=== PATIENT | male | born 1945 | race Caucasian/White ===

== ENCOUNTER 2024-01-31 10:25 | Observation (INO) | payer MEDICARE, SELFPAY ==
[2024-01-31] VITALS (12 sets, daily range): BP systolic 107–125; BP diastolic 60–76; PULSE 67–96; RESP 13–22; TEMP 34.6–36.5; O2SAT 98–100; BMI 21.7
--- NOTE | 2024-01-31 10:36 | ED.GENADULT ---
HPI - General Adult General Chief complaint: Shortness of Breath/Dyspnea Stated complaint: Swollen legs ,sore throat Time Seen by Provider: 01/31/24 10:35 History of Present Illness HPI narrative: 78-year-old gentleman was [facility] independently [facility] has been losing quite a bit of weight and friend went to check on him was concerned with the overall dramatic decline in health and took him to [facility]. He was admitted from January 10 to and review of information sent home with the patient on discharge suggests heart failure, concern for some type of cancer assess whether that is head or neck or prostate is unclear. He was discharged home on stool softeners only. He was supposed to establish care with a primary care physician, ENT, Cardiology and Oncology. He has seen a primary care physician. On January 18 he did see an ENT physician who did a nasopharyngeal scope and did not see any polyps or abnormalities. In the meantime, the patient has been living with his friend has been eating a bit more weight has stabilized slightly and he is brought in today because his friend is worried that he has increasing lower extremity edema. His hoarseness seems to be getting progressively worse. The patient himself seems unconcerned with any of these findings in his not complaining of pain beyond minor scratchiness causing the hoarseness in his throat. He denies recent fevers, cough, chills, abdominal pain, nausea, vomiting, headaches since his discharge from [facility]. No orthopnea, dyspnea, palpitations or overt chest pain. He has not particularly concerned by the increasing bilateral lower extremity edema Related Data Home Medications Medication Instructions Recorded Confirmed polyethylene glycol 3350 17 gram 17 g PO DAILY 01/31/24 01/31/24 oral powder packet (Miralax) sennosides 8.6 mg tablet (senna) 8.6 mg PO DAILY 01/31/24 01/31/24 Allergies Allergy/AdvReac Type Severity Reaction Status Date / Time No Known Drug Allergies Allergy Unverified 01/31/24 09:53 Review of Systems Review of Systems Narrative: Pertinent positive and negative findings as per HPI Patient History Medical History (Updated 01/31/24 @ 12:09 by Lavonne Narayan MD) Protein malnutrition Congestive heart failure Social History Smoking Status: Former smoker Exam Initial Vital Signs Initial Vital Signs: Vital Signs Temperature 97.7 F 01/31/24 10:40 Pulse Rate 79 01/31/24 10:40 Respiratory Rate 18 01/31/24 10:40 Blood Pressure 115/67 01/31/24 10:40 Pulse Oximetry 98 01/31/24 10:40 Oxygen Delivery Method Room Air 01/31/24 10:40 General: Chronically ill, cachectic, hoarse voice able to supplement history and cooperative with exam HEENT: Dry mucous membranes, normal sclera with reactive pupils, Neck: + JVD, no obvious adenopathy or masses palpable Respiratory: Lungs with full and symmetrical movement bibasilar crackles, no rhonchi Cardiac: Regular rate and rhythm no murmurs no bruits Abdomen: Scaphoid, Soft, nontender, no flank pain Skin: Quite thin, bruises in various stages of healing Neurologic: Globally weak but otherwise Grossly neurologically intact with no obvious asymmetries or abnormalities Extremities: No trauma, 2 to 3+ bilateral lower extremity edema without chronic venous stasis changes, no skin breakdown or cellulitis Psych: Cooperative, appropriate insight and affect Course Orders Ordered: ED Orders 01/31/24 10:55 XR chest 1V Stat Urinalysis and Microscopic Stat 01/31/24 10:56 EKG-12 Lead Stat 01/31/24 11:17 Complete Blood Count AUTO DIFF Stat Comprehensive Metabolic Panel Stat Lipase Stat NT-proBNP (BNP-Adult 18+) Stat Troponin I Stat Sodium Chloride (Sodium Chloride 0.9% Flush) 10 ml IV BID JOSE Sodium Chloride (Sodium Chloride 0.9% Flush) 10 ml IV PRN PRN PRN Reason: Flush Discontinued Medications Furosemide (Furosemide 40 Mg/4 Ml Vial) 40 mg IV NOW ONE Stop: 01/31/24 10:57 Last Admin: 01/31/24 11:23 Dose: 40 mg Documented By: SPF Vital Signs Vital signs: Vital Signs - 8 hr 01/31/24 10:40 Temperature 97.7 F Pulse Rate 79 Respiratory Rate 18 Blood Pressure 115/67 Pulse Oximetry 98 Oxygen Delivery Method Room Air Medical Decision Making Lab Data 01/31/24 11:17 01/31/24 11:17 Labs: Lab Results 01/31/24 Range/Units 11:17 WBC 3.7 L (4.5-11.0) X10^3/uL RBC 3.17 L (4.5-5.9) X10^6/uL Hgb 10.7 L (13.5-17.5) g/dL Hct 31.6 L (41-53) % MCV 99.6 (80-100) fL MCH 33.8 (26-34) PG MCHC 34.0 (30-36) % RDW 14.9 H (11.6-14.8) % Plt Count 179 (150-400) X10^3/uL Neut % (Auto) 69.6 (50-75) % Lymph % (Auto) 18.5 L (25-40) % [place] % (Auto) 8.4 (3-14) % Eos % (Auto) 2.6 (2-4) % Baso % (Auto) 0.9 (0-2) % Neut # (Auto) 2600 (3997-7674) /uL Lymph # (Auto) 700 L (5365-9161) /uL [place] # (Auto) 300 (0-900) /uL Eos # (Auto) 100 (0-450) /uL Baso # (Auto) 0 (0-100) /uL Sodium 131 L (137-145) mmol/L Potassium 4.3 (3.4-5.1) mmol/L Chloride 97 L (98-107) mmol/L Carbon Dioxide 28 (22-32) mmol/L BUN 24 H (9-20) mg/dL Creatinine 1.45 H (0.66-1.25) mg/dL Estimated GFR 49 L (>60) mL/min BUN/Creatinine Ratio 16.6 (6-22) Glucose 92 (80-110) mg/dL Calcium 10.3 H (8.4-10.2) mg/dL Total Bilirubin 0.8 (0.2-1.3) mg/dL AST 31 (17-59) IU/L ALT 18 (<50) IU/L Alkaline Phosphatase 133 H (38-126) U/L Troponin I 0.075 H (0.01-0.034) ng/mL NT-Pro-B Natriuret Pep 70453 H (<450) pg/mL Total Protein 7.7 (6.3-8.2) g/dL Albumin 3.9 (3.5-5.0) g/dL Globulin 3.8 (1.7-4.1) g/dL Albumin/Globulin Ratio 1.0 (1.0-2.8) Lipase 90 (23-300) U/L MDM Narrative Medical decision making narrative: CC: Lower extremity edema Complicating co-morbidities: Sounds like he has had minimal medical care until he was admitted to [facility] earlier this month. Records have been requested. Data collected from: patient, friend with whom he is living Social determinants of health that may influence the patients condition: Patient is rather in different to overall care, currently has a good friend who was concerned and is taking care of him has moved him into his home is making sure he is eating and getting to medical appointments Medical records reviewed: Patient discharge notes from [facility] are reviewed. Medical discharge summary has been requested. Multiple attempts have been made to continue get discharge summary from [facility]. Differential considered: Acute congestive heart failure, renal failure, liver failure, metastatic disease, Exam documented above, pertinent findings include: Frail, cachectic, lower extremity edema, hoarse voice Lab Test results independently reviewed as above. Pertinent findings: CBC shows mild anemia at 10.7 and 31.6. White count is slightly low at 3.7. Platelets are appropriate at 179 Chemistries show creatinine slightly elevated at 1.4, BUN minimally elevated at 24 ProBNP is significantly elevated at greater than 13,000 Troponin minimally elevated at 0.075 likely secondary to the significant heart failure and decreased renal function rather than NSTEMI but we will need to be trended Independently reviewed EKG: Sinus rhythm with first-degree block. No acute ischemic changes Imaging studies independently reviewed: Chest x-ray with mild cardiomegaly, increased vascularization, bilateral pleural effusions Treatments: IV Lasix is given in the emergency department Discussion: 78-year-old gentleman with multiple recently diagnosed issues including congestive heart failure. Presents today with worsening lower extremity edema clinical signs and symptoms consistent with congestive heart failure with JVD, crackles, lower extremity edema, chest x-ray suggestive of volume overload. He is given Lasix in the emergency department. He has a slightly elevated troponin that I suspect is secondary to his congestive heart failure and slightly decreased renal function. At this point I think he is going to benefit from inpatient treatment for his congestive heart failure. We are still trying to obtain records from [facility] which will be quite important for his hospitalization as it also includes a recent echocardiogram. There has been discussion of weight loss and concern for neoplasm and workup for that still needs to be reviewed. We will talk with our hospitalist physician Discharge Plan Departure Patient Disposition: Admitted As Inpatient Clinical Impression: Acute exacerbation of CHF (congestive heart failure) Qualifiers: Heart failure type: unspecified Qualified Code(s): I50.9 - Heart failure, unspecified
--- NOTE | 2024-01-31 10:55 | DI.RAD.S_ITS ---
PROCEDURE: XR CHEST 1V INDICATIONS: dyspnea TECHNIQUE: One view of the chest was acquired. COMPARISON: None. FINDINGS: Surgical changes and devices: None. Lungs and pleura: Mildly prominent interstitium. Bibasilar opacities. Wpal-xy-umnrowti bilateral effusions. Mediastinum: Borderline heart size Bones and chest wall: Degenerative changes. IMPRESSION: Mild diffuse lung disease and bibasilar opacities, possibly infectious/inflammatory versus edema. Gxsi-[id number]-[id number] effusions are present. Consider future imaging surveillance to assess for resolution. Dictated by: Teo Calabrese M.D. on 01/31/2024 at 11:26 Approved by: Teo Calabrese M.D. on 01/31/2024 at 11:26
[2024-01-31] MEDS: FUROSEMIDE 40 MG/4 ML VIAL IV (11:23)
[2024-01-31 11:28] LABS: Add Manual Diff / Slide Review NO; Basophils Absolute Auto 0 /uL (0-100); Basophils Percent Auto 0.9 % (0-2); Eosinophils Absolute Auto 100 /uL (0-450); Eosinophils Percent Auto 2.6 % (2-4); Hematocrit 31.6 % (41-53); Hemoglobin 10.7 g/dL (13.5-17.5); Lymphocytes Absolute Auto 700 /uL (1100-4500); Lymphocytes Percent Auto 18.5 % (25-40); Mean Corpuscular Hemoglobin 33.8 PG (26-34); Mean Corpuscular Volume 99.6 fL (80-100); Monocytes Absolute Auto 300 /uL (0-900); Monocytes Percent Auto 8.4 % (3-14); Neutrophils Absolute Auto 2600 /uL (1500-7000); Neutrophils Percent Auto 69.6 % (50-75); Platelet Count 179 X10^3/uL (150-400); Red Blood Cell Count 3.17 X10^6/uL (4.5-5.9); Red Cell Distribution Width 14.9 % (11.6-14.8); White Blood Cell Count 3.7 X10^3/uL (4.5-11.0)
[2024-01-31 11:39] LABS: Alanine Aminotransferase 18 IU/L (<50); Albumin 3.9 g/dL (3.5-5.0); Alkaline Phosphatase 133 U/L (38-126); Aspartate Aminotransferase 31 IU/L (17-59); BUN Creatinine Ratio 16.6 (6-22); Bilirubin Total 0.8 mg/dL (0.2-1.3); Blood Urea Nitrogen 24 mg/dL (9-20); Calcium 10.3 mg/dL (8.4-10.2); Carbon Dioxide 28 mmol/L (22-32); Chloride 97 mmol/L (98-107); Estimated Glomerular Filt Rate 49 mL/min (>60); Globulin 3.8 g/dL (1.7-4.1); Glucose 92 mg/dL (80-110); HEMOLYSIS < 15 (0-50); Lipase 90 U/L (23-300); Potassium 4.3 mmol/L (3.4-5.1); Sodium 131 mmol/L (137-145); Total Protein 7.7 g/dL (6.3-8.2)
[2024-01-31 11:51] LABS: NT-proBNP (BNP-Adult 18+) 13300 pg/mL (<450); Troponin I 0.075 ng/mL (0.01-0.034)
[2024-01-31 12:21] LABS: Appearance Urine UA CLEAR; Bilirubin Urine UA NEGATIVE (NEGATIVE); Color Urine UA YELLOW; Glucose Urine UA NEGATIVE (Negative); Ketones Urine UA NEGATIVE (NEGATIVE); Leukocyte Esterase Urine UA NEGATIVE (NEGATIVE); Nitrite Urine UA NEGATIVE (Negative); Occult Blood Urine UA TRACE-INTACT (Negative); Protein Urine UA 1+ (Negative); Urobilinogen Urine UA 0.2 E.U./dL (0.2); pH Urine UA 6.5 (4.5-8.0)
[2024-01-31 12:22] LABS: Urine Volume 10mL (spun)
[2024-01-31 12:24] LABS: Bacteria Urine None Seen; Culture Indicated Urine Cult Not Indicated; RBC Urine None Seen (0-5/HPF); Squamous Epithelial Cell Urine 0-1 /HPF (0-5/HPF); WBC Urine None Seen (0-5/HPF)
[2024-01-31] MEDS: FUROSEMIDE 80 MG in SODIUM CHLORIDE 0.9% 50 ML 116 MG IV (13:20)
--- NOTE | 2024-01-31 13:55 | PM.HP.1 ---
History of Present Illness History of Present Illness Date Patient Seen: 01/31/24 Chief complaint: Swollen legs ,sore throat Narrative: From ED Physician: 78-year-old gentleman was living independently in [facility] has been losing quite a bit of weight and friend went to check on him was concerned with the overall dramatic decline in health and took him to [facility]. He was admitted from January 10 to and review of information sent home with the patient on discharge suggests heart failure, concern for some type of cancer assess whether that is head or neck or prostate is unclear. He was discharged home on stool softeners only. He was supposed to establish care with a primary care physician, ENT, Cardiology and Oncology. He has seen a primary care physician. On January 18 he did see an ENT physician who did a nasopharyngeal scope and did not see any polyps or abnormalities. In the meantime, the patient has been living with his friend has been eating a bit more weight has stabilized slightly and he is brought in today because his friend is worried that he has increasing lower extremity edema. His hoarseness seems to be getting progressively worse. The patient himself seems unconcerned with any of these findings in his not complaining of pain beyond minor scratchiness causing the hoarseness in his throat. He denies recent fevers, cough, chills, abdominal pain, nausea, vomiting, headaches since his discharge from [facility]. No orthopnea, dyspnea, palpitations or overt chest pain. He has not particularly concerned by the increasing bilateral lower extremity edema Additional history: He recently moved from [place] up to [place] to be taken care of by a friend. The patient was living alone in [place] prior to this. He not been into see a doctor in many years and had had 6 months of weight loss as well as shortness a breath and hoarseness in his voice. He was admitted to [facility] in early January and discharge. In reviewing their records he was evaluated for edema and dyspnea on exertion and found to have an abnormal echo with EF of 50% and speckling on his echo myocardium. He also had bilateral pleural effusions which were tapped in were transudative in nature. In addition he had an abnormal protein electrophoresis. Imaging indicated possible tongue mass and laryngoscopy was fairly unremarkable. He would mild acute kidney injury with a creatinine of 1.26 that was as high as 2.16 with blood protein in his urine. The patient also had a low B12 and mild anemia. The patient was discharged on stool of medications only in his had progressive edema and dyspnea as well as weakness since his discharge. The patient spends a lot of his time in bed. 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 In reviewing imaging from his admission his CT of the abdomen and pelvis revealed pleural effusion as well as atelectasis of the right lower lobe in addition he had prostatic enlargement and diffuse block bladder wall thickening. A CT of the neck revealed a possible tongue mass as mentioned above. Chest x-ray revealed diffuse opacities and pulmonary edema. Echo revealed an EF of 50% with LVH and normal right ventricle size. Pulmonary hypertension was called with an RVSP of 39. Also had a small pericardial effusion. Cardiology recommended consideration a cardiac echo to rule out infiltrative process. There is also some past history concern a possible hepatocellular mass, this was not seen on imaging. He denies any specific past medical history and his medical interactions are as outlined above. He is interested in establishing local care with primary care as well as Cardiology. He is not hypoxemic. [facility] Medical History Protein malnutrition Congestive heart failure Social History household members: friend(s) Smoking Status: Former smoker alcohol intake: former Meds Home Medications and Allergies Home Medications Medication Instructions Recorded Confirmed Type polyethylene glycol 3350 17 gram 17 g PO DAILY 01/31/24 01/31/24 History oral powder packet (Miralax) sennosides 8.6 mg tablet (senna) 8.6 mg PO DAILY 01/31/24 01/31/24 History Allergies Allergy/AdvReac Type Severity Reaction Status Date / Time No Known Drug Allergies Allergy Unverified 01/31/24 09:53 Review of Systems Review of Systems Narrative: all else reviewed and otherwise unremarkable except as noted in the history and physical. Exam Vital Signs (past 8 hours): - 01/31/24 10:37 01/31/24 10:38 01/31/24 10:38 Temperature Pulse Rate 79 76 Respiratory Rate Blood Pressure 115/67 Pulse Oximetry 99 99 Oxygen Delivery Method 01/31/24 10:40 01/31/24 11:00 01/31/24 11:00 Temperature 97.7 F Pulse Rate 79 70 Respiratory Rate 18 22 Blood Pressure 115/67 107/60 Pulse Oximetry 98 98 Oxygen Delivery Method Room Air Room Air 01/31/24 11:30 01/31/24 11:54 01/31/24 11:54 Temperature Pulse Rate 70 70 Respiratory Rate 17 17 Blood Pressure 119/69 Pulse Oximetry 100 100 Oxygen Delivery Method 01/31/24 12:00 01/31/24 12:00 01/31/24 12:35 Temperature Pulse Rate 67 Respiratory Rate 18 Blood Pressure 119/74 115/67 Pulse Oximetry 100 Oxygen Delivery Method Room Air 01/31/24 12:35 01/31/24 13:00 01/31/24 13:00 Temperature Pulse Rate 68 96 H Respiratory Rate 17 17 Blood Pressure 117/76 Pulse Oximetry 100 98 Oxygen Delivery Method Room Air Room Air 01/31/24 13:30 01/31/24 13:30 Temperature Pulse Rate 67 Respiratory Rate 13 Blood Pressure 125/68 Pulse Oximetry 99 Oxygen Delivery Method Room Air Oxygen Delivery Method Room Air Narrative Exam Narrative: NAD, alert and oriented, fluent speech, calm. He is somewhat stoic, he is also quite cachectic. Normocephalic skull, EOMI, anicteric sclera, symmetric pupils. Oropharynx unremarkable, no droop. Neck supple, midline trachea, no adenopathy. Lungs clear, normal rate and effort. Heart regular, no murmur gallop or rub. Abdomen is soft, non distended and non tender. Extremities are with bilateral pitting edema. Skin is free of rash or lesions. Joints are not swollen or deformed. Judgment appears to be normal. Objective Imaging Chest x-ray: Radiologist's impression: Mild diffuse lung disease and bibasilar opacities, possibly infectious/inflammatory versus edema. Hsxw-[id number] effusions are present. Consider future imaging surveillance to assess for resolution. Labs 01/31/24 11:17 01/31/24 11:17 Labs: Laboratory Results - last 24 hr 01/31/24 01/31/24 11:17 11:54 WBC 3.7 L RBC 3.17 L Hgb 10.7 L Hct 31.6 L MCV 99.6 MCH 33.8 MCHC 34.0 RDW 14.9 H Plt Count 179 Neut % (Auto) 69.6 Lymph % (Auto) 18.5 L [place] % (Auto) 8.4 Eos % (Auto) 2.6 Baso % (Auto) 0.9 Neut # (Auto) 2600 Lymph # (Auto) 700 L [place] # (Auto) 300 Eos # (Auto) 100 Baso # (Auto) 0 Sodium 131 L Potassium 4.3 Chloride 97 L Carbon Dioxide 28 BUN 24 H Creatinine 1.45 H Estimated GFR 49 L BUN/Creatinine Ratio 16.6 Glucose 92 Calcium 10.3 H Total Bilirubin 0.8 AST 31 ALT 18 Alkaline Phosphatase 133 H Troponin I 0.075 H NT-Pro-B Natriuret Pep 66731 H Total Protein 7.7 Albumin 3.9 Globulin 3.8 Albumin/Globulin Ratio 1.0 Lipase 90 Urine Color Yellow Urine Appearance Clear Urine pH 6.5 Ur Specific [place] 1.010 Urine Protein 1+ H Urine Glucose (UA) Negative Urine Ketones Negative Urine Occult Blood Trace-intact Urine Nitrate Negative Urine Bilirubin Negative Urine Urobilinogen 0.2 Ur Leukocyte Esterase Negative Urine RBC None seen Urine WBC None seen Ur Squamous Epith Cells 0-1 /hpf Urine Bacteria None seen Ur Culture Indicated? Cult not indicated Vol Urine Centrifuged 10ml (spun) Assessment & Plan Assessment & Plan narrative: 1. Acute CHF (mixed systolic and diastolic), present on admission and active. 2. JAX versus chronic kidney disease, present on admission and active. 3. Hypercalcemia, present on admission and active. 4. Possible abnormal protein electrophoresis, records from [facility] pending. 5. Pulmonary infiltrates seen again today on chest x-ray, with effusions. Likely pulmonary edema. Present on admission and active. 6. Unexplained weight loss, present on admission and active. 7. Hypercalcemia, present on admission and active. Plan: - We will diuresed for heart failure and monitor pulmonary edema and global edema. - We will repeat SPEP and UPEP. He seems to be at significant risk for multiple myeloma. - We will monitor calcium. - We will monitor renal function. - Physical therapy evaluation of function. - Dietary evaluation for probable malnutrition. - Establish follow up locally with primary care and Cardiology. - He is full resuscitation, confirmed time of admission. I do not believe he has a formal proxy but as living with a very good friend who likely would be his proxy decision maker. Need to confirm if they have filled out power of estate planning attorney paperwork. Estimated length of stay is 1 night, he was placed initially in observation. Time Spent With Patient Time with patient: 30 to 49 minutes with 50% spent counseling/coordinating care
[2024-01-31] MEDS: HEPARIN 5,000 UNIT/ML VIAL 5000 UNIT SUBCUT ×2 (14:56→21:08)
[2024-01-31] MEDS: BENZOCAINE/MENTHOL 1 LOZ PKT 1 EACH PO (21:08)
[2024-01-31] MEDS: SODIUM CHLORIDE 0.9% FLUSH 10 ML IV (21:09)
[2024-02-01] VITALS: BP 106/62; PULSE 83; RESP 16; TEMP 36.9; O2SAT 97
[2024-02-01] MEDS: FUROSEMIDE 40 MG/4 ML VIAL IV ×2 (00:35→14:23)
[2024-02-01 04:00] VITALS: BP 106/64; PULSE 74; RESP 17; TEMP 36.3; O2SAT 96
[2024-02-01] MEDS: BENZOCAINE/MENTHOL 1 LOZ PKT 1 EACH PO ×3 (05:55→14:20)
[2024-02-01 06:11] LABS: Add Manual Diff / Slide Review NO; Basophils Absolute Auto 0 /uL (0-100); Basophils Percent Auto 0.7 % (0-2); Eosinophils Absolute Auto 100 /uL (0-450); Eosinophils Percent Auto 2.5 % (2-4); Hematocrit 32.2 % (41-53); Hemoglobin 11.1 g/dL (13.5-17.5); Lymphocytes Absolute Auto 900 /uL (1100-4500); Lymphocytes Percent Auto 22.1 % (25-40); Mean Corpuscular HGB Conc 34.6 % (30-36); Mean Corpuscular Hemoglobin 34.2 PG (26-34); Mean Corpuscular Volume 98.8 fL (80-100); Monocytes Absolute Auto 400 /uL (0-900); Monocytes Percent Auto 9.7 % (3-14); Neutrophils Absolute Auto 2600 /uL (1500-7000); Platelet Count 179 X10^3/uL (150-400); Red Blood Cell Count 3.26 X10^6/uL (4.5-5.9); Red Cell Distribution Width 15.2 % (11.6-14.8)
[2024-02-01 06:19] LABS: BUN Creatinine Ratio 18.2 (6-22); Blood Urea Nitrogen 27 mg/dL (9-20); Calcium 9.9 mg/dL (8.4-10.2); Carbon Dioxide 34 mmol/L (22-32); Chloride 94 mmol/L (98-107); Estimated Glomerular Filt Rate 48 mL/min (>60); Glucose 87 mg/dL (80-110); HEMOLYSIS < 15 (0-50); Potassium 3.5 mmol/L (3.4-5.1); Sodium 132 mmol/L (137-145)
[2024-02-01 08:00] VITALS: BP 109/64; PULSE 78; TEMP 36.3; O2SAT 99
[2024-02-01] MEDS: HEPARIN 5,000 UNIT/ML VIAL 5000 UNIT SUBCUT ×2 (08:24→21:13)
--- NOTE | 2024-02-01 10:31 | CM.DANOTE ---
Addendum entered by MAURISIO Arzate 02/01/24 15:21: PT current rec home with assistance. SL Original Note: DCP Assessment Note Pt is an 78yo M here under OBS here following acute CHF exacerbation. Was admitted to [facility] in early January for HF. Has had progressing weakness since dc. Lived in [place] alone but recently has moved to [place] and is now living with friend Pan and his spouse. Pt has lost quite a bit of weight- ED documentation reports concern for head/neck/prostate cancer. PCP Not established with local PCP yet. Working on establishing with Dr. Gonzalez. Pt and friend are hopeful that with this admission his SOC and PCP follow up could be expedited. Payer [employer] Medicare and self pay. COOKY MACHINE OPERATOR reviewed EMR. PT eval pending. Per hospitalist in morning multidisciplinary rounds, speech eval pending as well. potential to dc tomorrow. Per hospitalist, working on arranging OP oncology f/u. Provider gave verbal approval for HH if recommended by therapy teams. COOKY MACHINE OPERATOR met with pt and friend Pan ([phone]) in room. Pt quiet throughout interaction, pt appeared [place]. Pt and friend report pt recently moved in with Pan over the past few weeks. Pan drives pt, helps with meal prep, and home chores. Pan works close to home and checks on him often throughout the day. ambulates indep at baseline but they have a cane if needed. Friend planning on going to [facility] to get walker if PT eval recommends one. No hx of HH but interested if recommended. COOKY MACHINE OPERATOR explained that due to pt not actively being followed by a PCP but working on it, only HH options is [facility] and if our teams do not rec HH this admission, PCP office can also always rec HH if pt continues to weaken/decrease in mobilizing. Pt and friend report understanding. Pt reports no healthcare/financial POA but interested in making Pan POA. Pan agreeable, COOKY MACHINE OPERATOR provided DPOA ppwk to friend. Pt and Pan deny additional CM needs at this time. COOKY MACHINE OPERATOR gave them copy of senior resources booklet in the even of LTC planning or additional concerns. Pt and friend appreciative. Plan: anticipate dc home with friend tomorrow, 02/01. CM team will follow close for PT/speech rec. If rec HH- referral to [facility] needed. CM team will f/u about POA ppwk/arranging notary if needed for POA ppwk. CM team will continue to follow closely. MAURISIO Arzate Discharge Planning/Care Management CM Discharge Assessment Start: 02/01/24 10:26 Freq: Status: Active Protocol: Document 02/01/24 10:26 SL (Rec: 02/01/24 10:31 [id number]) Discharge Planning Assessment Assigned Marketing Outreach Coordinator MAURISIO Schofield DPOA/Assigned Designee Name jaun Perla Contact Information [phone] Advance Directives? Yes Advance Directives on File No History Provided By Patient,Friend Prior Living Arrangements House Household Members friend(s) Comment lives with friend Pan and Pan's spouse Type of transporation used prior to Relies on Others admit Independent with ADL's No Is patient alert and oriented? Yes Needs Assistance With Meal Prep,Managing Medications ,Home Chores / Shopping DME Already Rented / Owned Cane Comment owns a cane. friend knows about [employer] and can get walker if needed. Comment open to HH if needed. Barriers to Discharge No Discharge Plan Home Transportation Arrangement friend in POV Additional Comment r/o need for HH after PT eval. Pt is not currently established with PCP, working on appt with Dr. Gonzalez. only option would be [facility] if HH recommended. SNF/HH Preference Pt is not currently established with PCP, working on appt with Dr. Gonzalez. only option would be [facility] if HH recommended. Whiteboard Updated in Patient Room with Yes name and ext. # of Marketing Outreach Coordinator Review Status In Process Please Provide Date Initial DC 02/01/24 Assessment Was Performed Next Review Type Continued Stay Review
[2024-02-01] MEDS: OXYCODONE 5 MG/5 ML ORAL SOLUTION PO (10:34)
--- NOTE | 2024-02-01 10:35 | PT.IIE ---
Medical History (Last Reviewed 01/31/24 @ 13:56 by Kris Pavon MD) Congestive heart failure Protein malnutrition Physical Therapy Inpatient Evaluation/Re-Eval M1 PT/OT-IP Prior Functional Status Start: 02/01/24 12:22 Freq: NEEDED Status: Active Protocol: Document 02/01/24 10:35 AB (Rec: 02/01/24 12:46 AB [id number]) Medical Review Prior Functional Status Medical History Reviewed Yes Communication able to make needs known Mobility and Gait pt stated that he was independent with all mobilities and ambulation without AD Social History Household Members friend(s) Living Arrangements House Number of Floors (Floors) Two Floors Number of Stairs To Enter/Railing? 5 steps L rail ascending to enter the house has 7 steps R rail descending to get to bedroom level Home Environment Standard Height Toilet,Walk in Shower Home Equipment Grab Bars In Shower M2 PT-IP Current Condition Start: 02/01/24 12:22 Freq: NEEDED Status: Active Protocol: Document 02/01/24 10:35 AB (Rec: 02/01/24 12:46 AB [id number]) Physical Therapy Current Condition Current Condition Evaluation Date 02/01/24 Treatment Diagnosis CHF; difficulty in walking Onset Date 01/31/24 M3 PT-IP Subjective Start: 02/01/24 12:22 Freq: NEEDED Status: Active Protocol: Document 02/01/24 10:35 AB (Rec: 02/01/24 12:46 AB [id number]) Subjective Physical Therapy Visit Type Type Initial Evaluation Visit Start Time 10:35 Visit Stop Time 11:05 Number of LANGUAGE TUTOR Visits 0 Physical Therapy Visit Comments Patient Comments agreeable to do PT Therapy Pain Assessment Pain Present Pain Present Denied Pain M4 PT-IP Mobility and Gait Start: 02/01/24 12:22 Freq: NEEDED Status: Active Protocol: Document 02/01/24 10:35 AB (Rec: 02/01/24 12:46 AB [id number]) PT-Bed Mobility Assessment Supine to Sit Supine to Sit Standby Assistance PT-Transfer Assessment Sit to and From Stand Sit to and from Stand Contact Guard Assistance,1 Person Assistance,Use of Upper Extremities Equipment Transfer Assistive Device None,Gait Belt,Straight Cane Orthotic/Prosthetic Devices or Brace: No Transfers Transfer Destination Chair Transfer Technique ambulated Transfer Ability Level of Assist Standby Assistance,Contact Guard Assistance,Minimal Assistance,1 Person Assistance ,Use of Upper Extremities Comments Mobility Comments pt supine in bed and agreeable to do PT. obtained PLOF and home set up. pt completed supine to sit SBA. able to sit on EOB SBA. no c/o dizziness /lightheadedness. completed sit to stand CGA and ambulated in room using FWW ~ 10 ft SBA . assessed ambulation without AD and pt completed ~ 30 ft requiring CGA to min A with (+ ) LOB towards the L needing min A for stability. pt stated that his LLE is shorter . educated pt on safety and use of an AD. Assessed ambulation using SPC and pt completed SBA to CGA ~ 30 ft and occasional cues for safety . pt agreed to sit up on the chair. positioned pt on the chair. call light and table placed within reach. informed pt regarding use of SPC at this time if pt d/c home and pt agreed. Gait Assessment Gait Gait Assistance Required: Standby Assistance,Contact Guard Assist,Minimum Assistance Distance (Feet) 30 Able to Maintain Weight Bearing Status Yes During Gait Assistive Devices Assistive Device None,Gait Belt,Straight Cane Orthotic/Prosthetic Devices or Brace: No Gait Deviations General Gait Pattern Antalgic,Decreased Stride Length,Decreased Feet Clearance,Lateral Trunk Lean Factors Limiting Gait Function Factors Limiting Gait Function Decreased Activity Tolerance, Decreased Strength,Difficulty Following Directions,Limited Range of Motion,Pain,Poor Balance,Poor Safety Awareness PT-Balance Assessment Sitting Balance and Reactions Static Sitting Balance Ability Normal Dynamic Sitting Balance Ability Good Standing Balance and Reactions Static Standing Balance Ability Good Dynamic Standing Balance Ability Fair Device Used without AD M5 PT-IP Objective Assessments Start: 02/01/24 12:22 Freq: NEEDED Status: Active Protocol: Document 02/01/24 10:35 AB (Rec: 02/01/24 12:46 AB [id number]) Orientation Orientation/Cognition Level of Alertness Alert Language Function Ability Hard of Hearing Safety Awareness Decreased Safety Awareness Memory Description Short Term Impaired Comments with slight confusion Gross Range of Motion Lower Extremity ROM Assessment Within Functional Limits Strength Lower Extremity Strength Hip 4-/5 Knee 4-/5 Coordination Assessment Gross Coordination Gross Coordination WNL Muscle Tone Muscle Tone WNL Yes M6 PT-IP Treatment Start: 02/01/24 12:22 Freq: NEEDED Status: Active Protocol: Document 02/01/24 10:35 AB (Rec: 02/01/24 12:46 AB [id number]) Physical Therapy Treatment Education Education Provided Safety M7 PT-IP Assessment and Plan Start: 02/01/24 12:22 Freq: NEEDED Status: Active Protocol: Document 02/01/24 10:35 AB (Rec: 02/01/24 12:46 [id number]) PT Summary Assessment and Plan Potential Rehabilitation Potential Fair Status of Condition at Evaluation Evolving Summary Impairments Pain,ROM,Strength,Balance, Coordination,Sensation,Tone, Cognition,Bed Mobility, Transfers,Gait,Activity Tolerance Assessment Summary pt is an 78 y/o M who presnted to the ED for LE edema. pt admitted for acute CHF. pt requiring CGA to min A with ambulation without AD. Recommending use of SPC or FWW for ambulation at this time. pt plans to go back home and has his friends to assist him if needed. will conduct caregiver training when appropriate. will also complete stair climbing prior to d/c as pt has steps to enter the house and to get o bedroom level. will continue to assess progress. Goals Bed Mobility Goal Independent Transfer Goal Independent,Cane,Front Wheeled Walker Gait Goal Independent,Cane,Front Wheel Walker Gait Distance 250 Other Goals improve transfers and ambulation without AD ~ 300 ft mod I up/down 7 steps L rail ascending mod I Days to Meet Goals 10 Frequency of Treatment Frequency Of Treatment Once a Day Treatment Plan Physical Therapy Treatment Plan Bed Mobility Training,Transfer Training,Gait Training, Therapeutic Exercise,Balance Retraining,Post Op Education, Discharge Planning,Hot or Cold Pack,Neuromuscular Re-ed, Coordination Retraining,Manual Therapy Precautions Other Precautions falls Recommendations To Nursing Amount of Assist Needed 1 Person Assist Discharge Recommendations PT Discharge Recommendations Home with Assistance Transportation Needs at Discharge Private Vehicle
[2024-02-01 11:35] VITALS: BP 110/63; PULSE 69; RESP 18; O2SAT 100
--- NOTE | 2024-02-01 13:06 | DIET.CONS ---
Dietary Consultation Note Admission Date: 01/31/2024 12:46 Assessment: 78 y M admitted with acute CHF. Nutrition screened for low MNA. Recent hospitalization in January with discharge suggestive of heart failure and concern for some type of cancer. Met with pt at bedside, reports decrease interest in food/low appetite for past 4-6 months, eating 1/3 to 1/2 less than normal on plate or skipping meals/snacks, followed by unintended weight loss. Per healthcare team rounds, oncology consultation placed and speech therapy consult, due to pt reported pain when swallowing, placed. Reports having snacks or convenience meals over cooked meals when living alone, but now he lives with friend who is a shirt maker. Friend makes dinner for him nightly so he feels he is eating more. Diet recall, since move in with friend (recent): B: cereal and milk L-pb and jelly sandwich D-protein, carb, veg cooked meal Nutrition focused physical exam performed: Muscle wasting: -Severe temporalis loss -Severe loss in clavicle region (deltoids, pectoralis major, trapezius) -Severe interosseous loss Subcutaneous fat loss: -Severe buccal and orbital fat pad loss Ht: 175.26 cm Wt: 66.678 kg BMI: 21.7 UBW: 72.73 kg 4 months ago per pt (-8.3% weight loss within 4 months); limited chart weights, noted edema, being diuresis on lasix Last BM: 01/31/24 (01/31/24 14:24) MNA: 7 Darnell Score: 17 Diet: 01/31/24 Dinner Low Sodium Diet (2gm) Diet Modifications: Labs: RBC 3.26 X10^6/uL (4.5-5.9) L 02/01/24 05:30 Hgb 11.1 g/dL (13.5-17.5) L 02/01/24 05:30 Hct 32.2 % (41-53) L 02/01/24 05:30 Creatinine 1.48 mg/dL (0.66-1.25) H 02/01/24 05:30 NT-Pro-B Natriuret Pep 66470 pg/mL (<450) H 01/31/24 11:17 Nutrition Diagnosis: Severe Chronic Protein Calorie Malnutrition r/t to decreased ability to consume adequate intake as evidenced by severe muscle mass wasting (deltoids, pectoralis major, trapezius, temporalis, interosseous), severe subcutaneous fat loss (buccal, orbital), <75% of estimated energy needs for 4 months per diet recall, BMI 21.7 (underweight for age) Interventions: 1. MNT for malnutrition provided 2. Ordered Ensure Enlive BID EER: [id number] kcals/day (25-30 kcals per BMI) 80-90 g protein (1.2-1.35 g/kg per JAX vs CKD, malnourished, depleted HF) Monitoring/Evaluations: weight, po intakes, ONS tolerance, ST eval Electronically Signed by: Soledad Sánchez 02/01/24 13:06 Clinical Dietitian [address] [address]
--- NOTE | 2024-02-01 13:40 | ST.IPIE ---
Visit Care Team Role Provider Type ED* *Temp Referring Provider Physician Specialty: Emergency Medicine Address: Phone: Fax: Email: Doctor Marisela MD Primary Care Provider Non-Staff Specialty: Medical Address: Phone: Fax: Email: Lavonne Narayan MD Emergency Provider Physician Specialty: Emergency Medicine Address: [address] [place] [address] Email: Kris Pavon MD Admit Provider Physician Attending Provider Specialty: Internal Medicine Address: [address] [place] [address] Email: [email or web address] Past Medical History (Last Reviewed 01/31/24 @ 13:56 by Kris Pavon MD) Congestive heart failure (Medical) Protein malnutrition (Medical) ST IP Initial Evaluation Report RESISTOR TESTER Clinical Swallow Evaluation Start: 02/01/24 13:26 Freq: Status: Active Protocol: Document 02/01/24 13:26 MA (Rec: 02/01/24 13:40 MA [id number]) Clinical Swallow Evaluation Session Time Visit Start Time 12:05 Visit Stop Time 12:35 Total Visit Minutes 30 Visit Information Visit Number Initial eval Referral Referring Provider Dr. Kris Wagner Reason for Referral Hx of dysphagia Setting Assessment Location Acute Care Visit Type Note Type Initial evaluation Next Note Type Next Note Type Treatment Note Patient Information Identification Type Name History Per H&P: 78[facility] quite a bit of weight and friend went to check on him was concerned with the overall dramatic decline in health and took him to [facility]. He was admitted from January 10 to and review of information sent home with the patient on discharge suggests heart failure, concern for some type of cancer assess whether that is head or neck or prostate is unclear. He was discharged home on stool softeners only. He was supposed to establish care with a primary care physician, ENT, Cardiology and Oncology. He has seen a primary care physician. On January 18 he did see an ENT physician who did a nasopharyngeal scope and did not see any polyps or abnormalities. In the meantime, the patient has been living with his friend has been eating a bit more weight has stabilized slightly and he is brought in today because his friend is worried that he has increasing lower extremity edema. His hoarseness seems to be getting progressively worse. The patient himself seems unconcerned with any of these findings in his not complaining of pain beyond minor scratchiness causing the hoarseness in his throat. He denies recent fevers, cough, chills, abdominal pain, nausea , vomiting, headaches since his discharge from [facility]. No orthopnea, dyspnea, palpitations or overt chest pain. He has not particularly concerned by the increasing bilateral lower extremity edema Additional history: He recently moved from [place] up to [place] to be taken care of by a friend. The patient was living alone in [place] prior to this. He not been into see a doctor in many years and had had 6 months of weight loss as well as shortness a breath and hoarseness in his voice. He was admitted to [facility] in early January and discharge. In reviewing their records he was evaluated for edema and dyspnea on exertion and found to have an abnormal echo with EF of 50% and speckling on his echo myocardium. He also had bilateral pleural effusions which were tapped in were transudative in nature. In addition he had an abnormal protein electrophoresis. Imaging indicated possible tongue mass and laryngoscopy was fairly unremarkable. He would mild acute kidney injury with a creatinine of 1.26 that was as high as 2.16 with blood protein in his urine. The patient also had a low B12 and mild anemia. The patient was discharged on stool of medications only in his had progressive edema and dyspnea as well as weakness since his discharge. The patient spends a lot of his time in bed. 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 In reviewing imaging from his admission his CT of the abdomen and pelvis revealed pleural effusion as well as atelectasis of the right lower lobe in addition he had prostatic enlargement and diffuse block bladder wall thickening. A CT of the neck revealed a possible tongue mass as mentioned above. Chest x-ray revealed diffuse opacities and pulmonary edema. Echo revealed an EF of 50% with LVH and normal right ventricle size. Pulmonary hypertension was called with an RVSP of 39. Also had a small pericardial effusion. Cardiology recommended consideration a cardiac echo to rule out infiltrative process. There is also some past history concern a possible hepatocellular mass, this was not seen on imaging. He denies any specific past medical history and his medical interactions are as outlined above. He is interested in establishing local care with primary care as well as Cardiology. He is not hypoxemic. PMHx significant for: Protein malnutrition Congestive heart failure Pt referred for ST evaluation in order to determine safest and most efficient least restrictive diet. Subjective Observations Pt sitting upright in chair in room with lunch meal. He reports hx of swallowing difficulties, specifically choking on solids. He states he makes sure to eat slowly and take small bites. He states he has to have a drink while eating to assist with clearance. Reported by Patient/Caregiver Other Symptoms Choking,Difficulty swallowing solids Current Diet Regular (IDDSI 7) Baseline Feeding Method Dependent for feeding The IDDSI Framework Protocol: IDDSI.1 Objective Assessment Mental Status Alert,Responsive,Cooperative Dentition Missing teeth Comment Oral motor exam revealed generalized reduced lingual and labial strength and ROM. Food and Liquid Trials Position During Assessment Upright (90 degrees) Liquids Trialed Thin (IDDSI 0) Solid Trials Purred (IDDSI 4),Soft & Bite- sized (IDDSI 6),Regular (IDDSI 7) Administration Type Straw,Self-feeding Oral Impairment Mildly impaired Oral Phase Comments Pt consumed regular turkey cut into small pieces, soft carrots, mashed potatoes and a soft cookie, as all we about 4 oz of thin water via straw. For all solids Pt demonstrated small bites and independently alternated liquids/solids to assist with intake. For turkey and cookie Pt demonstrated small bites and slow rate, however prolonged mastication with extended ap transport and mild-mod diffuse oral stasis. For soft carrots and mash potatoes he demonstrated small bites and slow rate, prolonged mastication however adequate bolus formation and control, extended ap transport , piecemeal deglutition. Adequate bolus formation and control with mash potatoes. For water Pt demonstrated adequate suction, good oral acceptance and containment. Pharyngeal Impairment Moderately impaired Pharyngeal Phase Comments Pt with inconsistent throat clearing throughout meal. He had a hoarse/strained vocal quality throughout evaluation. For turkey Pt reported 1x feeling of food stuck in his throat. He states a hhx of choking on solids and makes sure to eat slowly and take small bites. He stated he did not think he wanted to eat more of the turkey. For the soft carrots and soft cookie and mashed potatoes Pt with suspected delay in swallow, no overt s/s of aspiration. No overt s/s of aspiration with thin water. Fatigue/Endurance Endurance WNL The IDDSI Framework Protocol: IDDSI.1 Findings Swallowing Function Oropharyngeal phase dysphagia Severity of Swallow Impairment Moderately impaired Contributing Factors to Swallow Mastication inefficiency Impairment Prognosis Fair Impact on Safety and Functioning Risk for inadequate nutrition/ hydration Recommendations Instrumental Assessment Yes Swallowing Treatment Yes Frequency Daily while inpatient Recommended Solids Minced & Moist (IDDSI 5) Recommended Liquids Thin (IDDSI 0) Other Recommendations ST recommends IDDSI 5/IDDSI 0 as well as a MBS. Safety Precautions/Swallowing Remain upright (90 degrees) Recommendations during all oral intake,Upright position at least 30 minutes after meals,Small bites and sips when eating,Slow rate; swallow between bites, Alternate liquids and solids, Strict oral care after intake Medication Recommendations As Tolerated Education Patient/Caregiver Education Described results of evaluation,Patient expressed understanding of evaluation, Patient requires further education/training Goals Short-term Goals STG 1: Patient will utilize safe swallowing strategies 90% of the time with minimal verbal cues in order to consume safest and most efficient least restrictive diet. STG 2: Patient will tolerate PO trials of IDDSI 5/6 with no clinical s/s of dysphagia 100 % of the time in order to consume least restrictive diet . STG 3: Patient will tolerate thin liquids with no clinical s/s of aspiration 100% of the time in order to consume least restrictive diet. Long-term Goals LTG: Patient will tolerate safest and most efficient diet with no clinical s/s of aspiration or dysphagia 100% of the time in order to consume least restrictive diet .
[2024-02-01] MEDS: POTASSIUM CHLORIDE 20 MEQ TAB 40 MEQ PO (14:20)
[2024-02-01] MEDS: SODIUM CHLORIDE 0.9% FLUSH 10 ML IV ×2 (14:23→21:13)
[2024-02-01 15:46] LABS: Creatinine Urine Random 51.3 mg/dL; Protein (Total) Urine Random 67 mg/dL (0-12)
[2024-02-01 16:00] VITALS: BP 91/51; PULSE 77; RESP 18; TEMP 36.4; O2SAT 100
--- NOTE | 2024-02-01 20:08 | PC.NURSE ---
Swallow: Having difficulty swallowing and voice is hoarse. He was unable to eat most of his breakfast. MD made aware. He has seen ST, likes to gargle with salt water. He likes the changes to his diet. He is resting quietly at this time.
--- NOTE | 2024-02-01 20:13 | PM.PN.1 ---
Subjective Subjective Date Patient Seen: 02/01/24 Interval history: Pt noted improvement in LE edema on IV Lasix. He has been diuresing well. Exam Vital Signs (past 8 hours): - 02/01/24 16:00 Temperature 97.6 F Pulse Rate 77 Respiratory Rate 18 Blood Pressure 91/51 L Pulse Oximetry 100 Oxygen Flow Rate 0 Oxygen Delivery Method Room Air Oxygen Flow Rate 0 Narrative Exam Narrative: Gen: alert, thin male, NAD Lungs: clear CV: regular Ext: mild to mod pretibial edema Objective Labs 02/01/24 05:30 02/01/24 05:30 Labs: Laboratory Results - last 24 hr 01/31/24 02/01/24 18:15 05:30 WBC 4.0 L RBC 3.26 L Hgb 11.1 L Hct 32.2 L MCV 98.8 MCH 34.2 H MCHC 34.6 RDW 15.2 H Plt Count 179 Neut % (Auto) 65.0 Lymph % (Auto) 22.1 L Laurens % (Auto) 9.7 Eos % (Auto) 2.5 Baso % (Auto) 0.7 Neut # (Auto) 2600 Lymph # (Auto) 900 L [place] # (Auto) 400 Eos # (Auto) 100 Baso # (Auto) 0 Sodium 132 L Potassium 3.5 Chloride 94 L Carbon Dioxide 34 H BUN 27 H Creatinine 1.48 H Estimated GFR 48 L BUN/Creatinine Ratio 18.2 Glucose 87 Calcium 9.9 U Random Total Protein 67 H Urine Creatinine 51.3 Protein/Creatinin Ratio 1.30 [facility] Medical History Protein malnutrition Congestive heart failure Social History household members: friend(s) Smoking Status: Former smoker alcohol intake: former Assessment & Plan Assessment & Plan narrative: 1. Acute CHF (mixed systolic and diastolic), present on admission and active. BNP > 13,000. 2. JAX versus chronic kidney disease, present on admission and active. 3. Hypercalcemia, present on admission and active. 4. Possible abnormal protein electrophoresis, records from [facility] pending. 5. Pulmonary infiltrates seen again today on chest x-ray, with effusions. Likely pulmonary edema. Present on admission and active. 6. Unexplained weight loss, present on admission and active. 7. Hypercalcemia, mild, present on admission and active. PLAN: - CXR c/w pulmonary edema - BP low normal so may not tolerate much more diuresis - We will diuresed for heart failure and monitor pulmonary edema and global edema. Cont IV Lasix through today then d/c on low dose oral Lasix - We will repeat SPEP and UPEP. He seems to be at significant risk for multiple myeloma. Results pending. - We will monitor calcium, normalized with IV Lasix. - We will monitor renal function. - Physical therapy evaluation of function. - Dietary evaluation for probable malnutrition. - Establish follow up locally with primary care and Cardiology. - Cardiac MRI was previously recommended as outpatient. - Establish with oncology - [facility] - He is full resuscitation, confirmed time of admission. I do not believe he has a formal proxy but as living with a very good friend who likely would be his proxy decision maker. Rec he have official POA paperwork done. Quality VTE Deep Vein Thrombosis/Pulmonary Embolism Present on Admission: No
[2024-02-01 20:22] VITALS: BP 102/59; PULSE 111; RESP 19; TEMP 36.8; O2SAT 99
[2024-02-01] MEDS: CALCIUM CARBONATE 500 MG TAB 1000 MG PO (21:12)
[2024-02-02 00:03] VITALS: BP 96/56; PULSE 116; RESP 19; TEMP 36.8; O2SAT 98
[2024-02-02 03:42] VITALS: BP 115/62; PULSE 77; RESP 20; TEMP 36.7; O2SAT 97
[2024-02-02] MEDS: BENZOCAINE/MENTHOL 1 LOZ PKT 1 EACH PO ×2 (04:19→09:56)
[2024-02-02 06:41] VITALS: BP 112/66; PULSE 95; RESP 17; TEMP 36.4; O2SAT 96
[2024-02-02 06:44] LABS: Add Manual Diff / Slide Review NO; Basophils Absolute Auto 0 /uL (0-100); Basophils Percent Auto 0.6 % (0-2); Eosinophils Absolute Auto 100 /uL (0-450); Eosinophils Percent Auto 2.5 % (2-4); Hematocrit 31.1 % (41-53); Hemoglobin 10.9 g/dL (13.5-17.5); Lymphocytes Absolute Auto 900 /uL (1100-4500); Lymphocytes Percent Auto 18.3 % (25-40); Mean Corpuscular Volume 97.2 fL (80-100); Monocytes Absolute Auto 400 /uL (0-900); Monocytes Percent Auto 9.2 % (3-14); Neutrophils Absolute Auto 3400 /uL (1500-7000); Neutrophils Percent Auto 69.4 % (50-75); Platelet Count 180 X10^3/uL (150-400); Red Cell Distribution Width 14.9 % (11.6-14.8); White Blood Cell Count 4.8 X10^3/uL (4.5-11.0)
--- NOTE | 2024-02-02 06:55 | PC.NURSE ---
Pt. C/O heart palpitations & some SOB. Room air sat. 97%, heart rate low hundred 102-105 to high 90's per telemetry. States not quite a chest pain, but some shortness of breath. Encouraged deep breathing, reassessed patient states I think I'm okay now. Messages sent to Dr. Soni.
[2024-02-02 07:01] LABS: BUN Creatinine Ratio 19.5 (6-22); Blood Urea Nitrogen 29 mg/dL (9-20); Calcium 9.6 mg/dL (8.4-10.2); Carbon Dioxide 34 mmol/L (22-32); Chloride 94 mmol/L (98-107); Estimated Glomerular Filt Rate 47 mL/min (>60); Glucose 101 mg/dL (80-110); HEMOLYSIS < 15 (0-50); Potassium 3.7 mmol/L (3.4-5.1); Sodium 132 mmol/L (137-145)
--- NOTE | 2024-02-02 09:12 | PT.IPTN ---
Physical Therapy Treatment Note M2 PT-IP Current Condition Start: 02/01/24 12:22 Freq: NEEDED Status: Active Protocol: Document 02/01/24 10:35 AB (Rec: 02/01/24 12:46 AB [id number]) Physical Therapy Current Condition Current Condition Evaluation Date 02/01/24 Treatment Diagnosis CHF; difficulty in walking Onset Date 01/31/24 M3 PT-IP Subjective Start: 02/01/24 12:22 Freq: NEEDED Status: Active Protocol: Document 02/02/24 10:19 TS (Rec: 02/02/24 10:28 TS [id number]) Subjective Physical Therapy Visit Type Type Treatment Note Visit Start Time 09:12 Visit Stop Time 09:38 Number of PATIENT ESCORT Visits 1 Physical Therapy Visit Comments Patient Comments Pt found resting in chair, is agreeable to PT. M4 PT-IP Mobility and Gait Start: 02/01/24 12:22 Freq: NEEDED Status: Active Protocol: Document 02/02/24 10:19 TS (Rec: 02/02/24 10:28 TS [id number]) PT-Transfer Assessment Sit to and From Stand Sit to and from Stand Standby Assistance,Use of Upper Extremities Equipment Transfer Assistive Device None,Gait Belt Orthotic/Prosthetic Devices or Brace: No Comments Mobility Comments BP in sitting 107/52. STS from chair SBA with BUE support pushing from arms of chair. He ambulated in hallway ~250', had some fatigue and SOB, pt cued for PLB. He performed stairs x6 with single rail SBA . Pt ambulated back to room, HR in mid 130's. Pt sat in chair, performed knee flex.ext , ankle pumps and seated march , handouts were left for exercises. Pt was left in chair, all needs met. Gait Assessment Gait Gait Assistance Required: Standby Assistance Distance (Feet) 250 Able to Maintain Weight Bearing Status Yes During Gait Assistive Devices Assistive Device None,Gait Belt Orthotic/Prosthetic Devices or Brace: No Gait Deviations General Gait Pattern Antalgic,Decreased Stride Length,Decreased Feet Clearance,Lateral Trunk Lean Factors Limiting Gait Function Factors Limiting Gait Function Decreased Activity Tolerance, Decreased Strength,Difficulty Following Directions,Limited Range of Motion,Pain,Poor Balance,Poor Safety Awareness Comments Gait Comments See mobility comments PT-Balance Assessment Sitting Balance and Reactions Static Sitting Balance Ability Normal Dynamic Sitting Balance Ability Good Standing Balance and Reactions Static Standing Balance Ability Good Dynamic Standing Balance Ability Fair Device Used without AD M5 PT-IP Objective Assessments Start: 02/01/24 12:22 Freq: NEEDED Status: Active Protocol: Document 02/01/24 10:35 AB (Rec: 02/01/24 12:46 AB [id number]) Orientation Orientation/Cognition Level of Alertness Alert Language Function Ability Hard of Hearing Safety Awareness Decreased Safety Awareness Memory Description Short Term Impaired Comments with slight confusion Gross Range of Motion Lower Extremity ROM Assessment Within Functional Limits Strength Lower Extremity Strength Hip 4-/5 Knee 4-/5 Coordination Assessment Gross Coordination Gross Coordination WNL Muscle Tone Muscle Tone WNL Yes M6 PT-IP Treatment Start: 02/01/24 12:22 Freq: NEEDED Status: Active Protocol: Document 02/02/24 10:19 TS (Rec: 02/02/24 10:28 TS [id number]) Physical Therapy Treatment Education Education Provided Safety M7 PT-IP Assessment and Plan Start: 02/01/24 12:22 Freq: NEEDED Status: Active Protocol: Document 02/02/24 10:19 TS (Rec: 02/02/24 10:28 TS [id number]) PT Summary Assessment and Plan Potential Rehabilitation Potential Fair Summary Impairments Pain,ROM,Strength,Balance, Coordination,Sensation,Tone, Cognition,Bed Mobility, Transfers,Gait,Activity Tolerance Progress Towards Goals Progressing Toward Goals Assessment Summary Vazquez is making good progress with his mobility. He is SBA for STS and for gait with use of FWW. He progressed his ambulation to ~250'SBA. He performed steps x6 SBA with single rail. He reported high HR and some fatigue with ambulation, HR 135. PT is recommending pt return home with assist and outpatient PT. Goals Bed Mobility Goal Independent Transfer Goal Independent,Cane,Front Wheeled Walker Gait Goal Independent,Cane,Front Wheel Walker Gait Distance 250 Other Goals improve transfers and ambulation without AD ~ 300 ft mod I up/down 7 steps L rail ascending mod I Days to Meet Goals 10 Frequency of Treatment Frequency Of Treatment Once a Day Treatment Plan Physical Therapy Treatment Plan Bed Mobility Training,Transfer Training,Gait Training, Therapeutic Exercise,Balance Retraining,Post Op Education, Discharge Planning,Hot or Cold Pack,Neuromuscular Re-ed, Coordination Retraining,Manual Therapy Precautions Other Precautions falls Recommendations To Nursing Amount of Assist Needed Standby Assistance Discharge Recommendations PT Discharge Recommendations Home with Assistance, Outpatient PT Transportation Needs at Discharge Private Vehicle
[2024-02-02] MEDS: HEPARIN 5,000 UNIT/ML VIAL 5000 UNIT SUBCUT (09:16)
[2024-02-02 09:39] VITALS: BP 112/53; PULSE 92; O2SAT 96
[2024-02-02 11:46] LABS: Alpha-1 Globulin, Ur 6.6 % (.); Beta Globulin, Ur 10.9 % (.); Gamma Globulin, Ur 2.9 % (.); M-Spike % Not Observed % (Not Observed); Urine Total Protein 12.5 mg/dL (Not Estab.)
--- NOTE | 2024-02-02 13:03 | PM.DS.1 ---
History of Present Illness History of Present Illness Chief complaint: Swollen legs ,sore throat Narrative: From ED Physician: 78-year-old gentleman was living independently in [facility] has been losing quite a bit of weight and friend went to check on him was concerned with the overall dramatic decline in health and took him to [facility]. He was admitted from January 10 to and review of information sent home with the patient on discharge suggests heart failure, concern for some type of cancer assess whether that is head or neck or prostate is unclear. He was discharged home on stool softeners only. He was supposed to establish care with a primary care physician, ENT, Cardiology and Oncology. He has seen a primary care physician. On January 18 he did see an ENT physician who did a nasopharyngeal scope and did not see any polyps or abnormalities. In the meantime, the patient has been living with his friend has been eating a bit more weight has stabilized slightly and he is brought in today because his friend is worried that he has increasing lower extremity edema. His hoarseness seems to be getting progressively worse. The patient himself seems unconcerned with any of these findings in his not complaining of pain beyond minor scratchiness causing the hoarseness in his throat. He denies recent fevers, cough, chills, abdominal pain, nausea, vomiting, headaches since his discharge from [facility]. No orthopnea, dyspnea, palpitations or overt chest pain. He has not particularly concerned by the increasing bilateral lower extremity edema Additional history: He recently moved from [place] up to [place] to be taken care of by a friend. The patient was living alone in [place] prior to this. He not been into see a doctor in many years and had had 6 months of weight loss as well as shortness a breath and hoarseness in his voice. He was admitted to [facility] in early January and discharge. In reviewing their records he was evaluated for edema and dyspnea on exertion and found to have an abnormal echo with EF of 50% and speckling on his echo myocardium. He also had bilateral pleural effusions which were tapped in were transudative in nature. In addition he had an abnormal protein electrophoresis. Imaging indicated possible tongue mass and laryngoscopy was fairly unremarkable. He would mild acute kidney injury with a creatinine of 1.26 that was as high as 2.16 with blood protein in his urine. The patient also had a low B12 and mild anemia. The patient was discharged on stool of medications only in his had progressive edema and dyspnea as well as weakness since his discharge. The patient spends a lot of his time in bed. 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 In reviewing imaging from his admission his CT of the abdomen and pelvis revealed pleural effusion as well as atelectasis of the right lower lobe in addition he had prostatic enlargement and diffuse block bladder wall thickening. A CT of the neck revealed a possible tongue mass as mentioned above. Chest x-ray revealed diffuse opacities and pulmonary edema. Echo revealed an EF of 50% with LVH and normal right ventricle size. Pulmonary hypertension was called with an RVSP of 39. Also had a small pericardial effusion. Cardiology recommended consideration a cardiac echo to rule out infiltrative process. There is also some past history concern a possible hepatocellular mass, this was not seen on imaging. He denies any specific past medical history and his medical interactions are as outlined above. He is interested in establishing local care with primary care as well as Cardiology. He is not hypoxemic. Discharge Providers Provider Date of admission: 01/31/24 12:46 Discharge Date: 02/02/24 Primary care physician: Doctor Marisela MD Consults: 01/31/24 13:55 Consult to Physical Therapy Evaluate & Treat Comment: Physician Instructions: Evaluate and Treat 01/31/24 14:41 Consult to BATH SOLUTION MAKER - Tumbler Machine Operator Helper Routine Comment: failure to thrive. has moved in with friend. 02/01/24 08:33 Consult to Speech Therapy Evaluate & Treat Comment: swallow eval Physician Instructions: Evaluate and treat Discharge provider: Kris Pavon MD Summary Hospital Course Discharge Diagnosis: 1. Acute CHF (mixed systolic and diastolic), present on admission and active. BNP > 13,000. 2. JAX versus chronic kidney disease, present on admission and active. 3. Hypercalcemia, present on admission and active. 4. Possible abnormal protein electrophoresis, records from [facility] pending. 5. Pulmonary infiltrates seen again today on chest x-ray, with effusions. Likely pulmonary edema. Present on admission and active. 6. Unexplained weight loss, present on admission and active. 7. Hypercalcemia, mild, present on admission and active. 8. Severe Chronic Protein Calorie Malnutrition r/t to decreased ability to consume adequate intake as evidenced by severe muscle mass wasting (deltoids, pectoralis major, trapezius, temporalis, interosseous), severe subcutaneous fat loss (buccal, orbital), <75% of estimated energy needs for 4 months per diet recall, BMI 21.7 (underweight for age) Hospital Course: The patient was admitted for evidence of pulmonary edema and peripheral edema. He was diuresed and improved. He was able to ambulate without difficulty on the day of discharge. The patient does have mixed heart failure with an EF of 45-50% from a echo at [facility] earlier this month. He also has evidence of chronic kidney disease, hypercalcemia and had an abnormal electrophoresis there with elevated kappa and lambda light chains. Recommendations there were 4 follow up with Cardiology as well as heme Onc an outpatient basis. The patient has recently moved from [place] up to [place] to stay with a friend. It is his goal to establish care locally with primary care as well as Cardiology and Heme-Onc. There is a concern that the patient has a gammopathy or multiple myeloma. The patient also has amyloidosis on his differential with potential cardiac involvement. The patient has lost a significant amount of weight over the last several months and this workup is pending. His UPEP and SPEP were repeated here and are pending at the time of discharge. Status at Discharge Cognitive/behavioral status at discharge: oriented Functional status at discharge: independent ambulation Overall status at discharge: patient is back to baseline Time Spent with Patient Time spent: Greater than 30 minutes Exam Vital Signs (past 8 hours): - 02/02/24 06:41 02/02/24 07:00 02/02/24 09:39 Temperature 97.5 F L Pulse Rate 95 H 92 H Respiratory Rate 17 Blood Pressure 112/66 112/53 L Pulse Oximetry 96 96 Oxygen Delivery Method Room Air Oxygen Flow Rate 0 0 Oxygen Delivery Method Room Air Oxygen Flow Rate 0 Narrative Exam Narrative: NAD, alert and oriented. Fluent speech. Cachectic. Lungs are clear, normal rate and effort. Heart is regular, no murmur gallop or rub. Abdomen is soft, non distended. Extremities are free of edema. Objective Labs 02/02/24 06:00 02/02/24 06:00 Labs: Laboratory Results - last 24 hr 01/31/24 02/02/24 18:15 06:00 WBC 4.8 RBC 3.20 L Hgb 10.9 L Hct 31.1 L MCV 97.2 MCH 34.0 MCHC 35.0 RDW 14.9 H Plt Count 180 Neut % (Auto) 69.4 Lymph % (Auto) 18.3 L Mcintosh % (Auto) 9.2 Eos % (Auto) 2.5 Baso % (Auto) 0.6 Neut # (Auto) 3400 Lymph # (Auto) 900 L Mcintosh # (Auto) 400 Eos # (Auto) 100 Baso # (Auto) 0 Sodium 132 L Potassium 3.7 Chloride 94 L Carbon Dioxide 34 H BUN 29 H Creatinine 1.49 H Estimated GFR 47 L BUN/Creatinine Ratio 19.5 Glucose 101 Calcium 9.6 M-Juan % Not observed U Random Total Protein 67 H Urine Creatinine 51.3 Protein/Creatinin Ratio 1.30 Urine Total Protein 12.5 Urine Albumin 74.8 U Gyelg-5-Eogytnwk 6.6 U Cbhde-7-Sgegyyjk 4.7 U Beta Globulin 10.9 U Gamma Globulin 2.9 Urine PEP Note Comment [facility] Medical History Hypercalcemia Mild anemia Abnormal echocardiogram Bilateral pleural effusion Weight loss Hoarseness of voice Protein malnutrition Congestive heart failure Social History household members: friend(s) Smoking Status: Former smoker alcohol intake: former Discharge Assessment & Plan Assessment and Plan Assessment: 1. Acute CHF (mixed systolic and diastolic), present on admission and improved 2. JAX versus chronic kidney disease 3, present on admission and stable. Creatinine is about 1.45 with a GFR 47. 3. Hypercalcemia, present on admission and improved. 4. Possible abnormal protein electrophoresis, records from [facility] pending. Repeated these studies here with a UPEP and SPEP. 5. Pulmonary infiltrates seen again today on chest x-ray, with effusions. Likely pulmonary edema. Present on admission and improving. 6. Unexplained weight loss, present on admission and active. 7. Severe Chronic Protein Calorie Malnutrition r/t to decreased ability to consume adequate intake as evidenced by severe muscle mass wasting (deltoids, pectoralis major, trapezius, temporalis, interosseous), severe subcutaneous fat loss (buccal, orbital), <75% of estimated energy needs for 4 months per diet recall, BMI 21.7 (underweight for age) Plan of Treatment: Discharge home initially on daily Lasix and potassium with close follow up with primary care. The patient will require follow up on SPEP and UPEP as well as referral to Cardiology and Heme-Onc. The patient will likely need bone survey, and consideration of a cardiac MRI to follow up on probable infiltrative cardiac disease as noted by abnormal patterns on his echo at [facility]. Discharge Plan Discharge Plan Patient Disposition: Home Provider Discharge Comment: Stable for discharge home. He will need a local primary caregiver and would like to have local referral to Cardiology and Hematology. He has a pending SPEP and UPEP. He does have elevated kappa and lambda chains from his evaluation at [facility]. Discharge orders & Medications Prescriptions: New furosemide [Lasix] 40 mg tablet 40 mg PO DAILY Qty: 14 0RF potassium chloride 10 mEq capsule, extended release 10 meq PO DAILY Qty: 14 0RF Continued sennosides [senna] 8.6 mg Tablet 8.6 mg PO DAILY polyethylene glycol 3350 [Miralax] 17 gram Powder In Packet 17 g PO DAILY Medication counseling provided by Pharmacist: No Follow up/Referrals: Doctor Antonio MD [Primary Care Provider] - Kay Dial FNP-BC [Advanced Hairspring Assembler] - 02/09/24 1:00 pm (appt 02/08 @ 1:00 with Macy DOTSON @ [address] [place], [place] [address] please arrive 20 min prior to scheduled appointment time for paperwork) Diet/Activity/Treatments Diet: Low-sodium Activity: As tolerated Skin/Wound/Dressing Care Report to your healthcare provider any signs of infection, such as:: chills, fever Other wound treatment: Follow instructions on color coded heart failure instructions. Diet instruction sheet was given to you yesterday for a minced and moist diet. Try to stand every hour or two to off load pressure to the buttocks. Visit Report/Discharge Packet Instructions: How to Prevent Pressure Ulcers, Heart Failure, How to Prevent Falls, DI for Weight Loss, How to Monitor Your Blood Pressure at Home Stand Alone Forms: Congestive Heart Failure, Patient Portal/API, Stroke Signs & Symptoms Discharge Data Primary Care Provider: Doctor Marisela Attending Provider: Kris Pavon Admit Date/Time: 01/31/24 12:46 Quality VTE Deep Vein Thrombosis/Pulmonary Embolism Present on Admission: No
--- NOTE | 2024-02-02 14:03 | CM.DPNOTE ---
Addendum entered by MAURISIO Lawrence 02/02/24 14:16: ADD: Discussion with friend Antonio outside of patient's room; discussed code status, goals of care, HH vs Hospice, Antonio reports he will continue to discuss goals of care with patient. Antonio familiar with hospice since working with them for his Dad. Original Note: DC Note Patient discharged home today; met with patient and his friend Antonio Coleen Dominguez [phone] to review discharge plan. Patient eager to return home, friends Antonio and his to assist as needed. Reviewed home health services and patient/Antonio deny need at this time. Patient has been scheduled for follow up with LIE DETECTOR OPERATOR Kay Dial February 08 at 1pm Antonio hopeful that patient's care can be transitioned to Dr Gonzalez as that is the provider patient would like as his primary provider. Suggested the appt with Kay Dominguez be kept to discuss all of patient's referrals and follow up appointments, then can request next visit with Dr Gonzalez, Antonio states agreement with this plan. Plan: Discharge home w/friends, close outpatient follow up recommended, friend Antonio to transport. JW
--- NOTE | 2024-02-02 15:04 | PC.NURSE ---
Discharge: Pt feels ready to d/c to home. His friend Pan is here at the time of teaching. Pt already has a follow up appt to establish care and get referals to oncology and cardiology. He has pending tests for which he is waiting for results. These will help guide his care. Reviewed heart failure teaching and the color coded guide. He understands he needs to call MD when he is in the yellow zone. Discussed how to weigh self daily. Discharge packet reviewed and understood. Rx has been esent. Questions answered. Pt d/c to home with his friend Pan.
[2024-02-02 15:18] LABS: Albumin 2.6 g/dL (2.9-4.4); Alpha-1-Globulin 0.3 g/dL (0.0-0.4); Alpha-2-Globulin 0.8 g/dL (0.4-1.0); Gamma Globulin 1.2 g/dL (0.4-1.8); Globulin Total 3.9 g/dL (2.2-3.9); Protein, Total 6.5 g/dL (6.0-8.5)
== END 2024-02-02 15:05 | disposition home or self-care (01) ==
LOC: ED 12:09 → AC 12:48
PROVIDERS: Admitting Provider Hospitalist; Emergency Provider Emergency Medicine; Visit Provider Hospitalist
DX: I50.41 Acute combined systolic (congestive) and diastolic (congestive) heart failure (principal); E43 Unspecified severe protein-calorie malnutrition; Z68.21 Body mass index [BMI] 21.0-21.9, adult; E83.52 Hypercalcemia; R91.8 Other nonspecific abnormal finding of lung field
CPT/HCPCS: 36415; 71045; 80048; 80053; 81001; 81003; 82570; 83690; 83880; 84155; 84156; 84165; 84166; 84484; 85025; 92610; 93005; 96365; 96372; 96375; 96376; 97116; 97161; 97530; 99284; G0378; J1644; J1940

== ENCOUNTER → 2024-02-08 13:19 | Outpatient (CLI) | payer MEDICARE, SELFPAY ==
[2024-01-31 14:24] VITALS: BMI 21.7
[2024-02-08 14:03] LABS: Cholesterol 142 mg/dL (140-199); HDL Cholesterol 46 mg/dL (40-60); LDL Cholesterol Calculated 84 mg/dL (<100); Triglycerides 61 mg/dL (35-150)
== END ==
PROVIDERS: Referring Provider Internal Medicine Cardiovascular Disease; Visit Provider Internal Medicine Cardiovascular Disease
DX: E78.5 Hyperlipidemia, unspecified (principal)
CPT/HCPCS: 36415; 80061

== ENCOUNTER 2024-02-11 18:51 | Observation (INO) | payer MEDICARE, SELFPAY ==
[2024-01-31 14:24] VITALS: BMI 21.7
[2024-02-11] VITALS (11 sets, daily range): BP systolic 102–120; BP diastolic 61–75; PULSE 72–94; RESP 16–18; TEMP 36.6; O2SAT 98–100
--- NOTE | 2024-02-11 20:16 | PC.NURSE ---
Pt has appointment with Cardiology next week. Possible treatment for CHF. Lab work is recent from 02/02/24.
--- NOTE | 2024-02-11 21:52 | DI.RAD.S_ITS ---
PROCEDURE: XR CHEST 1V INDICATIONS: chest pain TECHNIQUE: One view of the chest was acquired. COMPARISON: [facility], CR, XR CHEST 1V, 01/31/2024, 11:06. FINDINGS: Surgical changes and devices: None. Lungs and pleura: Small loculated pleural effusions with bibasilar atelectasis/consolidation. Peripheral interstitial opacities. Peribronchial cuffing. Mediastinum: Mediastinal contours appear normal. Heart size is likely enlarged. Bones and chest wall: No suspicious bony lesions. Overlying soft tissues appear unremarkable. IMPRESSION: Stable small loculated pleural effusions with bibasilar atelectasis/consolidation. Moderate pulmonary edema. Dictated by: Cesar Post M.D. on 02/11/2024 at 22:20 Approved by: Cesar Post M.D. on 02/11/2024 at 22:21
--- NOTE | 2024-02-11 22:03 | ED_ITS ---
HPI - Extremity Problem General Chief complaint: Extremity Problem,Nontraumatic Stated complaint: SOB/swelling in extremities/sent by [facility] Time Seen by Provider: 02/11/24 21:52 Source: patient Mode of arrival: Ambulatory History of Present Illness HPI Narrative: 78-year-old male with history of congestive heart failure, admitted to [facility] mid January, apparently had thoracentesis of fluid from at least 1 side, they are unclear what the diagnosis might have been, more recently admitted to this hospital last week, for 3 days, for congestive heart failure, IV diuresis, significant swelling was present but resolved at time of discharge. He is taking 40 mg daily Lasix, missed 1 of his doses a couple of days ago, increasing bilateral lower extremity edema for the last 2-3 days. He denies chest pain or shortness of breath. He has no swelling to his scrotum or penis, able to urinate well. No fevers or chills, denies recent cough. Related Data Home Medications Medication Instructions Recorded Confirmed polyethylene glycol 3350 17 gram 17 g PO DAILY 01/31/24 02/11/24 oral powder packet (Miralax) sennosides 8.6 mg tablet (senna) 8.6 mg PO DAILY 01/31/24 02/11/24 Previous Rx's Medication Instructions Recorded furosemide 40 mg tablet (Lasix) 40 mg PO DAILY #14 tabs 02/02/24 potassium chloride 10 mEq 10 meq PO DAILY #14 caps 02/02/24 capsule,extended release Allergies Allergy/AdvReac Type Severity Reaction Status Date / Time No Known Drug Allergies Allergy Verified 02/11/24 19:22 Patient History Medical History (Updated 02/12/24 @ 07:30 by Marc Turner MD) Hypercalcemia Mild anemia Abnormal echocardiogram Bilateral pleural effusion Weight loss Hoarseness of voice Protein malnutrition Congestive heart failure Social History household members: friend(s) Smoking Status: Former smoker alcohol intake: former Smoking Status: Former smoker tobacco type: smokeless tobacco alcohol intake frequency: 0-2 drinks per day Substance Use Type: does not use Exam Initial Vital Signs Initial Vital Signs: Vital Signs Temperature 98 F 02/11/24 19:15 Pulse Rate 93 H 02/11/24 19:15 Respiratory Rate 16 02/11/24 19:15 Blood Pressure 103/61 02/11/24 19:15 Pulse Oximetry 100 02/11/24 19:15 Oxygen Delivery Method Room Air 02/11/24 19:15 Cardio Other: 3+ edema legs ankles and mid tibia, apparently this is somewhat better than last week but still significantly increased from 2 days ago Course Course Course Narrative: Congestive heart failure history, with admission mid January 2024 [facility] in [place], echocardiogram at that time 45-50%, diuresis, had exacerbation of CHF and admitted to hospital here on 01/31/2024, also with IV diuresis, having missed a dose of Lasix last few days, increasing lower extremity edema again. Denies chest pain. EKG without obvious ischemic changes, Q-waves inferiorly noted. Troponin elevated 0.142 noted, in setting of congestive heart failure, without chest pain, suspect this may represent a type 2 injury. We will consult Cardiology. IV Lasix 40 mg initial dose given, patient has received aspirin. Possible admission for further diuresis, or transfer pending Cardiology recommendation. Orders Ordered: ED Orders 02/12/24 02:49 Trop I [Troponin I] Routine 02/12/24 07:11 Trop I [Troponin I] Routine Acetaminophen (Acetaminophen 325 Mg Tablet) 650 mg PO Q6H PRN PRN Reason: Fever/Mild Pain (1-3) Acetazolamide (Acetazolamide 250 Mg Tablet) 500 mg PO DAILY JOSE Furosemide (Furosemide 40 Mg/4 Ml Vial) 60 mg IV 1600,0800 [facility] Heparin Sodium (Porcine) (Heparin 5,000 Unit/Ml Vial) 5,000 unit SUBCUT BID JOSE Furosemide 60 mg/ Sodium (Chloride) 56 mls @ 112 mls/hr IV 08,16 [facility] Melatonin (Melatonin 3 Mg Tablet) 6 mg PO BEDTIME PRN PRN Reason: Insomnia Naloxone HCl (Naloxone 0.4 Mg/Ml Vial) 0.2 mg IV Q2MIN PRN PRN Reason: Opiate Reversal Ondansetron HCl (Ondansetron 4 Mg/2 Ml Inj) 4 mg IV Q4HR PRN PRN Reason: Nausea And Vomiting Polyethylene Glycol (Polyethylene Glycol 3350 17 Gm Powd.Pack) 17 gm PO DAILY PRN PRN Reason: Constipation Sennosides (Sennosides 8.6 Mg Tablet) 8.6 mg PO BID PRN PRN Reason: Constipation Discontinued Medications Aspirin (Aspirin 81 Mg Chew Tab) 324 mg PO NOW ONE Stop: 02/11/24 21:53 Last Admin: 02/11/24 22:07 Dose: 324 mg Documented By: AB Furosemide (Furosemide 40 Mg/4 Ml Vial) 40 mg IV NOW ONE Stop: 02/11/24 21:55 Last Admin: 02/11/24 22:23 Dose: 40 mg Documented By: AB Sodium Chloride (Normal Saline 0.9%) 1,000 mls @ 150 mls/hr IV CONT JOSE Last Admin: 02/11/24 22:35 Dose: Not Given Documented By: AB Furosemide 80 mg/ Sodium (Chloride) 58 mls @ 116 mls/hr IV NOW ONE Stop: 02/12/24 00:34 Last Admin: 02/12/24 00:40 Dose: Not Given Documented By: AB Furosemide 80 mg/ Sodium (Chloride) 58 mls @ 116 mls/hr IV NOW ONE Stop: 02/12/24 00:40 Last Infusion: 02/12/24 01:19 Dose: Infused Documented By: Admin: 02/12/24 00:56 Dose: 116 mls/hr Documented By: AB Potassium Chloride (Potassium Chloride 20 Meq Tab) 20 meq PO NOW ONE Stop: 02/12/24 04:23 Last Admin: 02/12/24 04:45 Dose: 20 meq Documented By: AB Reevaluation(s) Reevaluation #1: Patient is diuresing well with IV Lasix dose so far. Reevaluation #2: Case presented to hospitalist Dr. Soni, patient is not in respiratory distress, is not on oxygen, had missed a dose of Lasix, troponin and BNP elevation noted, no ischemia on EKG, Cardiology consult acknowledge, however he feels patient does not meet admission criteria. He requests further observation and IV diuresis in the emergency department. We will repeat troponin for trend, though suspect this is type 2 injury and not a STEMI. Cardiology had not recommended heparin or transfer for catheterization lab. Repeat IV Lasix dose later this morning Reevaluation #3: 300-400 cc urine output thus far, we will repeat IV Lasix 80 mg dose Additional Reevaluation(s): 0730, Further diuresis, still significantly swollen. Second troponin was decreasing. Case discussed with daytime hospitalist Dr. Rodriguez, accepts patient for admission to observation Consultations Consultation #1: Phone consultation with Cardiology on-call Dr. Barreto at [facility], who feels that patient should be admitted here for IV Lasix diuresis, consider serial troponins although she doubts ACS by history at this time, does not feel the patient warrants transfer at this time. We will consult hospitalist regarding admission. Consultation #2: Repeat troponin 0.13 decreased from prior level. Further IV diuresis in progress. Vital Signs Vital signs: Vital Signs - 8 hr 02/12/24 00:30 02/12/24 00:30 02/12/24 01:00 Pulse Rate 83 73 Respiratory Rate 26 H 23 Blood Pressure 111/67 Pulse Oximetry 98 98 02/12/24 01:00 02/12/24 01:30 02/12/24 01:58 Pulse Rate 79 Respiratory Rate 20 Blood Pressure 93/61 108/68 Pulse Oximetry 97 02/12/24 01:58 02/12/24 02:00 02/12/24 02:00 Pulse Rate 79 77 Respiratory Rate 25 H 16 Blood Pressure 107/61 Pulse Oximetry 99 71 L 02/12/24 02:30 02/12/24 03:00 02/12/24 03:00 Pulse Rate 93 H 78 Respiratory Rate 18 18 Blood Pressure 118/68 Pulse Oximetry 100 100 02/12/24 03:30 02/12/24 04:00 02/12/24 04:00 Pulse Rate 76 75 Respiratory Rate 16 18 Blood Pressure 101/63 Pulse Oximetry 100 98 02/12/24 04:30 02/12/24 04:31 02/12/24 04:31 Pulse Rate 126 H 84 Respiratory Rate 16 Blood Pressure 109/62 Pulse Oximetry 99 02/12/24 05:00 02/12/24 05:00 02/12/24 05:30 Pulse Rate 76 68 Respiratory Rate 18 18 Blood Pressure 111/69 Pulse Oximetry 100 97 02/12/24 06:01 02/12/24 06:30 Pulse Rate 67 Respiratory Rate 16 Blood Pressure 98/66 Pulse Oximetry 99 MDM - Extremity (Nontraumatic) Lab Data 02/11/24 22:20 02/11/24 22:20 Labs: Lab Results 02/11/24 02/12/24 02/12/24 Range/Units 22:20 02:49 07:11 WBC 3.9 L (4.5-11.0) X10^3/uL RBC 3.26 L (4.5-5.9) X10^6/uL Hgb 11.2 L (13.5-17.5) g/dL Hct 33.0 L (41-53) % MCV 101.2 H D (80-100) fL MCH 34.3 H (26-34) PG MCHC 33.8 (30-36) % RDW 15.3 H (11.6-14.8) % Plt Count 152 (150-400) X10^3/uL Neut % (Auto) 68.4 (50-75) % Lymph % (Auto) 19.2 L (25-40) % [place] % (Auto) 8.5 (3-14) % Eos % (Auto) 3.6 (2-4) % Baso % (Auto) 0.3 (0-2) % Neut # (Auto) 2600 (9283-8190) /uL Lymph # (Auto) 700 L (4828-9241) /uL [place] # (Auto) 300 (0-900) /uL Eos # (Auto) 100 (0-450) /uL Baso # (Auto) 0 (0-100) /uL Sodium 136 L (137-145) mmol/L Potassium 3.9 (3.4-5.1) mmol/L Chloride 99 (98-107) mmol/L Carbon Dioxide 28 (22-32) mmol/L BUN 37 H (9-20) mg/dL Creatinine 1.59 H (0.66-1.25) mg/dL Estimated GFR 44 L (>60) mL/min BUN/Creatinine Ratio 23.3 H (6-22) Glucose 96 (80-110) mg/dL Calcium 9.9 (8.4-10.2) mg/dL Total Bilirubin 0.9 (0.2-1.3) mg/dL AST 37 (17-59) IU/L ALT 22 (<50) IU/L Alkaline Phosphatase 133 H (38-126) U/L Total Creatine Kinase 89 (55-170) U/L Troponin I 0.142 H* 0.136 H* 0.126 H* (0.01-0.034) ng/mL NT-Pro-B Natriuret Pep 18960 H (<450) pg/mL Total Protein 7.9 (6.3-8.2) g/dL Albumin 4.2 (3.5-5.0) g/dL Globulin 3.7 (1.7-4.1) g/dL Albumin/Globulin Ratio 1.1 (1.0-2.8) Lipase 316 H (23-300) U/L ECG Data Attestation EKG: I personally reviewed and interpreted this ECG as follows: Interpretation: Normal sinus rhythm with rate 83, no obvious ST segment elevation or depression changes. Flat T-waves diffuse noted. First-degree AV block with DC interval 240 noted. Similar to comparison study 01/31/2024. Critical Care Time Critical Care Time Critical Care Time: Yes Total Critical Care Time: 45 Attestation: The high probability of a clinically significant, sudden or life threatening deterioration of the [cardiopulmonary] system(s) required my full and direct attention, intervention and personal management. The aggregate critical care time was [45] minutes. This time is in addition to time spent performing reported procedures but includes the following: [X] Data Review and interpretation [X] Patient assessment and monitoring of vital signs [X] Documentation [X] Medication orders and management Discharge Plan Departure Patient Disposition: Admitted as Observation Clinical Impression: Congestive heart failure, Pedal edema Admit Date/Time: 02/12/24 07:35 Admit Provider: Roe Rodriguez
[2024-02-11] MEDS: ASPIRIN 81 MG CHEW TAB 324 MG PO (22:07)
[2024-02-11] MEDS: FUROSEMIDE 40 MG/4 ML VIAL IV (22:23)
[2024-02-11 22:32] LABS: Add Manual Diff / Slide Review NO; Basophils Absolute Auto 0 /uL (0-100); Basophils Percent Auto 0.3 % (0-2); Eosinophils Absolute Auto 100 /uL (0-450); Eosinophils Percent Auto 3.6 % (2-4); Hemoglobin 11.2 g/dL (13.5-17.5); Lymphocytes Absolute Auto 700 /uL (1100-4500); Lymphocytes Percent Auto 19.2 % (25-40); Mean Corpuscular HGB Conc 33.8 % (30-36); Mean Corpuscular Hemoglobin 34.3 PG (26-34); Mean Corpuscular Volume 101.2 fL (80-100); Monocytes Absolute Auto 300 /uL (0-900); Monocytes Percent Auto 8.5 % (3-14); Neutrophils Absolute Auto 2600 /uL (1500-7000); Neutrophils Percent Auto 68.4 % (50-75); Platelet Count 152 X10^3/uL (150-400); Red Blood Cell Count 3.26 X10^6/uL (4.5-5.9); Red Cell Distribution Width 15.3 % (11.6-14.8); White Blood Cell Count 3.9 X10^3/uL (4.5-11.0)
[2024-02-11 22:44] LABS: Alanine Aminotransferase 22 IU/L (<50); Albumin 4.2 g/dL (3.5-5.0); Albumin Globulin Ratio 1.1 (1.0-2.8); Alkaline Phosphatase 133 U/L (38-126); Aspartate Aminotransferase 37 IU/L (17-59); BUN Creatinine Ratio 23.3 (6-22); Bilirubin Total 0.9 mg/dL (0.2-1.3); Blood Urea Nitrogen 37 mg/dL (9-20); Calcium 9.9 mg/dL (8.4-10.2); Carbon Dioxide 28 mmol/L (22-32); Chloride 99 mmol/L (98-107); Creatine Kinase 89 U/L (55-170); Estimated Glomerular Filt Rate 44 mL/min (>60); Globulin 3.7 g/dL (1.7-4.1); Glucose 96 mg/dL (80-110); HEMOLYSIS 17 (0-50); Lipase 316 U/L (23-300); Potassium 3.9 mmol/L (3.4-5.1); Sodium 136 mmol/L (137-145); Total Protein 7.9 g/dL (6.3-8.2)
[2024-02-11 22:56] LABS: NT-proBNP (BNP-Adult 18+) 19600 pg/mL (<450)
[2024-02-11 23:33] LABS: Troponin I 0.142 ng/mL (0.01-0.034)
[2024-02-12] VITALS (30 sets, daily range): BP systolic 93–118; BP diastolic 56–72; PULSE 67–126; RESP 14–26; TEMP 36.2–36.6; O2SAT 71–100; BMI 21.5
[2024-02-12] MEDS: FUROSEMIDE 80 MG in SODIUM CHLORIDE 0.9% 50 ML 116 MG IV (00:56)
[2024-02-12 03:22] LABS: Troponin I 0.136 ng/mL (0.01-0.034)
[2024-02-12] MEDS: POTASSIUM CHLORIDE 20 MEQ TAB PO (04:45)
[2024-02-12 07:44] LABS: Troponin I 0.126 ng/mL (0.01-0.034)
[2024-02-12 08:30] LABS: BUN Creatinine Ratio 26.2 (6-22); Blood Urea Nitrogen 38 mg/dL (9-20); Calcium 9.5 mg/dL (8.4-10.2); Carbon Dioxide 27 mmol/L (22-32); Chloride 99 mmol/L (98-107); Estimated Glomerular Filt Rate 49 mL/min (>60); Glucose 97 mg/dL (80-110); HEMOLYSIS 36 (0-50); Magnesium 1.9 mg/dL (1.6-2.3); Potassium 3.7 mmol/L (3.4-5.1); Sodium 135 mmol/L (137-145)
--- NOTE | 2024-02-12 08:43 | P.HP_ITS ---
History of Present Illness History of Present Illness Date Patient Seen: 02/12/24 Chief complaint: SOB/swelling in extremities/sent by [facility] Narrative: Vazquez Reddy is an 78yo M with PMH of HFrEF 45-50%, possible undiagnosed multiple myeloma, recent weight loss, CKD, former smoker who presents with increased LE swelling. Patient was just recently admitted to [place] for similar symptoms and discharged home on 02/01 on daily po lasix. Despite this patient notes his LE have swelled and he now has pitting edema. Patient is supposed to have follow-up with hemotology as outpatient due to possible multiple myeloma but he isn't sure when. He denies CP, SOB, NV, abd pain or diarrhea. In the ED found to have elevated troponin to 0.142. Cardiology contacted and did not recommend heparin drip as likely demand ischemia from CHF. [facility] Medical History (Updated 02/12/24 @ 07:30 by Marc Turner MD) Hypercalcemia Mild anemia Abnormal echocardiogram Bilateral pleural effusion Weight loss Hoarseness of voice Protein malnutrition Congestive heart failure Social History household members: friend(s) Smoking Status: Former smoker alcohol intake: former Meds Home Medications and Allergies Home Medications Medication Instructions Recorded Confirmed Type polyethylene glycol 3350 17 gram 17 g PO DAILY 01/31/24 02/11/24 History oral powder packet (Miralax) sennosides 8.6 mg tablet (senna) 8.6 mg PO DAILY 01/31/24 02/11/24 History furosemide 40 mg tablet (Lasix) 40 mg PO DAILY #14 tabs 02/02/24 02/11/24 Rx potassium chloride 10 mEq 10 meq PO DAILY #14 caps 02/02/24 02/11/24 Rx capsule,extended release Allergies Allergy/AdvReac Type Severity Reaction Status Date / Time No Known Drug Allergies Allergy Verified 02/11/24 19:22 Review of Systems Review of Systems Narrative: All other systems reviewed with the patient and are negative unless otherwise stated. Exam Vital Signs (past 8 hours): - 02/12/24 01:00 02/12/24 01:00 02/12/24 01:30 Pulse Rate 73 79 Respiratory Rate 23 20 Blood Pressure 93/61 Pulse Oximetry 98 97 02/12/24 01:58 02/12/24 01:58 02/12/24 02:00 Pulse Rate 79 Respiratory Rate 25 H Blood Pressure 108/68 107/61 Pulse Oximetry 99 02/12/24 02:00 02/12/24 02:30 02/12/24 03:00 Pulse Rate 77 93 H Respiratory Rate 16 18 Blood Pressure 118/68 Pulse Oximetry 71 L 100 02/12/24 03:00 02/12/24 03:30 02/12/24 04:00 Pulse Rate 78 76 Respiratory Rate 18 16 Blood Pressure 101/63 Pulse Oximetry 100 100 02/12/24 04:00 02/12/24 04:30 02/12/24 04:31 Pulse Rate 75 126 H 84 Respiratory Rate 18 16 Blood Pressure Pulse Oximetry 98 99 02/12/24 04:31 02/12/24 05:00 02/12/24 05:00 Pulse Rate 76 Respiratory Rate 18 Blood Pressure 109/62 111/69 Pulse Oximetry 100 02/12/24 05:30 02/12/24 06:01 02/12/24 06:30 Pulse Rate 68 67 Respiratory Rate 18 16 Blood Pressure 98/66 Pulse Oximetry 97 99 02/12/24 07:00 02/12/24 07:00 02/12/24 07:30 Pulse Rate 74 68 Respiratory Rate 15 23 Blood Pressure 104/59 L Pulse Oximetry 99 99 02/12/24 07:30 02/12/24 07:45 02/12/24 07:45 Pulse Rate 75 Respiratory Rate 16 Blood Pressure 106/56 L 109/65 Pulse Oximetry 99 02/12/24 08:00 Pulse Rate 203 H Respiratory Rate 21 Blood Pressure Pulse Oximetry Oxygen Delivery Method Room Air Narrative Exam Narrative: GEN: no acute distress, thin, appears malnourished HEENT: moist mucous membranes, PERRL NECK: trachea midline, no JVD CV: regular rate and rhythm, no murmurs PULM: clear bilaterally ABD: soft, nontender, nondistended, no organomegaly EXT: warm and well perfused with 3+ pitting edema of feet, ankles and calves to knees NEURO: awake, alert, oriented, no focal deficits Objective Labs 02/11/24 22:20 02/12/24 02:49 Labs: Laboratory Results - last 24 hr 02/11/24 02/12/24 02/12/24 22:20 02:49 07:11 WBC 3.9 L RBC 3.26 L Hgb 11.2 L Hct 33.0 L MCV 101.2 H D MCH 34.3 H MCHC 33.8 RDW 15.3 H Plt Count 152 Neut % (Auto) 68.4 Lymph % (Auto) 19.2 L [place] % (Auto) 8.5 Eos % (Auto) 3.6 Baso % (Auto) 0.3 Neut # (Auto) 2600 Lymph # (Auto) 700 L [place] # (Auto) 300 Eos # (Auto) 100 Baso # (Auto) 0 Sodium 136 L 135 L Potassium 3.9 3.7 Chloride 99 99 Carbon Dioxide 28 27 BUN 37 H 38 H Creatinine 1.59 H 1.45 H Estimated GFR 44 L 49 L BUN/Creatinine Ratio 23.3 H 26.2 H Glucose 96 97 Calcium 9.9 9.5 Magnesium 1.9 Total Bilirubin 0.9 AST 37 ALT 22 Alkaline Phosphatase 133 H Total Creatine Kinase 89 Troponin I 0.142 H* 0.136 H* 0.126 H* NT-Pro-B Natriuret Pep 87282 H Total Protein 7.9 Albumin 4.2 Globulin 3.7 Albumin/Globulin Ratio 1.1 Lipase 316 H Assessment & Plan Assessment & Plan narrative: 1. Acute CHF (mixed systolic and diastolic), present on admission and active. Last echo 45-50% in January 2024 with speckled pattern of myocardium. Needs outpatient cardiac MRI. 2. JAX versus chronic kidney disease, present on admission and active. 3. Elevated troponin, present on admission and active. 4. Possible multiple myeloma, with recent abnormal protein electrophoresis at [facility]. 5. Small loculated pleural effusions, with mod pulm edema. 6. Unexplained weight loss, present on admission and active. -lasix 60mg IV BID plus diamox 500mg daily, goal negative -2L per day -check UA, protein/creatinine ratio for possible nephrotic syndrome causing edema -trend trops, no need for heparin per cards -no need to repeat echo -TSH 6, T4 1.4 normal Code status is full code. DVT prophylaxis with heparin. Proxy is close friend Pan Horne. I have reviewed home meds and used all available resources to reconcile the home meds. Case discussed with ED physician/APC and patient will be admitted to the hospitalist service for further workup and management. This patient will be admitted as inpatient and will require greater than 2 midnights of hospital time to treat CHF exacerbation.
[2024-02-12] MEDS: acetaZOLAMIDE 250 MG TABLET 500 MG PO (08:46)
[2024-02-12] MEDS: HEPARIN 5,000 UNIT/ML VIAL 5000 UNIT SUBCUT ×2 (08:46→20:25)
[2024-02-12] MEDS: FUROSEMIDE 60 MG in SODIUM CHLORIDE 0.9% 50 ML 112 MG IV ×2 (08:46→16:40)
[2024-02-12 09:01] LABS: TSH w/ Reflex to FT4 6.01 uIU/mL (0.47-4.68)
--- NOTE | 2024-02-12 12:19 | PT.IIE ---
Medical History (Last Updated 02/09/24 @ 14:48 by Kay Dial, [facility]) Abnormal echocardiogram Bilateral pleural effusion Congestive heart failure Hoarseness of voice Hypercalcemia Mild anemia Protein malnutrition Weight loss Physical Therapy Inpatient Evaluation/Re-Eval M1 PT/OT-IP Prior Functional Status Start: 02/12/24 12:42 Freq: NEEDED Status: Active Protocol: Document 02/12/24 12:19 AB (Rec: 02/12/24 12:58 AB [id number]) Medical Review Prior Functional Status Medical History Reviewed Yes Communication able to make needs known Mobility and Gait pt stated that he was independent with all mobilities and ambulation without AD Social History Household Members friend(s) Living Arrangements House Number of Floors (Floors) Two Floors Number of Stairs To Enter/Railing? 5 steps L rail ascending to enter the house pt has his bedroom downstairs with 7 steps and R rail ascending Home Environment Standard Height Toilet,Walk in Shower M2 PT-IP Current Condition Start: 02/12/24 12:42 Freq: NEEDED Status: Active Protocol: Document 02/12/24 12:19 AB (Rec: 02/12/24 12:58 AB [id number]) Physical Therapy Current Condition Current Condition Evaluation Date 02/12/24 Treatment Diagnosis CHF; difficulty in walking Onset Date 02/12/24 M3 PT-IP Subjective Start: 02/12/24 12:42 Freq: NEEDED Status: Active Protocol: Document 02/12/24 12:19 AB (Rec: 02/12/24 12:58 AB [id number]) Subjective Physical Therapy Visit Type Type Initial Evaluation Visit Start Time 12:19 Visit Stop Time 12:35 Number of COMMISSIONS SPECIALIST Visits 0 Physical Therapy Visit Comments Patient Comments agreeable to do PT Therapy Pain Assessment Pain When Pain Assessed At Rest Pain Present Pain Present Pain Reported Location Bilateral Foot Intensity 4 Scale Used Numeric (0 - 10) Pain Management Techniques Distraction,Re-positioning, Timing of Activity with Medications M4 PT-IP Mobility and Gait Start: 02/12/24 12:42 Freq: NEEDED Status: Active Protocol: Document 02/12/24 12:19 AB (Rec: 02/12/24 12:58 AB [id number]) PT-Bed Mobility Assessment Supine to Sit Supine to Sit Independent Sit to Supine Sit to Supine Independent PT-Transfer Assessment Sit to and From Stand Sit to and from Stand Independent Comments Mobility Comments pt up and walking in room by himself without AD. pt without LOB. pt agreed to do PT. obtained PLOF and home set up from pt. pt able to complete bed mobility and ambulation in room without AD mod I. pt agreed to do steps . ambulated in the hallway without AD ~ 125 ft mod I. completed up/down steps using L rail ascending step through pattern SBA and repeated again using R rail ascending SBA. pt ambulated back to his room and sat on EOB. c/o SOB. O2 sat 100% WY: 114. pt rested. WY decreased to 84-90 bpm. informed pt that no further PT intervention needed at this time and pt agreed. informed nurse. pt can be mod I in room and SBA for long distance hallway ambulation for safety Gait Assessment Gait Gait Assistance Required: Independent Distance (Feet) 125 Able to Maintain Weight Bearing Status Yes During Gait Assistive Devices Assistive Device None Orthotic/Prosthetic Devices or Brace: No Gait Deviations General Gait Pattern Decreased Stride Length, Decreased Feet Clearance Factors Limiting Gait Function Factors Limiting Gait Function Decreased Activity Tolerance Stair Climbing Assessment Evaluation Level of Assist On Stairs Standby Assistance Devices Stair Climbing Assistive Devices Left Railing,Right Railing Technique/Endurance Stair Climbing Direction Ascend and Descend Stair Climbing Technique Step Over Step Number of Steps Climbed 3 Query Text: Stair Climbing Set # Repetitions (reps) 2 PT-Balance Assessment Sitting Balance and Reactions Static Sitting Balance Ability Normal Dynamic Sitting Balance Ability Normal Standing Balance and Reactions Static Standing Balance Ability Good Dynamic Standing Balance Ability Good Device Used without AD M5 PT-IP Objective Assessments Start: 02/12/24 12:42 Freq: NEEDED Status: Active Protocol: Document 02/12/24 12:19 AB (Rec: 02/12/24 12:58 AB [id number]) Orientation Orientation/Cognition Level of Alertness Alert Orientation Name,Place,Situation Language Function Ability Hard of Hearing Safety Awareness Understands Safety Issues Memory Description No Deficits Noted Gross Range of Motion Lower Extremity ROM Assessment Within Functional Limits Strength Lower Extremity Strength Hip 4-/5 Knee 4-/5 Coordination Assessment Gross Coordination Gross Coordination WNL Muscle Tone Muscle Tone WNL Yes M6 PT-IP Treatment Start: 02/12/24 12:42 Freq: NEEDED Status: Active Protocol: Document 02/12/24 12:19 AB (Rec: 02/12/24 12:58 AB [id number]) Physical Therapy Treatment Education Education Provided Safety M7 PT-IP Assessment and Plan Start: 02/12/24 12:42 Freq: NEEDED Status: Active Protocol: Document 02/12/24 12:19 AB (Rec: 02/12/24 12:58 [id number]) PT Summary Assessment and Plan Potential Rehabilitation Potential Fair Status of Condition at Evaluation Stable Summary Impairments Activity Tolerance Assessment Summary pt is an 78 y/o M who is admitted for CHF. pt is modified independent with bed mobility, transfers and ambulation without AD. SBA for long distance hallway ambulation with nursing staff for safety due to decrease actvity tolerance secondary to CHF. No further PT intervention needed at this time. Frequency of Treatment Frequency Of Treatment Discharge Discharge Recommendations PT Discharge Recommendations Home with Assistance Transportation Needs at Discharge Private Vehicle
--- NOTE | 2024-02-12 14:52 | CM.DANOTE ---
Initial DCP Assessment Note Pt is an 78 yo male, resident of [place], readmitted with CHF exacerbation, LE swelling, SOB PCP: Kay Dial Payer: MARJAN YOO Reviewed chart, patient familiar to this [employer]IATE from recent hospitalization end of January, early February. Patient moved from [place] to live with his friend Pan ([phone]) and his . Pan drives pt, helps with meal prep, and home chores. Pan works close to home and checks on him often throughout the day. ambulates indep at baseline but they have a cane if needed. Patient may be a good candidate for [facility] if he has not established with Kay Dial quite yet, if he has, Alpha and marimar also available. No barriers identified at this time to patient's safe discharge home w/friends to assist; close outpatient f/u recommended. Discuss HH services with patient and friend Pan closer to [place] to see if are agreeable and/or feel HH is needed. CM team will plan to follow clinical course closely. MAURISIO Oropeza Discharge Planning/Care Management CM Discharge Assessment Start: 02/12/24 14:49 Freq: Status: Active Protocol: Document 02/12/24 14:49 BOLIVAR (Rec: 02/12/24 14:52 BOLIVAR [id number]) Discharge Planning Assessment Assigned Construction Executive MAURISIO Caballero DPOA/Assigned Designee Name jaun Abreu Contact Information [phone] Advance Directives? Yes Advance Directives on File No History Provided By Patient,Friend Has Patient been admitted in last 30 Yes days? Comment Here 4.29-5.1 Prior Living Arrangements House Household Members friend(s) Type of transporation used prior to Relies on Others admit Independent with ADL's Yes Is patient alert and oriented? Yes: some short term memory loss Needs Assistance With Managing Medications,Home Chores / Shopping Comment cane Barriers to Discharge No Comment Outpatient PT vs HH Discharge Plan Home Transportation Arrangement friend in POV Additional Comment Patient soon to be established with PCP. [facility] ( ?) if needed upon discharge this visit
--- NOTE | 2024-02-12 15:22 | PC.NURSE ---
Addendum entered by Darcy Quintana R.N. 02/12/24 17:45: sinus rhythm 1 degree AVB in ED. 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 EKG ordered Original Note: B/L top of feet and ankles red, painful. Pt states he was outside in the sun barefoot for 1.5 hrs[address] Msg sent to Dr. Rodriguez. Pt's friend, Pan here to visit. Pt does have short term memory loss. While admitting him, He asked about soaking his feet x5. Steady on his feet
[2024-02-12 22:18] LABS: Appearance Urine UA CLEAR; Bilirubin Urine UA NEGATIVE (NEGATIVE); Color Urine UA YELLOW; Glucose Urine UA NEGATIVE (Negative); Ketones Urine UA NEGATIVE (NEGATIVE); Leukocyte Esterase Urine UA NEGATIVE (NEGATIVE); Nitrite Urine UA NEGATIVE (Negative); Occult Blood Urine UA TRACE-INTACT (Negative); Protein Urine UA NEGATIVE (Negative); Urobilinogen Urine UA 0.2 E.U./dL (0.2); pH Urine UA 7.5 (4.5-8.0)
[2024-02-12 22:24] LABS: Bacteria Urine None Seen; Culture Indicated Urine Cult Not Indicated; RBC Urine 1-5/HPF (0-5/HPF); Squamous Epithelial Cell Urine 0-1 /HPF (0-5/HPF); Urine Volume 10mL (spun); WBC Urine None Seen (0-5/HPF)
[2024-02-12 22:36] LABS: Creatinine Urine Random 15.7 mg/dL; Protein (Total) Urine Random 34 mg/dL (0-12); Protein Creatinine Ratio Urine 2.16 GRAM/24H
[2024-02-13] VITALS: BP 124/70; PULSE 66; RESP 17; TEMP 36.7; O2SAT 96
[2024-02-13] MEDS: BACLOFEN 10 MG TABLET PO (00:04)
[2024-02-13 05:31] VITALS: BP 110/60; PULSE 74; RESP 16; TEMP 36.7; O2SAT 96
[2024-02-13 05:54] LABS: Add Manual Diff / Slide Review NO; Basophils Absolute Auto 0 /uL (0-100); Basophils Percent Auto 0.9 % (0-2); Eosinophils Absolute Auto 200 /uL (0-450); Eosinophils Percent Auto 4.6 % (2-4); Hematocrit 28.8 % (41-53); Lymphocytes Absolute Auto 800 /uL (1100-4500); Lymphocytes Percent Auto 22.6 % (25-40); Mean Corpuscular HGB Conc 34.6 % (30-36); Mean Corpuscular Hemoglobin 34.7 PG (26-34); Mean Corpuscular Volume 100.2 fL (80-100); Monocytes Absolute Auto 400 /uL (0-900); Monocytes Percent Auto 10.1 % (3-14); Neutrophils Absolute Auto 2200 /uL (1500-7000); Neutrophils Percent Auto 61.8 % (50-75); Platelet Count 142 X10^3/uL (150-400); Red Blood Cell Count 2.88 X10^6/uL (4.5-5.9); Red Cell Distribution Width 15.2 % (11.6-14.8); White Blood Cell Count 3.5 X10^3/uL (4.5-11.0)
[2024-02-13 06:12] LABS: BUN Creatinine Ratio 21.6 (6-22); Blood Urea Nitrogen 38 mg/dL (9-20); Calcium 9.3 mg/dL (8.4-10.2); Carbon Dioxide 32 mmol/L (22-32); Chloride 95 mmol/L (98-107); Estimated Glomerular Filt Rate 39 mL/min (>60); Glucose 105 mg/dL (80-110); HEMOLYSIS < 15 (0-50); Potassium 3.3 mmol/L (3.4-5.1); Sodium 133 mmol/L (137-145)
[2024-02-13 08:00] VITALS: BP 100/53; PULSE 69; RESP 18; TEMP 37.1; O2SAT 97
[2024-02-13] MEDS: acetaZOLAMIDE 250 MG TABLET 500 MG PO (08:22)
[2024-02-13] MEDS: FUROSEMIDE 60 MG in SODIUM CHLORIDE 0.9% 50 ML 112 MG IV (08:22)
[2024-02-13] MEDS: POTASSIUM CHLORIDE 20 MEQ TAB PO ×2 (08:23→12:55)
[2024-02-13] MEDS: HEPARIN 5,000 UNIT/ML VIAL 5000 UNIT SUBCUT (08:23)
[2024-02-13] MEDS: SENNOSIDES 8.6 MG TABLET PO (08:23)
--- NOTE | 2024-02-13 10:40 | P.DS_ITS ---
History of Present Illness History of Present Illness Date Patient Seen: 02/13/24 Time Patient Seen: 08:15 Chief complaint: SOB/swelling in extremities/sent by [facility] Narrative: Narrative: Vazquez Reddy is an 78yo M with PMH of HFrEF 45-50%, possible undiagnosed multiple myeloma, recent weight loss, CKD, former smoker who presents with increased LE swelling. Patient was just recently admitted to [place] for similar symptoms and discharged home on 02/01 on daily po lasix. Despite this patient notes his LE have swelled and he now has pitting edema. Patient is supposed to have follow-up with hemotology as outpatient due to possible multiple myeloma but he isn't sure when. He denies CP, SOB, NV, abd pain or diarrhea. In the ED found to have elevated troponin to 0.142. Cardiology contacted and did not recommend heparin drip as likely demand ischemia from CHF. Discharge Providers Provider Date of admission: 02/12/24 07:35 Discharge Date: 02/13/24 Primary care physician: Kay Dial TRIAL MANAGEMENT ASSOCIATE- Consults: 02/12/24 07:52 Consult to Physical Therapy Evaluate & Treat Comment: Physician Instructions: Evaluate and Treat Discharge provider: Hernando Hurst MD Summary Hospital Course Discharge Diagnosis: 1. Acute CHF (mixed systolic and diastolic), present on admission and active. Last echo 45-50% in January 2024 with speckled pattern of myocardium. Needs outpatient cardiac MRI. 2. JAX versus chronic kidney disease, present on admission and active. 3. Elevated troponin, present on admission and active. 4. Possible multiple myeloma, with recent abnormal protein electrophoresis at [facility]. 5. Small loculated pleural effusions, with mod pulm edema. 6. Unexplained weight loss, present on admission and active. Hospital Course: The patient was admitted and underwent a significant 2 L diuresis as initiated in the emergency department. He was feeling significantly improved. He was able to get up and walk without limitations. Troponins trended downwards consistent with demand ischemia from volume overload. The patient demonstrated mild confusion about his diagnosis, with close outpatient cardiology follow-up planned on the day following discharge per family. He otherwise remained stable throughout the hospitalization was interested in discharge home. Exam Vital Signs (past 8 hours): - 02/13/24 05:31 02/13/24 08:00 Temperature 98.0 F 98.7 F Pulse Rate 74 69 Respiratory Rate 16 18 Blood Pressure 110/60 100/53 L Pulse Oximetry 96 97 Oxygen Flow Rate 0 0 Oxygen Delivery Method Room Air Oxygen Flow Rate 0 Narrative Exam Narrative: GENERAL: This is a well-nourished, well-developed patient, in no apparent distress. EYES: Pupils equal round and reactive. Extraocular motions intact. No scleral icterus. No injection or drainage. ENT: Mucous membranes pink and moist. NECK: Trachea midline. No JVD, bruits or lymphadenopathy. Supple, nontender, no meningeal signs. CARDIOVASCULAR: Regular rate and rhythm without murmurs, gallops, or rubs. RESPIRATORY: Clear to auscultation. GASTROINTESTINAL: Abdomen soft, non-tender, nondistended. EXTREMITIES: Trace to 1+ edema. NEUROLOGIC: Alert, oriented, speech fluent, full upper and lower motor strength, no focal deficits evident. DERMATOLOGIC: No rashes or skin lesions. Objective Labs 02/13/24 05:20 02/13/24 05:20 Labs: Laboratory Results - last 24 hr 02/12/24 02/13/24 22:10 05:20 WBC 3.5 L RBC 2.88 L Hgb 10.0 L Hct 28.8 L MCV 100.2 H MCH 34.7 H MCHC 34.6 RDW 15.2 H Plt Count 142 L Neut % (Auto) 61.8 Lymph % (Auto) 22.6 L [place] % (Auto) 10.1 Eos % (Auto) 4.6 H Baso % (Auto) 0.9 Neut # (Auto) 2200 Lymph # (Auto) 800 L [place] # (Auto) 400 Eos # (Auto) 200 Baso # (Auto) 0 Sodium 133 L Potassium 3.3 L Chloride 95 L Carbon Dioxide 32 BUN 38 H Creatinine 1.76 H Estimated GFR 39 L BUN/Creatinine Ratio 21.6 Glucose 105 Calcium 9.3 Urine Color Yellow Urine Appearance Clear Urine pH 7.5 Ur Specific [place] 1.010 Urine Protein Negative Urine Glucose (UA) Negative Urine Ketones Negative Urine Occult Blood Trace-intact Urine Nitrate Negative Urine Bilirubin Negative Urine Urobilinogen 0.2 Ur Leukocyte Esterase Negative Urine RBC 1-5/hpf Urine WBC None seen Ur Squamous Epith Cells 0-1 /hpf Urine Bacteria None seen Ur Culture Indicated? Cult not indicated Vol Urine Centrifuged 10ml (spun) U Random Total Protein 34 H Urine Creatinine 15.7 Protein/Creatinin Ratio 2.16 [facility] Medical History (Updated 02/12/24 @ 07:30 by Marc Turner MD) Hypercalcemia Mild anemia Abnormal echocardiogram Bilateral pleural effusion Weight loss Hoarseness of voice Protein malnutrition Congestive heart failure Social History household members: friend(s) Smoking Status: Former smoker alcohol intake: former Discharge Plan Discharge Plan Patient Disposition: Home Discharge orders & Medications Prescriptions: New furosemide 40 mg tablet 40 mg PO BID Qty: 60 0RF potassium chloride 10 mEq tablet extended release 10 meq PO BID Qty: 60 0RF Continued sennosides [senna] 8.6 mg Tablet 8.6 mg PO DAILY polyethylene glycol 3350 [Miralax] 17 gram Powder In Packet 17 g PO DAILY Discontinued furosemide [Lasix] 40 mg tablet 40 mg PO DAILY Qty: 14 0RF potassium chloride 10 mEq capsule, extended release 10 meq PO DAILY Qty: 14 0RF Follow up/Referrals: Kay Dial FNP-BC [Primary Care Provider] - Visit Report/Discharge Packet Stand Alone Forms: Patient Portal/API, Stroke Signs & Symptoms Discharge Data Primary Care Provider: Kay Dial Attending Provider: Roe Rodriguez Admit Date/Time: 02/12/24 07:35 Quality MIPS - Admit I confirm the patient?s Advance Care Plan is present, Code status is documented, Surrogate decision maker is in patient?s record [If Yes, STOP here]: Yes MIPS - Meds 'Current medications' to include all prescriptions, [id number] products, herbals, cannabis/cannabidiol products, and vitamin/mineral/dietary (nutritional) supplements. I have utilized all available resources to obtain, update, or review the patient?s current medications. [If Yes, STOP here]: Yes MIPS - DC The patient has a history of heart transplant or Left Ventricular Assist Device (LVAD). If yes, STOP here.: No The patient has current or prior documentation of left ventricular ejection fraction (LVEF) less than or equal to 40%, or moderate or severely depressed left ventricular systolic function.: No A. The patient was prescribed or already taking an Angiotensin-Converting Enzyme (JANENE) Inhibitor, or Angiotensin Receptor July (ARB).: No B. The patient was prescribed or already taking a beta-july. [If Yes to Both A & B, STOP here]: No Patient not prescribed/taking JANENE or ARB, no reason given.: No Patient not prescribed/taking beta-july, no reason given.: No PROFEE Charge Codes Discharge inpatient/observation: [id number]
[2024-02-13 12:00] VITALS: BP 115/61; PULSE 18; RESP 16; TEMP 37; O2SAT 97
--- NOTE | 2024-02-13 14:02 | CM.DPNOTE ---
DCP Note ORACLE SPECIALIST reviewed EMR. per provider in morning multidisciplinary rounds, pt likely dc today. Per PT note, not consider home bound for HH referral during this admission. Per RN, pt has not yet established with PCP but has f/u appt with annealing furnace tender OP tomorrow. Friend Antonio on way to transport pt home. ORACLE SPECIALIST attempted to meet with pt, pt using restroom. Pt then left prior to being seen by this ORACLE SPECIALIST. Plan: home with friend/CG Pan support. F/u with OP cardiology and establish SOC with PCP recommended. CM team will continue to follow as needed. MAURISIO Arzate
== END 2024-02-13 13:30 | disposition home or self-care (01) | DRG 292 ==
LOC: ED 02-12 07:35 → AC 02-12 08:44
PROVIDERS: Admitting Provider Student in an Organized Health Care Education/Training Program; Emergency Provider Emergency Medicine; PCP Nurse Practitioner Family; Referring Provider Emergency Medicine; Visit Provider Student in an Organized Health Care Education/Training Program
DX: I50.41 Acute combined systolic (congestive) and diastolic (congestive) heart failure (principal); R63.4 Abnormal weight loss; Z68.21 Body mass index [BMI] 21.0-21.9, adult; Z87.891 Personal history of nicotine dependence
CPT/HCPCS: 36415; 51798; 71045; 80048; 80053; 81001; 82550; 82570; 83690; 83735; 83880; 84156; 84439; 84443; 84484; 85025; 93005; 93010; 96365; 96366; 96375; 97161; 99284; 99291; G0378; J1644; J1940

== ENCOUNTER → 2024-03-06 10:21 | Outpatient (CLI) | payer MEDICARE, SELFPAY ==
[2024-02-12 11:19] VITALS: BMI 21.5
[2024-03-06 11:50] LABS: Cholesterol 143 mg/dL (140-199); HDL Cholesterol 45 mg/dL (40-60); LDL Cholesterol Calculated 85 mg/dL (<100); Triglycerides 65 mg/dL (35-150)
== END ==
PROVIDERS: PCP Nurse Practitioner Family; Referring Provider Internal Medicine Cardiovascular Disease; Visit Provider Internal Medicine Cardiovascular Disease
DX: E78.5 Hyperlipidemia, unspecified (principal)
CPT/HCPCS: 36415; 80061

== ENCOUNTER → 2024-03-15 11:38 | Outpatient (CLI) | payer MEDICARE, SELFPAY ==
[2024-02-12 11:19] VITALS: BMI 21.5
[2024-03-15 14:57] LABS: BUN Creatinine Ratio 33.8 (6-22); Blood Urea Nitrogen 50 mg/dL (9-20); Calcium 9.4 mg/dL (8.4-10.2); Carbon Dioxide 31 mmol/L (22-32); Chloride 95 mmol/L (98-107); Estimated Glomerular Filt Rate 48 mL/min (>60); Glucose 109 mg/dL (80-110); HEMOLYSIS < 15 (0-50); Potassium 3.9 mmol/L (3.4-5.1); Sodium 133 mmol/L (137-145)
== END ==
PROVIDERS: PCP Nurse Practitioner Family; Referring Provider Internal Medicine Cardiovascular Disease; Visit Provider Internal Medicine Cardiovascular Disease
DX: I50.20 Unspecified systolic (congestive) heart failure (principal)
CPT/HCPCS: 36415; 80048

== ENCOUNTER 2024-03-23 12:00 | Inpatient (IN) | payer MEDICARE, SELFPAY ==
[2024-02-12 11:19] VITALS: BMI 21.5
[2024-03-23] VITALS (10 sets, daily range): BP systolic 93–109; BP diastolic 56–75; PULSE 74–116; RESP 15–24; TEMP 36.3; O2SAT 97–99; BMI 19.9
--- NOTE | 2024-03-23 12:03 | DI.RAD.S_ITS ---
PROCEDURE: XR CHEST 1V INDICATIONS: chest pain, SOB TECHNIQUE: One view of the chest was acquired. COMPARISON: [facility], CR, XR CHEST 1V, 02/11/2024, 21:58. FINDINGS: Surgical changes and devices: None. Lungs and pleura: Stable bilateral loculated pleural effusions. Stable bibasilar opacities. No pneumothorax. Central pulmonary vascular congestion. Mediastinum: Mediastinal contours appear normal. Heart is enlarged. Bones and chest wall: No suspicious bony lesions. Overlying soft tissues appear unremarkable. IMPRESSION: Stable bibasilar loculated pleural effusions. Stable bibasilar atelectasis or pneumonia. Cardiomegaly with central pulmonary vascular congestion concerning for CHF/fluid overload. Dictated by: Jasmyn Bueno MD, PhD on 03/23/2024 at 12:26 Approved by: Jasmyn Bueno MD, PhD on 03/23/2024 at 12:27
--- NOTE | 2024-03-23 12:09 | ED.GENADULT ---
HPI - General Adult <Dany Irvin DO - Last Filed: 03/26/24 19:41> General Chief complaint: Chest Pain Stated complaint: SOB, CHEST PAIN Time Seen by Provider: 03/23/24 12:03 History of Present Illness HPI narrative: 78-year-old male with history of chronic kidney disease, former smoking, congestive heart failure with most recent echo demonstrating EF of 45-50% presents with a family friend and a chief complaint an episode of chest pressure and shortness of breath that started while at rest this morning. It was centrally located in absent of any obvious provocation, palliation or radiation. No runny nose, sore throat or cough. No fever or chills, no nausea, vomiting or diarrhea. No change in medications or diet. He states that he feels generally fatigued. He is a relatively poor historian. Discharge note from [facility] January 09 admitted for 6 months of worsening shortness of breath fatigue weight loss. He was found to have bilateral pleural effusions and an abnormal echocardiogram with plans to follow-up with cardiology as an outpatient and obtain cardiac MRI. Questionable testicular mass, CT notes in ill defined soft tissue mass in the floor of the mouth. Acute kidney injury with creatinine of 1.26 which peaked at 2.16. Patient received diagnostic left-sided thoracentesis. Echo notes normal left ventricular size with LV function 50%, moderate concentric left ventricular hypertrophy with increased right ventricular wall thickness. Related Data Home Medications Medication Instructions Recorded Confirmed polyethylene glycol 3350 17 gram 17 g PO DAILY 01/31/24 03/23/24 oral powder packet (Miralax) sennosides 8.6 mg tablet (senna) 8.6 mg PO DAILY 01/31/24 03/23/24 torsemide 20 mg tablet 20 mg PO DAILY 03/25/24 03/25/24 Previous Rx's Medication Instructions Recorded potassium chloride 10 mEq 10 meq PO BID #60 tabs 02/13/24 tablet,extended release Allergies Allergy/AdvReac Type Severity Reaction Status Date / Time No Known Drug Allergies Allergy Verified 03/23/24 12:10 Review of Systems <Dany Irvin DO - Last Filed: 03/26/24 19:41> Review of Systems Narrative: GENERAL: See HPI HEENT: Denies sinus pain, ear pain, sore throat, difficulty swallowing, dizziness. RESPIRATORY: See HPI CARDIOVASCULAR: See HPI GASTROINTESTINAL: Denies nausea, vomiting, abdominal pain, diarrhea, constipation, melena. : Denies dysuria, frequency, incontinence, hematuria, urinary retention. MUSCULOSKELETAL: denies weakness, joint pain, or bony pain SKIN: Denies rash, skin lesions, or other NEUROLOGIC: Denies weakness, headache, numbness, change in speech, confusion, seizures, incoordination. PSYCHIATRIC: No concerning psychosocial issues. 12 point review of systems is negative except for those stated above Patient History <Dany Irvin DO - Last Filed: 03/26/24 19:41> Medical History Hypercalcemia Mild anemia Abnormal echocardiogram Bilateral pleural effusion Weight loss Hoarseness of voice Protein malnutrition Congestive heart failure Social History household members: friend(s) Smoking Status: Former smoker alcohol intake: former Smoking Status: Former smoker tobacco type: smokeless tobacco alcohol intake frequency: 0-2 drinks per day Substance Use Type: does not use Exam <Dany Irvin DO - Last Filed: 03/26/24 19:41> Narrative Exam Narrative: GENERAL: [78] year old patient appears stated age. Frail and elderly, very hard of hearing HEAD: Atraumatic. Normocephalic. EYES: Pupils equal round and reactive. Extraocular motions intact. No scleral icterus. No injection or drainage. ENT: Nose without bleeding, purulent drainage. Throat without erythema, tonsillar hypertrophy or exudate. Airway patent. Dry mucous membranes NECK: Trachea midline. Non tender CARDIOVASCULAR: Regular rate and rhythm without murmurs, gallops, or rubs. RESPIRATORY: Clear to auscultation. Breath sounds equal bilaterally. No wheezes, rales, or rhonchi. GASTROINTESTINAL: Abdomen soft, non-tender, nondistended. EXTREMITIES: No edema or joint tenderness. BACK: Nontender without deformity or crepitance. No flank tenderness. NEURO: AOx3. SKIN: Poor skin turgor No rash or erythema of visible areas Initial Vital Signs Initial Vital Signs: Vital Signs Pulse Rate 74 03/23/24 12:07 Respiratory Rate 22 03/23/24 12:07 Blood Pressure 93/59 L 03/23/24 12:07 Pulse Oximetry 98 03/23/24 12:07 Oxygen Delivery Method Room Air 03/23/24 12:07 <Leticia Jack, DO - Last Filed: 03/23/24 19:03> Initial Vital Signs Initial Vital Signs: Vital Signs Pulse Rate 74 03/23/24 12:07 Respiratory Rate 22 03/23/24 12:07 Blood Pressure 93/59 L 03/23/24 12:07 Pulse Oximetry 98 03/23/24 12:07 Oxygen Delivery Method Room Air 03/23/24 12:07 Course <Dany Irvin, DO - Last Filed: 03/26/24 19:41> Orders Ordered: Acetaminophen (Acetaminophen 325 Mg Tablet) 650 mg PO Q6H PRN PRN Reason: Fever/Mild Pain (1-3) Last Admin: 03/25/24 09:28 Dose: 650 mg Documented By: Apixaban (Apixaban 5 Mg Tablet) 2.5 mg PO BID [facility] Last Admin: 03/26/24 08:34 Dose: 2.5 mg Documented By: Admin: 03/25/24 21:08 Dose: 2.5 mg Documented By: Admin: 03/25/24 09:27 Dose: 2.5 mg Documented By: Admin: 03/24/24 20:50 Dose: 2.5 mg Documented By: Aspirin (Aspirin Ec 81 Mg Tablet) 81 mg PO DAILY [facility] Last Admin: 03/26/24 08:34 Dose: 81 mg Documented By: Admin: 03/25/24 09:28 Dose: 81 mg Documented By: Admin: 03/24/24 08:55 Dose: 81 mg Documented By: ORALIA Atorvastatin Calcium (Atorvastatin 20 Mg Tablet) 40 mg PO BEDTIME [facility] Last Admin: 03/25/24 21:08 Dose: 40 mg Documented By: Admin: 03/24/24 20:49 Dose: 40 mg Documented By: Admin: 03/23/24 21:25 Dose: 40 mg Documented By: Furosemide (Furosemide 40 Mg/4 Ml Vial) 80 mg IV 0800,1700 [facility] Last Admin: 03/26/24 17:51 Dose: 80 mg Documented By: Admin: 03/26/24 13:06 Dose: Not Given Documented By: LDV Melatonin (Melatonin 3 Mg Tablet) 6 mg PO BEDTIME [facility] Last Admin: 03/25/24 21:08 Dose: 6 mg Documented By: SR Naloxone HCl (Naloxone 0.4 Mg/Ml Vial) 0.2 mg IV Q2MIN PRN PRN Reason: Opiate Reversal Potassium Chloride (Potassium Chloride 20 Meq/15 Ml Udc) 40 meq PO BIDWM [facility] Last Admin: 03/26/24 17:51 Dose: 40 meq Documented By: GISELLEV Discontinued Medications Aspirin (Aspirin 81 Mg Chew Tab) 324 mg PO NOW ONE Stop: 03/23/24 12:10 Last Admin: 03/23/24 12:25 Dose: 324 mg Documented By: LAZARUS Enoxaparin Sodium (Enoxaparin 40 Mg/0.4 Ml Syringe) 40 mg SUBCUT DAILY [facility] Last Admin: 03/24/24 08:55 Dose: 40 mg Documented By: ORALIA Furosemide (Furosemide 40 Mg/4 Ml Vial) 40 mg IV NOW ONE Stop: 03/23/24 16:22 Last Admin: 03/23/24 17:57 Dose: Not Given Documented By: SALAZAR Furosemide (Furosemide 40 Mg/4 Ml Vial) 40 mg IV 0800,1700 [facility] Last Admin: 03/26/24 08:35 Dose: 40 mg Documented By: Admin: 03/25/24 17:11 Dose: 40 mg Documented By: Admin: 03/25/24 09:29 Dose: 40 mg Documented By: Admin: 03/24/24 17:37 Dose: 40 mg Documented By: Admin: 03/24/24 08:54 Dose: 40 mg Documented By: ORALIA Sodium Chloride (Normal Saline 0.9%) 1,000 mls @ 1,000 mls/hr IV BOLUS ONE Stop: 03/23/24 13:27 Last Infusion: 03/23/24 15:04 Dose: Infused Documented By: Admin: 03/23/24 12:30 Dose: 1,000 mls/hr Documented By: LAZARUS Lisinopril (Lisinopril 5 Mg Tablet) 2.5 mg PO DAILY [facility] Metoprolol Succinate (Metoprolol Er 25 Mg Tablet) 12.5 mg PO DAILY [facility] Potassium Chloride (Potassium Chloride 20 Meq Tab) 40 meq PO NOW ONE Stop: 03/24/24 13:01 Last Admin: 03/24/24 14:57 Dose: 40 meq Documented By: ORALIA Potassium Chloride (Potassium Chloride 20 Meq/15 Ml Udc) 20 meq PO BIDWM [facility] Last Admin: 03/26/24 08:35 Dose: 20 meq Documented By: Admin: 03/25/24 17:10 Dose: 20 meq Documented By: Admin: 03/25/24 13:10 Dose: 20 meq Documented By: Vital Signs Vital signs: Vital Signs - 8 hr 03/23/24 12:07 03/23/24 12:07 03/23/24 12:07 Pulse Rate 74 116 H Respiratory Rate 22 18 Blood Pressure 93/59 L 93/59 L Pulse Oximetry 98 98 Oxygen Delivery Method Room Air Room Air 03/23/24 12:30 03/23/24 12:30 03/23/24 13:00 Pulse Rate 75 74 Respiratory Rate 19 22 Blood Pressure 108/61 Pulse Oximetry 99 99 Oxygen Delivery Method 03/23/24 13:00 03/23/24 13:42 03/23/24 13:42 Pulse Rate 78 Respiratory Rate 24 Blood Pressure 109/75 102/62 Pulse Oximetry 99 Oxygen Delivery Method 03/23/24 14:00 03/23/24 14:00 03/23/24 14:30 Pulse Rate 80 83 Respiratory Rate 22 18 Blood Pressure 99/63 Pulse Oximetry 99 98 Oxygen Delivery Method 03/23/24 14:30 03/23/24 15:00 03/23/24 15:00 Pulse Rate 82 Respiratory Rate 17 Blood Pressure 108/63 105/56 L Pulse Oximetry 97 Oxygen Delivery Method 03/23/24 15:30 03/23/24 15:30 Pulse Rate 111 H Respiratory Rate 15 Blood Pressure 103/67 Pulse Oximetry 97 Oxygen Delivery Method <Leticia Jack, - Last Filed: 03/23/24 19:03> Orders Ordered: Acetaminophen (Acetaminophen 325 Mg Tablet) 650 mg PO Q6H PRN PRN Reason: Fever/Mild Pain (1-3) Last Admin: 03/25/24 09:28 Dose: 650 mg Documented By: Apixaban (Apixaban 5 Mg Tablet) 2.5 mg PO BID [facility] Last Admin: 03/26/24 08:34 Dose: 2.5 mg Documented By: Admin: 03/25/24 21:08 Dose: 2.5 mg Documented By: Admin: 03/25/24 09:27 Dose: 2.5 mg Documented By: Admin: 03/24/24 20:50 Dose: 2.5 mg Documented By: Aspirin (Aspirin Ec 81 Mg Tablet) 81 mg PO DAILY [facility] Last Admin: 03/26/24 08:34 Dose: 81 mg Documented By: Admin: 03/25/24 09:28 Dose: 81 mg Documented By: Admin: 03/24/24 08:55 Dose: 81 mg Documented By: ORALIA Atorvastatin Calcium (Atorvastatin 20 Mg Tablet) 40 mg PO BEDTIME [facility] Last Admin: 03/25/24 21:08 Dose: 40 mg Documented By: Admin: 03/24/24 20:49 Dose: 40 mg Documented By: Admin: 03/23/24 21:25 Dose: 40 mg Documented By: Furosemide (Furosemide 40 Mg/4 Ml Vial) 80 mg IV 0800,1700 [facility] Last Admin: 03/26/24 17:51 Dose: 80 mg Documented By: Admin: 03/26/24 13:06 Dose: Not Given Documented By: CECY Melatonin (Melatonin 3 Mg Tablet) 6 mg PO BEDTIME [facility] Last Admin: 03/25/24 21:08 Dose: 6 mg Documented By: Naloxone HCl (Naloxone 0.4 Mg/Ml Vial) 0.2 mg IV Q2MIN PRN PRN Reason: Opiate Reversal Potassium Chloride (Potassium Chloride 20 Meq/15 Ml Udc) 40 meq PO BIDWM [facility] Last Admin: 03/26/24 17:51 Dose: 40 meq Documented By: CECY Discontinued Medications Aspirin (Aspirin 81 Mg Chew Tab) 324 mg PO NOW ONE Stop: 03/23/24 12:10 Last Admin: 03/23/24 12:25 Dose: 324 mg Documented By: LAZARUS Enoxaparin Sodium (Enoxaparin 40 Mg/0.4 Ml Syringe) 40 mg SUBCUT DAILY [facility] Last Admin: 03/24/24 08:55 Dose: 40 mg Documented By: ORALIA Furosemide (Furosemide 40 Mg/4 Ml Vial) 40 mg IV NOW ONE Stop: 03/23/24 16:22 Last Admin: 03/23/24 17:57 Dose: Not Given Documented By: SALAZAR Furosemide (Furosemide 40 Mg/4 Ml Vial) 40 mg IV 0800,1700 [facility] Last Admin: 03/26/24 08:35 Dose: 40 mg Documented By: Admin: 03/25/24 17:11 Dose: 40 mg Documented By: Admin: 03/25/24 09:29 Dose: 40 mg Documented By: Admin: 03/24/24 17:37 Dose: 40 mg Documented By: Admin: 03/24/24 08:54 Dose: 40 mg Documented By: ORALIA Sodium Chloride (Normal Saline 0.9%) 1,000 mls @ 1,000 mls/hr IV BOLUS ONE Stop: 03/23/24 13:27 Last Infusion: 03/23/24 15:04 Dose: Infused Documented By: Admin: 03/23/24 12:30 Dose: 1,000 mls/hr Documented By: LAZARUS Lisinopril (Lisinopril 5 Mg Tablet) 2.5 mg PO DAILY [facility] Metoprolol Succinate (Metoprolol Er 25 Mg Tablet) 12.5 mg PO DAILY [facility] Potassium Chloride (Potassium Chloride 20 Meq Tab) 40 meq PO NOW ONE Stop: 03/24/24 13:01 Last Admin: 03/24/24 14:57 Dose: 40 meq Documented By: ORALIA Potassium Chloride (Potassium Chloride 20 Meq/15 Ml Udc) 20 meq PO BIDWM [facility] Last Admin: 03/26/24 08:35 Dose: 20 meq Documented By: Admin: 03/25/24 17:10 Dose: 20 meq Documented By: Admin: 03/25/24 13:10 Dose: 20 meq Documented By: Vital Signs Vital signs: Vital Signs - 8 hr 03/23/24 12:07 03/23/24 12:07 03/23/24 12:07 Pulse Rate 74 116 H Respiratory Rate 22 18 Blood Pressure 93/59 L 93/59 L Pulse Oximetry 98 98 Oxygen Delivery Method Room Air Room Air 03/23/24 12:30 03/23/24 12:30 03/23/24 13:00 Pulse Rate 75 74 Respiratory Rate 19 22 Blood Pressure 108/61 Pulse Oximetry 99 99 Oxygen Delivery Method 03/23/24 13:00 03/23/24 13:42 03/23/24 13:42 Pulse Rate 78 Respiratory Rate 24 Blood Pressure 109/75 102/62 Pulse Oximetry 99 Oxygen Delivery Method 03/23/24 14:00 03/23/24 14:00 03/23/24 14:30 Pulse Rate 80 83 Respiratory Rate 22 18 Blood Pressure 99/63 Pulse Oximetry 99 98 Oxygen Delivery Method 03/23/24 14:30 03/23/24 15:00 06/20/24 15:00 Pulse Rate 82 Respiratory Rate 17 Blood Pressure 108/63 105/56 L Pulse Oximetry 97 Oxygen Delivery Method 03/23/24 15:30 03/23/24 15:30 Pulse Rate 111 H Respiratory Rate 15 Blood Pressure 103/67 Pulse Oximetry 97 Oxygen Delivery Method Medical Decision Making <Dany IrvinDO - Last Filed: 03/26/24 19:41> Lab Data 03/26/24 05:20 03/26/24 05:20 Labs: Lab Results 03/23/24 03/23/24 03/23/24 Range/Units 12:10 13:29 15:02 WBC 3.6 L (4.5-11.0) X10^3/uL RBC 3.28 L (4.5-5.9) X10^6/uL Hgb 11.4 L (13.5-17.5) g/dL Hct 33.1 L (41-53) % MCV 101.0 H (80-100) fL MCH 34.9 H (26-34) PG MCHC 34.5 (30-36) % RDW 13.9 (11.6-14.8) % Plt Count 168 (150-400) X10^3/uL Neut % (Auto) 67.8 (50-75) % Lymph % (Auto) 20.2 L (25-40) % [place] % (Auto) 9.8 (3-14) % Eos % (Auto) 1.5 L (2-4) % Baso % (Auto) 0.7 (0-2) % Neut # (Auto) 2400 (8498-7134) /uL Lymph # (Auto) 700 L (4427-6228) /uL [place] # (Auto) 400 (0-900) /uL Eos # (Auto) 100 (0-450) /uL Baso # (Auto) 0 (0-100) /uL PT 15.1 H (9.4-12.5) SECONDS INR 1.3 (0.9-1.3) D-Dimer 4356 H (<500) ng/ml Sodium 131 L (137-145) mmol/L Potassium 3.6 (3.4-5.1) mmol/L Chloride 94 L (98-107) mmol/L Carbon Dioxide 28 (22-32) mmol/L BUN 57 H (9-20) mg/dL Creatinine 1.72 H (0.66-1.25) mg/dL Estimated GFR 40 L (>60) mL/min BUN/Creatinine Ratio 33.1 H (6-22) Glucose 95 (80-110) mg/dL Calcium 9.3 (8.4-10.2) mg/dL Magnesium 1.9 (1.6-2.3) mg/dL Total Bilirubin 1.3 (0.2-1.3) mg/dL AST 32 (17-59) IU/L ALT 19 (<50) IU/L Alkaline Phosphatase 126 (38-126) U/L Total Creatine Kinase 58 52 L (55-170) U/L Troponin I 0.136 H* 0.119 H (0.01-0.034) ng/mL NT-Pro-B Natriuret Pep 64795 H (<450) pg/mL Total Protein 7.7 (6.3-8.2) g/dL Albumin 3.7 (3.5-5.0) g/dL Globulin 4.0 (1.7-4.1) g/dL Albumin/Globulin Ratio 0.9 L (1.0-2.8) Urine RBC None seen (0-5/HPF) Urine WBC None seen (0-5/HPF) Ur Squamous Epith Cells None seen (0-5/HPF) Urine Bacteria None seen (None) Ur Culture Indicated? Cult not indicated Vol Urine Centrifuged 10ml (spun) 03/24/24 Range/Units 05:20 WBC 3.7 L (4.5-11.0) X10^3/uL RBC 3.25 L (4.5-5.9) X10^6/uL Hgb 11.3 L (13.5-17.5) g/dL Hct 32.7 L (41-53) % MCV 100.7 H (80-100) fL MCH 34.9 H (26-34) PG MCHC 34.6 (30-36) % RDW 14.4 (11.6-14.8) % Plt Count 166 (150-400) X10^3/uL Neut % (Auto) 68.4 (50-75) % Lymph % (Auto) 19.0 L (25-40) % [place] % (Auto) 9.7 (3-14) % Eos % (Auto) 2.2 (2-4) % Baso % (Auto) 0.7 (0-2) % Neut # (Auto) 2500 (1391-7773) /uL Lymph # (Auto) 700 L (9002-5444) /uL [place] # (Auto) 400 (0-900) /uL Eos # (Auto) 100 (0-450) /uL Baso # (Auto) 0 (0-100) /uL PT (9.4-12.5) SECONDS INR (0.9-1.3) D-Dimer (<500) ng/ml Sodium 130 L (137-145) mmol/L Potassium 3.2 L (3.4-5.1) mmol/L Chloride 97 L (98-107) mmol/L Carbon Dioxide 27 (22-32) mmol/L BUN 58 H (9-20) mg/dL Creatinine 1.61 H (0.66-1.25) mg/dL Estimated GFR 43 L (>60) mL/min BUN/Creatinine Ratio 36.0 H (6-22) Glucose 103 (80-110) mg/dL Calcium 9.3 (8.4-10.2) mg/dL Magnesium 2.0 (1.6-2.3) mg/dL Total Bilirubin 0.9 (0.2-1.3) mg/dL AST 34 (17-59) IU/L ALT 19 (<50) IU/L Alkaline Phosphatase 131 H (38-126) U/L Total Creatine Kinase (55-170) U/L Troponin I (0.01-0.034) ng/mL NT-Pro-B Natriuret Pep (<450) pg/mL Total Protein 7.3 (6.3-8.2) g/dL Albumin 3.5 (3.5-5.0) g/dL Globulin 3.8 (1.7-4.1) g/dL Albumin/Globulin Ratio 0.9 L (1.0-2.8) Urine RBC (0-5/HPF) Urine WBC (0-5/HPF) Ur Squamous Epith Cells (0-5/HPF) Urine Bacteria (None) Ur Culture Indicated? Vol Urine Centrifuged Urine Dip Bedside Urine Glucose Negative Bedside Urine Bilirubin - Negative Bedside Urine Ketone - Negative Urine Specific [place] 1.010 Bedside Urine Occult Blood +/- Bedside Urine pH 6.0 Bedside Urine Protein - Negative Bedside Urine Urobilinogen - Negative Bedside Urine Nitrite - Negative Bedside Urine Leukocytes - Negative Esterase Point of care testing: Urine Dip Bedside Urine Glucose Negative Bedside Urine Bilirubin - Negative Bedside Urine Ketone - Negative Urine Specific [place] 1.010 Bedside Urine Occult Blood +/- Bedside Urine pH 6.0 Bedside Urine Protein - Negative Bedside Urine Urobilinogen - Negative Bedside Urine Nitrite - Negative Bedside Urine Leukocytes - Negative Esterase MDM Narrative Medical decision making narrative: CC: Chest pain and shortness of breath over the course of the day Complicating co-morbidities: Age, CHF Data collected from: Patient Medical records reviewed: Prior notes reviewed in our EMR, request sent to [facility] for recent hospitalization discharge note Differential considered, but not limited to: Cardiac ischemia versus CHF versus dehydration versus pneumonia versus pulmonary embolism versus other Exam documented above, pertinent findings include: Frail and elderly, poor historian, dry mucous membranes and poor skin turgor. Decreased lung sounds, no increased work of breathing, abdomen soft Lab Test results independently reviewed as above. Pertinent findings: No leukocytosis or left shift, relative anemia at 11.4 and 33 at his baseline. D-dimer significantly elevated at 4356, creatinine relatively close to his baseline at 1.72 with a GFR of 40, primary electrolytes within normal limits. LFTs within normal limits. Troponin today is 0.136 (though elevated is not significantly changed from recent hospitalization on February 10 where his levels were 0.142, 0.136, and 0.126 (. [place] [address], slightly increased from previous admission at 19,600. Independently reviewed EKG as above Imaging studies independently reviewed: Stable bibasilar loculated pleural effusions. Cardiomegaly. CT angiogram obtained given critically elevated D-dimer, added abdomen and pelvis given unexplained weight loss and concern for possible undiagnosed cancer Scores Used: MIPS Elements: Consultations: Treatments: Re-evaluations: Discussion: Patient with chest pain and shortness of breath and multiple diagnoses considered as noted above. Wide screening labs obtained, chest x-ray without any acute findings, EKG without ischemic change. Troponin though elevated is unchanged from 1 month ago, similarly BNP is significantly elevated though unchanged essentially from 1 month ago. He has not hypoxemic, nor does he have increased work of breathing or any significant lower extremity edema. Clinically not in active CHF, he does have dry mucous membranes and poor skin turgor hence the decision to give fluids, particularly in the setting of a low blood pressure in the 90s. <Leticia Jack DO - Last Filed: 03/23/24 19:03> Lab Data Labs: Lab Results 03/23/24 03/23/24 03/23/24 Range/Units 12:10 13:29 15:02 WBC 3.6 L (4.5-11.0) X10^3/uL RBC 3.28 L (4.5-5.9) X10^6/uL Hgb 11.4 L (13.5-17.5) g/dL Hct 33.1 L (41-53) % MCV 101.0 H (80-100) fL MCH 34.9 H (26-34) PG MCHC 34.5 (30-36) % RDW 13.9 (11.6-14.8) % Plt Count 168 (150-400) X10^3/uL Neut % (Auto) 67.8 (50-75) % Lymph % (Auto) 20.2 L (25-40) % [place] % (Auto) 9.8 (3-14) % Eos % (Auto) 1.5 L (2-4) % Baso % (Auto) 0.7 (0-2) % Neut # (Auto) 2400 (2645-7860) /uL Lymph # (Auto) 700 L (4173-4245) /uL [place] # (Auto) 400 (0-900) /uL Eos # (Auto) 100 (0-450) /uL Baso # (Auto) 0 (0-100) /uL PT 15.1 H (9.4-12.5) SECONDS INR 1.3 (0.9-1.3) D-Dimer 4356 H (<500) ng/ml Sodium 131 L (137-145) mmol/L Potassium 3.6 (3.4-5.1) mmol/L Chloride 94 L (98-107) mmol/L Carbon Dioxide 28 (22-32) mmol/L BUN 57 H (9-20) mg/dL Creatinine 1.72 H (0.66-1.25) mg/dL Estimated GFR 40 L (>60) mL/min BUN/Creatinine Ratio 33.1 H (6-22) Glucose 95 (80-110) mg/dL Calcium 9.3 (8.4-10.2) mg/dL Magnesium 1.9 (1.6-2.3) mg/dL Total Bilirubin 1.3 (0.2-1.3) mg/dL AST 32 (17-59) IU/L ALT 19 (<50) IU/L Alkaline Phosphatase 126 (38-126) U/L Total Creatine Kinase 58 52 L (55-170) U/L Troponin I 0.136 H* 0.119 H (0.01-0.034) ng/mL NT-Pro-B Natriuret Pep 92530 H (<450) pg/mL Total Protein 7.7 (6.3-8.2) g/dL Albumin 3.7 (3.5-5.0) g/dL Globulin 4.0 (1.7-4.1) g/dL Albumin/Globulin Ratio 0.9 L (1.0-2.8) Urine RBC None seen (0-5/HPF) Urine WBC None seen (0-5/HPF) Ur Squamous Epith Cells None seen (0-5/HPF) Urine Bacteria None seen (None) Ur Culture Indicated? Cult not indicated Vol Urine Centrifuged 10ml (spun) 03/24/24 Range/Units 05:20 WBC 3.7 L (4.5-11.0) X10^3/uL RBC 3.25 L (4.5-5.9) X10^6/uL Hgb 11.3 L (13.5-17.5) g/dL Hct 32.7 L (41-53) % MCV 100.7 H (80-100) fL MCH 34.9 H (26-34) PG MCHC 34.6 (30-36) % RDW 14.4 (11.6-14.8) % Plt Count 166 (150-400) X10^3/uL Neut % (Auto) 68.4 (50-75) % Lymph % (Auto) 19.0 L (25-40) % [place] % (Auto) 9.7 (3-14) % Eos % (Auto) 2.2 (2-4) % Baso % (Auto) 0.7 (0-2) % Neut # (Auto) 2500 (3885-4999) /uL Lymph # (Auto) 700 L (4840-5271) /uL [place] # (Auto) 400 (0-900) /uL Eos # (Auto) 100 (0-450) /uL Baso # (Auto) 0 (0-100) /uL PT (9.4-12.5) SECONDS INR (0.9-1.3) D-Dimer (<500) ng/ml Sodium 130 L (137-145) mmol/L Potassium 3.2 L (3.4-5.1) mmol/L Chloride 97 L (98-107) mmol/L Carbon Dioxide 27 (22-32) mmol/L BUN 58 H (9-20) mg/dL Creatinine 1.61 H (0.66-1.25) mg/dL Estimated GFR 43 L (>60) mL/min BUN/Creatinine Ratio 36.0 H (6-22) Glucose 103 (80-110) mg/dL Calcium 9.3 (8.4-10.2) mg/dL Magnesium 2.0 (1.6-2.3) mg/dL Total Bilirubin 0.9 (0.2-1.3) mg/dL AST 34 (17-59) IU/L ALT 19 (<50) IU/L Alkaline Phosphatase 131 H (38-126) U/L Total Creatine Kinase (55-170) U/L Troponin I (0.01-0.034) ng/mL NT-Pro-B Natriuret Pep (<450) pg/mL Total Protein 7.3 (6.3-8.2) g/dL Albumin 3.5 (3.5-5.0) g/dL Globulin 3.8 (1.7-4.1) g/dL Albumin/Globulin Ratio 0.9 L (1.0-2.8) Urine RBC (0-5/HPF) Urine WBC (0-5/HPF) Ur Squamous Epith Cells (0-5/HPF) Urine Bacteria (None) Ur Culture Indicated? Vol Urine Centrifuged Urine Dip Bedside Urine Glucose Negative Bedside Urine Bilirubin - Negative Bedside Urine Ketone - Negative Urine Specific [place] 1.010 Bedside Urine Occult Blood +/- Bedside Urine pH 6.0 Bedside Urine Protein - Negative Bedside Urine Urobilinogen - Negative Bedside Urine Nitrite - Negative Bedside Urine Leukocytes - Negative Esterase Point of care testing: Urine Dip Bedside Urine Glucose Negative Bedside Urine Bilirubin - Negative Bedside Urine Ketone - Negative Urine Specific [place] 1.010 Bedside Urine Occult Blood +/- Bedside Urine pH 6.0 Bedside Urine Protein - Negative Bedside Urine Urobilinogen - Negative Bedside Urine Nitrite - Negative Bedside Urine Leukocytes - Negative Esterase Imaging Data Chest x-ray: Radiologist's Impression: PROCEDURE: XR CHEST 1V INDICATIONS: chest pain, SOB TECHNIQUE: One view of the chest was acquired. COMPARISON: [facility], XR CHEST 1V, 02/11/2024, 21:58. FINDINGS: Surgical changes and devices: None. Lungs and pleura: Stable bilateral loculated pleural effusions. Stable bibasilar opacities. No pneumothorax. Central pulmonary vascular congestion. Mediastinum: Mediastinal contours appear normal. Heart is enlarged. Bones and chest wall: No suspicious bony lesions. Overlying soft tissues appear unremarkable. IMPRESSION: Stable bibasilar loculated pleural effusions. Stable bibasilar atelectasis or pneumonia. Cardiomegaly with central pulmonary vascular congestion concerning for CHF/fluid overload. Dictated by: Jasmyn Bueno MD, PhD on 03/23/2024 at 12:26 CT scan - chest: Radiologist's Impression: PROCEDURE: CT ANGIO CHEST PE PROTOCOL INDICATIONS: SOB, tachycardia, critical [place], elevated troponin, BNP TECHNIQUE: After the administration of intravenous contrast, 2 mm thick sections acquired from the pulmonary apices to the posterior costophrenic angles. 3-dimensional maximum intensity projection (MIP) coronal and sagittal reformats were then acquired through the thorax. For radiation dose reduction, the following was used: automated exposure control, adjustment of mA and/or kV according to patient size. COMPARISON: [facility], XR CHEST 1V, 02/11/2024, 21:58. FINDINGS: Image quality: Diagnostic. Pulmonary arteries: Pulmonary arteries are normal in size, and demonstrate no intraluminal filling defects to suggest central pulmonary embolism. Lower Neck: No enlarged lymph nodes. Thyroid: No thyroid nodules which require sonographic follow up, per consensus guidelines. Axillae: No enlarged lymph nodes. Chest Wall: Unremarkable. Bones: Unremarkable. Lungs and Pleura: There are moderate bilateral low-density pleural effusions, greater on the right than on the left. There is diffuse interlobular septal thickening. Consolidation is present bilaterally at the lung bases, greater on the left than on the right. Heart: The heart is markedly enlarged. There is a moderate sized low-density pericardial effusion. Thoracic Vessels: No aortic aneurysm. Mediastinum and Courtney: No enlarged lymph nodes. Esophagus: No wall thickening. No hiatal hernia. Upper Abdomen: Visualized upper abdomen solid organs and bowel loops appear normal. IMPRESSION: 1. No acute pulmonary embolus. 2. Bilateral pleural effusions, cardiomegaly, and pulmonary edema suggesting florid congestive failure. 3. Consolidation at the lung bases. Although this may be associated with compressive atelectasis from the effusions, pneumonia could also be considered in the differential diagnosis. 3. Moderate-sized low-density pericardial effusion. Dictated by: Hanny Wilks M.D. on 03/23/2024 at 14: CT scan - abdomen/pelvis: Radiologist's Impression: PROCEDURE: CT ABDOMEN PELVIS W CON INDICATIONS: fatigue, unexplained weight loss TECHNIQUE: After the administration of intravenous contrast, axial sections acquired from the lung bases to the pubic symphysis. Coronal and sagittal reformats were performed. For radiation dose reduction, the following was used: automated exposure control, adjustment of mA and/or kV according to patient size. COMPARISON: None. FINDINGS: Image quality: Diagnostic. Lower Chest: Moderate-sized bilateral pleural effusions, pulmonary edema, and consolidation or compressive atelectasis is present at the bilateral lung bases. The heart is enlarged and there is a moderate size low-density pericardial effusion. ABDOMEN: Liver: The liver is diffusely hypodense suggesting fatty infiltration. Gallbladder: The gallbladder is partially contracted and difficult to characterize. There may be gallbladder wall thickening. Biliary ducts: No biliary dilation. Pancreas: No ductal dilation. Spleen: Size is within normal limits. Adrenal Glands: No adrenal nodules. Kidneys and Ureters: There is bilateral cortical thinning. No hydronephrosis. A low-density cyst is present within the upper pole and lower pole of the left kidney. Stomach and Bowel: Normal colonic caliber, without significant wall thickening. Patient is likely status post right hemicolectomy. Peritoneum: No pneumoperitoneum. There is a moderate to large amount of low-density free abdominal and pelvic fluid. Ventral Wall: No significant ventral hernia. Abdominal Nodes: No retroperitoneal or mesenteric adenopathy by size criteria. Vessels: Aorta and inferior vena cava are normal in size. PELVIS: Pelvic Organs: The prostate is enlarged. Bladder: There is circumferential bladder wall thickening. The bladder is moderately distended with urine. Pelvic Nodes: No enlarged lymph nodes. Miscellaneous: No inguinal hernias are seen. Bones: No aggressive osseous abnormality. IMPRESSION: 1. Moderate bilateral pleural effusions, pulmonary edema, compressive atelectasis or infection, cardiomegaly and pericardial effusion. These findings are detailed on the associated CT of the chest from the same date. 2. Severe hepatic steatosis. 3. Questionable thickening of the gallbladder wall. This finding may be associated with the abdominal ascites and represent gallbladder hydrops, although cholecystitis cannot be excluded. Correlation with abdominal pain and abnormal labs could be helpful to further elucidate findings. 4. Wall thickening of the bladder. Differential considerations include generalized soft tissue edema, acute cystitis, and neoplasm. 5. Moderate to large volume ascites. Dictated by: Hanny Wilks M.D. on 03/23/2024 at 14:32 ECG Data Attestation: I personally reviewed and interpreted this ECG as follows: Interpretation: Low voltage sinus rhythm, no acute changes similar to previous EKGs MDM Narrative Medical decision making narrative: CC: Chest pain and shortness of breath over the course of the day Complicating co-morbidities: Age, CHF Data collected from: Patient Medical records reviewed: Prior notes reviewed in our EMR, request sent to [facility] for recent hospitalization discharge note Differential considered, but not limited to: Cardiac ischemia versus CHF versus dehydration versus pneumonia versus pulmonary embolism versus other Exam documented above, pertinent findings include: Frail and elderly, poor historian, dry mucous membranes and poor skin turgor. Decreased lung sounds, no increased work of breathing, abdomen soft Lab Test results independently reviewed as above. Pertinent findings: No leukocytosis or left shift, relative anemia at 11.4 and 33 at his baseline. D-dimer significantly elevated at 4356, creatinine relatively close to his baseline at 1.72 with a GFR of 40, primary electrolytes within normal limits. LFTs within normal limits. Troponin today is 0.136 (though elevated is not significantly changed from recent hospitalization on February 10 where his levels were 0.142, 0.136, and 0.126 (. [place] [address], slightly increased from previous admission at 19,600. Independently reviewed EKG as above Imaging studies independently reviewed: Stable bibasilar loculated pleural effusions. Cardiomegaly. CT angiogram obtained given critically elevated D-dimer, added abdomen and pelvis given unexplained weight loss and concern for possible undiagnosed cancer Scores Used: MIPS Elements: Consultations: Treatments: Re-evaluations: Discussion: Patient with chest pain and shortness of breath and multiple diagnoses considered as noted above. Wide screening labs obtained, chest x-ray without any acute findings, EKG without ischemic change. Troponin though elevated is unchanged from 1 month ago, similarly BNP is significantly elevated though unchanged essentially from 1 month ago. He has not hypoxemic, nor does he have increased work of breathing or any significant lower extremity edema. Clinically not in active CHF, he does have dry mucous membranes and poor skin turgor hence the decision to give fluids, particularly in the setting of a low blood pressure in the 90s. Dr. Jack-patient signed out to me by Dr. Irvin I have seen evaluated patient myself. He was given a L of fluid for hypotension and weakness. He presented today with some chest pain. According to records from [facility] and 2 recent admissions he has had chronic increasing chest pain and shortness of breath with exertion. He had an echocardiogram at [facility] that is reported to be abnormal. Patient has bilateral pleural effusions he had a thoracentesis during that admission which was suggested of transudate and lymphocytic predominance thought to be associated with CHF echo showed a lower low normal EF of 50% with mild pulmonary hypertension and speckled appearance of LVH and RVH 1640 Dr. Barreto, updated patient's symptoms test results in regards to ongoing troponin elevation. She is able to review records from [facility] patient actually saw Cardiology on February 13 change medication to torsemide. Does not appear the patient has ever had a stress test. With ongoing chest pain with exertion she thinks this is reasonable. Patient is not currently having chest pain at rest. He clinically appears dry and [place] [address] and bilateral pleural effusion. He tolerated a L of fluid without any issue. Dr. Manuel accepts patient to observation Discharge Plan Departure Patient Disposition: Admitted As Inpatient Clinical Impression: Congestive heart failure, Chest pain Admit Date/Time: 03/24/24 12:41 Admit Provider: Quincy Manuel
--- NOTE | 2024-03-23 12:11 | EKG_ITS ---
[address] [address] Test Date: 2024-03-23 Pat Name: Bay Reddy Department: Room: Gender: Male Security Dispatcher: KELSEY : 1945 Requested By: Order Number: [id number] Reading MD: Quincy Manuel Measurements Intervals [place] Rate: 73 P: 65 DC: 264 QRS: 251 QRSD: 94 T: 13 QT: 420 QTc: 462 Interpretive Statements Sinus rhythm with 1st degree AV block with premature atrial complexes with aberrant conduction Right superior axis deviation Pulmonary disease pattern Incomplete right bundle branch block Possible Right ventricular hypertrophy Inferior infarct , age undetermined Electronically Signed On 03-24-2024 16:17:27 PDT by Quincy Manuel
[2024-03-23 12:24] LABS: Add Manual Diff / Slide Review NO; Basophils Absolute Auto 0 /uL (0-100); Basophils Percent Auto 0.7 % (0-2); Eosinophils Absolute Auto 100 /uL (0-450); Eosinophils Percent Auto 1.5 % (2-4); Hematocrit 33.1 % (41-53); Hemoglobin 11.4 g/dL (13.5-17.5); Lymphocytes Absolute Auto 700 /uL (1100-4500); Lymphocytes Percent Auto 20.2 % (25-40); Mean Corpuscular HGB Conc 34.5 % (30-36); Mean Corpuscular Hemoglobin 34.9 PG (26-34); Monocytes Absolute Auto 400 /uL (0-900); Monocytes Percent Auto 9.8 % (3-14); Neutrophils Absolute Auto 2400 /uL (1500-7000); Neutrophils Percent Auto 67.8 % (50-75); Platelet Count 168 X10^3/uL (150-400); Red Blood Cell Count 3.28 X10^6/uL (4.5-5.9); Red Cell Distribution Width 13.9 % (11.6-14.8); White Blood Cell Count 3.6 X10^3/uL (4.5-11.0)
[2024-03-23] MEDS: ASPIRIN 81 MG CHEW TAB 324 MG PO (12:25)
[2024-03-23 12:29] LABS: INR 1.3 (0.9-1.3); Prothrombin Time 15.1 SECONDS (9.4-12.5)
[2024-03-23] MEDS: SODIUM CHLORIDE 0.9% 1,000 ML 1000 ML IV (12:30)
[2024-03-23 12:31] LABS: D Dimer 4356 ng/ml (<500)
[2024-03-23 12:33] LABS: Alanine Aminotransferase 19 IU/L (<50); Albumin 3.7 g/dL (3.5-5.0); Albumin Globulin Ratio 0.9 (1.0-2.8); Alkaline Phosphatase 126 U/L (38-126); Aspartate Aminotransferase 32 IU/L (17-59); BUN Creatinine Ratio 33.1 (6-22); Bilirubin Total 1.3 mg/dL (0.2-1.3); Blood Urea Nitrogen 57 mg/dL (9-20); Calcium 9.3 mg/dL (8.4-10.2); Carbon Dioxide 28 mmol/L (22-32); Chloride 94 mmol/L (98-107); Creatine Kinase 58 U/L (55-170); Estimated Glomerular Filt Rate 40 mL/min (>60); Glucose 95 mg/dL (80-110); HEMOLYSIS < 15 (0-50); Magnesium 1.9 mg/dL (1.6-2.3); Potassium 3.6 mmol/L (3.4-5.1); Sodium 131 mmol/L (137-145); Total Protein 7.7 g/dL (6.3-8.2)
[2024-03-23 12:45] LABS: NT-proBNP (BNP-Adult 18+) 21200 pg/mL (<450)
[2024-03-23 12:47] LABS: Troponin I 0.136 ng/mL (0.01-0.034)
--- NOTE | 2024-03-23 12:55 | DI.CT.S_ITS ---
PROCEDURE: CT ANGIO CHEST PE PROTOCOL INDICATIONS: SOB, tachycardia, critical Dimer, elevated troponin, BNP TECHNIQUE: After the administration of intravenous contrast, 2 mm thick sections acquired from the pulmonary apices to the posterior costophrenic angles. 3-dimensional maximum intensity projection (MIP) coronal and sagittal reformats were then acquired through the thorax. For radiation dose reduction, the following was used: automated exposure control, adjustment of mA and/or kV according to patient size. COMPARISON: [facility], CR, XR CHEST 1V, 02/11/2024, 21:58. FINDINGS: Image quality: Diagnostic. Pulmonary arteries: Pulmonary arteries are normal in size, and demonstrate no intraluminal filling defects to suggest central pulmonary embolism. Lower Neck: No enlarged lymph nodes. Thyroid: No thyroid nodules which require sonographic follow up, per consensus guidelines. Axillae: No enlarged lymph nodes. Chest Wall: Unremarkable. Bones: Unremarkable. Lungs and Pleura: There are moderate bilateral low-density pleural effusions, greater on the right than on the left. There is diffuse interlobular septal thickening. Consolidation is present bilaterally at the lung bases, greater on the left than on the right. Heart: The heart is markedly enlarged. There is a moderate sized low-density pericardial effusion. Thoracic Vessels: No aortic aneurysm. Mediastinum and Courtney: No enlarged lymph nodes. Esophagus: No wall thickening. No hiatal hernia. Upper Abdomen: Visualized upper abdomen solid organs and bowel loops appear normal. IMPRESSION: 1. No acute pulmonary embolus. 2. Bilateral pleural effusions, cardiomegaly, and pulmonary edema suggesting florid congestive failure. 3. Consolidation at the lung bases. Although this may be associated with compressive atelectasis from the effusions, pneumonia could also be considered in the differential diagnosis. 3. Moderate-sized low-density pericardial effusion. Dictated by: Hanny Wilks M.D. on 03/23/2024 at 14:28 Approved by: Hanny Wilks M.D. on 03/23/2024 at 14:32
--- NOTE | 2024-03-23 12:55 | DI.CT.S_ITS ---
PROCEDURE: CT ABDOMEN PELVIS W CON INDICATIONS: fatigue, unexplained weight loss TECHNIQUE: After the administration of intravenous contrast, axial sections acquired from the lung bases to the pubic symphysis. Coronal and sagittal reformats were performed. For radiation dose reduction, the following was used: automated exposure control, adjustment of mA and/or kV according to patient size. COMPARISON: None. FINDINGS: Image quality: Diagnostic. Lower Chest: Moderate-sized bilateral pleural effusions, pulmonary edema, and consolidation or compressive atelectasis is present at the bilateral lung bases. The heart is enlarged and there is a moderate size low-density pericardial effusion. ABDOMEN: Liver: The liver is diffusely hypodense suggesting fatty infiltration. Gallbladder: The gallbladder is partially contracted and difficult to characterize. There may be gallbladder wall thickening. Biliary ducts: No biliary dilation. Pancreas: No ductal dilation. Spleen: Size is within normal limits. Adrenal Glands: No adrenal nodules. Kidneys and Ureters: There is bilateral cortical thinning. No hydronephrosis. A low-density cyst is present within the upper pole and lower pole of the left kidney. Stomach and Bowel: Normal colonic caliber, without significant wall thickening. Patient is likely status post right hemicolectomy. Peritoneum: No pneumoperitoneum. There is a moderate to large amount of low-density free abdominal and pelvic fluid. Ventral Wall: No significant ventral hernia. Abdominal Nodes: No retroperitoneal or mesenteric adenopathy by size criteria. Vessels: Aorta and inferior vena cava are normal in size. PELVIS: Pelvic Organs: The prostate is enlarged. Bladder: There is circumferential bladder wall thickening. The bladder is moderately distended with urine. Pelvic Nodes: No enlarged lymph nodes. Miscellaneous: No inguinal hernias are seen. Bones: No aggressive osseous abnormality. IMPRESSION: 1. Moderate bilateral pleural effusions, pulmonary edema, compressive atelectasis or infection, cardiomegaly and pericardial effusion. These findings are detailed on the associated CT of the chest from the same date. 2. Severe hepatic steatosis. 3. Questionable thickening of the gallbladder wall. This finding may be associated with the abdominal ascites and represent gallbladder hydrops, although cholecystitis cannot be excluded. Correlation with abdominal pain and abnormal labs could be helpful to further elucidate findings. 4. Wall thickening of the bladder. Differential considerations include generalized soft tissue edema, acute cystitis, and neoplasm. 5. Moderate to large volume ascites. Dictated by: Hanny Wilks M.D. on 03/23/2024 at 14:32 Approved by: Hanny Wilks M.D. on 03/23/2024 at 14:45
--- NOTE | 2024-03-23 13:13 | EKG_ITS ---
[place] [id number] [place] [id number] Test Date: 2024-03-23 Pat Name: Bay Reddy Department: Room: Gender: Male Youth Minister: KELSEY : 1945 Requested By: Order Number: [id number] Reading MD: Quincy Manuel Measurements Intervals [place] Rate: 75 P: 72 ID: [id number] QRS: 249 QRSD: 94 T: -59 QT: 368 QTc: 410 Interpretive Statements Sinus rhythm with 1st degree AV block with premature supraventricular complexes and with occasional premature ventricular complexes Right superior axis deviation Pulmonary disease pattern Incomplete right bundle branch block Possible Right ventricular hypertrophy Inferior infarct , age undetermined Electronically Signed On 03-24-2024 16:17:36 PDT by Quincy Manuel
[2024-03-23 13:49] LABS: Bacteria Urine None Seen; Culture Indicated Urine Cult Not Indicated; RBC Urine None Seen (0-5/HPF); Squamous Epithelial Cell Urine None Seen (0-5/HPF); Urine Volume 10mL (spun); WBC Urine None Seen (0-5/HPF)
[2024-03-23 15:18] LABS: Creatine Kinase 52 U/L (55-170)
[2024-03-23 15:31] LABS: Troponin I 0.119 ng/mL (0.01-0.034)
--- NOTE | 2024-03-23 17:27 | PC.NURSE ---
FLORAL ARTIST note: Nuclear stress test scheduled for tomorrow morning (no time given), no caffeine, NPO at midnight.
--- NOTE | 2024-03-23 18:02 | PM.HP.1 ---
History of Present Illness History of Present Illness Date Patient Seen: 03/23/24 Time Patient Seen: 18:02 Chief complaint: SOB, CHEST PAIN Narrative: Vazquez Reddy is an 78yo M with PMH of HFrEF 45-50%, paroxysmal afib, possible undiagnosed multiple myeloma, recent weight loss, CKD, former smoker who presents with continued dyspnea on exertion and possible chest pain. His history was inconsistent. It appears for the past few months he has had chronic dyspnea on exertion. He states he both had substernal chest pain which he later denied and stated he only had shortness of breath and difficulty catching his breath. He was vague on whether this was related to activity, though he definitely states he has difficulty climbing stairs and walking more than 1 block. In review of his recent hospitalizations, he supposedly had outside echo with EF of 45-50%, and possible myeloma. Recent electrophoresis however did not show an M-spike. D-dimer was elevated in the ER, CTA showed no PE but was consistent with volume overload. Cr is a bit more elevated at 1.72. Troponin was 0.136 but improved to 0.119 on repeat. UA not indicative of infection. He was admitted for further management. [facility] Medical History Hypercalcemia Mild anemia Abnormal echocardiogram Bilateral pleural effusion Weight loss Hoarseness of voice Protein malnutrition Congestive heart failure Social History household members: friend(s) Smoking Status: Former smoker alcohol intake: former Meds Home Medications and Allergies Home Medications Medication Instructions Recorded Confirmed Type polyethylene glycol 3350 17 gram 17 g PO DAILY 01/31/24 03/23/24 History oral powder packet (Miralax) sennosides 8.6 mg tablet (senna) 8.6 mg PO DAILY 01/31/24 03/23/24 History furosemide 40 mg tablet 40 mg PO BID #60 tabs 02/13/24 03/23/24 Rx potassium chloride 10 mEq 10 meq PO BID #60 tabs 02/13/24 03/23/24 Rx tablet,extended release Allergies Allergy/AdvReac Type Severity Reaction Status Date / Time No Known Drug Allergies Allergy Verified 03/23/24 12:10 Review of Systems Review of Systems Narrative: All other systems reviewed with the patient and are negative unless otherwise stated. Exam Vital Signs (past 8 hours): - 03/23/24 12:07 03/23/24 12:07 03/23/24 12:07 Pulse Rate 74 116 H Respiratory Rate 22 18 Blood Pressure 93/59 L 93/59 L Pulse Oximetry 98 98 Oxygen Delivery Method Room Air Room Air 03/23/24 12:30 03/23/24 12:30 03/23/24 13:00 Pulse Rate 75 74 Respiratory Rate 19 22 Blood Pressure 108/61 Pulse Oximetry 99 99 Oxygen Delivery Method 03/23/24 13:00 03/23/24 13:42 03/23/24 13:42 Pulse Rate 78 Respiratory Rate 24 Blood Pressure 109/75 102/62 Pulse Oximetry 99 Oxygen Delivery Method 03/23/24 14:00 03/23/24 14:00 03/23/24 14:30 Pulse Rate 80 83 Respiratory Rate 22 18 Blood Pressure 99/63 Pulse Oximetry 99 98 Oxygen Delivery Method 03/23/24 14:30 03/23/24 15:00 03/23/24 15:00 Pulse Rate 82 Respiratory Rate 17 Blood Pressure 108/63 105/56 L Pulse Oximetry 97 Oxygen Delivery Method 03/23/24 15:30 03/23/24 15:30 Pulse Rate 111 H Respiratory Rate 15 Blood Pressure 103/67 Pulse Oximetry 97 Oxygen Delivery Method Oxygen Delivery Method Room Air Narrative Exam Narrative: GENERAL: This is a thin appearing elderly male in no acute distress EYES: Pupils equal round and reactive. Extraocular motions intact. No scleral icterus. No injection or drainage. ENT: Mucous membranes pink and moist. NECK: Trachea midline. No JVD, bruits or lymphadenopathy. Supple, nontender, no meningeal signs. CARDIOVASCULAR: Regular rate and rhythm without murmurs, gallops, or rubs. RESPIRATORY: Clear to auscultation. GASTROINTESTINAL: Abdomen soft, non-tender, nondistended. EXTREMITIES: 1+ edema b/l LE NEUROLOGIC: Alert, oriented, speech fluent, full upper and lower motor strength, no focal deficits evident. DERMATOLOGIC: No rashes or skin lesions. Objective Labs 03/23/24 12:10 03/23/24 12:10 Labs: Laboratory Results - last 24 hr 03/23/24 03/23/24 03/23/24 12:10 13:29 15:02 WBC 3.6 L RBC 3.28 L Hgb 11.4 L Hct 33.1 L MCV 101.0 H MCH 34.9 H MCHC 34.5 RDW 13.9 Plt Count 168 Neut % (Auto) 67.8 Lymph % (Auto) 20.2 L [place] % (Auto) 9.8 Eos % (Auto) 1.5 L Baso % (Auto) 0.7 Neut # (Auto) 2400 Lymph # (Auto) 700 L [place] # (Auto) 400 Eos # (Auto) 100 Baso # (Auto) 0 PT 15.1 H INR 1.3 D-Dimer 4356 H Sodium 131 L Potassium 3.6 Chloride 94 L Carbon Dioxide 28 BUN 57 H Creatinine 1.72 H Estimated GFR 40 L BUN/Creatinine Ratio 33.1 H Glucose 95 Calcium 9.3 Magnesium 1.9 Total Bilirubin 1.3 AST 32 ALT 19 Alkaline Phosphatase 126 Total Creatine Kinase 58 52 L Troponin I 0.136 H* 0.119 H NT-Pro-B Natriuret Pep 70688 H Total Protein 7.7 Albumin 3.7 Globulin 4.0 Albumin/Globulin Ratio 0.9 L Urine RBC None seen Urine WBC None seen Ur Squamous Epith Cells None seen Urine Bacteria None seen Ur Culture Indicated? Cult not indicated Vol Urine Centrifuged 10ml (spun) Assessment & Plan Assessment & Plan narrative: 1. Acute on chronic CHF (mixed systolic and diastolic), present on admission and active. 2. JAX versus chronic kidney disease, present on admission and active. 3. Elevated troponin/myocardial injury, present on admission and active, improved 4. Small bilateral pleural effusions, with mod pulm edema. 5. weight loss, present on admission and active. 6. Paroxysmal atrial fibrillation -continue diuresis with furosemide 40 mg IV BID -added asa and statin therapy for now, pending nuclear stress testing as symptoms have been ongoing. Dyspnea may represent anginal equivalent. Discussed with cardiology. -PT/OT evaluations after stress testing if negative -no M Juan seen on previous admission, myeloma unlikely. -follow BMP daily, suspect JAX / elevated Cr in setting of volume overload currently -telemetry monitoring. -Last echo 45-50% in January 2024 with speckled pattern of myocardium. Had had progressive symptoms since. Needs outpatient cardiac MRI per prior recommendations. Discussed with cardiology today. Will repeat given progressive symptoms and no records available for review here. -history of paroxysmal afib noted on previous admission. Will monitor with tele, discuss anticoagulation with patient. Add beta cynthia if tachycardic. Code status is full code. DVT prophylaxis with heparin. Proxy is close friend Pan Horne I have reviewed home meds and used all available resources to reconcile the home meds. Case discussed with ED physician/APC and cardiology to formulate the above assessement and plan. patient will be admitted to the hospitalist service for further workup and management. Dispo: admit observation, pending above evaluation to rule out cardiac etiology or worsening heart failure.
--- NOTE | 2024-03-23 18:44 | DI.ECHO.S_ITS ---
[facility] : : [address] : [place] : : [id number] : : Phone: [phone] Echocardiogram Report + + :Name: KAREN PATRICK Study Date: 03/24/2024 Height: 69 in : :[facility] ReadingLocation: Weight: 135 lb: : Gender: Male BSA: 1.7 m2 : :: 1945 Age: 78 yrs BP: 96/58 mmHg: :Reason For Study: CHEST PAIN : :Ordering Physician: CLOETTE, : :NUSRAT PARTIDA Performed By: Micky Serrano : :Referring: NUSRAT ALVARENGA : + + Interpretation Summary The patient was in atrial fibrillation with heart rates between 57-109 bpm during the exam. Left ventricular wall thickness is mildly increased. The ejection fraction is estimated to be 40-45%. Diastolic function could not be accurately assessed due to atrial fibrillation. The left atrium is moderately dilated. The right ventricle is normal size. Right ventricular systolic function is moderate to severely reduced. The right atrium is mild to moderately dilated. There is mild to moderate mitral regurgitation. There is moderate tricuspid regurgitation. The right ventricular systolic pressure is estimated to be at least 43 mmHg based on an estimated right atrial pressure of 8 mm Hg. There is a small to moderate pericardial effusion noted. There are no echocardiographic indications of cardiac tamponade. There is a moderate left-sided pleural effusion. Procedure: A two-dimensional transthoracic echocardiogram with color flow and Doppler was performed. The study quality was technically adequate. There is no prior echocardiogram noted for this patient. The patient was in atrial fibrillation with heart rates between 57-109 bpm during the exam. Left Ventricle: The left ventricle is normal in size. Left ventricular wall thickness is mildly increased. The ejection fraction is estimated to be 40- 45%. Diastolic function could not be accurately assessed due to atrial fibrillation. Right Ventricle: The right ventricle is normal size. Right ventricular systolic function is moderate to severely reduced. Atria: The left atrium is moderately dilated. The right atrium is mild to moderately dilated. The interatrial septum grossly appears intact with no obvious evidence for an atrial septal defect. Mitral Valve: The mitral valve is normal. There is no mitral valve stenosis. There is mild to moderate mitral regurgitation. There are multiple regurgitant jets present. Aortic Valve: The aortic valve is trileaflet. There is no aortic valve stenosis. There is trace aortic regurgitation. Tricuspid Valve: The tricuspid valve is normal. There is no tricuspid stenosis. There is moderate tricuspid regurgitation. The right ventricular systolic pressure is estimated to be at least 43 mmHg based on an estimated right atrial pressure of 8 mm Hg. Pulmonic Valve: The pulmonic valve is not well visualized. There is no pulmonic valvular stenosis. There is a trace or physiologic amount of pulmonic regurgitation. Great Vessels: The aortic root is normal size. The dimensions of the ascending aorta are normal. The IVC is of normal diameter and collapses less than 50% with a sniff. This suggests a right atrial pressure of 8 mm Hg. Pericardium/ Pleura There is a small to moderate pericardial effusion noted. There are no echocardiographic indications of cardiac tamponade. There is a moderate left-sided pleural effusion. MMode/2D Measurements & Calculations LVIDd: 3.6 cm LVOT diam: 2.1 cm LVIDs: 2.9 cm Ao root diam: 3.0 cm FS: 21.2 % asc Aorta Diam: 3.6 cm IVSd: 1.2 cm LVPWd: 1.2 cm LV gutierrez. diameter/BSA (cm/m^2): 2.1 LV sys. diameter/BSA (cm/m^2): 1.6 LA A2 area: 24.0 cm2 RA long axis: 5.3 cm LA A4 area: 22.8 cm2 RA area: 20.4 cm2 LA length (vol): 6.5 cm RA vol: 66.6 ml LA vol: 71.4 ml RA : 38.1 ml/m2 LA vol index: 40.9 ml/m2 IVC diam: 1.8 cm RVD1 (basal): 3.9 cm RVD2 (mid): 3.0 cm TAPSE: 0.73 cm Doppler Measurements & Calculations Ao V2 max: 97.8 cm/sec LVOT Max George: 60.9 cm/sec Ao V2 mean: 65.6 cm/sec LV V1 max P.5 mmHg Ao max P.8 mmHg LV V1 VTI: 9.2 cm Ao mean P.0 mmHg MARI(I,D): 2.4 cm2 Ao V2 VTI: 13.9 cm MARI(V,D): 2.2 cm2 sev ratio: 0.66 MARI indexed to BSA (cm^2/m^2): 1.3 MV E max george: 88.0 cm/sec TR max george: 294.8 cm/sec MV A max george: 29.4 cm/sec TR max P.8 mmHg MV E/A: 3.0 PA V2 max: 54.7 cm/sec Med Peak E' George: 3.9 cm/sec PA V2 mean: 38.2 cm/sec E/E' med: 22.3 PA mean P.65 mmHg Lat Peak E' George: 4.8 cm/sec PA pr(Accel): 24.2 mmHg E/E' lat: 18.2 E/e' average: 20.3 MV dec time: 0.15 sec SV(LVOT): 32.8 ml Reading Physician:01:05 PM
[2024-03-23] MEDS: ATORVASTATIN 20 MG TABLET 40 MG PO (21:25)
[2024-03-24] VITALS (13 sets, daily range): BP systolic 94–127; BP diastolic 53–69; PULSE 60–109; RESP 16–20; TEMP 36.1–36.6; O2SAT 93–96
[2024-03-24 06:21] LABS: Add Manual Diff / Slide Review NO; Basophils Absolute Auto 0 /uL (0-100); Basophils Percent Auto 0.7 % (0-2); Eosinophils Absolute Auto 100 /uL (0-450); Eosinophils Percent Auto 2.2 % (2-4); Hematocrit 32.7 % (41-53); Hemoglobin 11.3 g/dL (13.5-17.5); Lymphocytes Absolute Auto 700 /uL (1100-4500); Mean Corpuscular HGB Conc 34.6 % (30-36); Mean Corpuscular Hemoglobin 34.9 PG (26-34); Mean Corpuscular Volume 100.7 fL (80-100); Monocytes Absolute Auto 400 /uL (0-900); Monocytes Percent Auto 9.7 % (3-14); Neutrophils Absolute Auto 2500 /uL (1500-7000); Neutrophils Percent Auto 68.4 % (50-75); Platelet Count 166 X10^3/uL (150-400); Red Blood Cell Count 3.25 X10^6/uL (4.5-5.9); Red Cell Distribution Width 14.4 % (11.6-14.8); White Blood Cell Count 3.7 X10^3/uL (4.5-11.0)
[2024-03-24 06:32] LABS: Alanine Aminotransferase 19 IU/L (<50); Albumin 3.5 g/dL (3.5-5.0); Albumin Globulin Ratio 0.9 (1.0-2.8); Alkaline Phosphatase 131 U/L (38-126); Aspartate Aminotransferase 34 IU/L (17-59); Bilirubin Total 0.9 mg/dL (0.2-1.3); Blood Urea Nitrogen 58 mg/dL (9-20); Calcium 9.3 mg/dL (8.4-10.2); Carbon Dioxide 27 mmol/L (22-32); Chloride 97 mmol/L (98-107); Estimated Glomerular Filt Rate 43 mL/min (>60); Globulin 3.8 g/dL (1.7-4.1); Glucose 103 mg/dL (80-110); HEMOLYSIS < 15 (0-50); Potassium 3.2 mmol/L (3.4-5.1); Sodium 130 mmol/L (137-145); Total Protein 7.3 g/dL (6.3-8.2)
[2024-03-24] MEDS: FUROSEMIDE 40 MG/4 ML VIAL IV ×2 (08:54→17:37)
[2024-03-24] MEDS: ASPIRIN EC 81 MG TABLET PO (08:55)
[2024-03-24] MEDS: ENOXAPARIN 40 MG/0.4 ML SYRINGE SUBCUT (08:55)
--- NOTE | 2024-03-24 11:11 | DIET.CONS ---
Dietary Consultation Note Admission Date: 03/23/2024 17:05 Assessment: 78 y M admitted for CHF exacerbation, SOB. PMH of CKD. Possible undiagnosed multiple myeloma. Nutrition screened for low MNA. Met with pt at bedside who reports friend's cooks dinner and good availability of food in house, but lack of appetite. Diet recall: B-cereal 1-2 bowls L-pb&j sandwich D-cooked meal Nutrition focused physical exam: Muscle mass loss: -severe loss temporal -severe loss clavicle region -moderate loss interosseous Subcutaneous fat loss: -severe loss buccal and orbital fat pads Ht: 175.26 cm Wt: 61.235 kg BMI: 19.9 UBW: 66.678 kg on 01/31/24 (-8% weight in 2 months, severe); pt reports UBW of 72.73 kg 6 m ago (-16% weight loss in 6 months, severe) Last BM: 03/23/24 (03/23/24 19:20) MNA: 9 Darnell Score: 20 Diet: 03/24/24 Breakfast Heart Healthy Diet Diet Modifications: Sodium Level: 2 gm Sodium Food Texture: Level 7 - Regular Liquid Consistency: Level 0 - Thin Labs: RBC 3.25 X10^6/uL (4.5-5.9) L 03/24/24 05:20 Hgb 11.3 g/dL (13.5-17.5) L 03/24/24 05:20 Hct 32.7 % (41-53) L 03/24/24 05:20 Creatinine 1.61 mg/dL (0.66-1.25) H 03/24/24 05:20 NT-Pro-B Natriuret Pep 89106 pg/mL (<450) H 03/23/24 12:10 Nutrition Diagnosis: Severe Chronic Protein Calorie Malnutrition r/t inadequate oral intake as evidenced by moderate to severe muscle mass wasting (deltoids, pectoralis major, trapezius, temporalis, interosseous), severe subcutaneous fat loss (buccal, orbital), 8% weight loss in 2 months, severe, BMI 19.9 (underweight for age) The patient is at much higher risk for medical and surgical complications because of their malnutrition. This increases the difficulty and complexity of medical and surgical interventions and increases the chances of poor outcomes such as morbidity and mortality. Interventions: 1. ONS daily or BID 2. Increased energy needs - discussed energy dense options to include EER: 2388-3919 kcals (30-33 kcals/kg per bmi) 65-75 g protein (1-1.2 g/kg per HF, malnutrition, w/ CKD) Monitoring/Evaluations: GOC, po intakes Electronically Signed by: Soledad Sánchez 03/24/24 11:11 Clinical Dietitian [address] [address]
--- NOTE | 2024-03-24 14:27 | P.PN_ITS ---
Subjective Subjective Interval history: Patient refused stress testing today. He continues to feel weak and dyspnic with exertion. He is unable to return to his prior living situation as he was needing to much care. Echocardiogram showing pericardial effusion, pleural effusion, EF slightly down to 40-45% with also R ventricular dysfunction as well. Exam Vital Signs (past 8 hours): - 03/24/24 07:02 03/24/24 08:00 03/24/24 08:30 Temperature 97.0 F L Pulse Rate 60 Respiratory Rate 19 Blood Pressure 96/58 L 127/66 Pulse Oximetry 95 Oxygen Delivery Method Room Air Oxygen Flow Rate 0 03/24/24 10:00 03/24/24 12:00 Temperature 97.1 F L Pulse Rate Respiratory Rate 17 Blood Pressure 108/68 Pulse Oximetry 95 95 Oxygen Delivery Method Room Air Oxygen Flow Rate Oxygen Delivery Method Room Air Oxygen Flow Rate 0 Narrative Exam Narrative: GENERAL: This is a thin appearing elderly male in no acute distress EYES: Pupils equal round and reactive. Extraocular motions intact. No scleral icterus. No injection or drainage. ENT: Mucous membranes pink and moist. NECK: Trachea midline. No JVD, bruits or lymphadenopathy. Supple, nontender, no meningeal signs. CARDIOVASCULAR: Regular rate and rhythm without murmurs, gallops, or rubs. RESPIRATORY: Clear to auscultation. GASTROINTESTINAL: Abdomen soft, non-tender, nondistended. EXTREMITIES: 1+ edema b/l LE NEUROLOGIC: Alert, oriented, speech fluent, full upper and lower motor strength, no focal deficits evident. DERMATOLOGIC: No rashes or skin lesions. Objective Labs 03/24/24 05:20 03/24/24 05:20 Labs: Laboratory Results - last 24 hr 03/23/24 03/24/24 15:02 05:20 WBC 3.7 L RBC 3.25 L Hgb 11.3 L Hct 32.7 L MCV 100.7 H MCH 34.9 H MCHC 34.6 RDW 14.4 Plt Count 166 Neut % (Auto) 68.4 Lymph % (Auto) 19.0 L Bradley % (Auto) 9.7 Eos % (Auto) 2.2 Baso % (Auto) 0.7 Neut # (Auto) 2500 Lymph # (Auto) 700 L Bradley # (Auto) 400 Eos # (Auto) 100 Baso # (Auto) 0 Sodium 130 L Potassium 3.2 L Chloride 97 L Carbon Dioxide 27 BUN 58 H Creatinine 1.61 H Estimated GFR 43 L BUN/Creatinine Ratio 36.0 H Glucose 103 Calcium 9.3 Magnesium 2.0 Total Bilirubin 0.9 AST 34 ALT 19 Alkaline Phosphatase 131 H Total Creatine Kinase 52 L Troponin I 0.119 H Total Protein 7.3 Albumin 3.5 Globulin 3.8 Albumin/Globulin Ratio 0.9 L [facility] Medical History Hypercalcemia Mild anemia Abnormal echocardiogram Bilateral pleural effusion Weight loss Hoarseness of voice Protein malnutrition Congestive heart failure Social History household members: friend(s) Smoking Status: Former smoker alcohol intake: former Assessment & Plan Assessment & Plan narrative: 1. 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 - continue diuresis with furosemide IV 40 mg BID --Last echo 45-50% in January 2024 at OSH with speckled pattern of myocardium. Had had progressive symptoms since. Needs outpatient cardiac MRI per prior recommendations. Repeat TTE today with EF of 40-45%, pericardial and pleural effusions, atrial fibrillation, and moderate R systolic dysfunction as well. - patient refused stress testing today, attempted to group counselor patient as to the need but he still refused - still likely volume overloaded. - start beta cynthia and edilberto/arb therapy when able, currently limited due to low HR, low-normal BP today. 2. JAX versus chronic kidney disease, present on admission and active. - improving thus far with diuresis, continue to monitor but suspect due to volume overload. -follow BMP daily, suspect JAX / elevated Cr in setting of volume overload currently 3. Elevated troponin/myocardial injury, present on admission and active, improved - patient was ordered for stress testing but refused. For now treat medically with asa and statin therapy for presumed CAD> 4. Small bilateral pleural effusions, with mod pulm edema. - due to problem 1 as noted above. 5. chronic severe protein calorie malnutrition, present on admission and active. --malnutrition - inadequate oral intake as evidenced by moderate to severe muscle mass wasting (deltoids, pectoralis major, trapezius, temporalis, interosseous), severe subcutaneous fat loss (buccal, orbital), 8% weight loss in 2 months, severe, BMI 19.9 (underweight for age). 6. Paroxysmal atrial fibrillation - have started apixban this evening for stroke prevention. 7. Deconditioning due to above problems -PT/OT evaluations given patient refusing stress testing. -no M Juan seen on previous admission, myeloma unlikely. Code status is full code. Will continue to discuss with patient. DVT prophylaxis with heparin. Proxy was close friend Pan Horne previously. Patient states he currently wants no one making decisions for him, he does not wish to designate a surrogate decision maker at this time. I have reviewed home meds and used all available resources to reconcile the home meds. Case discussed with case management and nursing staff to formulate the above assessement and plan. Dispo: changed to inpatient, will need a few more days of diuresis. Possible SNF but unclear residential plan at this time as he is unable to return to prior living situation. Quality VTE Deep Vein Thrombosis/Pulmonary Embolism Present on Admission: No
[2024-03-24] MEDS: POTASSIUM CHLORIDE 20 MEQ TAB 40 MEQ PO (14:57)
--- NOTE | 2024-03-24 15:00 | CM.DANOTE ---
Addendum entered by MAURISIO Vogel 03/24/24 16:27: DCP spoke with pt's proxy/friend, Pan, and he was not able to discuss with patient his decision not to accept him back in the home. Friend requesting for a coordination meeting with multidisciplinary team to discuss discharge/plan of care. DCP notified following DCP and hospitalist for handoff. JAMILA Chairez Original Note: DCP Assessment Note: Pt is a 78yo male, resident [facility], is admitted for CHF and chest pain. Pt lives in a house his friend, Pan Horne, owns; Pan allowed pt to stay in one of his rooms temporarily. Pt's Primary Care Provider is ERIKA Garibay and insurance is [facility] Medicare. Reviewed chart and team rounds for pt's medical status and initial discharge needs. DCP received a call from pt's friend, Pan Horne, endorsing concern for pt to return to his home, He needs more care than I can provide. I have been administering his meds, his memory is short term so he asks me the same questions. Pt's friend reports him and his took the pt in to their home with hopes he would re-gain some weight and strength, that it would be temporary. Pt's friend endorses he has now taken on a caregiver role for pt and it is not sustainable for his life style. Pt's friend also stated he is concerned that his split-level house would not be appropriate for pt, He calls for help all the time and I am scared I will find him after he's fallen and hurt himself. DCP met w/patient at bedside; introduced self and role. Pt confirmed that he lives in the basement of his friend's house. Pt was also working with PT at the time and verbalized care plans of awaiting PT/OT evaluations and recommendations. Plan: Awaiting PT/OT evaluations and recommendation for evolving discharge plans. Anticipating SNF if appropriate or planning for residential care placement. CM team will plan to follow clinical course closely for coordination of discharge plan. JAMILA Chairez Discharge Planning/Care Management CM Discharge Assessment Start: 03/24/24 11:45 Freq: Status: Active Protocol: Document 03/24/24 11:45 MW (Rec: 03/24/24 11:48 [id number]) Discharge Planning Assessment Assigned Credit Collections Clerk MAURISIO Reynolds DPOA/Assigned Designee Name Pan Horne, Friend Contact Information [phone] Advance Directives? Yes Advance Directives on File No History Provided By Patient,Friend,Medical Record Has Patient been admitted in last 30 No days? Prior Living Arrangements House Household Members friend(s) Type of transporation used prior to Relies on Others admit Independent with ADL's No Is patient alert and oriented? No: Per pt's friend, pt's memory is very short term and asks repetitive. DME Already Rented / Owned Cane Comment Outpatient PT vs HH Whiteboard Updated in Patient Room with Yes name and ext. # of Credit Collections Clerk Comment [phone] Please Provide Date Initial DC 03/24/24 Assessment Was Performed Next Review Type Continued Stay Review
--- NOTE | 2024-03-24 16:02 | PT.IIE ---
Current Diagnoses Acute on chronic combined systolic (congestive) and diastolic (congestive) heart failure (03/24/24) Medical History (Last Reviewed 03/23/24 @ 18:49 by Quincy Manuel DO) Abnormal echocardiogram Bilateral pleural effusion Congestive heart failure Hoarseness of voice Hypercalcemia Mild anemia Protein malnutrition Weight loss Physical Therapy Inpatient Evaluation/Re-Eval M1 PT/OT-IP Prior Functional Status Start: 03/24/24 15:47 Freq: NEEDED Status: Active Protocol: Document 03/24/24 15:48 KJ (Rec: 03/24/24 16:02 KJ [id number]) Medical Review Prior Functional Status Medical History Reviewed Yes Mobility and Gait Ambulated without AD, couch surfing. Pt says he lives in the basement and has a full set of stairs, but he does get out of the house almost daily . Activities of Daily Living and IADL's pt reports being indep with ADLs and self care Social History Household Members friend(s) Living Arrangements House Number of Floors (Floors) Two Floors Number of Stairs To Enter/Railing? unclear Additional Social History Comment Lives in basement of friends house. Friend has been caring for him. M2 PT-IP Current Condition Start: 03/24/24 15:47 Freq: NEEDED Status: Active Protocol: Document 03/24/24 15:48 KJ (Rec: 03/24/24 16:02 KJ [id number]) Physical Therapy Current Condition Current Condition Evaluation Date 03/24/24 Treatment Diagnosis poor endurance M3 PT-IP Subjective Start: 03/24/24 15:47 Freq: NEEDED Status: Active Protocol: Document 03/24/24 15:48 KJ (Rec: 03/24/24 16:02 KJ [id number]) Subjective Physical Therapy Visit Type Type Initial Evaluation Visit Start Time 15:14 Visit Stop Time 15:43 Physical Therapy Visit Comments Patient Comments receptive to continuing PT as an outpatient or at home health Therapy Pain Assessment Pain When Pain Assessed During Mobility Pain Present Pain Present Pain Reported Location left foot Description Aching Pain Management Techniques Re-positioning M4 PT-IP Mobility and Gait Start: 03/24/24 15:47 Freq: NEEDED Status: Active Protocol: Document 03/24/24 15:48 KJ (Rec: 03/24/24 16:02 KJ [id number]) PT-Bed Mobility Assessment Rolling Level of Assist Standby Assistance Supine to Sit Supine to Sit Standby Assistance Sit to Supine Sit to Supine Standby Assistance PT-Transfer Assessment Sit to and From Stand Sit to and from Stand Standby Assistance Transfers Transfer Destination Chair Transfer Technique Stand Pivot Transfer Ability Level of Assist Standby Assistance Gait Assessment Gait Gait Assistance Required: Contact Guard Assist Assistive Devices Assistive Device None,Gait Belt Orthotic/Prosthetic Devices or Brace: No Gait Deviations General Gait Pattern Decreased Stride Length,Flexed Trunk Factors Limiting Gait Function Factors Limiting Gait Function Decreased Activity Tolerance, Poor Safety Awareness Comments Gait Comments Gait slow and steady PT-Balance Assessment Sitting Balance and Reactions Static Sitting Balance Ability Good Dynamic Sitting Balance Ability Good Standing Balance and Reactions Static Standing Balance Ability Fair Dynamic Standing Balance Ability Fair M5 PT-IP Objective Assessments Start: 03/24/24 15:47 Freq: NEEDED Status: Active Protocol: Document 03/24/24 15:48 KJ (Rec: 03/24/24 16:02 KJ [id number]) Orientation Orientation/Cognition Level of Alertness Confusional State Language Function Ability No Deficits Noted Memory Description Short Term Impaired Comments hard of hearing, this may impact his ability to understand Gross Range of Motion Upper Extremity ROM Assessment Within Functional Limits Lower Extremity ROM Assessment Bilaterally Impaired Impairments Dorsiflex limited to -5 degrees L and -2 degrees R Strength Upper Extremity Strength Assessment Within Functional Limits Lower Extremity Strength Assessment Within Functional Limits Ankle within available range M6 PT-IP Treatment Start: 03/24/24 15:47 Freq: NEEDED Status: Active Protocol: Document 03/24/24 15:48 KJ (Rec: 03/24/24 16:02 KJ [id number]) Physical Therapy Treatment Exercises Exercises Ankle Pumps,Heel Slides,Short Arc Quads Other Treatments Other Treatment Performed Instructed on incentive spirometry - pt had difficulty understanding directions M7 PT-IP Assessment and Plan Start: 03/24/24 15:47 Freq: NEEDED Status: Active Protocol: Document 03/24/24 15:48 KJ (Rec: 03/24/24 16:02 KJ [id number]) PT Summary Assessment and Plan Potential Rehabilitation Potential Fair Status of Condition at Evaluation Stable Goals Bed Mobility Goal Independent Transfer Goal Independent Gait Goal Independent Gait Distance 150' Days to Meet Goals 5 Frequency of Treatment Frequency Of Treatment Once a Day Treatment Plan Physical Therapy Treatment Plan Gait Training,Therapeutic Exercise Other Recommendations and Next Treatment Stair training, increase Focus ambulation distance Recommendations To Nursing Amount of Assist Needed 1 Person Assist Discharge Recommendations Transportation Needs at Discharge Private Vehicle
[2024-03-24] MEDS: ATORVASTATIN 20 MG TABLET 40 MG PO (20:49)
[2024-03-24] MEDS: APIXABAN 5 MG TABLET 2.5 MG PO (20:50)
[2024-03-25] VITALS (8 sets, daily range): BP systolic 90–110; BP diastolic 53–76; PULSE 61–117; RESP 15–21; TEMP 36.3–36.6; O2SAT 93–100
[2024-03-25 06:33] LABS: Add Manual Diff / Slide Review NO; Basophils Absolute Auto 0 /uL (0-100); Eosinophils Absolute Auto 100 /uL (0-450); Eosinophils Percent Auto 2.3 % (2-4); Hematocrit 30.7 % (41-53); Hemoglobin 10.7 g/dL (13.5-17.5); Lymphocytes Absolute Auto 700 /uL (1100-4500); Lymphocytes Percent Auto 18.5 % (25-40); Mean Corpuscular HGB Conc 34.7 % (30-36); Mean Corpuscular Hemoglobin 34.8 PG (26-34); Mean Corpuscular Volume 100.3 fL (80-100); Monocytes Absolute Auto 400 /uL (0-900); Monocytes Percent Auto 11.2 % (3-14); Neutrophils Absolute Auto 2600 /uL (1500-7000); Platelet Count 163 X10^3/uL (150-400); Red Blood Cell Count 3.06 X10^6/uL (4.5-5.9); Red Cell Distribution Width 14.3 % (11.6-14.8); White Blood Cell Count 3.9 X10^3/uL (4.5-11.0)
[2024-03-25 06:43] LABS: Alanine Aminotransferase 18 IU/L (<50); Albumin 3.3 g/dL (3.5-5.0); Albumin Globulin Ratio 0.9 (1.0-2.8); Alkaline Phosphatase 134 U/L (38-126); Aspartate Aminotransferase 31 IU/L (17-59); BUN Creatinine Ratio 31.4 (6-22); Bilirubin Total 0.9 mg/dL (0.2-1.3); Blood Urea Nitrogen 54 mg/dL (9-20); Calcium 8.8 mg/dL (8.4-10.2); Carbon Dioxide 27 mmol/L (22-32); Chloride 97 mmol/L (98-107); Estimated Glomerular Filt Rate 40 mL/min (>60); Globulin 3.6 g/dL (1.7-4.1); Glucose 101 mg/dL (80-110); HEMOLYSIS < 15 (0-50); Potassium 3.1 mmol/L (3.4-5.1); Sodium 133 mmol/L (137-145); Total Protein 6.9 g/dL (6.3-8.2)
[2024-03-25] MEDS: APIXABAN 5 MG TABLET 2.5 MG PO ×2 (09:27→21:08)
[2024-03-25] MEDS: ASPIRIN EC 81 MG TABLET PO (09:28)
[2024-03-25] MEDS: ACETAMINOPHEN 325 MG TABLET 650 MG PO (09:28)
[2024-03-25] MEDS: FUROSEMIDE 40 MG/4 ML VIAL IV ×2 (09:29→17:11)
--- NOTE | 2024-03-25 12:21 | PM.PN.1 ---
Subjective Subjective Date Patient Seen: 03/25/24 Time Patient Seen: 07:50 Interval history: Yesterday: Patient refused stress testing today. He continues to feel weak and dyspnic with exertion. He is unable to return to his prior living situation as he was needing to much care. Echocardiogram showing pericardial effusion, pleural effusion, EF slightly down to 40-45% with also R ventricular dysfunction as well. Interval history: The patient diuresed a net negative 1450 mL of output yesterday. He states he feels better. He is getting up and walking with nursing. He still has significant dyspnea on exertion. He has cognitive impairment and no home support this weekend, living with a friend who will be out of town. Exam Vital Signs (past 8 hours): - 03/25/24 06:00 03/25/24 07:53 03/25/24 10:55 Temperature 97.5 F L Pulse Rate 79 Respiratory Rate 16 Blood Pressure 104/60 Pulse Oximetry 94 96 Oxygen Delivery Method Room Air Nasal Cannula Oxygen Delivery Method Nasal Cannula Oxygen Flow Rate 0 Narrative Exam Narrative: GENERAL: This is a thin appearing elderly male in no acute distress EYES: Pupils equal round and reactive. Extraocular motions intact. No scleral icterus. No injection or drainage. ENT: Mucous membranes pink and moist. NECK: Supple, nontender, no meningeal signs. CARDIOVASCULAR: Regular rate and rhythm without murmurs, gallops, or rubs. RESPIRATORY: Decreased breath sounds bilateral lung bases. GASTROINTESTINAL: Abdomen soft, non-tender, nondistended. EXTREMITIES: 1+ edema b/l LE NEUROLOGIC: Alert, oriented, speech fluent, full upper and lower motor strength, no focal deficits evident. DERMATOLOGIC: No rashes or skin lesions. Objective Labs 03/25/24 05:25 03/25/24 05:25 Labs: Laboratory Results - last 24 hr 03/25/24 05:25 WBC 3.9 L RBC 3.06 L Hgb 10.7 L Hct 30.7 L MCV 100.3 H MCH 34.8 H MCHC 34.7 RDW 14.3 Plt Count 163 Neut % (Auto) 67.0 Lymph % (Auto) 18.5 L [place] % (Auto) 11.2 Eos % (Auto) 2.3 Baso % (Auto) 1.0 Neut # (Auto) 2600 Lymph # (Auto) 700 L [place] # (Auto) 400 Eos # (Auto) 100 Baso # (Auto) 0 Sodium 133 L Potassium 3.1 L Chloride 97 L Carbon Dioxide 27 BUN 54 H Creatinine 1.72 H Estimated GFR 40 L BUN/Creatinine Ratio 31.4 H Glucose 101 Calcium 8.8 Magnesium 2.0 Total Bilirubin 0.9 AST 31 ALT 18 Alkaline Phosphatase 134 H Total Protein 6.9 Albumin 3.3 L Globulin 3.6 Albumin/Globulin Ratio 0.9 L [facility] Medical History Hypercalcemia Mild anemia Abnormal echocardiogram Bilateral pleural effusion Weight loss Hoarseness of voice Protein malnutrition Congestive heart failure Social History household members: friend(s) Smoking Status: Former smoker alcohol intake: former Assessment & Plan Assessment & Plan narrative: 1. 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 - continue diuresis with furosemide IV 40 mg BID -add potassium chloride 20 mEq b.i.d. given hypokalemia --Last echo 45-50% in January 2024 at OSH with speckled pattern of myocardium. Had had progressive symptoms since. Needs outpatient cardiac MRI per prior recommendations. Repeat TTE 03/23/2024 with EF of 40-45%, pericardial and pleural effusions, atrial fibrillation, and moderate R systolic dysfunction as well. - patient refused stress testing on this hospitalization, attempted to general counselor patient as to the need but he still refused - still likely volume overloaded. - start beta cynthia and edilberto/arb therapy when able, currently limited due to low HR, low-normal BP today. 2. JAX superimposed on chronic kidney disease, present on admission and active. - improving thus far with diuresis, continue to monitor but suspect due to volume overload. - follow BMP daily, suspect JAX / elevated Cr in setting of volume overload currently 3. Elevated troponin/myocardial injury, present on admission and active, improved - patient was ordered for stress testing but refused. For now treat medically with asa and statin therapy for presumed CAD> 4. Small bilateral pleural effusions, with mod pulm edema. - due to problem 1 as noted above. 5. chronic severe protein calorie malnutrition, present on admission and active. --malnutrition - inadequate oral intake as evidenced by moderate to severe muscle mass wasting (deltoids, pectoralis major, trapezius, temporalis, interosseous), severe subcutaneous fat loss (buccal, orbital), 8% weight loss in 2 months, severe, BMI 19.9 (underweight for age). 6. Paroxysmal atrial fibrillation - started apixban 03/24/2021 for stroke prevention. 7. Deconditioning due to above problems -PT/OT evaluations given patient refusing stress testing. -no M Juan seen on previous admission, myeloma unlikely. Code status is full code. Will continue to discuss with patient. DVT prophylaxis with heparin. Proxy was close friend Pan Horne previously. Patient states he currently wants no one making decisions for him, he does not wish to designate a surrogate decision maker at this time. He does plan to return home with Antonio Horne, however, who was out of town this weekend, and has no home support. It is unclear whether this patient understands his medication regimen and can be adherent to a treatment plan without supervision. I have reviewed home meds and used all available resources to reconcile the home meds. Case discussed with case management and nursing staff to formulate the above assessement and plan. Dispo: changed to inpatient 03/24/2024, will need 1-2 more days of diuresis. Likely return to prior living situation with home support services. Time Spent With Patient Time with patient: 30 to 49 minutes with 50% spent counseling/coordinating care Quality VTE Deep Vein Thrombosis/Pulmonary Embolism Present on Admission: No
[2024-03-25] MEDS: POTASSIUM CHLORIDE 20 MEQ/15 ML UDC PO ×2 (13:10→17:10)
--- NOTE | 2024-03-25 13:37 | CM.DPC ---
Addendum entered by MAURISIO Carlin 03/25/24 15:53: ADD: Per [facility] admissions, if pt's JAX and CHF resolving but not resolved then chance insurance might auth SNF. [facility] willing to submit for SNF auth to [facility] M[facility] to see if it would be approved. BF Original Note: DCP Cont: Per MD, pt making improvements and able to medically justify pt remaining through the weekend due to edema and his EF etc.. but likely not past discharge Wednesday. Per PT, 1PA and recommending likely home with assist and HH. SW met bedside with pt and explained role and pt [facility]AN[facility] and able to answer some questions but memory issues. Pt states he spoke to his roommate friend Pan where pt has been staying and he is aware that Pan is concerned that pt has needed increased assist. Pt states they have been recently discussing Assisted Living and he thinks Pan's has checked out a couple facilities but pt states he does not have finances to pay for [facility] and does not think he has Medicaid. Pt agreeable with NANCY calling Pan to provide some resources and discuss d/c planning. NANCY called Pan ([phone]) and explained role and he confirms that he does not feel he can manage pt in his home anymore as pt is forgetful and a high fall risk and Pan is worried pt will fall at home. Pan states that he and his have been traveling more and not safe for pt to remain in their home alone. Pan confirms that pt is not currently on Medicaid just Medicare and denies that any of them have funds for privately paying for caregivers or a LTC facility. NANCY had lengthy discussion to brainstorm possible options of neighbors or other community members who could assist at times and discussed the need for Pan to call [facility] towards help in completing the Medicaid LTC application for placement at a facility and that pt will soon have no medical need to remain hospital level of care and that the hospital does not have ability to place pt at a facility or have access to pt's finances. NANCY discussed the need for them to continue supporting patient a little longer through the Medicaid application process since they moved pt into their home and they confirm pt has no family. Discussed option of HH and a referral to the [facility] for additional assist and that SNF could be attempted but high likelihood his [facility] would deny as pt has more care home needs and alerted Pan that pt will likely discharge by Tuesday 03/27. SW made [facility] referral for additional assist in the community after discharge. SW made new referral to [facility] requesting review to see if they think insurance would auth SNF at d/c. New referral sent to [facility] based on Vendor Calendar to review and see if they can accept pt's insurance and F2[facility] completed but not scanned yet. Plan: SW to follow closely for SNF review to determine if pt skillable for [employer]ARP auth for SNF vs likely plan of home with friends and new [facility] and new referral to [facility] and Medicaid LTC application. MAURISIO Carlin
--- NOTE | 2024-03-25 13:55 | PT.IPTN ---
Current Diagnoses Acute on chronic combined systolic (congestive) and diastolic (congestive) heart failure (03/24/24) Physical Therapy Treatment Note M2 PT-IP Current Condition Start: 03/24/24 15:47 Freq: NEEDED Status: Active Protocol: Document 03/24/24 15:48 KJ (Rec: 03/24/24 16:02 KJ [id number]) Physical Therapy Current Condition Current Condition Evaluation Date 03/24/24 Treatment Diagnosis poor endurance M3 PT-IP Subjective Start: 03/24/24 15:47 Freq: NEEDED Status: Active Protocol: Document 03/25/24 13:55 AB (Rec: 03/25/24 15:05 AB [id number]) Subjective Physical Therapy Visit Type Type Treatment Note Visit Start Time 13:55 Visit Stop Time 14:20 Number of GROUNDS WORKER Visits 0 Physical Therapy Visit Comments Patient Comments pt agreeable to do PT Therapy Pain Assessment Pain Present Pain Present Denied Pain M4 PT-IP Mobility and Gait Start: 03/24/24 15:47 Freq: NEEDED Status: Active Protocol: Document 03/25/24 13:55 AB (Rec: 03/25/24 15:05 AB [id number]) PT-Bed Mobility Assessment Supine to Sit Supine to Sit Standby Assistance PT-Transfer Assessment Sit to and From Stand Sit to and from Stand Standby Assistance,Contact Guard Assistance,1 Person Assistance,Use of Upper Extremities Equipment Transfer Assistive Device None,Gait Belt Orthotic/Prosthetic Devices or Brace: No Comments Mobility Comments pt supine in bed and agreeable to do PT. pt completed supine to sit SBA. able to sit on EOB SBA. completed sit to stand SBA and ambulated in room ~ 20 ft without AD, slow paced gait with lateral trunk lean to the R CGA. pt agreed to walk out in the hallway and completed another ~ 100 ft towards the stairs SBA to CGA. pt needing standing rest breaks in between walking. pt requested to sit afterwards and rested. pt completed up/ down 3 steps using L rail ascending but needing to hold on to B rails with descending steps. pt unable to do further activities with c/o fatigue. pt assisted back to his room on a w/c. pt ambulated from w /c to bed without AD CGA. pt refuse to sit up on the chair and wanting to go back to bed. completed sit to supine SBA. positioned pt on the chair. call light and table placed within reach. O2 sat checked: 98% AL: 98 bpm. Gait Assessment Gait Gait Assistance Required: Standby Assistance,Contact Guard Assist Distance (Feet) 125 Able to Maintain Weight Bearing Status Yes During Gait Assistive Devices Assistive Device None,Gait Belt Orthotic/Prosthetic Devices or Brace: No Gait Deviations General Gait Pattern Decreased Stride Length, Decreased Feet Clearance, Lateral Trunk Lean Factors Limiting Gait Function Factors Limiting Gait Function Decreased Activity Tolerance, Decreased Strength,Limited Range of Motion,Poor Safety Awareness Stair Climbing Assessment Evaluation Level of Assist On Stairs Contact Guard Assistance Devices Stair Climbing Assistive Devices Right Railing Technique/Endurance Stair Climbing Direction Ascend and Descend Stair Climbing Technique Step to Step Number of Steps Climbed 3 Stair Climbing Set # Repetitions (reps) 1 M5 PT-IP Objective Assessments Start: 03/24/24 15:47 Freq: NEEDED Status: Active Protocol: Document 03/24/24 15:48 KJ (Rec: 03/24/24 16:02 KJ [id number]) Orientation Orientation/Cognition Level of Alertness Confusional State Language Function Ability No Deficits Noted Memory Description Short Term Impaired Comments hard of hearing, this may impact his ability to understand Gross Range of Motion Upper Extremity ROM Assessment Within Functional Limits Lower Extremity ROM Assessment Bilaterally Impaired Impairments Dorsiflex limited to -5 degrees L and -2 degrees R Strength Upper Extremity Strength Assessment Within Functional Limits Lower Extremity Strength Assessment Within Functional Limits Ankle within available range M6 PT-IP Treatment Start: 03/24/24 15:47 Freq: NEEDED Status: Active Protocol: Document 03/25/24 13:55 AB (Rec: 03/25/24 15:05 AB [id number]) Physical Therapy Treatment Education Education Provided Safety M7 PT-IP Assessment and Plan Start: 03/24/24 15:47 Freq: NEEDED Status: Active Protocol: Document 03/25/24 13:55 AB (Rec: 03/25/24 15:05 AB [id number]) PT Summary Assessment and Plan Potential Rehabilitation Potential Fair Summary Impairments Pain,ROM,Strength,Balance, Coordination,Cognition,Bed Mobility,Transfers,Gait, Activity Tolerance Progress Towards Goals Slow Progress due to Activity Tolerance Assessment Summary pt requiring SBA to CGA with mobility without AD but has decrease activity tolerance requiring frequent rest breaks in between tasks. pt lives with his friend. talked to pt regarding d/c plan and stated that he is doing to rehab and thinking about permanent placement. clarify with pt regarding home set up and confirmed that home set up was the same as last hospital admission last february 2024. pt has stairs to enter the house and also steps to get to his bed room. PT goal revised to include stair climbing training. pt to continue inpatient PT to improve overall strength and activity tolerance to improve mobility independence. Goals Bed Mobility Goal Independent Transfer Goal Independent Gait Goal Independent Gait Distance 150' Other Goals up/down 7 steps R rail ascending mod I up/down 5 steps L rail ascending mod I Days to Meet Goals 10 Frequency of Treatment Frequency Of Treatment Once a Day Treatment Plan Physical Therapy Treatment Plan Bed Mobility Training,Transfer Training,Gait Training, Therapeutic Exercise,Balance Retraining,Discharge Planning, Neuromuscular Re-ed, Coordination Retraining,Manual Therapy Other Recommendations and Next Treatment ambulation and stair training Focus Recommendations To Nursing Amount of Assist Needed 1 Person Assist Discharge Recommendations PT Discharge Recommendations Home with Assistance,Home Health,SNF Rehab,Home vs SNF Transportation Needs at Discharge Private Vehicle
[2024-03-25] MEDS: ATORVASTATIN 20 MG TABLET 40 MG PO (21:08)
[2024-03-25] MEDS: MELATONIN 3 MG TABLET 6 MG PO (21:08)
[2024-03-26] VITALS (7 sets, daily range): BP systolic 101–138; BP diastolic 57–86; PULSE 70–93; RESP 16–24; TEMP 36.1–37; O2SAT 93–100
[2024-03-26 05:36] LABS: Add Manual Diff / Slide Review NO; Basophils Absolute Auto 0 /uL (0-100); Eosinophils Absolute Auto 100 /uL (0-450); Hematocrit 30.6 % (41-53); Hemoglobin 10.5 g/dL (13.5-17.5); Lymphocytes Absolute Auto 700 /uL (1100-4500); Lymphocytes Percent Auto 17.8 % (25-40); Mean Corpuscular HGB Conc 34.4 % (30-36); Mean Corpuscular Hemoglobin 34.7 PG (26-34); Monocytes Absolute Auto 400 /uL (0-900); Monocytes Percent Auto 11.1 % (3-14); Neutrophils Absolute Auto 2500 /uL (1500-7000); Neutrophils Percent Auto 67.1 % (50-75); Platelet Count 164 X10^3/uL (150-400); Red Blood Cell Count 3.03 X10^6/uL (4.5-5.9); Red Cell Distribution Width 14.1 % (11.6-14.8); White Blood Cell Count 3.8 X10^3/uL (4.5-11.0)
[2024-03-26 05:50] LABS: Alanine Aminotransferase 18 IU/L (<50); Albumin 3.3 g/dL (3.5-5.0); Albumin Globulin Ratio 0.9 (1.0-2.8); Alkaline Phosphatase 122 U/L (38-126); Aspartate Aminotransferase 29 IU/L (17-59); BUN Creatinine Ratio 34.8 (6-22); Bilirubin Total 0.8 mg/dL (0.2-1.3); Blood Urea Nitrogen 57 mg/dL (9-20); Calcium 9.1 mg/dL (8.4-10.2); Carbon Dioxide 28 mmol/L (22-32); Chloride 98 mmol/L (98-107); Estimated Glomerular Filt Rate 42 mL/min (>60); Globulin 3.7 g/dL (1.7-4.1); Glucose 112 mg/dL (80-110); HEMOLYSIS < 15 (0-50); Magnesium 1.9 mg/dL (1.6-2.3); Potassium 3.2 mmol/L (3.4-5.1); Sodium 131 mmol/L (137-145)
[2024-03-26] MEDS: ASPIRIN EC 81 MG TABLET PO (08:34)
[2024-03-26] MEDS: APIXABAN 5 MG TABLET 2.5 MG PO ×2 (08:34→21:32)
[2024-03-26] MEDS: POTASSIUM CHLORIDE 20 MEQ/15 ML UDC PO (08:35)
[2024-03-26] MEDS: FUROSEMIDE 40 MG/4 ML VIAL IV (08:35)
--- NOTE | 2024-03-26 12:55 | PM.PN.1 ---
Subjective Subjective Date Patient Seen: 03/26/24 Time Patient Seen: 08:10 Interval history: The patient has no complaints today. He reports feeling better. He did not have a significant diuresis overnight. He scores 11/30 on the [place] SLUMS exam today. Exam Vital Signs (past 8 hours): - 03/26/24 05:22 03/26/24 08:00 03/26/24 08:00 Temperature 98.6 F 97.4 F L Pulse Rate 80 84 Respiratory Rate 18 24 Blood Pressure 138/86 101/57 L Pulse Oximetry 96 94 95 Oxygen Delivery Method Room Air Oxygen Flow Rate 0 0 Oxygen Delivery Method Room Air Oxygen Flow Rate 0 Narrative Exam Narrative: GENERAL: This is a thin appearing elderly male in no acute distress EYES: Pupils equal round and reactive. Extraocular motions intact. ENT: Mucous membranes pink and moist. NECK: Supple, nontender, no meningeal signs. CARDIOVASCULAR: Regular rate and rhythm without murmurs, gallops, or rubs. RESPIRATORY: Decreased breath sounds bilateral lung bases. GASTROINTESTINAL: Abdomen soft, non-tender, nondistended. EXTREMITIES: 1+ edema b/l LE NEUROLOGIC: Alert, oriented, speech fluent, full upper and lower motor strength, no focal deficits evident. DERMATOLOGIC: No rashes or skin lesions. Objective Labs 03/26/24 05:20 03/26/24 05:20 Labs: Laboratory Results - last 24 hr 03/26/24 05:20 WBC 3.8 L RBC 3.03 L Hgb 10.5 L Hct 30.6 L MCV 101.0 H MCH 34.7 H MCHC 34.4 RDW 14.1 Plt Count 164 Neut % (Auto) 67.1 Lymph % (Auto) 17.8 L [place] % (Auto) 11.1 Eos % (Auto) 3.0 Baso % (Auto) 1.0 Neut # (Auto) 2500 Lymph # (Auto) 700 L [place] # (Auto) 400 Eos # (Auto) 100 Baso # (Auto) 0 Sodium 131 L Potassium 3.2 L Chloride 98 Carbon Dioxide 28 BUN 57 H Creatinine 1.64 H Estimated GFR 42 L BUN/Creatinine Ratio 34.8 H Glucose 112 H Calcium 9.1 Magnesium 1.9 Total Bilirubin 0.8 AST 29 ALT 18 Alkaline Phosphatase 122 Total Protein 7.0 Albumin 3.3 L Globulin 3.7 Albumin/Globulin Ratio 0.9 L [facility] Medical History Hypercalcemia Mild anemia Abnormal echocardiogram Bilateral pleural effusion Weight loss Hoarseness of voice Protein malnutrition Congestive heart failure Social History household members: friend(s) Smoking Status: Former smoker alcohol intake: former Assessment & Plan Assessment & Plan narrative: 1. 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 - increase diuresis with furosemide IV to 80 mg BID -add potassium chloride 20 mEq b.i.d. given hypokalemia --Last echo 45-50% in January 2024 at OSH with speckled pattern of myocardium. Had had progressive symptoms since. Needs outpatient cardiac MRI per prior recommendations. Repeat TTE 03/23/2024 with EF of 40-45%, pericardial and pleural effusions, atrial fibrillation, and moderate R systolic dysfunction as well. - patient refused stress testing on this hospitalization, attempted to cemetery counselor patient as to the need but he still refused likely due to cognitive impairment - still volume overloaded. - start beta cynthia and edilberto/arb therapy when able, currently limited due to low HR, low-normal BP today. 2. JAX superimposed on chronic kidney disease, present on admission and active. - improving thus far with diuresis, continue to monitor but suspect due to volume overload. - follow BMP daily, suspect JAX / elevated Cr in setting of volume overload currently 3. Elevated troponin/myocardial injury, present on admission and active, improved - patient was ordered for stress testing but refused. For now treat medically with asa and statin therapy for presumed CAD> 4. Small bilateral pleural effusions, with mod pulm edema. - due to problem 1 as noted above. 5. cognitive impairement with dementia -he will require a home setting where he has supervision for medications and to meet care needs. He may require placement if this cannot be achieved -obtain head CT, check B12 level. TSH was only mildly elevated at 6.01 on 02/25/2024 6. chronic severe protein calorie malnutrition, present on admission and active. --malnutrition - inadequate oral intake as evidenced by moderate to severe muscle mass wasting (deltoids, pectoralis major, trapezius, temporalis, interosseous), severe subcutaneous fat loss (buccal, orbital), 8% weight loss in 2 months, severe, BMI 19.9 (underweight for age). 7. Paroxysmal atrial fibrillation - continue apixiban started 03/24/2024 for stroke prevention. 8. Deconditioning due to above problems -PT/OT evaluations given patient refusing stress testing. -no M Juan seen on previous admission, myeloma unlikely. Code status is full code. Will continue to discuss with patient. DVT prophylaxis with heparin. Proxy was close friend Pan Horne previously. Patient states he currently wants no one making decisions for him, he does not wish to designate a surrogate decision maker at this time which is challenging given his cognitive impairment. He does plan to return home with Antonio Horne, however, who was out of town this weekend, and has no home support. It is unclear whether this patient understands his medication regimen and can be adherent to a treatment plan without supervision. Case discussed with case management and nursing staff to formulate the above assessement and plan. Dispo: changed to inpatient 03/24/2024, will need 1-2 more days of diuresis. Hopeful return to prior living situation with home support services. Quality VTE Deep Vein Thrombosis/Pulmonary Embolism Present on Admission: No
--- NOTE | 2024-03-26 12:57 | PT.IPTN ---
Addendum entered and electronically signed by Nicole Mcintyre PT 03/26/24 12:59: PT provides direct superv during SPT assessment and treatment Original Note: Current Diagnoses Acute on chronic combined systolic (congestive) and diastolic (congestive) heart failure (03/24/24) Physical Therapy Treatment Note M2 PT-IP Current Condition Start: 03/24/24 15:47 Freq: NEEDED Status: Active Protocol: Document 03/24/24 15:48 KJ (Rec: 03/24/24 16:02 KJ [id number]) Physical Therapy Current Condition Current Condition Evaluation Date 03/24/24 Treatment Diagnosis poor endurance M3 PT-IP Subjective Start: 03/24/24 15:47 Freq: NEEDED Status: Active Protocol: Document 03/26/24 10:35 JG (Rec: 03/26/24 11:54 JG [id number]) Subjective Physical Therapy Visit Type Type Initial Evaluation Visit Start Time 10:35 Visit Stop Time 11:15 Number of GRAPHIC DESIGN TEACHER Visits 0 Physical Therapy Visit Comments Patient Comments Pt agreeable to do PT M4 PT-IP Mobility and Gait Start: 03/24/24 15:47 Freq: NEEDED Status: Active Protocol: Document 03/26/24 10:35 JG (Rec: 03/26/24 11:54 JG [id number]) PT-Bed Mobility Assessment Rolling Level of Assist Independent Supine to Sit Supine to Sit Independent Sit to Supine Sit to Supine Independent PT-Transfer Assessment Sit to and From Stand Sit to and from Stand Contact Guard Assistance,Use of Upper Extremities Equipment Transfer Assistive Device Gait Belt,Front Wheeled Walker Orthotic/Prosthetic Devices or Brace: No Transfers Transfer Destination Chair Transfer Technique Ambulation Transfer Ability Level of Assist Contact Guard Assistance Comments Mobility Comments Pt was head up in bed upon PT arrival. Pt is agreeable to PT . He is I with bed mobility and is CGA with transfers. Orthostatics taken BP cuff on R UE Supine: 110/61, 80; standing 100/59, 85; standing 1 min 97/62, 72; standing 2 min 92/59, 73; standing 3 min 97/58, 70. Gait Assessment Gait Gait Assistance Required: Standby Assistance Distance (Feet) 125 Able to Maintain Weight Bearing Status Yes During Gait Assistive Devices Assistive Device Gait Belt,Front Wheeled Walker Orthotic/Prosthetic Devices or Brace: No Gait Deviations General Gait Pattern Decreased Stride Length, Decreased Feet Clearance, Flexed Trunk,Lateral Trunk Lean,Step-to Gait Factors Limiting Gait Function Factors Limiting Gait Function Decreased Activity Tolerance, Decreased Strength,Difficulty Following Directions, Incoordination,Limited Range of Motion,Poor Balance,Poor Safety Awareness Comments Gait Comments Pt demonstrated a slow step to gait pattern consisting of a flexed trunk and excessive ER of R LE. Pt required 1 standing break that lasted about 30 seconds and demonstated symtoms of SOB at the end of gait training. O2 sats on RA are 96% at start of treatment. Stair Climbing Assessment Evaluation Level of Assist On Stairs Contact Guard Assistance Devices Stair Climbing Assistive Devices Right Railing Technique/Endurance Stair Climbing Direction Ascend and Descend Stair Climbing Technique Step to Step Number of Steps Climbed 3 Stair Climbing Set # Repetitions (reps) 1 Comments Stair Climbing Comments Ascend steps with step over step pattern and descend steps with a step to step pattern PT-Balance Assessment Sitting Balance and Reactions Static Sitting Balance Ability Good Dynamic Sitting Balance Ability Good Standing Balance and Reactions Static Standing Balance Ability Good Dynamic Standing Balance Ability Fair Device Used FW M5 PT-IP Objective Assessments Start: 03/24/24 15:47 Freq: NEEDED Status: Active Protocol: Document 03/26/24 10:35 MINH (Rec: 03/26/24 11:54 Celestino [id number]) Orientation Orientation/Cognition Level of Alertness Confusional State Language Function Ability Word Finding Difficulties,Hard of Hearing Safety Awareness Decreased Safety Awareness Memory Description Short Term Impaired Comments Pt is [place] [employer] [employer] which may impact ability to understand directions. During gait training pt, attempted to walk into incorrect room and had to have v/c and redirection to return to his room. Pt was instructed to complete SLUMS as OT unavailable on Sundays and Examination score: 09/02 M6 PT-IP Treatment Start: 03/24/24 15:47 Freq: NEEDED Status: Active Protocol: Document 03/26/24 10:35 MINH (Rec: 03/26/24 11:54 Celestino [id number]) Physical Therapy Treatment Exercises Exercises Ankle Pumps Education Education Provided Safety M7 PT-IP Assessment and Plan Start: 03/24/24 15:47 Freq: NEEDED Status: Active Protocol: Document 03/26/24 10:35 MINH (Rec: 03/26/24 11:54 Celestino [id number]) PT Summary Assessment and Plan Potential Rehabilitation Potential Fair Status of Condition at Evaluation Stable Summary Impairments ROM,Strength,Balance, Coordination,Cognition,Bed Mobility,Transfers,Gait, Activity Tolerance Progress Towards Goals Slow Progress - Other Assessment Summary Pt was I with all bed mobility and CGA with all transfers gait training and stair training. Pt showed signs of confusion during gait training , and sitting in chair today asking if this was some form of test. Pt lives with his friend and is trying to decide upon permanant location upon d/c. Pt had dried blood on right index finger and was cleaned by PT to ensure sanitary conditions when filling out SLUMS Examination. Goals Transfer Goal Independent Gait Goal Independent Gait Distance 150' Other Goals up/down 5-7 steps R rail ascending mod I Days to Meet Goals 10 Frequency of Treatment Frequency Of Treatment Once a Day Treatment Plan Physical Therapy Treatment Plan Bed Mobility Training,Transfer Training,Gait Training, Therapeutic Exercise,Balance Retraining,Discharge Planning, Coordination Retraining Other Recommendations and Next Treatment Focus on improvement on gait Focus tolerance, ambulation speed and stair training Recommendations To Nursing Amount of Assist Needed 1 Person Assist Discharge Recommendations PT Discharge Recommendations Home with 24/7 Assist Available,Home vs SNF Transportation Needs at Discharge Private Vehicle
--- NOTE | 2024-03-26 13:05 | DI.CT.S_ITS ---
PROCEDURE: CT HEAD/BRAIN WO CON INDICATIONS: dementia TECHNIQUE: Noncontrast 4.5 mm thick angled axial sections acquired from the foramen magnum to the vertex, with coronal and sagittal reformats. For radiation dose reduction, the following was used: automated exposure control, adjustment of mA and/or kV according to patient size. COMPARISON: None. FINDINGS: Image quality: Diagnostic. CSF spaces: Basal cisterns are patent. No extra-axial fluid collections. The ventricles are symmetric in size and shape. Brain: No intracranial bleeds or masses. There is cerebral volume loss for age, with resultant ventricular and sulcal prominence. There are periventricular and deep white matter chronic small vessel ischemic changes. There is intracranial internal carotid artery atherosclerosis. Skull and face: Calvarium and visualized facial bones appear intact, without suspicious lesions. Sinuses: Visualized sinuses and mastoids are clear. IMPRESSION: No acute intracranial pathology. Approved by: Hue Cr M.D.,Ph.D. on 03/26/2024 at 14:27
[2024-03-26 14:08] LABS: Vitamin B12 226 pg/mL (239-931)
--- NOTE | 2024-03-26 15:25 | CM.DPNOTE ---
DCP Note CONTACT CENTER PROFESSIONAL reviewed EMR. Per Lisa from , auth pending at this time. Per hospitalist, pt scored and 09/02 on the SLUMS. CONTACT CENTER PROFESSIONAL unable to meet with pt or speak with CG Pan today due to triaging needs. Per RN, pt pleasant and resting. P: [facility] vs Home with [facility] (RN/PT/OT/CONTACT CENTER PROFESSIONAL/POWDERED METAL SUPERVISOR) while waiting on Medicaid LTC application towards SNF. CM team will continue to follow closely. MAURISIO Arzate
[2024-03-26] MEDS: FUROSEMIDE 40 MG/4 ML VIAL 80 MG IV (17:51)
[2024-03-26] MEDS: POTASSIUM CHLORIDE 20 MEQ/15 ML UDC 40 MEQ PO (17:51)
[2024-03-26] MEDS: MELATONIN 3 MG TABLET 6 MG PO (21:31)
[2024-03-26] MEDS: ATORVASTATIN 20 MG TABLET 40 MG PO (21:31)
[2024-03-27 03:00] VITALS: BP 90/54; PULSE 81; RESP 18; TEMP 36.4; O2SAT 97
[2024-03-27 05:59] LABS: BUN Creatinine Ratio 34.6 (6-22); Blood Urea Nitrogen 54 mg/dL (9-20); Calcium 8.8 mg/dL (8.4-10.2); Carbon Dioxide 29 mmol/L (22-32); Chloride 97 mmol/L (98-107); Estimated Glomerular Filt Rate 45 mL/min (>60); Glucose 111 mg/dL (80-110); HEMOLYSIS < 15 (0-50); Magnesium 1.9 mg/dL (1.6-2.3); Potassium 3.1 mmol/L (3.4-5.1); Sodium 133 mmol/L (137-145)
[2024-03-27 08:00] VITALS: BP 107/51; PULSE 79; RESP 16; TEMP 36.2; O2SAT 94
[2024-03-27] MEDS: POTASSIUM CHLORIDE 20 MEQ/15 ML UDC 40 MEQ PO ×2 (08:35→17:44)
[2024-03-27] MEDS: FUROSEMIDE 20 MG TABLET PO (08:36)
[2024-03-27] MEDS: ASPIRIN EC 81 MG TABLET PO (08:36)
[2024-03-27] MEDS: APIXABAN 5 MG TABLET 2.5 MG PO ×2 (08:36→20:52)
--- NOTE | 2024-03-27 11:13 | OT.IP.EVAL ---
Current Diagnoses Acute on chronic combined systolic (congestive) and diastolic (congestive) heart failure (03/24/24) Past Medical History (Last Reviewed 03/25/24 @ 12:24 by Hernando Hurst MD) Abnormal echocardiogram Bilateral pleural effusion Congestive heart failure Hoarseness of voice Hypercalcemia Mild anemia Protein malnutrition Weight loss Occupational Therapy Inpatient Evaluation/Re-Eval M1 PT/OT-IP Prior Functional Status Start: 03/24/24 15:47 Freq: NEEDED Status: Active Protocol: Document 03/27/24 10:47 ASHLEIGH (Rec: 03/27/24 11:12 ASHLEIGH [id number]) Medical Review Prior Functional Status Medical History Reviewed Yes Communication Pt is somewhat hard of hearing . Pt is able to make his needs known. Mobility and Gait Ambulated without AD, couch surfing. Pt says he lives in the basement with two flights of stairs to go upstairs and one flight of stairs to go outside. He reports that he goes outside at least once daily and sits. Activities of Daily Living and IADL's Pt reports that he lives with two friends. The cook and bring his meals downstairs. They also clean his room and bathroom. Pt reports that he performs his BADLs without assistance. Social History Household Members friend(s) Living Arrangements House Number of Floors (Floors) Two Floors Number of Stairs To Enter/Railing? 2 flights with R rail ascending to the upstairs and 1 flight of stairs with R rail ascending to outside. Home Environment Standard Height Toilet,Tub/ Shower Home Equipment Grab Bars In Shower Additional Social History Comment Lives in basement of friends house. Friend has been caring for him. M2 OT-IP Current Condition Start: 03/27/24 10:46 Freq: Status: Active Protocol: Document 03/27/24 10:47 ASHLEIGH (Rec: 03/27/24 11:12 ASHLEIGH [id number]) Occupational Therapy Current Condition Current Condition Evaluation Date 03/27/24 Treatment Diagnosis CHF, paroxysmal afib Diagnosis Onset Date 03/23/24 M3 OT- IP Subjective and Pain Start: 03/27/24 10:46 Freq: Status: Active Protocol: Document 03/27/24 10:47 ASHLEIGH (Rec: 03/27/24 11:12 ASHLEIGH [id number]) OT- Subjective Occupational Therapy Visit Type Type Initial Evaluation Visit Start Time 10:20 Visit Stop Time 10:40 Notes Pt was sitting in window seat on entrance of OT. Pt was agreeable to participating in skilled OT evaluation. Pt c/o SOB. Occupational Therapy Visit Comments Patient Comments Pt says he would like to have home health therapy when he returns home. OT Pain Assessment Pain When Pain Assessed At Rest Pain Present Pain Present Denied Pain M4 OT- IP ADL's Start: 03/27/24 10:46 Freq: Status: Active Protocol: Document 03/27/24 10:47 ASHLEIGH (Rec: 03/27/24 11:12 [facility] [id number]) OT RBS-Tbcw-Brydxib General Evaluation Self-Feeding Ability Independent Comments OT Self-Feeding Comments Pt was able to bring cup to mouth and drink without any difficutly. Pt denies difficulty with eating. OT ADL-Grooming General Evaluation Grooming Ability Standby Assistance Comments OT Grooming Comments Pt washes his hands sink side with good balance. OT ADL-Oral Care Comments Oral Care Comments Pt reports he already performed oral hygiene and declined at time of eval. OT ADL-Dressing General Eval Upper Body Dressing Ability Independent Lower Body Dressing Ability Independent Comments OT Dressing Comments Pt demonstrated donning and doffing socks while seated. Pt performs this task I'ly; however, due to increased SOB pt may benefit from education of AE for LB dressing to avoid compression of lungs during LB dressing. OT ADL-Toileting Comments OT Toileting Comments pt declines a need for toileting during eval. OT ADL-Bathing General Evaluation Bathing Ability Standby Assistance Comments OT Bathing Comments Pt declined bathing during eval. Pt however demonstrates ability to reach all body parts in seated position, as is necessary for sponge bath. Pt performs without assistance , but would benefit from education on AE due to increased SOB. Pt showers at home without a shower chair, pt may benefit from shower chair for improved energy conservation. M5 OT- IP IADL's Start: 03/27/24 10:46 Freq: Status: Active Protocol: Document 03/27/24 10:47 ASHLEIGH (Rec: 03/27/24 11:12 [facility] [id number]) OT-Instrumental Activities of Daily Living Home Safety Awareness Awareness of Need for Assistance at Home Good Awareness Ability to Problem Solve Emergency Able to Problem Solve Situations Medication Management Medication Management No Deficits Identified Money Management Money Management No Deficits Identified Meal Preparation Meal Preparation Caregiver Provides Assist Yield Engineer Yield Engineer Caregiver Provides Assist Driving Driving Caregiver Provides Assist M6 OT- IP Functional Cognition Start: 03/27/24 10:46 Freq: Status: Active Protocol: Document 03/27/24 10:47 ASHLEIGH (Rec: 03/27/24 11:12 [facility] [id number]) Cognitive Factors Limiting Selfcare Function Cognitive Ability Patient Orientation Name,Age,Year,Place,Situation Attention Span Ability Capable of Focused Attention, Capable of Sustained Attention Ability to Follow Commands Able to Follow One Step Commands,Able to Follow Multi- Step Commands Memory Description No Deficits Noted OT- Vision and Hearing OT- Hearing Assessment OT- Hearing Assessment Hearing Impaired OT- Vision Assessment Visual Acuity WFL,Glasses All The Time M7 OT- IP Mobility and Balance Start: 03/27/24 10:46 Freq: Status: Active Protocol: Document 03/27/24 10:47 ASHLEIGH (Rec: 03/27/24 11:12 [facility] [id number]) OT-Transfer Assessment Sit to and From Stand Sit to and from Stand Standby Assistance Transfers Transfer Ability Standby Assistance Technique Transfer Destination Chair Transfer Technique Stand Pivot Devices Transfer Assistive Devices Gait Belt,Front Wheeled Walker Comments Mobility Comments Pt is somewhat quick and impulsive during sit>stand. Pt needs vcs to push up from surface rather than pulling himself up with walker. Pt is otherwise steady during t/fs. OT- Gait Assessment Gait Gait Assistance Required: Standby Assistance Distance (Feet) 40 Assistive Devices Assistive Device Gait Belt,Front Wheeled Walker Comments Gait Ability Comments Pt ambulates throughout the room during eval. Pt is steady with good pacing during ambulation. OT- Balance Assessment Sitting Balance and Reactions Static Sitting Balance Ability Normal Dynamic Sitting Balance Ability Normal Standing Balance and Reactions Static Standing Balance Ability Good Dynamic Standing Balance Ability Good M8 OT- IP Objective Assessments Start: 03/27/24 10:46 Freq: Status: Active Protocol: Document 03/27/24 10:47 ASHLEIGH (Rec: 03/27/24 11:12 [facility] [id number]) OT Gross Range of Motion Upper Extremity Range of Motion Assessment Within Functional Limits ROM Impairments Pt has some limitation in flexion/scaption to approximately 120 deg; pt presents with R 4th and 5th digits in fixed flexed position ~75% flexed. Otherwise pt's ROM is WFL OT Strength Hand Weigher Alloy Strength Hand Dominance Right Comments Strength Comments L triceps 4-/5, otherwise strength is grossly 4-5/5 Bear M9 OT- IP Assessment and Plan Start: 03/27/24 10:46 Freq: Status: Active Protocol: Document 03/27/24 10:47 OSKARMATTIE (Rec: 03/27/24 11:12 OSKAR[place]TIE [id number]) OT Summary Assessment and Plan Potential Rehabilitation Potential Excellent Analytic Complexity at Evaluation Low Summary OT Impairments Functional Mobility,Dressing, Bathing,Shower Transfers, Activity Tolerance Progress Towards Goals Progressing Toward Goals Assessment Summary Pt is an 78 yo M who presented to ED on 03/23 due to c/o chest pressure and SOB. He has a hx of CHF and paroxysmal afib. His most recent echo shows EF 45-50%. He has possible undiagnosed myeloma and recent weight loss. He presents with chronic dyspnea with exertion. He is somewhat impulsive and fast paced with sit>stand, but otherwise performs activities with good pacing. He would benefit from education on pursed lip breathing, LB AE for energy conservation and to prevent increased SOB, and education on shower chair use for energy conservation and safety. Skilled OT services are appropriate to address these deficits. Goals Dressing Goal Independent,Dressing Stick, Long Handled Shoe Horn,Distribution Center Associate ,Sock Aid Toileting Goal Independent Bathing Goal Independent,Grab Bars,Long Handled Sponge or [place] Shower Transfer Goal Independent,Shower Chair Days to Meet Goals 5 Frequency of Treatment Frequency Of Treatment Once a Day Treatment Plan OT Treatment Plan ADL Training,Therapeutic Exercises,Patient/Family Education Other Treatment Recommendations and Next EC conservation techniques, Treatment Focus Pursed lip breathing education , AE for LB dressing Discharge Recommendations OT Discharge Recommendations Home,Home Health Home Equipment Needs shower chair, LB AE (accounting professor, shoe horn, sock aid)
[2024-03-27 12:00] VITALS: BP 98/53; PULSE 73; RESP 18; TEMP 36.3; O2SAT 96
[2024-03-27] MEDS: MINERAL OIL 1 EACH ENEMA PR (12:36)
--- NOTE | 2024-03-27 15:03 | PM.PN.1 ---
Subjective Subjective Date Patient Seen: 03/26/24 Time Patient Seen: 08:10 Interval history: He continues to feel dyspnic on exertion. Cr climbing a bit today and CO2 increasing. Stopped IV diuretic and changed to PO lasix. BP is a bit soft, unable to add edilberto/arb or beta cynthia currently. Patient now agreeable to stress testing after discussion today. Exam Vital Signs (past 8 hours): - 03/27/24 08:00 03/27/24 08:00 03/27/24 12:00 Temperature 97.2 F L 97.3 F L Pulse Rate 79 73 Respiratory Rate 16 18 Blood Pressure 107/51 L 98/53 L Pulse Oximetry 94 94 96 Oxygen Delivery Method Room Air Oxygen Flow Rate 0 0 0 Oxygen Delivery Method Room Air Oxygen Flow Rate 0 Narrative Exam Narrative: GENERAL: This is a thin appearing elderly male in no acute distress EYES: Pupils equal round and reactive. Extraocular motions intact. ENT: Mucous membranes pink and moist. NECK: Supple, nontender, no meningeal signs. CARDIOVASCULAR: Regular rate and rhythm without murmurs, gallops, or rubs. RESPIRATORY: Decreased breath sounds bilateral lung bases. GASTROINTESTINAL: Abdomen soft, non-tender, nondistended. EXTREMITIES: minimal / trace edema today. NEUROLOGIC: Alert, oriented, speech fluent, full upper and lower motor strength, no focal deficits evident. DERMATOLOGIC: No rashes or skin lesions. Objective Labs 03/26/24 05:20 03/27/24 05:05 Labs: Laboratory Results - last 24 hr 03/27/24 05:05 Sodium 133 L Potassium 3.1 L Chloride 97 L Carbon Dioxide 29 BUN 54 H Creatinine 1.56 H Estimated GFR 45 L BUN/Creatinine Ratio 34.6 H Glucose 111 H Calcium 8.8 Magnesium 1.9 PFSH Medical History Hypercalcemia Mild anemia Abnormal echocardiogram Bilateral pleural effusion Weight loss Hoarseness of voice Protein malnutrition Congestive heart failure Social History household members: friend(s) Smoking Status: Former smoker alcohol intake: former Assessment & Plan Assessment & Plan narrative: 1. 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 -change from IV diuresis to oral today. -added potassium chloride 20 mEq b.i.d. given hypokalemia --Last echo 45-50% in January 2024 at OSH with speckled pattern of myocardium. Had had progressive symptoms since. Needs outpatient cardiac MRI per prior recommendations. Repeat TTE 03/23/2024 with EF of 40-45%, pericardial and pleural effusions, atrial fibrillation, and moderate R systolic dysfunction as well. - patient refused stress testing on this hospitalization, attempted to aids counselor patient as to the need but he still refused, but was agreeable today. - start beta cynthia and edilberto/arb therapy when able, currently limited due to low-normal BP today. 2. JAX superimposed on chronic kidney disease, present on admission and active. - improved slightly now uptrending slightly. Likely near euvolemic and stopped diuresis today. - follow BMP daily, suspect JAX / elevated Cr in setting of volume overload initially. - continue to monitor, may be near baseline which may be 1.4-1.5. 3. Elevated troponin/myocardial injury, present on admission and active, improved - patient was ordered for stress testing but refused. He is agreeable today. continue asa and statin thearpy. Stress testing tomorrow ordered. 4. Small bilateral pleural effusions, with mod pulm edema. - due to problem 1 as noted above. 5. cognitive impairement with dementia -he will require a home setting where he has supervision for medications and to meet care needs. He may require placement if this cannot be achieved -obtain head CT, check B12 level. TSH was only mildly elevated at 6.01 on 02/25/2024 6. chronic severe protein calorie malnutrition, present on admission and active. --malnutrition - inadequate oral intake as evidenced by moderate to severe muscle mass wasting (deltoids, pectoralis major, trapezius, temporalis, interosseous), severe subcutaneous fat loss (buccal, orbital), 8% weight loss in 2 months, severe, BMI 19.9 (underweight for age). 7. Paroxysmal atrial fibrillation - continue apixiban started 03/24/2024 for stroke prevention. 8. Deconditioning due to above problems -PT/OT evaluations given patient refusing stress testing. -no M Juan seen on previous admission, myeloma unlikely. Code status is full code. Will continue to discuss with patient. DVT prophylaxis with heparin. Proxy was close friend Pan Horne previously. Patient states he currently wants no one making decisions for him, he does not wish to designate a surrogate decision maker at this time which is challenging given his cognitive impairment. Unclear dispo currently as cannot return to previous living situation. Was not accepted for SNF. May need [facility]. Case discussed with case management and nursing staff to formulate the above assessement and plan. Dispo: changed to inpatient 03/24/2024, now pending stress testing. Quality VTE Deep Vein Thrombosis/Pulmonary Embolism Present on Admission: No
[2024-03-27 16:00] VITALS: BP 99/51; PULSE 66; RESP 18; TEMP 36.2; O2SAT 98
--- NOTE | 2024-03-27 17:06 | CM.DPNOTE ---
DCP Note GUEST SERVICE SUPERVISOR reviewed EMR. Per chart review, pt got SLUMS of 09/02. Per chart review/hospitalist report, if pt continues to refuse stress test then pt would be cleared for dc home. if pt agreeable to stress test, it is possible that the results would indicate pt will need to be transferred out for heart cath. GUEST SERVICE SUPERVISOR met with pt in room, reported does not want to go to rehab and wants to dc home. GUEST SERVICE SUPERVISOR updated Lisa at [facility]. GUEST SERVICE SUPERVISOR got call from Kate at [facility] for peer to peer review. report if provider interested in peer to peer to call [phone] option 5. need to be completed by Wednesday 9am [place]. Pt ambulating hallways with walker indep throughout the day. GUEST SERVICE SUPERVISOR spoke with Nicci from [facility], agreed to accept for services (GUEST SERVICE SUPERVISOR/RN/PT/OT/FLUTE POLISHER). GUEST SERVICE SUPERVISOR spkoe with Pan, friend, multiple times on the phone today ([phone]) and pt in room. Pna insists that he is unable to meet pt's needs at this time, assist him with completing medicaid application, and reports he refuses to take pt home. GUEST SERVICE SUPERVISOR reviewed different options from here moving forward, including appealing the discharge. after multiple lengthy discussions, pt agreed to stress test. Per Pt and Pan, pt disagreed because he confused it with an MRI and is claustrophobic. RN agreed to give pt paperwork on what to expect with a stress test to remind pt if he forgets. GUEST SERVICE SUPERVISOR udpated provider, provider agreed to cancel dc now that pt is in agreement with stress test. Ordered stress test, time pending. Anticpate sometime 03/28/24. Community Hogshead Builder Jame stopped by for updates- GUEST SERVICE SUPERVISOR provided appropriate dcp/social information. Jame kindly agreed to continue to follow. P: Stress test pending. Transfer vs home with [facility] and friend support vs SNF (If SNF, new auth attempt likely needed). CM team will follow closely. MAURISIO Arzate
[2024-03-27 19:00] VITALS: BP 105/59; PULSE 66; RESP 18; TEMP 36.6; O2SAT 98
[2024-03-27] MEDS: MELATONIN 3 MG TABLET 6 MG PO (20:51)
[2024-03-27] MEDS: ATORVASTATIN 20 MG TABLET 40 MG PO (20:52)
[2024-03-27] MEDS: SODIUM CHLORIDE 0.9% FLUSH 10 ML IV (20:55)
[2024-03-27 23:12] VITALS: BP 133/63; PULSE 64; RESP 16; TEMP 37; O2SAT 96
[2024-03-28 03:27] VITALS: BP 140/90; PULSE 84; RESP 16; TEMP 36.6; O2SAT 97
[2024-03-28 05:34] LABS: Add Manual Diff / Slide Review NO; Basophils Absolute Auto 0 /uL (0-100); Basophils Percent Auto 0.9 % (0-2); Eosinophils Absolute Auto 100 /uL (0-450); Eosinophils Percent Auto 2.5 % (2-4); Hematocrit 30.9 % (41-53); Hemoglobin 10.7 g/dL (13.5-17.5); Lymphocytes Absolute Auto 700 /uL (1100-4500); Lymphocytes Percent Auto 19.6 % (25-40); Mean Corpuscular HGB Conc 34.7 % (30-36); Mean Corpuscular Hemoglobin 34.7 PG (26-34); Monocytes Absolute Auto 500 /uL (0-900); Monocytes Percent Auto 11.8 % (3-14); Neutrophils Absolute Auto 2500 /uL (1500-7000); Neutrophils Percent Auto 65.2 % (50-75); Platelet Count 165 X10^3/uL (150-400); Red Blood Cell Count 3.09 X10^6/uL (4.5-5.9); Red Cell Distribution Width 14.1 % (11.6-14.8); White Blood Cell Count 3.8 X10^3/uL (4.5-11.0)
[2024-03-28 06:04] LABS: BUN Creatinine Ratio 34.1 (6-22); Blood Urea Nitrogen 57 mg/dL (9-20); Calcium 9.3 mg/dL (8.4-10.2); Carbon Dioxide 29 mmol/L (22-32); Chloride 97 mmol/L (98-107); Estimated Glomerular Filt Rate 41 mL/min (>60); Glucose 110 mg/dL (80-110); HEMOLYSIS < 15 (0-50); Potassium 3.8 mmol/L (3.4-5.1); Sodium 132 mmol/L (137-145)
[2024-03-28 08:00] VITALS: BP 94/53; PULSE 71; RESP 16; TEMP 36.4; O2SAT 98
[2024-03-28] MEDS: APIXABAN 5 MG TABLET 2.5 MG PO ×2 (09:14→20:40)
[2024-03-28] MEDS: POTASSIUM CHLORIDE 20 MEQ/15 ML UDC 40 MEQ PO ×2 (09:14→18:19)
[2024-03-28] MEDS: FUROSEMIDE 20 MG TABLET PO (09:14)
[2024-03-28] MEDS: ASPIRIN EC 81 MG TABLET PO (09:14)
[2024-03-28] MEDS: SODIUM CHLORIDE 0.9% FLUSH 10 ML IV ×2 (09:15→20:47)
--- NOTE | 2024-03-28 09:38 | OT.IP.TRT ---
Current Diagnoses Acute on chronic combined systolic (congestive) and diastolic (congestive) heart failure (03/24/24) Occupational Therapy Treatment Note M2 OT-IP Current Condition Start: 03/27/24 10:46 Freq: Status: Active Protocol: Document 03/27/24 10:47 ASHLEIGH (Rec: 03/27/24 11:12 ASHLEIGH [id number]) Occupational Therapy Current Condition Current Condition Evaluation Date 03/27/24 Treatment Diagnosis CHF, paroxysmal afib Diagnosis Onset Date 03/23/24 M3 OT- IP Subjective and Pain Start: 03/27/24 10:46 Freq: Status: Active Protocol: Document 03/28/24 10:49 [facility] (Rec: 03/28/24 11:00 [facility] [id number]) OT- Subjective Occupational Therapy Visit Type Type Treatment Note Visit Start Time 09:05 Visit Stop Time 09:38 Occupational Therapy Visit Comments Patient Comments Pt agreed to do grooming and dressing needs. Patient/Caregiver Goals To get better. OT Pain Assessment Pain When Pain Assessed At Rest Pain Present Pain Present Denied Pain M4 OT- IP ADL's Start: 03/27/24 10:46 Freq: Status: Active Protocol: Document 03/28/24 10:49 [facility] (Rec: 03/28/24 11:00 [facility] [id number]) OT ADL-Grooming General Evaluation Grooming Ability Standby Assistance Comments OT Grooming Comments Pt able to do while standing at the sink. OT ADL-Oral Care General Eval Oral Care Ability Independent Comments Oral Care Comments While standing able to preform . OT ADL-Dressing General Eval Lower Body Dressing Ability Independent Comments OT Dressing Comments Pt able to mitch/doff his socks while seated and no SOB today . OT ADL-Toileting Comments OT Toileting Comments Not performed. OT ADL-Bathing Comments OT Bathing Comments Pt agrees will benefit from a shower chair at home. M5 OT- IP IADL's Start: 03/27/24 10:46 Freq: Status: Active Protocol: Document 03/27/24 10:47 ASHLEIGH (Rec: 03/27/24 11:12 ASHLEIGH [id number]) OT-Instrumental Activities of Daily Living Home Safety Awareness Awareness of Need for Assistance at Home Good Awareness Ability to Problem Solve Emergency Able to Problem Solve Situations Medication Management Medication Management No Deficits Identified Money Management Money Management No Deficits Identified Meal Preparation Meal Preparation Caregiver Provides Assist Freight Flagman Freight Flagman Caregiver Provides Assist Driving Driving Caregiver Provides Assist M6 OT- IP Functional Cognition Start: 03/27/24 10:46 Freq: Status: Active Protocol: Document 03/28/24 10:49 [facility] (Rec: 03/28/24 11:00 [facility] [id number]) Cognitive Factors Limiting Selfcare Function Cognitive Tests SLUMS Pt scored 14/30 on the SLUMS which implies dementia, however score improved from 11 /30 on Wednesday. Pt states does not do well with cognitive assessments. Pt mainly has difficulty with short term memory items. Pt states at home that his landlord assist with IADL needs for him. Cognitive Comments Cognitive Assessment Comments Pt able to answer home safety questions after increased time and prompts. Pt states wants to go to skilled rehab to work on getting better overall . M7 OT- IP Mobility and Balance Start: 03/27/24 10:46 Freq: Status: Active Protocol: Document 03/28/24 10:49 [facility] (Rec: 03/28/24 11:00 [facility] [id number]) OT-Transfer Assessment Sit to and From Stand Sit to and from Stand Standby Assistance Transfers Transfer Ability Standby Assistance Technique Transfer Destination Chair Devices Transfer Assistive Devices Gait Belt Comments Mobility Comments Pt close SBA while in the room and would benefit from fww while out in the community. OT- Balance Assessment Sitting Balance and Reactions Static Sitting Balance Ability Normal Dynamic Sitting Balance Ability Normal Standing Balance and Reactions Static Standing Balance Ability Good Dynamic Standing Balance Ability Good M8 OT- IP Objective Assessments Start: 03/27/24 10:46 Freq: Status: Active Protocol: Document 03/27/24 10:47 ASHLEIGH (Rec: 03/27/24 11:12 ASHLEIGH [id number]) OT Gross Range of Motion Upper Extremity Range of Motion Assessment Within Functional Limits ROM Impairments Pt has some limitation in flexion/scaption to approximately 120 deg; pt presents with R 4th and 5th digits in fixed flexed position ~75% flexed. Otherwise pt's ROM is WFL OT Strength Hand Manager Metrology Strength Hand Dominance Right Comments Strength Comments L triceps 4-/5, otherwise strength is grossly 4-5/5 [place] M9 OT- IP Assessment and Plan Start: 03/27/24 10:46 Freq: Status: Active Protocol: Document 03/28/24 10:49 [facility] (Rec: 03/28/24 11:00 [facility] [id number]) OT Summary Assessment and Plan Potential Rehabilitation Potential Excellent Analytic Complexity at Evaluation Low Summary OT Impairments Functional Mobility,Dressing, Bathing,Shower Transfers, Activity Tolerance Assessment Summary Pt having better activity tolerance today and able to do his LB dressing without SOB and able to walk to and from the sink for grooming needs with SBA. Able to go over energy conservation and equipment needs for pt. Pt to benefit from home with increased assist and home health at this time. Goals Toileting Goal Independent Bathing Goal Independent,Grab Bars,Long Handled Sponge or [place] Shower Transfer Goal Independent,Shower Chair Days to Meet Goals 4 Frequency of Treatment Frequency Of Treatment Once a Day Treatment Plan OT Treatment Plan ADL Training,Therapeutic Exercises,Patient/Family Education Discharge Recommendations OT Discharge Recommendations Home,Home Health Home Equipment Needs Shower chair
--- NOTE | 2024-03-28 10:17 | PT.IPTN ---
Current Diagnoses Acute on chronic combined systolic (congestive) and diastolic (congestive) heart failure (03/24/24) Physical Therapy Treatment Note M2 PT-IP Current Condition Start: 03/24/24 15:47 Freq: NEEDED Status: Active Protocol: Document 03/24/24 15:48 KJ (Rec: 03/24/24 16:02 KJ [id number]) Physical Therapy Current Condition Current Condition Evaluation Date 03/24/24 Treatment Diagnosis poor endurance M3 PT-IP Subjective Start: 03/24/24 15:47 Freq: NEEDED Status: Active Protocol: Document 03/28/24 10:34 TS (Rec: 03/28/24 10:43 TS [id number]) Subjective Physical Therapy Visit Type Type Treatment Note Visit Start Time 10:17 Visit Stop Time 10:34 Number of MACHINE OPERATOR GENERAL Visits 1 Physical Therapy Visit Comments Patient Comments Pt found resting on bench, reports he gets tired quickly and has SOB with walking. Pt is agreeable to PT. M4 PT-IP Mobility and Gait Start: 03/24/24 15:47 Freq: NEEDED Status: Active Protocol: Document 03/28/24 10:34 TS (Rec: 03/28/24 10:43 TS [id number]) PT-Transfer Assessment Sit to and From Stand Sit to and from Stand Standby Assistance Equipment Transfer Assistive Device Gait Belt Orthotic/Prosthetic Devices or Brace: No Comments Mobility Comments STS from bench SBA with with no AD. Pt ambulated with FWW SBA ~150', after ~75' pt reported SOB and weakness in LE's, pt requested back to room. Spo2 97% and HR 68 at rest in chair. He performed stairs x7 SBA with single rail use. Pt was left in chair, all needs met. Gait Assessment Gait Gait Assistance Required: Standby Assistance Distance (Feet) 150 Able to Maintain Weight Bearing Status Yes During Gait Assistive Devices Assistive Device Gait Belt,Front Wheeled Walker Orthotic/Prosthetic Devices or Brace: No Gait Deviations General Gait Pattern Decreased Stride Length, Decreased Feet Clearance, Flexed Trunk,Lateral Trunk Lean,Step-to Gait Factors Limiting Gait Function Factors Limiting Gait Function Decreased Activity Tolerance, Decreased Strength,Difficulty Following Directions, Incoordination,Limited Range of Motion,Poor Balance,Poor Safety Awareness Stair Climbing Assessment Evaluation Level of Assist On Stairs Contact Guard Assistance Devices Stair Climbing Assistive Devices Right Railing Technique/Endurance Stair Climbing Direction Ascend and Descend Stair Climbing Technique Step to Step Number of Steps Climbed 7 Stair Climbing Set # Repetitions (reps) 1 PT-Balance Assessment Sitting Balance and Reactions Static Sitting Balance Ability Normal Dynamic Sitting Balance Ability Normal Standing Balance and Reactions Static Standing Balance Ability Good Dynamic Standing Balance Ability Good Device Used FW M5 PT-IP Objective Assessments Start: 03/24/24 15:47 Freq: NEEDED Status: Active Protocol: Document 03/26/24 10:35 JG (Rec: 03/26/24 11:54 JG [id number]) Orientation Orientation/Cognition Level of Alertness Confusional State Language Function Ability Word Finding Difficulties,Hard of Hearing Safety Awareness Decreased Safety Awareness Memory Description Short Term Impaired Comments Pt is [place] which may impact ability to understand directions. During gait training pt, attempted to walk into incorrect room and had to have v/c and redirection to return to his room. Pt was instructed to complete SLUMS as OT unavailable on Sundays and Examination score: 09/02 M6 PT-IP Treatment Start: 03/24/24 15:47 Freq: NEEDED Status: Active Protocol: Document 03/28/24 10:34 TS (Rec: 03/28/24 10:43 TS [id number]) Physical Therapy Treatment Education Education Provided Safety M7 PT-IP Assessment and Plan Start: 03/24/24 15:47 Freq: NEEDED Status: Active Protocol: Document 03/28/24 10:34 TS (Rec: 03/28/24 10:43 TS [id number]) PT Summary Assessment and Plan Potential Rehabilitation Potential Fair Summary Impairments ROM,Strength,Balance, Coordination,Cognition,Bed Mobility,Transfers,Gait, Activity Tolerance Progress Towards Goals Slow Progress due to Activity Tolerance Assessment Summary Vazquez is making some progress with his mobility but remains limited by poor activity tolerance. He is SBA for STS with no AD. He progressed his gait to ~150'SBA with FWW, pt reports SOB and fatigue after ~75'. He performed stairs x7 with single rail SBA. PT is recommending home vs SNF at this time. Pt could benefit from SNF to progress strength and activity tolerance before safe d/c home. Pt would benefit from HHPT if were to go home. Goals Transfer Goal Independent Gait Goal Independent Gait Distance 150' Other Goals up/down 5-7 steps R rail ascending mod I Days to Meet Goals 10 Frequency of Treatment Frequency Of Treatment Once a Day Treatment Plan Physical Therapy Treatment Plan Bed Mobility Training,Transfer Training,Gait Training, Therapeutic Exercise,Balance Retraining,Discharge Planning, Coordination Retraining Other Recommendations and Next Treatment Focus on improvement on gait Focus tolerance, ambulation speed and stair training Recommendations To Nursing Amount of Assist Needed Standby Assistance Discharge Recommendations PT Discharge Recommendations Home with Assistance,Home Health,Home vs SNF Transportation Needs at Discharge Private Vehicle
[2024-03-28] MEDS: LORazepam 0.5 MG TABLET PO (11:16)
[2024-03-28 12:00] VITALS: O2SAT 97
--- NOTE | 2024-03-28 13:21 | PM.PN.1 ---
Subjective Subjective Date Patient Seen: 03/28/24 Time Patient Seen: 08:10 Interval history: He continues to feel dyspnic on exertion. Cr climbing a bit today again after change to PO lasix. BP is a bit soft, unable to add edilberto/arb or beta cynthia currently. Patient now agreeable to stress testing, tough tried to refuse again today but was convinced to try. Exam Vital Signs (past 8 hours): - 03/28/24 07:00 03/28/24 08:00 03/28/24 08:00 Temperature 97.5 F L Pulse Rate 71 Respiratory Rate 16 Blood Pressure 94/53 L Pulse Oximetry 98 98 Oxygen Delivery Method Room Air Room Air Oxygen Flow Rate 0 Oxygen Delivery Method Room Air Oxygen Flow Rate 0 Narrative Exam Narrative: GENERAL: This is a thin appearing elderly male in no acute distress EYES: Pupils equal round and reactive. Extraocular motions intact. ENT: Mucous membranes pink and moist. NECK: Supple, nontender, no meningeal signs. CARDIOVASCULAR: Regular rate and rhythm without murmurs, gallops, or rubs. RESPIRATORY: Decreased breath sounds bilateral lung bases. GASTROINTESTINAL: Abdomen soft, non-tender, nondistended. EXTREMITIES: minimal / trace edema today. NEUROLOGIC: Alert, oriented, speech fluent, full upper and lower motor strength, no focal deficits evident. DERMATOLOGIC: No rashes or skin lesions. Objective Labs 03/28/24 05:15 03/28/24 05:15 Labs: Laboratory Results - last 24 hr 03/28/24 05:15 WBC 3.8 L RBC 3.09 L Hgb 10.7 L Hct 30.9 L MCV 100.0 MCH 34.7 H MCHC 34.7 RDW 14.1 Plt Count 165 Neut % (Auto) 65.2 Lymph % (Auto) 19.6 L [place] % (Auto) 11.8 Eos % (Auto) 2.5 Baso % (Auto) 0.9 Neut # (Auto) 2500 Lymph # (Auto) 700 L [place] # (Auto) 500 Eos # (Auto) 100 Baso # (Auto) 0 Sodium 132 L Potassium 3.8 Chloride 97 L Carbon Dioxide 29 BUN 57 H Creatinine 1.67 H Estimated GFR 41 L BUN/Creatinine Ratio 34.1 H Glucose 110 Calcium 9.3 Magnesium 2.0 PFSH Medical History Hypercalcemia Mild anemia Abnormal echocardiogram Bilateral pleural effusion Weight loss Hoarseness of voice Protein malnutrition Congestive heart failure Social History household members: friend(s) Smoking Status: Former smoker alcohol intake: former Assessment & Plan Assessment & Plan narrative: 1. 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 -change from IV diuresis to oral today. -added potassium chloride 20 mEq b.i.d. given hypokalemia --Last echo 45-50% in January 2024 at OSH with speckled pattern of myocardium. Had had progressive symptoms since. Needs outpatient cardiac MRI per prior recommendations. Repeat TTE 03/23/2024 with EF of 40-45%, pericardial and pleural effusions, atrial fibrillation, and moderate R systolic dysfunction as well. - patient refused stress testing on this hospitalization, attempted to rehabilitation services counselor patient as to the need but he still refused, but was agreeable today and pending stress testing results this afternoon. - start beta cynthia and edilberto/arb therapy when able, currently limited due to low-normal BP today. 2. JAX superimposed on chronic kidney disease, present on admission and active. - improved slightly now uptrending slightly. Likely near euvolemic and stopped diuresis today. - follow BMP daily, suspect JAX / elevated Cr in setting of volume overload initially. - continue to monitor, may be near baseline which may be 1.4-1.5. 3. Elevated troponin/myocardial injury, present on admission and active, improved - patient was ordered for stress testing but refused. He is agreeable today. continue asa and statin thearpy. Stress testing tomorrow ordered. 4. Small bilateral pleural effusions, with mod pulm edema. - due to problem 1 as noted above. 5. cognitive impairement with dementia -he will require a home setting where he has supervision for medications and to meet care needs. He may require placement if this cannot be achieved -obtain head CT, check B12 level. TSH was only mildly elevated at 6.01 on 02/25/2024 6. chronic severe protein calorie malnutrition, present on admission and active. --malnutrition - inadequate oral intake as evidenced by moderate to severe muscle mass wasting (deltoids, pectoralis major, trapezius, temporalis, interosseous), severe subcutaneous fat loss (buccal, orbital), 8% weight loss in 2 months, severe, BMI 19.9 (underweight for age). 7. Paroxysmal atrial fibrillation - continue apixiban started 03/24/2024 for stroke prevention. 8. Deconditioning due to above problems -PT/OT evaluations given patient refusing stress testing. -no M Juan seen on previous admission, myeloma unlikely. Code status is full code. Will continue to discuss with patient. DVT prophylaxis with heparin. Proxy was close friend Pan Horne previously. Patient states he currently wants no one making decisions for him, he does not wish to designate a surrogate decision maker at this time which is challenging given his cognitive impairment. Unclear dispo currently as cannot return to previous living situation. Was not accepted for SNF. May need senior living care placement. Case discussed with case management and nursing staff to formulate the above assessement and plan. Dispo: changed to inpatient 03/24/2024, now pending stress testing, unclear disposition plan from here. Quality VTE Deep Vein Thrombosis/Pulmonary Embolism Present on Admission: No
--- NOTE | 2024-03-28 15:55 | CM.DPNOTE ---
DCP Note INTERNET MARKETING INTERN reviewed EMR. Per nursing staff, stress test team wonderfully agreed to squeeze pt in for stress test today. Per OT, redid SLUMS for pt to have . Met with pt multiples times throughout the day. Reviewed stress test literature multiple times to help pt understand what to expect. Pt agreed and went for stress test around 1430. results pending as of 1600. CM received fax from pt's insurance inquiring about if assistance is needed with discharge planning- no contact information available on fax. placed behind FS for further consideration in DCP. P: medical POC continues to develop pending stress test results. transfer vs home with [facility] for RN/PT/OT/INTERNET MARKETING INTERN/DIRECTOR OF BUSINESS CONTINUITY. Jame Art Comm Pantry Attendant to follow at home as well. CM team will continue to follow closely. MAURISIO Arzate
[2024-03-28 16:00] VITALS: BP 100/68; PULSE 111; RESP 16; TEMP 36.2; O2SAT 99
--- NOTE | 2024-03-28 19:32 | DI.NM.S_ITS ---
DATE OF SERVICE: 03/28/2024 PROCEDURE: Pharmacological perfusion study. INDICATIONS: Paroxysmal AFib, heart failure, LVEF 45% to 50%, shortness of breath, chest pain. RADIOPHARMACEUTICAL: 25.4 millicuries technetium-99m Myoview IV was injected at stress and 10.4 millicuries technetium-99m Myoview IV was injected at rest. CARDIAC STRESS: The patient underwent IV Lexiscan perfusion study under the supervision of an attending staff using standard IV Lexiscan as per protocol. He remained hemodynamically stable. Maximum blood pressure 100/62. Baseline rhythm sinus with diffuse low-voltage complexes, possible RVH and extreme axis with first-degree AV block. During stress, no new convincing ischemic changes or arrhythmias seen. RAW DATA: There is a diaphragmatic shadow seen in the inferolateral border. Increased subdiaphragmatic activity. GATED STUDY: Stress LV ejection fraction 69% and resting LV ejection fraction 63% without any obvious significant wall motion abnormalities. Resting end-diastolic volume 62 mL. TID ratio 1.14, which is within normal limits. Lung/heart ratio 0.45, which is upper limits of normal. Right ventricular enlargement seen as well. MYOCARDIAL PERFUSION SCAN: Please note there are no prone images. Stress supine and resting supine images were compared to each other. There appears to be predominantly fixed, small size, moderately decreased perfusion of basal inferior wall extending into the basal inferolateral wall without any significant reversible ischemia. CONCLUSION: 1. No obvious reversible ischemia. 2. Predominantly fixed small size basal inferior wall defect, which extends into the basal inferolateral wall. On raw images, there is a shadow seen near the inferolateral border of the heart. This could be diaphragmatic shadow. There is increased subdiaphragmatic activity. On gated study, left ventricular function appears to be preserved without any significant wall motion abnormalities. Hence, this could be tissue attenuation artifact; however, one cannot rule out possibility of basal inferolateral wall infarction. On surface EKG, diffuse low-voltage complexes, extreme axis and first-degree AV block. As far as perfusion scan is concerned, this is a low-risk myocardial perfusion scan. Correlate clinically. Discussed the finding with Dr. Manuel. Bay Reddy - JAM/jennifer/TIFFANI doc#: [id number]/job#: [id number] dd: 03/28/2024 16:45:00 dt: 03/28/2024 19:07:00 DICTATING MD/COPIES TO: Duyen Staton MD COPIES MNE: NELLIE;
[2024-03-28 20:00] VITALS: BP 104/61; PULSE 65; RESP 16; TEMP 36.1; O2SAT 97
[2024-03-28] MEDS: MELATONIN 3 MG TABLET 6 MG PO (20:40)
[2024-03-28] MEDS: ATORVASTATIN 20 MG TABLET 40 MG PO (20:40)
[2024-03-29] VITALS: BP 102/58; PULSE 62; RESP 17; TEMP 36.1; O2SAT 97
[2024-03-29] MEDS: CALCIUM CARBONATE 500 MG TAB PO ×2 (02:33→21:00)
[2024-03-29] MEDS: FUROSEMIDE 40 MG/4 ML VIAL 20 MG IV (03:03)
[2024-03-29 04:00] VITALS: BP 115/59; PULSE 71; RESP 16; TEMP 36.3; O2SAT 98
[2024-03-29 06:49] LABS: Add Manual Diff / Slide Review NO; Basophils Absolute Auto 0 /uL (0-100); Basophils Percent Auto 0.9 % (0-2); Eosinophils Absolute Auto 100 /uL (0-450); Eosinophils Percent Auto 1.8 % (2-4); Hematocrit 31.8 % (41-53); Hemoglobin 11.1 g/dL (13.5-17.5); Lymphocytes Absolute Auto 800 /uL (1100-4500); Lymphocytes Percent Auto 18.1 % (25-40); Mean Corpuscular HGB Conc 35.1 % (30-36); Mean Corpuscular Volume 99.9 fL (80-100); Monocytes Absolute Auto 300 /uL (0-900); Monocytes Percent Auto 8.2 % (3-14); Neutrophils Absolute Auto 3000 /uL (1500-7000); Platelet Count 174 X10^3/uL (150-400); Red Blood Cell Count 3.18 X10^6/uL (4.5-5.9); White Blood Cell Count 4.2 X10^3/uL (4.5-11.0)
[2024-03-29 06:54] LABS: BUN Creatinine Ratio 32.2 (6-22); Blood Urea Nitrogen 57 mg/dL (9-20); Calcium 9.3 mg/dL (8.4-10.2); Carbon Dioxide 27 mmol/L (22-32); Chloride 97 mmol/L (98-107); Estimated Glomerular Filt Rate 38 mL/min (>60); Glucose 101 mg/dL (80-110); HEMOLYSIS < 15 (0-50); Magnesium 2.1 mg/dL (1.6-2.3); Potassium 4.2 mmol/L (3.4-5.1); Sodium 132 mmol/L (137-145)
[2024-03-29 08:00] VITALS: BP 111/64; PULSE 71; RESP 18; TEMP 36.3; O2SAT 100
[2024-03-29] MEDS: ASPIRIN EC 81 MG TABLET PO (08:43)
[2024-03-29] MEDS: FUROSEMIDE 20 MG TABLET PO (08:43)
[2024-03-29] MEDS: APIXABAN 5 MG TABLET 2.5 MG PO ×2 (08:43→20:57)
[2024-03-29] MEDS: POTASSIUM CHLORIDE 20 MEQ/15 ML UDC 40 MEQ PO (09:00)
[2024-03-29] MEDS: SODIUM CHLORIDE 0.9% FLUSH 10 ML IV ×2 (09:00→21:00)
--- NOTE | 2024-03-29 10:12 | OT.IP.TRT ---
Current Diagnoses Acute on chronic combined systolic (congestive) and diastolic (congestive) heart failure (03/24/24) Occupational Therapy Treatment Note M2 OT-IP Current Condition Start: 03/27/24 10:46 Freq: Status: Active Protocol: Document 03/27/24 10:47 ASHLEIGH (Rec: 03/27/24 11:12 ASHLEIGH [id number]) Occupational Therapy Current Condition Current Condition Evaluation Date 03/27/24 Treatment Diagnosis CHF, paroxysmal afib Diagnosis Onset Date 03/23/24 M3 OT- IP Subjective and Pain Start: 03/27/24 10:46 Freq: Status: Active Protocol: Document 03/29/24 09:00 [facility] (Rec: 03/29/24 10:12 [facility] [id number]) OT- Subjective Occupational Therapy Visit Type Type Treatment Note Visit Start Time 08:30 Visit Stop Time 09:00 Occupational Therapy Visit Comments Patient Comments Pt agreed to work with OT and try 4ww. Patient/Caregiver Goals To go home. OT Pain Assessment Pain When Pain Assessed At Rest Pain Present Pain Present Denied Pain M4 OT- IP ADL's Start: 03/27/24 10:46 Freq: Status: Active Protocol: Document 03/29/24 09:00 [facility] (Rec: 03/29/24 10:12 [facility] [id number]) OT TTD-[id number]-[id number] General Evaluation Self-Feeding Ability Independent OT ADL-Grooming Comments OT Grooming Comments Not performed. OT ADL-Dressing General Eval Lower Body Dressing Ability Independent Comments OT Dressing Comments Showed pt LB dressing equipment and trial to see if it would assist as at times pt gets fatigued. Both pt and therapist agreed pt able to do without use of equipment at this time. Pt at least is aware of equipment needs if needed in the future . OT ADL-Bathing Comments OT Bathing Comments Reiterated pt will benefit from a shower chair at home. M5 OT- IP IADL's Start: 03/27/24 10:46 Freq: Status: Active Protocol: Document 03/27/24 10:47 ASHLEIGH (Rec: 03/27/24 11:12 ASHLEIGH [id number]) OT-Instrumental Activities of Daily Living Home Safety Awareness Awareness of Need for Assistance at Home Good Awareness Ability to Problem Solve Emergency Able to Problem Solve Situations Medication Management Medication Management No Deficits Identified Money Management Money Management No Deficits Identified Meal Preparation Meal Preparation Caregiver Provides Assist Package Car Driver Package Car Driver Caregiver Provides Assist Driving Driving Caregiver Provides Assist M6 OT- IP Functional Cognition Start: 03/27/24 10:46 Freq: Status: Active Protocol: Document 03/29/24 09:00 [facility] (Rec: 03/29/24 10:12 [facility] [id number]) Cognitive Factors Limiting Selfcare Function Cognitive Comments Cognitive Assessment Comments Pt a little forgetful of OT suggestions yesterday and had to be reminded of suggestion for shower chair. M7 OT- IP Mobility and Balance Start: 03/27/24 10:46 Freq: Status: Active Protocol: Document 03/29/24 09:00 [facility] (Rec: 03/29/24 10:12 [facility] [id number]) OT-Transfer Assessment Sit to and From Stand Sit to and from Stand Independent Transfers Transfer Ability Standby Assistance Technique Transfer Destination Bed,Chair Devices Transfer Assistive Devices Gait Belt,4 Wheeled Walker Comments Mobility Comments Distant SBA with the 4ww and mainly assist for vc to look the breaks. Pt agrees would benefit from the 4ww for outside and longer distances. OT- Balance Assessment Sitting Balance and Reactions Static Sitting Balance Ability Normal Dynamic Sitting Balance Ability Normal Standing Balance and Reactions Static Standing Balance Ability Good Dynamic Standing Balance Ability Good M8 OT- IP Objective Assessments Start: 03/27/24 10:46 Freq: Status: Active Protocol: Document 03/27/24 10:47 ASHLEIGH (Rec: 03/27/24 11:12 ASHLEIGH [id number]) OT Gross Range of Motion Upper Extremity Range of Motion Assessment Within Functional Limits ROM Impairments Pt has some limitation in flexion/scaption to approximately 120 deg; pt presents with R 4th and 5th digits in fixed flexed position ~75% flexed. Otherwise pt's ROM is WFL OT Strength Hand Product Safety Head Strength Hand Dominance Right Comments Strength Comments L triceps 4-/5, otherwise strength is grossly 4-5/5 [place] M9 OT- IP Assessment and Plan Start: 03/27/24 10:46 Freq: Status: Active Protocol: Document 03/29/24 09:00 [facility] (Rec: 03/29/24 10:12 [facility] [id number]) OT Summary Assessment and Plan Potential Rehabilitation Potential Excellent Analytic Complexity at Evaluation Low Summary OT Impairments Functional Mobility,Dressing, Bathing,Shower Transfers, Activity Tolerance Progress Towards Goals Progressing Toward Goals Assessment Summary Pt increased activity tolerance today and able to comfortably do his LB dressing needs on his own. Able to show pt use of 4ww to be able to assist for IADl needs and longer distances. Pt will bennfit from assist at home especially for IADL needs and home health. Otherwise pt would benefit from a group house or assisted living facility. Pt appears closer to his baseline at this time. Goals Toileting Goal Independent Bathing Goal Independent,Grab Bars,Long Handled Sponge or [place] Shower Transfer Goal Independent,Shower Chair Days to Meet Goals 3 Frequency of Treatment Frequency Of Treatment Once a Day Treatment Plan OT Treatment Plan ADL Training,Therapeutic Exercises,Patient/Family Education Other Treatment Recommendations and Next shower Treatment Focus Discharge Recommendations OT Discharge Recommendations Home,Home Health Home Equipment Needs Shower chair,4ww
--- NOTE | 2024-03-29 10:20 | PT.IPTN ---
Current Diagnoses Acute on chronic combined systolic (congestive) and diastolic (congestive) heart failure (03/24/24) Physical Therapy Treatment Note M2 PT-IP Current Condition Start: 03/24/24 15:47 Freq: NEEDED Status: Active Protocol: Document 03/24/24 15:48 KJ (Rec: 03/24/24 16:02 KJ [id number]) Physical Therapy Current Condition Current Condition Evaluation Date 03/24/24 Treatment Diagnosis poor endurance M3 PT-IP Subjective Start: 03/24/24 15:47 Freq: NEEDED Status: Active Protocol: Document 03/29/24 10:46 TS (Rec: 03/29/24 10:54 TS [id number]) Subjective Physical Therapy Visit Type Type Treatment Note Visit Start Time 10:20 Visit Stop Time 10:43 Number of TUTORING MANAGER Visits 2 Physical Therapy Visit Comments Patient Comments Pt requires motivation to participate with PT. Pt reports SOB and weakness with mobility. M4 PT-IP Mobility and Gait Start: 03/24/24 15:47 Freq: NEEDED Status: Active Protocol: Document 03/29/24 10:46 TS (Rec: 03/29/24 10:54 TS [id number]) PT-Transfer Assessment Sit to and From Stand Sit to and from Stand Standby Assistance Equipment Transfer Assistive Device None,Gait Belt Orthotic/Prosthetic Devices or Brace: No Comments Mobility Comments STS from chair with no AD SBA. Pt ambulated ~200'SBA with FWW. He reports fatigue after ~100' and required rest break in room. He performed STS x5 in 15secs, requires cues to come fully into standing. He was educate don the importance of mobility while here in the hospital. He was left in chair, all needs met. Gait Assessment Gait Gait Assistance Required: Standby Assistance Distance (Feet) 200 Able to Maintain Weight Bearing Status Yes During Gait Assistive Devices Assistive Device Gait Belt,Front Wheeled Walker Orthotic/Prosthetic Devices or Brace: No Gait Deviations General Gait Pattern Decreased Stride Length, Decreased Feet Clearance, Flexed Trunk,Lateral Trunk Lean,Step-to Gait Factors Limiting Gait Function Factors Limiting Gait Function Decreased Activity Tolerance, Decreased Strength,Difficulty Following Directions, Incoordination,Limited Range of Motion,Poor Balance,Poor Safety Awareness PT-Balance Assessment Sitting Balance and Reactions Static Sitting Balance Ability Normal Dynamic Sitting Balance Ability Normal Standing Balance and Reactions Static Standing Balance Ability Good Dynamic Standing Balance Ability Good Device Used FW M5 PT-IP Objective Assessments Start: 03/24/24 15:47 Freq: NEEDED Status: Active Protocol: Document 03/26/24 10:35 JG (Rec: 03/26/24 11:54 JG [id number]) Orientation Orientation/Cognition Level of Alertness Confusional State Language Function Ability Word Finding Difficulties,Hard of Hearing Safety Awareness Decreased Safety Awareness Memory Description Short Term Impaired Comments Pt [place] which may impact ability to understand directions. During gait training pt, attempted to walk into incorrect room and had to have v/c and redirection to return to his room. Pt was instructed to complete SLUMS as OT unavailable on Sundays and Examination score: 09/02 M6 PT-IP Treatment Start: 03/24/24 15:47 Freq: NEEDED Status: Active Protocol: Document 03/29/24 10:46 TS (Rec: 03/29/24 10:54 TS [id number]) Physical Therapy Treatment Education Education Provided Safety M7 PT-IP Assessment and Plan Start: 03/24/24 15:47 Freq: NEEDED Status: Active Protocol: Document 03/29/24 10:46 TS (Rec: 03/29/24 10:54 TS [id number]) PT Summary Assessment and Plan Potential Rehabilitation Potential Fair Summary Impairments ROM,Strength,Balance, Coordination,Cognition,Bed Mobility,Transfers,Gait, Activity Tolerance Progress Towards Goals Slow Progress due to Activity Tolerance Assessment Summary Vazquez is maing progress with his mobility but remains limited by poor activity tolerance. He progressed his gait to ~200'SBA with FWW. He continues to fatigue quickly with gait. PT will continue to recommend Home vs SNF. He could benefit from SNF to improve activity tolerance. Goals Transfer Goal Independent Gait Goal Independent Gait Distance 150' Other Goals up/down 5-7 steps R rail ascending mod I Days to Meet Goals 10 Frequency of Treatment Frequency Of Treatment Once a Day Treatment Plan Physical Therapy Treatment Plan Bed Mobility Training,Transfer Training,Gait Training, Therapeutic Exercise,Balance Retraining,Discharge Planning, Coordination Retraining Other Recommendations and Next Treatment Focus on improvement on gait Focus tolerance, ambulation speed and stair training Recommendations To Nursing Amount of Assist Needed Standby Assistance Discharge Recommendations PT Discharge Recommendations Home with Assistance,Home Health,Home vs SNF Transportation Needs at Discharge Private Vehicle
[2024-03-29 12:00] VITALS: BP 108/66; PULSE 70; RESP 16; TEMP 36.2; O2SAT 100
--- NOTE | 2024-03-29 14:29 | PM.PN.1 ---
Subjective Subjective Date Patient Seen: 03/28/24 Time Patient Seen: 08:10 Interval history: He continues to feel dyspnic on exertion. Cr climbing a bit today again, will increase furosemide dosing. Stress testing was unremarkable. Exam Vital Signs (past 8 hours): - 03/29/24 07:00 03/29/24 08:00 03/29/24 12:00 Temperature 97.3 F L 97.2 F L Pulse Rate 71 70 Respiratory Rate 18 16 Blood Pressure 111/64 108/66 Pulse Oximetry 100 100 Oxygen Delivery Method Room Air Oxygen Flow Rate 0 0 Oxygen Delivery Method Room Air Oxygen Flow Rate 0 Narrative Exam Narrative: GENERAL: This is a thin appearing elderly male in no acute distress EYES: Pupils equal round and reactive. Extraocular motions intact. ENT: Mucous membranes pink and moist. NECK: Supple, nontender, no meningeal signs. CARDIOVASCULAR: Regular rate and rhythm without murmurs, gallops, or rubs. RESPIRATORY: Decreased breath sounds bilateral lung bases. GASTROINTESTINAL: Abdomen soft, non-tender, nondistended. EXTREMITIES: minimal / trace edema today. NEUROLOGIC: Alert, oriented, speech fluent, full upper and lower motor strength, no focal deficits evident. DERMATOLOGIC: No rashes or skin lesions. Objective Labs 03/29/24 05:50 03/29/24 05:50 Labs: Laboratory Results - last 24 hr 03/29/24 05:50 WBC 4.2 L RBC 3.18 L Hgb 11.1 L Hct 31.8 L MCV 99.9 MCH 35.0 H MCHC 35.1 RDW 14.0 Plt Count 174 Neut % (Auto) 71.0 Lymph % (Auto) 18.1 L [place] % (Auto) 8.2 Eos % (Auto) 1.8 L Baso % (Auto) 0.9 Neut # (Auto) 3000 Lymph # (Auto) 800 L [place] # (Auto) 300 Eos # (Auto) 100 Baso # (Auto) 0 Sodium 132 L Potassium 4.2 Chloride 97 L Carbon Dioxide 27 BUN 57 H Creatinine 1.77 H Estimated GFR 38 L BUN/Creatinine Ratio 32.2 H Glucose 101 Calcium 9.3 Magnesium 2.1 PFSH Medical History Hypercalcemia Mild anemia Abnormal echocardiogram Bilateral pleural effusion Weight loss Hoarseness of voice Protein malnutrition Congestive heart failure Social History household members: friend(s) Smoking Status: Former smoker alcohol intake: former Assessment & Plan Assessment & Plan narrative: 1. 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 -change from IV diuresis to oral today. -added potassium chloride 20 mEq b.i.d. given hypokalemia --Last echo 45-50% in January 2024 at OSH with speckled pattern of myocardium. Had had progressive symptoms since. Needs outpatient cardiac MRI per prior recommendations. Repeat TTE 03/23/2024 with EF of 40-45%, pericardial and pleural effusions, atrial fibrillation, and moderate R systolic dysfunction as well. - patient refused stress testing on this hospitalization, attempted to academic counselor patient as to the need but he still refused, but was agreeable today and pending stress testing results this afternoon. - start beta cynthia and edilberto/arb therapy when able, currently limited due to low-normal BP today. 2. JAX superimposed on chronic kidney disease, present on admission and active. - improved slightly now uptrending slightly. Likely near euvolemic and stopped IV diuretic. Will increase to 20 mg BID from daily today. - follow BMP daily, suspect JAX / elevated Cr in setting of volume overload. - continue to monitor, may be near baseline which may be 1.4-1.5. 3. Elevated troponin/myocardial injury, present on admission and active, improved - patient was ordered for stress testing but refused. He is agreeable today. continue asa and statin thearpy. Stress testing tomorrow ordered. 4. Small bilateral pleural effusions, with mod pulm edema. - due to problem 1 as noted above. 5. cognitive impairement with dementia -he will require a home setting where he has supervision for medications and to meet care needs. He may require placement if this cannot be achieved -obtain head CT, check B12 level. TSH was only mildly elevated at 6.01 on 02/25/2024 6. chronic severe protein calorie malnutrition, present on admission and active. --malnutrition - inadequate oral intake as evidenced by moderate to severe muscle mass wasting (deltoids, pectoralis major, trapezius, temporalis, interosseous), severe subcutaneous fat loss (buccal, orbital), 8% weight loss in 2 months, severe, BMI 19.9 (underweight for age). 7. Paroxysmal atrial fibrillation - continue apixiban started 03/24/2024 for stroke prevention. 8. Deconditioning due to above problems -PT/OT evaluations given patient refusing stress testing. -no M Juan seen on previous admission, myeloma unlikely. Code status is full code. Will continue to discuss with patient. DVT prophylaxis with heparin. Proxy was close friend Pan Horne previously. Patient states he currently wants no one making decisions for him, he does not wish to designate a surrogate decision maker at this time which is challenging given his cognitive impairment. Unclear dispo currently as cannot return to previous living situation. Was not accepted for SNF. May need home health care case manager care placement. Case discussed with case management and nursing staff to formulate the above assessement and plan. Dispo: changed to inpatient 03/24/2024, unclear disposition, possible home health care case manager care. Quality VTE Deep Vein Thrombosis/Pulmonary Embolism Present on Admission: No
[2024-03-29 16:00] VITALS: BP 121/62; PULSE 72; RESP 12; TEMP 36.3; O2SAT 98
--- NOTE | 2024-03-29 16:19 | CM.DPNOTE ---
CHANNELER reviewed EMR. Per chart review, stress test negative. Pt medically cleared for discharge. CHANNELER called friend/CG Pan cardenas, (([phone]). No response. CM received fax from pt's insurance inquiring about if assistance is needed with discharge planning- no contact information available on fax. CHANNELER attempted for lengthy amount of time to find appropriate call back number. CHANNELER faxed original fax line back asking for a call back for further DCP assistance. Fax went through, placed behind Pt's FS. CHANNELER unable to dedicate further time to pt's DCP needs due to triaging needs. P: home with [facility] for RN/PT/OT/CHANNELER/HUC OB and Comm [facility] vs LTC Placement. Medicaid elsie needed. CGs refusing to take pt home. Could attempt for placement at [facility] again (new auth needed) placement auth unlikely due to pt mobilizing in hallways with walker. CM team will continue to follow closely. MAURISIO Arzate
[2024-03-29] MEDS: POTASSIUM CHLORIDE 20 MEQ TAB 40 MEQ PO (17:31)
[2024-03-29 20:00] VITALS: BP 108/59; PULSE 64; RESP 17; TEMP 36.3; O2SAT 99
[2024-03-29] MEDS: MELATONIN 3 MG TABLET 6 MG PO (20:57)
[2024-03-29] MEDS: ATORVASTATIN 20 MG TABLET 40 MG PO (20:58)
[2024-03-30] VITALS: BP 111/60; PULSE 63; RESP 17; TEMP 36.1; O2SAT 98
[2024-03-30 01:08] LABS: Methylmalonic Acid,Serum 765 nmol/L (0-378)
[2024-03-30] MEDS: CALCIUM CARBONATE 500 MG TAB PO ×2 (02:28→21:37)
[2024-03-30 04:00] VITALS: BP 131/66; PULSE 69; RESP 18; TEMP 36.1; O2SAT 97
[2024-03-30 06:53] LABS: Add Manual Diff / Slide Review NO; Basophils Absolute Auto 0 /uL (0-100); Basophils Percent Auto 0.4 % (0-2); Eosinophils Absolute Auto 100 /uL (0-450); Eosinophils Percent Auto 2.1 % (2-4); Hematocrit 32.5 % (41-53); Hemoglobin 11.3 g/dL (13.5-17.5); Lymphocytes Absolute Auto 700 /uL (1100-4500); Lymphocytes Percent Auto 15.5 % (25-40); Mean Corpuscular HGB Conc 34.7 % (30-36); Mean Corpuscular Hemoglobin 34.8 PG (26-34); Mean Corpuscular Volume 100.3 fL (80-100); Monocytes Absolute Auto 500 /uL (0-900); Monocytes Percent Auto 11.2 % (3-14); Neutrophils Absolute Auto 3000 /uL (1500-7000); Neutrophils Percent Auto 70.8 % (50-75); Platelet Count 169 X10^3/uL (150-400); Red Blood Cell Count 3.24 X10^6/uL (4.5-5.9); Red Cell Distribution Width 13.9 % (11.6-14.8); White Blood Cell Count 4.3 X10^3/uL (4.5-11.0)
[2024-03-30 06:57] LABS: BUN Creatinine Ratio 34.4 (6-22); Blood Urea Nitrogen 56 mg/dL (9-20); Calcium 9.5 mg/dL (8.4-10.2); Carbon Dioxide 28 mmol/L (22-32); Chloride 95 mmol/L (98-107); Estimated Glomerular Filt Rate 42 mL/min (>60); Glucose 101 mg/dL (80-110); HEMOLYSIS < 15 (0-50); Magnesium 2.1 mg/dL (1.6-2.3); Potassium 4.5 mmol/L (3.4-5.1); Sodium 129 mmol/L (137-145)
[2024-03-30 08:00] VITALS: BP 104/60; PULSE 69; RESP 15; TEMP 36.2; O2SAT 99
--- NOTE | 2024-03-30 08:15 | P.PN_ITS ---
Subjective Subjective Interval history: S: He denies any chest pain or dyspnea. His breathing is improved from when he arrived. He still has leg edema. From Manuel: Interval history: He continues to feel dyspnic on exertion. Cr climbing a bit today again, will increase furosemide dosing. Stress testing was unremarkable. Exam Vital Signs (past 8 hours): - 03/30/24 04:00 Temperature 97.0 F L Pulse Rate 69 Respiratory Rate 18 Blood Pressure 131/66 Pulse Oximetry 97 Oxygen Flow Rate 0 Oxygen Delivery Method Room Air Oxygen Flow Rate 0 Narrative Exam Narrative: NAD, alert and oriented. Fluent speech. Lungs are clear, normal rate and effort. Heart is regular, no murmur gallop or rub. Abdomen is soft, non distended. Extremities are with 1+ edema. Objective Labs 03/30/24 05:40 03/30/24 05:40 Labs: Laboratory Results - last 24 hr 03/27/24 03/30/24 05:05 05:40 WBC 4.3 L RBC 3.24 L Hgb 11.3 L Hct 32.5 L MCV 100.3 H MCH 34.8 H MCHC 34.7 RDW 13.9 Plt Count 169 Neut % (Auto) 70.8 Lymph % (Auto) 15.5 L [place] % (Auto) 11.2 Eos % (Auto) 2.1 Baso % (Auto) 0.4 Neut # (Auto) 3000 Lymph # (Auto) 700 L [place] # (Auto) 500 Eos # (Auto) 100 Baso # (Auto) 0 Sodium 129 L Potassium 4.5 Chloride 95 L Carbon Dioxide 28 BUN 56 H Creatinine 1.63 H Estimated GFR 42 L BUN/Creatinine Ratio 34.4 H Glucose 101 Calcium 9.5 Magnesium 2.1 Methylmalonic Acid 765 H [facility] Medical History Hypercalcemia Mild anemia Abnormal echocardiogram Bilateral pleural effusion Weight loss Hoarseness of voice Protein malnutrition Congestive heart failure Social History household members: friend(s) Smoking Status: Former smoker alcohol intake: former Assessment & Plan Assessment & Plan narrative: 1. 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 -change from IV diuresis to oral today. -added potassium chloride 20 mEq b.i.d. given hypokalemia --Last echo 45-50% in January 2024 at OSH with speckled pattern of myocardium. Had had progressive symptoms since. Needs outpatient cardiac MRI per prior recommendations. Repeat TTE 03/23/2024 with EF of 40-45%, pericardial and pleural effusions, atrial fibrillation, and moderate R systolic dysfunction as well. - start beta cynthia and edilberto/arb therapy when able, currently limited due to low-normal BP today. 2. JAX superimposed on chronic kidney disease, present on admission and active. - improved slightly now uptrending slightly. Likely near euvolemic and stopped IV diuretic. Will increase to 20 mg BID from daily today. - follow BMP daily, suspect JAX / elevated Cr in setting of volume overload. - continue to monitor, may be near baseline which may be 1.4-1.5. 3. Elevated troponin/myocardial injury, present on admission and active, improved - patient was ordered for stress testing but refused. He is agreeable today. continue asa and statin thearpy. Stress testing tomorrow ordered. 4. Small bilateral pleural effusions, with mod pulm edema. - due to problem 1 as noted above. 5. Cognitive impairement with dementia -he will require a home setting where he has supervision for medications and to meet care needs. He may require placement if this cannot be achieved -obtain head CT, check B12 level. TSH was only mildly elevated at 6.01 on 02/25/2024 6. Chronic severe protein calorie malnutrition, present on admission and active. --malnutrition - inadequate oral intake as evidenced by moderate to severe muscle mass wasting (deltoids, pectoralis major, trapezius, temporalis, interosseous), severe subcutaneous fat loss (buccal, orbital), 8% weight loss in 2 months, severe, BMI 19.9 (underweight for age). 7. Paroxysmal atrial fibrillation, present on admission and active. - continue apixiban started 03/24/2024 for stroke prevention. 8. Deconditioning due to above problems, present on admission and active. -PT/OT evaluations given patient refusing stress testing. -no M Juan seen on previous admission, myeloma unlikely. PLAN: -no changes to medications. -discussed with social work, we will begin to pursue the guardianship pathway. Code status is full code. Will continue to discuss with patient. DVT prophylaxis with heparin. Proxy was close friend Pan Horne previously. Patient states he currently wants no one making decisions for him, he does not wish to designate a surrogate decision maker at this time which is challenging given his cognitive impairment. Unclear dispo currently as cannot return to previous living situation. Was not accepted for SNF. May need detention care placement. Case discussed with case management and nursing staff to formulate the above assessement and plan. Dispo: changed to inpatient 03/24/2024, unclear disposition, possible detention care. Quality VTE Deep Vein Thrombosis/Pulmonary Embolism Present on Admission: No
[2024-03-30] MEDS: APIXABAN 5 MG TABLET 2.5 MG PO ×2 (08:43→21:37)
[2024-03-30] MEDS: FUROSEMIDE 20 MG TABLET PO ×2 (08:43→17:10)
[2024-03-30] MEDS: ASPIRIN EC 81 MG TABLET PO (08:45)
[2024-03-30] MEDS: POTASSIUM CHLORIDE 20 MEQ TAB 40 MEQ PO ×2 (08:45→17:10)
[2024-03-30] MEDS: SODIUM CHLORIDE 0.9% FLUSH 10 ML IV (08:46)
--- NOTE | 2024-03-30 10:28 | PT.IPTN ---
Current Diagnoses Acute on chronic combined systolic (congestive) and diastolic (congestive) heart failure (03/24/24) Physical Therapy Treatment Note M2 PT-IP Current Condition Start: 03/24/24 15:47 Freq: NEEDED Status: Active Protocol: Document 03/24/24 15:48 KJ (Rec: 03/24/24 16:02 KJ [id number]) Physical Therapy Current Condition Current Condition Evaluation Date 03/24/24 Treatment Diagnosis poor endurance M3 PT-IP Subjective Start: 03/24/24 15:47 Freq: NEEDED Status: Active Protocol: Document 03/30/24 10:48 TS (Rec: 03/30/24 11:01 TS [id number]) Subjective Physical Therapy Visit Type Type Treatment Note Visit Start Time 10:28 Visit Stop Time 10:47 Number of RAIL EQUIPMENT OPERATOR Visits 3 Physical Therapy Visit Comments Patient Comments Pt found resting in bed, reports a possible sore throat or sore tongue, nursing notified. Pt is agreeable to PT. M4 PT-IP Mobility and Gait Start: 03/24/24 15:47 Freq: NEEDED Status: Active Protocol: Document 03/30/24 10:48 TS (Rec: 03/30/24 11:01 TS [id number]) PT-Bed Mobility Assessment Supine to Sit Supine to Sit Independent Sit to Supine Sit to Supine Independent Scooting Scooting to Edge of Bed Independent Scooting Up and Down in Bed Independent PT-Transfer Assessment Sit to and From Stand Sit to and from Stand Independent Equipment Transfer Assistive Device Gait Belt,Front Wheeled Walker Orthotic/Prosthetic Devices or Brace: No Comments Mobility Comments Supine to sit Ind from flat bed with BUE support. STS with FWW Ind, pt has good standing balance. He ambulated ~250' SBA with FWW. Pt required long standing rest break after ~ 125' of gait. He ambulated back to room, Spo2 99% and HR in 70's after gait. Pt was left in bed, all needs met. Gait Assessment Gait Gait Assistance Required: Standby Assistance Distance (Feet) 250 Able to Maintain Weight Bearing Status Yes During Gait Assistive Devices Assistive Device Gait Belt,Front Wheeled Walker Orthotic/Prosthetic Devices or Brace: No Gait Deviations General Gait Pattern Decreased Stride Length, Decreased Feet Clearance, Flexed Trunk,Lateral Trunk Lean,Step-to Gait Factors Limiting Gait Function Factors Limiting Gait Function Decreased Activity Tolerance, Decreased Strength,Difficulty Following Directions, Incoordination,Limited Range of Motion,Poor Balance,Poor Safety Awareness PT-Balance Assessment Sitting Balance and Reactions Static Sitting Balance Ability Normal Dynamic Sitting Balance Ability Normal Standing Balance and Reactions Static Standing Balance Ability Good Dynamic Standing Balance Ability Good Device Used FW M5 PT-IP Objective Assessments Start: 03/24/24 15:47 Freq: NEEDED Status: Active Protocol: Document 03/26/24 10:35 JG (Rec: 03/26/24 11:54 JG [id number]) Orientation Orientation/Cognition Level of Alertness Confusional State Language Function Ability Word Finding Difficulties,Hard of Hearing Safety Awareness Decreased Safety Awareness Memory Description Short Term Impaired Comments Pt is [place] which may impact ability to understand directions. During gait training pt, attempted to walk into incorrect room and had to have v/c and redirection to return to his room. Pt was instructed to complete SLUMS as OT unavailable on Sundays and Examination score: 09/02 M6 PT-IP Treatment Start: 03/24/24 15:47 Freq: NEEDED Status: Active Protocol: Document 03/30/24 10:48 TS (Rec: 03/30/24 11:01 TS [id number]) Physical Therapy Treatment Education Education Provided Safety M7 PT-IP Assessment and Plan Start: 03/24/24 15:47 Freq: NEEDED Status: Active Protocol: Document 03/30/24 10:48 TS (Rec: 03/30/24 11:01 TS [id number]) PT Summary Assessment and Plan Potential Rehabilitation Potential Fair Summary Impairments ROM,Strength,Balance, Coordination,Cognition,Bed Mobility,Transfers,Gait, Activity Tolerance Progress Towards Goals Slow Progress due to Activity Tolerance Assessment Summary Vazquez is Ind with all bed mobility from a flat bed. He progressed his gait to ~250' SBA with FWW. He required a long standing rest break after ~125'. He continues to report some SOB and fatigue. PT is recommending Home with assist and HHPT. Goals Transfer Goal Independent Gait Goal Independent Gait Distance 150' Other Goals up/down 5-7 steps R rail ascending mod I Days to Meet Goals 10 Frequency of Treatment Frequency Of Treatment Once a Day Treatment Plan Physical Therapy Treatment Plan Bed Mobility Training,Transfer Training,Gait Training, Therapeutic Exercise,Balance Retraining,Discharge Planning, Coordination Retraining Other Recommendations and Next Treatment Focus on improvement on gait Focus tolerance, ambulation speed and stair training Recommendations To Nursing Amount of Assist Needed Standby Assistance Discharge Recommendations PT Discharge Recommendations Home with Assistance,Home Health Transportation Needs at Discharge Private Vehicle
--- NOTE | 2024-03-30 11:55 | OT.IP.TRT ---
Current Diagnoses Acute on chronic combined systolic (congestive) and diastolic (congestive) heart failure (03/24/24) Occupational Therapy Treatment Note M2 OT-IP Current Condition Start: 03/27/24 10:46 Freq: Status: Active Protocol: Document 03/27/24 10:47 ASHLEIGH (Rec: 03/27/24 11:12 ASHLEIGH [id number]) Occupational Therapy Current Condition Current Condition Evaluation Date 03/27/24 Treatment Diagnosis CHF, paroxysmal afib Diagnosis Onset Date 03/23/24 M3 OT- IP Subjective and Pain Start: 03/27/24 10:46 Freq: Status: Active Protocol: Document 03/30/24 13:13 [facility] (Rec: 03/30/24 13:15 [facility] [id number]) OT- Subjective Occupational Therapy Visit Type Type Treatment Note Visit Start Time 11:45 Visit Stop Time 11:55 Occupational Therapy Visit Comments Patient Comments Pt sitting by the window when OT arrived. Patient/Caregiver Goals To go home. M6 OT- IP Functional Cognition Start: 03/27/24 10:46 Freq: Status: Active Protocol: Document 03/29/24 09:00 [facility] (Rec: 03/29/24 10:12 [facility] [id number]) Cognitive Factors Limiting Selfcare Function Cognitive Comments Cognitive Assessment Comments Pt a little forgetful of OT suggestions yesterday and had to be reminded of suggestion for shower chair. M7 OT- IP Mobility and Balance Start: 03/27/24 10:46 Freq: Status: Active Protocol: Document 03/30/24 13:13 [facility] (Rec: 03/30/24 13:15 [facility] [id number]) OT-Transfer Assessment Sit to and From Stand Sit to and from Stand Independent Transfers Transfer Ability Independent Comments Mobility Comments Pt able to get around in the room on his own with increased time. Pt states feels that his is back to his baseline for needs. OT- Balance Assessment Sitting Balance and Reactions Static Sitting Balance Ability Normal Dynamic Sitting Balance Ability Normal Standing Balance and Reactions Static Standing Balance Ability Good Dynamic Standing Balance Ability Good M9 OT- IP Assessment and Plan Start: 03/27/24 10:46 Freq: Status: Active Protocol: Document 03/30/24 13:15 [facility] (Rec: 03/30/24 13:18 [facility] [id number]) OT Summary Assessment and Plan Potential Rehabilitation Potential Good Analytic Complexity at Evaluation Low Summary Assessment Summary Pt at his baseline for needs and aware that he needs assist for IADL needs, steps and aware to ask for assistance as needed. Pt not wanting to shower at this time. Pt has been independent in the room for basic ADl needs. Discharge from OT services-nursing, case management , and hospitalist aware. Frequency of Treatment Frequency Of Treatment Discharge Discharge Recommendations OT Discharge Recommendations Home with Assistance,Home Health,[facility]
[2024-03-30 12:00] VITALS: BP 101/62; PULSE 66; RESP 15; TEMP 36.3; O2SAT 99
[2024-03-30 16:00] VITALS: BP 102/64; PULSE 69; RESP 15; TEMP 36.2; O2SAT 98
[2024-03-30 19:45] VITALS: BP 107/63; PULSE 113; RESP 16; TEMP 36.4; O2SAT 98
[2024-03-30] MEDS: MELATONIN 3 MG TABLET 6 MG PO (21:37)
[2024-03-30] MEDS: ATORVASTATIN 20 MG TABLET 40 MG PO (21:37)
[2024-03-31 00:30] VITALS: BP 105/64; PULSE 110; RESP 16; TEMP 36.2; O2SAT 97
[2024-03-31 04:10] VITALS: BP 101/65; PULSE 106; RESP 16; TEMP 36.5; O2SAT 99
--- NOTE | 2024-03-31 07:32 | PM.PN.1 ---
Subjective Subjective Interval history: No new concerns. Denies pain or dyspnea. Slept well. Confirms Full Code wished. Exam Vital Signs (past 8 hours): - 03/31/24 00:30 03/31/24 04:10 Temperature 97.2 F L 97.7 F Pulse Rate 110 H 106 H Respiratory Rate 16 16 Blood Pressure 105/64 101/65 Pulse Oximetry 97 99 Oxygen Flow Rate 0 0 Oxygen Delivery Method Room Air Oxygen Flow Rate 0 Narrative Exam Narrative: NAD, alert and oriented. Fluent speech. Lungs are clear, normal rate and effort. Heart is regular, no murmur gallop or rub. Abdomen is soft, non distended. Extremities are free of edema. Objective Labs 03/30/24 05:40 03/30/24 05:40 [facility] Medical History Hypercalcemia Mild anemia Abnormal echocardiogram Bilateral pleural effusion Weight loss Hoarseness of voice Protein malnutrition Congestive heart failure Social History household members: friend(s) Smoking Status: Former smoker alcohol intake: former Assessment & Plan Assessment & Plan narrative: 1. 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 -added potassium chloride 20 mEq b.i.d. -Last echo 45-50% in January 2024 at O[facility] with speckled pattern of myocardium. Had had progressive symptoms since. - NA 129 2. JAX superimposed on chronic kidney disease, present on admission and improved. - continue to monitor, may be near baseline which may be 1.4-1.5. 3. Demand ischemia, present on admission and active, improved - stress test was low risk,. 4. Cognitive impairement with dementia, present on admission and active. -placement and guardianship pending. 5. Chronic severe protein calorie malnutrition, present on admission and active. --malnutrition - inadequate oral intake as evidenced by moderate to severe muscle mass wasting (deltoids, pectoralis major, trapezius, temporalis, interosseous), severe subcutaneous fat loss (buccal, orbital), 8% weight loss in 2 months, severe, BMI 19.9 (underweight for age). 6. Paroxysmal atrial fibrillation, present on admission and active. - continue apixiban started 03/24/2024 for stroke prevention. PLAN: -no changes to medications. -discussed with social work, we will begin to pursue the guardianship pathway. Quality VTE Deep Vein Thrombosis/Pulmonary Embolism Present on Admission: No
[2024-03-31 09:00] VITALS: BP 104/64; PULSE 104; RESP 16; TEMP 36.3; O2SAT 95
[2024-03-31] MEDS: ASPIRIN EC 81 MG TABLET PO (09:03)
[2024-03-31] MEDS: FUROSEMIDE 20 MG TABLET PO ×2 (09:03→16:37)
[2024-03-31] MEDS: POTASSIUM CHLORIDE 20 MEQ TAB 40 MEQ PO ×2 (09:03→16:37)
[2024-03-31] MEDS: APIXABAN 5 MG TABLET 2.5 MG PO ×2 (09:04→20:53)
--- NOTE | 2024-03-31 09:09 | EKG_ITS ---
[facility] [address] [place] [address] Test Date: 2024-03-31 Pat Name: Bay Reddy Department: [facility] Room: 217 Gender: Male Registration Manager: ROSIE : 1945 Requested By: Order Number: [id number] Reading MD: Kris Pavon Measurements Intervals [place] Rate: 71 P: 68 [place]: 304 QRS: 245 QRSD: 100 T: 3 QT: 472 QTc: 512 Interpretive Statements Sinus rhythm with 1st degree AV block with premature supraventricular complexes Right superior axis deviation Pulmonary disease pattern Incomplete right bundle branch block Possible Right ventricular hypertrophy Inferior infarct , age undetermined Same as previous. Electronically Signed On 04-02-2024 9:43:18 PDT by Kris Pavon
--- NOTE | 2024-03-31 11:15 | DIET.CONS2 ---
Dietary Inpatient Consultation Note Admission Date: 03/24/2024 12:41 Nutrition f/u. Pt with 50-75% of recorded po intakes. Spoke w/ pt who reports tolerating ONS or ONS based smoothies and having good appetite. Encouraged adequate intake r/t PCM. Will continue to monitor. Diet: 03/28/24 00:01 NPO Diet Diet Modifications: NPO Type: NPO after Midnight 03/28/24 Breakfast Heart Healthy Diet Diet Modifications: [place] Advance Diet as Tolerated: No Safety Tray needed?: No Sodium Level: 2 gm Sodium Food Texture: Level 7 - Regular Liquid Consistency: Level 0 - Thin Nutrition Percent Meal Consumed 50% 03/30/24 18:13 Percent Meal Consumed 75% 03/30/24 13:06 Percent Meal Consumed 50% 03/29/24 18:00 Percent Meal Consumed 50% 03/29/24 12:54 Electronically Signed by: Soledad Sánchez 03/31/24 11:15 Clinical Dietitian [address] [address]
--- NOTE | 2024-03-31 11:25 | PT.IPTN ---
Current Diagnoses Acute on chronic combined systolic (congestive) and diastolic (congestive) heart failure (03/24/24) Physical Therapy Treatment Note M2 PT-IP Current Condition Start: 03/24/24 15:47 Freq: NEEDED Status: Active Protocol: Document 03/24/24 15:48 KJ (Rec: 03/24/24 16:02 KJ [id number]) Physical Therapy Current Condition Current Condition Evaluation Date 03/24/24 Treatment Diagnosis poor endurance M3 PT-IP Subjective Start: 03/24/24 15:47 Freq: NEEDED Status: Active Protocol: Document 03/31/24 11:25 AB (Rec: 03/31/24 13:29 AB [id number]) Subjective Physical Therapy Visit Type Type Treatment Note Visit Start Time 11:25 Visit Stop Time 11:40 Number of MANUFACTURING TECHNOLOGY ANALYST Visits 0 Physical Therapy Visit Comments Patient Comments initially refusing, stating that he just walked and wanted to rest M4 PT-IP Mobility and Gait Start: 03/24/24 15:47 Freq: NEEDED Status: Active Protocol: Document 03/31/24 11:25 AB (Rec: 03/31/24 13:29 AB [id number]) PT-Bed Mobility Assessment Supine to Sit Supine to Sit Independent Sit to Supine Sit to Supine Independent PT-Transfer Assessment Sit to and From Stand Sit to and from Stand Standby Assistance Equipment Transfer Assistive Device None Orthotic/Prosthetic Devices or Brace: No Comments Mobility Comments checked on pt and pt in bed and initially refusing PT and wanted to rest first. checked back on pt after a few hours. pt sitting on window bench and agreed to do PT. completed sit to stand SBA and ambulated without AD ~ 40 ft SBA. slow paced gait. pt sat back on window bench. refused to do stairs. pt has been independent in room with nursing staff per nurse. informed pt regarding PT d/c and pt agreed. nurse and nurse case manager informed. Gait Assessment Gait Gait Assistance Required: Standby Assistance Distance (Feet) 40 Able to Maintain Weight Bearing Status Yes During Gait Assistive Devices Assistive Device None Orthotic/Prosthetic Devices or Brace: No Gait Deviations General Gait Pattern Decreased Stride Length, Decreased Feet Clearance Factors Limiting Gait Function Factors Limiting Gait Function Decreased Activity Tolerance, Poor Safety Awareness M5 PT-IP Objective Assessments Start: 03/24/24 15:47 Freq: NEEDED Status: Active Protocol: Document 03/26/24 10:35 JG (Rec: 03/26/24 11:54 [id number]) Orientation Orientation/Cognition Level of Alertness Confusional State Language Function Ability Word Finding Difficulties,Hard of Hearing Safety Awareness Decreased Safety Awareness Memory Description Short Term Impaired Comments Pt is [place] which may impact ability to understand directions. During gait training pt, attempted to walk into incorrect room and had to have v/c and redirection to return to his room. Pt was instructed to complete SLUMS as OT unavailable on Sundays and Examination score: 09/02 M6 PT-IP Treatment Start: 03/24/24 15:47 Freq: NEEDED Status: Active Protocol: Document 03/31/24 11:25 AB (Rec: 03/31/24 13:29 AB [id number]) Physical Therapy Treatment Education Education Provided Safety M7 PT-IP Assessment and Plan Start: 03/24/24 15:47 Freq: NEEDED Status: Active Protocol: Document 03/31/24 11:25 AB (Rec: 03/31/24 13:29 AB [id number]) PT Summary Assessment and Plan Potential Rehabilitation Potential Fair Summary Impairments Cognition,Gait,Activity Tolerance Assessment Summary pt requiring SBA with mobility for safety but can be independent in room. pt prefers to use a FWW but can ambulate without AD short distance/in room . No further PT intervention indicated. pt's mobility influenced by his decrease activity tolerance and this is due to his medical condition affecting mobility. informed pt regarding pacing himself and energy conservation and pt understood. informed nurse and nurse case manager regarding PT dc. pt is awaiting placement for d/c. Frequency of Treatment Frequency Of Treatment Discharge Recommendations To Nursing Amount of Assist Needed Standby Assistance Discharge Recommendations PT Discharge Recommendations Home with Assistance Equipment Needed for Home Before FWW Discharge Transportation Needs at Discharge Private Vehicle
--- NOTE | 2024-03-31 11:30 | CM.DPNOTE ---
DCP Cont Placement Reviewed chart. In summary, patient has been dropped off by his friends and temporary caregivers and they will not accept him back in their home. Friends not agreeable to being DPOA. Patient?s cognition has been tested via SLUMS scoring which is 14/30 indicating Dementia. Patient is ambulating and has no skilled need to be in a SNF. Patient has no assigned DPOA, is estranged from his family, does not have the resource to pay privately for care. Patient will need a guardian assigned in order to initiate the process through the state to secure fpc care placement. This CHIPPING MACHINE OPERATOR contacted Sandy Larios by phone, had to LM. Now waiting to hear from her about referral process to this program. Sandy Larios, Guardianship Coat Checker at [facility]/Aging and Long-Term Support Administration P [phone] email: [email or web address]. This CHIPPING MACHINE OPERATOR anticipates [facility] will benefit from legal [place] and assistance to push this process along, leadership aware and will be following along closely. Patient calm, cooperative with care, able to ambulate with walker. Plan: Patient expected to need guardian and then equipment operator intermodal yard care placement. CM team will plan to follow closely. Additional conversation with patient and friend Pan may reveal additional information about patient's funds/bank accounts (?) Or may not. [place] and/or Guardian, once assigned, can petition to get access to bank accounts if any are owned. [place]
[2024-03-31 15:00] VITALS: BP 106/58; PULSE 104; RESP 16; TEMP 36.6; O2SAT 97
[2024-03-31 20:00] VITALS: BP 105/66; PULSE 80; RESP 18; TEMP 36.6; O2SAT 99
[2024-03-31] MEDS: ATORVASTATIN 20 MG TABLET 40 MG PO (20:53)
[2024-03-31] MEDS: MELATONIN 3 MG TABLET 6 MG PO (20:53)
[2024-04-01 00:36] VITALS: BP 99/64; PULSE 65; RESP 17; TEMP 35.9; O2SAT 94
[2024-04-01 05:03] VITALS: BP 95/57; PULSE 83; RESP 18; TEMP 36.4; O2SAT 98
[2024-04-01 06:32] LABS: Blood Urea Nitrogen 53 mg/dL (9-20); Calcium 9.1 mg/dL (8.4-10.2); Carbon Dioxide 28 mmol/L (22-32); Chloride 98 mmol/L (98-107); Estimated Glomerular Filt Rate 53 mL/min (>60); Glucose 105 mg/dL (80-110); HEMOLYSIS < 15 (0-50); Potassium 4.2 mmol/L (3.4-5.1); Sodium 131 mmol/L (137-145)
--- NOTE | 2024-04-01 08:02 | PM.PN.1 ---
Subjective Subjective Interval history: No new concerns, denies pain or dyspnea. Exam Vital Signs (past 8 hours): - 04/01/24 00:36 04/01/24 05:03 Temperature 96.7 F L 97.5 F L Pulse Rate 65 83 Respiratory Rate 17 18 Blood Pressure 99/64 95/57 L Pulse Oximetry 94 98 Oxygen Flow Rate 0 Oxygen Delivery Method Room Air Oxygen Flow Rate 0 Narrative Exam Narrative: NAD, alert and oriented. Fluent speech. Lungs are clear, normal rate and effort. Heart is regular, no murmur gallop or rub. Abdomen is soft, non distended. Extremities are with 2+ edema. Objective Labs 03/30/24 05:40 04/01/24 05:49 Labs: Laboratory Results - last 24 hr 04/01/24 05:49 Sodium 131 L Potassium 4.2 Chloride 98 Carbon Dioxide 28 BUN 53 H Creatinine 1.36 H Estimated GFR 53 L BUN/Creatinine Ratio 39.0 H Glucose 105 Calcium 9.1 [facility] Medical History Hypercalcemia Mild anemia Abnormal echocardiogram Bilateral pleural effusion Weight loss Hoarseness of voice Protein malnutrition Congestive heart failure Social History household members: friend(s) Smoking Status: Former smoker alcohol intake: former Assessment & Plan Assessment & Plan narrative: 1. 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 -added potassium chloride 20 mEq b.i.d. -Last echo 45-50% in January 2024 at OSH with speckled pattern of myocardium. Had had progressive symptoms since. - NA 129. Stable. 2. JAX superimposed on chronic kidney disease, present on admission and improved. - continue to monitor, may be near baseline which may be 1.4-1.5. 3. Demand ischemia, present on admission and active, improved - stress test was low risk,. 4. Cognitive impairement with dementia, present on admission and active. -placement and guardianship pending. 5. Chronic severe protein calorie malnutrition, present on admission and active. --malnutrition - inadequate oral intake as evidenced by moderate to severe muscle mass wasting (deltoids, pectoralis major, trapezius, temporalis, interosseous), severe subcutaneous fat loss (buccal, orbital), 8% weight loss in 2 months, severe, BMI 19.9 (underweight for age). 6. Paroxysmal atrial fibrillation, present on admission and active. - continue apixiban started 03/24/2024 for stroke prevention. PLAN: -no changes to medications. -discussed with social work, we will begin to pursue the guardianship pathway. -dc telemetry Quality VTE Deep Vein Thrombosis/Pulmonary Embolism Present on Admission: No
[2024-04-01] MEDS: ASPIRIN EC 81 MG TABLET PO (08:33)
[2024-04-01] MEDS: APIXABAN 5 MG TABLET 2.5 MG PO ×2 (08:33→20:05)
[2024-04-01] MEDS: POTASSIUM CHLORIDE 20 MEQ TAB 40 MEQ PO ×2 (08:33→17:33)
[2024-04-01] MEDS: FUROSEMIDE 20 MG TABLET PO ×2 (08:34→17:33)
[2024-04-01 08:49] VITALS: BP 95/56; PULSE 99; RESP 15; TEMP 36.5; O2SAT 97
[2024-04-01 12:05] VITALS: BP 92/56; PULSE 107; RESP 18; TEMP 36.8; O2SAT 98
--- NOTE | 2024-04-01 14:44 | CM.DPC ---
DCP Cont: A friend of patient called, Vazquez, knows patient, wanted to have patient call him. Let him know that this [place] Math And Sciences Department Chair could not give out any information. He also wanted to know if Antonio was here, or had his phone number, and reemphasized, could not give out any information. Did take friend's number, and gave it to patient. Went into patient's room, and gave him his friend's number, who he is familar with. Patient asked if he had had lunch yet, was hungry. Confirmed that he did not have lunch yet, but would be arriving. Patient is here now for need of placement, for his friend, who he was residing with, will not accept him back. There had been numerous conversations with his friend about patient's medical stability, and resources had been given. Due to patient not having a DPOA, and cognitive issues, will now need a guardian, which is currently being worked on. P: DCP to continue to follow. Patient is here due to needing placement, will need guardian, is working with hospital risk management on guardianship. Adelina Fuller RN/Case Management
[2024-04-01 15:35] VITALS: BP 99/64; PULSE 110; RESP 18; TEMP 36.8; O2SAT 97
[2024-04-01] MEDS: CALCIUM CARBONATE 500 MG TAB PO (18:45)
[2024-04-01 19:24] VITALS: BP 100/66; PULSE 113; RESP 17; TEMP 36.6; O2SAT 96
[2024-04-01] MEDS: ATORVASTATIN 20 MG TABLET 40 MG PO (20:04)
[2024-04-01] MEDS: MELATONIN 3 MG TABLET 6 MG PO (20:05)
--- NOTE | 2024-04-02 08:03 | P.PN_ITS ---
Subjective Subjective Interval history: Feels a little more short of breath today. He was ongoing persistent edema of the legs. His blood pressure slightly soft. No pain. Exam Vital Signs (past 8 hours): Oxygen Delivery Method Room Air Oxygen Flow Rate 0 Narrative Exam Narrative: NAD, alert and oriented. Fluent speech. Flat affect. Lungs are clear, normal rate and effort. Heart is regular, no murmur gallop or rub. Abdomen is soft, non distended. Extremities are with pitting bilateral edema. Objective Labs 03/30/24 05:40 04/01/24 05:49 [facility] Medical History Hypercalcemia Mild anemia Abnormal echocardiogram Bilateral pleural effusion Weight loss Hoarseness of voice Protein malnutrition Congestive heart failure Social History household members: friend(s) Smoking Status: Former smoker alcohol intake: former Assessment & Plan Assessment & Plan narrative: 1. 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 -added potassium chloride 20 mEq b.i.d. -Last echo 45-50% in January 2024 at OSH with speckled pattern of myocardium. Had had progressive symptoms since. - NA 129. Stable. 2. JAX superimposed on chronic kidney disease, present on admission and improved. - continue to monitor, may be near baseline which may be 1.4-1.5. 3. Demand ischemia, present on admission and active, improved - stress test was low risk. 4. Cognitive impairement with dementia, present on admission and active. - placement and guardianship pending. 5. Chronic severe protein calorie malnutrition, present on admission and active. --malnutrition - inadequate oral intake as evidenced by moderate to severe muscle mass wasting (deltoids, pectoralis major, trapezius, temporalis, interosseous), severe subcutaneous fat loss (buccal, orbital), 8% weight loss in 2 months, severe, BMI 19.9 (underweight for age). 6. Paroxysmal atrial fibrillation, present on admission and active. - continue apixiban started 03/24/2024 for stroke prevention. PLAN: -no changes to medications. -discussed with social work, we will begin to pursue the guardianship pathway. -discontinued telemetry -monitor edema and recheck labs on April 03. Ongoing discharge planning. Quality VTE Deep Vein Thrombosis/Pulmonary Embolism Present on Admission: No
[2024-04-02] MEDS: POTASSIUM CHLORIDE 20 MEQ TAB 40 MEQ PO ×2 (08:23→17:35)
[2024-04-02] MEDS: ASPIRIN EC 81 MG TABLET PO (08:23)
[2024-04-02] MEDS: APIXABAN 5 MG TABLET 2.5 MG PO ×2 (08:23→20:17)
[2024-04-02 08:42] VITALS: BP 92/55; PULSE 110; RESP 17; TEMP 36.2; O2SAT 97
[2024-04-02] MEDS: FUROSEMIDE 20 MG TABLET PO (17:35)
[2024-04-02 19:37] VITALS: BP 103/58; PULSE 81; RESP 16; TEMP 36.4; O2SAT 100
[2024-04-02] MEDS: ATORVASTATIN 20 MG TABLET 40 MG PO (20:17)
[2024-04-02] MEDS: MELATONIN 3 MG TABLET 6 MG PO (20:17)
[2024-04-02] MEDS: CALCIUM CARBONATE 500 MG TAB PO (21:29)
[2024-04-03 04:57] LABS: Hematocrit 30.7 % (41-53); Hemoglobin 10.5 g/dL (13.5-17.5); Mean Corpuscular HGB Conc 34.2 % (30-36); Mean Corpuscular Hemoglobin 34.3 PG (26-34); Mean Corpuscular Volume 100.1 fL (80-100); Platelet Count 160 X10^3/uL (150-400); Red Blood Cell Count 3.06 X10^6/uL (4.5-5.9); Red Cell Distribution Width 14.1 % (11.6-14.8)
[2024-04-03 05:16] LABS: Alanine Aminotransferase 21 IU/L (<50); Albumin 3.3 g/dL (3.5-5.0); Albumin Globulin Ratio 0.9 (1.0-2.8); Alkaline Phosphatase 137 U/L (38-126); Aspartate Aminotransferase 38 IU/L (17-59); BUN Creatinine Ratio 35.3 (6-22); Bilirubin Total 0.8 mg/dL (0.2-1.3); Blood Urea Nitrogen 49 mg/dL (9-20); Carbon Dioxide 26 mmol/L (22-32); Chloride 95 mmol/L (98-107); Estimated Glomerular Filt Rate 51 mL/min (>60); Globulin 3.8 g/dL (1.7-4.1); Glucose 107 mg/dL (80-110); HEMOLYSIS < 15 (0-50); Sodium 130 mmol/L (137-145); Total Protein 7.1 g/dL (6.3-8.2)
[2024-04-03 07:00] VITALS: BP 104/59; PULSE 85; RESP 15; TEMP 36.3; O2SAT 97
[2024-04-03] MEDS: FUROSEMIDE 20 MG TABLET PO ×2 (08:45→17:58)
[2024-04-03] MEDS: ASPIRIN EC 81 MG TABLET PO (08:46)
[2024-04-03] MEDS: APIXABAN 5 MG TABLET 2.5 MG PO ×2 (08:46→20:39)
[2024-04-03] MEDS: POTASSIUM CHLORIDE 20 MEQ TAB 40 MEQ PO ×2 (08:46→17:59)
[2024-04-03 12:52] LABS: Albumin 2.8 g/dL (2.9-4.4); Alpha-1-Globulin 0.3 g/dL (0.0-0.4); Alpha-2-Globulin 0.8 g/dL (0.4-1.0); Gamma Globulin 1.3 g/dL (0.4-1.8); Globulin Total 3.8 g/dL (2.2-3.9); Protein, Total 6.6 g/dL (6.0-8.5)
--- NOTE | 2024-04-03 14:39 | PM.PN.1 ---
Subjective Subjective Interval history: Feels a little more short of breath today. He was ongoing persistent edema of the legs. His blood pressure slightly soft. No pain. Exam Vital Signs (past 8 hours): - 04/03/24 07:00 Temperature 97.3 F L Pulse Rate 85 Respiratory Rate 15 Blood Pressure 104/59 L Pulse Oximetry 97 Oxygen Flow Rate 0 Oxygen Delivery Method Room Air Oxygen Flow Rate 0 Narrative Exam Narrative: NAD, alert and oriented. Fluent speech. Flat affect. Lungs are clear, normal rate and effort. Heart is regular, no murmur gallop or rub. Abdomen is soft, non distended. Extremities are with pitting bilateral edema. Objective Labs 04/03/24 04:12 04/03/24 04:12 Labs: Laboratory Results - last 24 hr 03/30/24 04/03/24 05:40 04:12 WBC 4.0 L RBC 3.06 L Hgb 10.5 L Hct 30.7 L MCV 100.1 H MCH 34.3 H MCHC 34.2 RDW 14.1 Plt Count 160 Sodium 130 L Potassium 4.0 Chloride 95 L Carbon Dioxide 26 BUN 49 H Creatinine 1.39 H Estimated GFR 51 L BUN/Creatinine Ratio 35.3 H Glucose 107 Calcium 9.0 Total Bilirubin 0.8 AST 38 ALT 21 Alkaline Phosphatase 137 H Total Protein 7.1 Total Protein (PEP) 6.6 Albumin 3.3 L Albumin (PEP) 2.8 L Globulin 3.8 Albumin/Globulin Ratio 0.9 L Albumin/Globulin (PEP) 0.7 Tzyxv-3-Gujxkitle 0.3 Fdcpg-5-Tisemlmef 0.8 Beta Globulins 1.4 H Gamma Globulins 1.3 Gamma Glob/Tot Protein 3.8 M-Juan Comment: Ref Lab Notation Comment [facility] Medical History Hypercalcemia Mild anemia Abnormal echocardiogram Bilateral pleural effusion Weight loss Hoarseness of voice Protein malnutrition Congestive heart failure Social History household members: friend(s) Smoking Status: Former smoker alcohol intake: former Assessment & Plan Assessment & Plan narrative: 1. 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 -added potassium chloride 20 mEq b.i.d. -Last echo 45-50% in January 2024 at OSH with speckled pattern of myocardium. Had had progressive symptoms since. - NA 129. Stable. 2. JAX superimposed on chronic kidney disease, present on admission and improved. - continue to monitor, may be near baseline which may be 1.4-1.5. 3. Demand ischemia, present on admission and active, improved - stress test was low risk. 4. Cognitive impairement with dementia, present on admission and active. - placement and guardianship pending. 5. Chronic severe protein calorie malnutrition, present on admission and active. --malnutrition - inadequate oral intake as evidenced by moderate to severe muscle mass wasting (deltoids, pectoralis major, trapezius, temporalis, interosseous), severe subcutaneous fat loss (buccal, orbital), 8% weight loss in 2 months, severe, BMI 19.9 (underweight for age). 6. Paroxysmal atrial fibrillation, present on admission and active. - continue apixiban started 03/24/2024 for stroke prevention. PLAN: -no changes to medications. -discussed with social work, we will begin to pursue the guardianship pathway. -discontinued telemetry -rechecked labs on April 03 which appeared stable. Ongoing discharge planning. Quality VTE Deep Vein Thrombosis/Pulmonary Embolism Present on Admission: No
--- NOTE | 2024-04-03 15:23 | CM.DPC ---
DCP Continued Reviewed EMR and team rounds for pt?s medical status. Plan of care ongoing for pt, awaiting assistance from risk management for legal craig re: guardianship. DCP placed APS Report #[id number] for self-neglect. Plan: Awaiting legal craig for guardianship to assist with placement in community, no safe discharge plan identified at this time. CM Team will continue to follow for coordination of discharge plans. JAMILA Chairez
[2024-04-03 20:00] VITALS: BP 100/65; PULSE 108; RESP 16; TEMP 36.4; O2SAT 98
[2024-04-03] MEDS: CALCIUM CARBONATE 500 MG TAB PO (20:05)
[2024-04-03] MEDS: ATORVASTATIN 20 MG TABLET 40 MG PO (20:38)
[2024-04-03] MEDS: MELATONIN 3 MG TABLET 6 MG PO (20:39)
[2024-04-04] MEDS: BISACODYL 5 MG TABLET PO (03:34)
[2024-04-04] MEDS: MINERAL OIL 1 EACH ENEMA PR (04:56)
[2024-04-04 07:00] VITALS: BP 104/52; PULSE 90; RESP 16; TEMP 36.6; O2SAT 97
[2024-04-04] MEDS: POTASSIUM CHLORIDE 20 MEQ TAB 40 MEQ PO ×2 (08:39→18:13)
[2024-04-04] MEDS: APIXABAN 5 MG TABLET 2.5 MG PO ×2 (08:39→20:41)
[2024-04-04] MEDS: ASPIRIN EC 81 MG TABLET PO (08:39)
[2024-04-04] MEDS: FUROSEMIDE 20 MG TABLET PO ×2 (08:39→18:12)
--- NOTE | 2024-04-04 13:31 | P.PN_ITS ---
Subjective Subjective Interval history: No complaints today. Exam Vital Signs (past 8 hours): - 04/04/24 07:00 Temperature 97.8 F Pulse Rate 90 Respiratory Rate 16 Blood Pressure 104/52 L Pulse Oximetry 97 Oxygen Flow Rate 0 Oxygen Delivery Method Room Air Oxygen Flow Rate 0 Narrative Exam Narrative: NAD, alert and oriented. Fluent speech. Flat affect. Lungs are clear, normal rate and effort. Heart is regular, no murmur gallop or rub. Abdomen is soft, non distended. Extremities are with pitting bilateral edema. Objective Labs 04/03/24 04:12 04/03/24 04:12 [facility] Medical History Hypercalcemia Mild anemia Abnormal echocardiogram Bilateral pleural effusion Weight loss Hoarseness of voice Protein malnutrition Congestive heart failure Social History household members: friend(s) Smoking Status: Former smoker alcohol intake: former Assessment & Plan Assessment & Plan narrative: 1. 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 -added potassium chloride 20 mEq b.i.d. -Last echo 45-50% in January 2024 at OSH with speckled pattern of myocardium. Had had progressive symptoms since. - NA 129. Stable. 2. JAX superimposed on chronic kidney disease, present on admission and improved. - continue to monitor, may be near baseline which may be 1.4-1.5. 3. Demand ischemia, present on admission and active, improved - stress test was low risk. 4. Cognitive impairement with dementia, present on admission and active. - placement and guardianship pending. 5. Chronic severe protein calorie malnutrition, present on admission and active. --malnutrition - inadequate oral intake as evidenced by moderate to severe muscle mass wasting (deltoids, pectoralis major, trapezius, temporalis, interosseous), severe subcutaneous fat loss (buccal, orbital), 8% weight loss in 2 months, severe, BMI 19.9 (underweight for age). 6. Paroxysmal atrial fibrillation, present on admission and active. - continue apixiban started 03/24/2024 for stroke prevention. PLAN: -no changes to medications. -discussed with social work, beginning to pursue the guardianship pathway. -discontinued telemetry -rechecked labs on April 03 which appeared stable. Ongoing discharge planning. Quality VTE Deep Vein Thrombosis/Pulmonary Embolism Present on Admission: No
--- NOTE | 2024-04-04 15:58 | CM.DPNOTE ---
DCP Note RETORT OR CONDENSER PRESS OPERATOR received call from Elva from APS ([phone]) provided information as requested. Pt is getting animal cruelty investigator assigned today. likely will investigate starting this week. Plan: Awaiting legal [place] for guardianship to assist with placement in community, no safe discharge plan identified at this time. Pending APS investigation/input as well. CM Team will continue to follow for coordination of discharge plans MAURISIO Arzate
[2024-04-04 20:04] VITALS: BP 117/63; PULSE 90; RESP 17; TEMP 36.4; O2SAT 98
[2024-04-04] MEDS: ATORVASTATIN 20 MG TABLET 40 MG PO (20:41)
[2024-04-04] MEDS: MELATONIN 3 MG TABLET 6 MG PO (20:41)
[2024-04-04] MEDS: CALCIUM CARBONATE 500 MG TAB PO ×2 (21:10→22:03)
--- NOTE | 2024-04-05 07:49 | PM.PN.1 ---
Subjective Subjective Interval history: Some dyspnea with exertion. No pain issues. Exam Vital Signs (past 8 hours): Oxygen Delivery Method Room Air Oxygen Flow Rate 0 Narrative Exam Narrative: NAD, alert and oriented. Fluent speech. Lungs are clear, normal rate and effort. Heart is regular, no murmur gallop or rub. Abdomen is soft, non distended. Extremities are bilateral pitting edema. Objective Labs 04/03/24 04:12 04/03/24 04:12 [facility] Medical History Hypercalcemia Mild anemia Abnormal echocardiogram Bilateral pleural effusion Weight loss Hoarseness of voice Protein malnutrition Congestive heart failure Social History household members: friend(s) Smoking Status: Former smoker alcohol intake: former Assessment & Plan Assessment & Plan narrative: 1. 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 -added potassium chloride 20 mEq b.i.d. -Last echo 45-50% in January 2024 at OSH with speckled pattern of myocardium. Had had progressive symptoms since. 2. JAX superimposed on chronic kidney disease, present on admission and improved. - continue to monitor. 3. Demand ischemia, present on admission and active, improved - stress test was low risk. 4. Cognitive impairement with dementia, present on admission and active. - placement and guardianship pending. 5. Chronic severe protein calorie malnutrition, present on admission and active. --malnutrition - inadequate oral intake as evidenced by moderate to severe muscle mass wasting (deltoids, pectoralis major, trapezius, temporalis, interosseous), severe subcutaneous fat loss (buccal, orbital), 8% weight loss in 2 months, severe, BMI 19.9 (underweight for age). 6. Paroxysmal atrial fibrillation, present on admission and active. - continue apixiban started 03/24/2024 for stroke prevention. PLAN: -no changes to medications. -discussed with social work, beginning to pursue the guardianship pathway. -discontinued telemetry -rechecked labs on April 03 which appeared stable. Ongoing discharge planning. Quality VTE Deep Vein Thrombosis/Pulmonary Embolism Present on Admission: No
[2024-04-05 08:43] LABS: Albumin 66.3
[2024-04-05 08:46] LABS: M-Spike % Not Observed
[2024-04-05 08:58] LABS: Total Urine Protein 36.5
[2024-04-05 09:00] LABS: Protein, Total, 24 hr urine 164
[2024-04-05] MEDS: APIXABAN 5 MG TABLET 2.5 MG PO ×2 (09:06→20:47)
[2024-04-05] MEDS: POTASSIUM CHLORIDE 20 MEQ TAB 40 MEQ PO ×2 (09:06→18:51)
[2024-04-05] MEDS: ASPIRIN EC 81 MG TABLET PO (09:06)
[2024-04-05] MEDS: FUROSEMIDE 20 MG TABLET PO ×2 (09:06→18:51)
[2024-04-05] MEDS: BISACODYL 10 MG SUPP PR (14:30)
[2024-04-05 15:00] VITALS: BP 101/66; PULSE 68; RESP 18; TEMP 36.4; O2SAT 98
[2024-04-05] MEDS: MINERAL OIL 1 EACH ENEMA PR (15:30)
[2024-04-05 20:00] VITALS: BP 96/56; PULSE 89; RESP 19; TEMP 36.4; O2SAT 100
[2024-04-05] MEDS: ATORVASTATIN 20 MG TABLET 40 MG PO (20:47)
[2024-04-05] MEDS: MELATONIN 3 MG TABLET 6 MG PO (20:47)
[2024-04-06] MEDS: CALCIUM CARBONATE 500 MG TAB PO ×2 (03:37→22:11)
[2024-04-06 07:00] VITALS: BP 98/51; PULSE 106; RESP 16; TEMP 36.2; O2SAT 97
[2024-04-06] MEDS: FUROSEMIDE 20 MG TABLET PO ×2 (08:16→17:04)
[2024-04-06] MEDS: POTASSIUM CHLORIDE 20 MEQ TAB 40 MEQ PO ×2 (08:17→17:04)
[2024-04-06] MEDS: APIXABAN 5 MG TABLET 2.5 MG PO ×2 (08:17→20:47)
[2024-04-06] MEDS: ASPIRIN EC 81 MG TABLET PO (08:17)
--- NOTE | 2024-04-06 12:36 | P.PN_ITS ---
Subjective Subjective Date Patient Seen: 04/06/24 Time Patient Seen: 09:30 Interval history: The patient reports mild shortness of breath with exertion. No other concerns. Exam Vital Signs (past 8 hours): - 04/06/24 07:00 Temperature 97.2 F L Pulse Rate 106 H Respiratory Rate 16 Blood Pressure 98/51 L Pulse Oximetry 97 Oxygen Flow Rate 0 Oxygen Delivery Method Room Air Oxygen Flow Rate 0 Narrative Exam Narrative: NAD, alert and oriented. Fluent speech. Lungs are clear, normal rate and effort. Heart is regular, no murmur gallop or rub. Abdomen is soft, non distended. Extremities are bilateral pitting edema. Objective Labs 04/03/24 04:12 04/03/24 04:12 [facility] Medical History Hypercalcemia Mild anemia Abnormal echocardiogram Bilateral pleural effusion Weight loss Hoarseness of voice Protein malnutrition Congestive heart failure Social History household members: friend(s) Smoking Status: Former smoker alcohol intake: former Assessment & Plan Assessment & Plan narrative: 1. 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 -added potassium chloride 20 mEq b.i.d. potassium 4.0 on 04/03/2024. -clinically stable and compensated -Last echo 45-50% in January 2024 at OSH with speckled pattern of myocardium. Had had progressive symptoms since. 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 M spike of 0.8 grams/deciliter and M spike 2. A 0.2 grams/deciliter on 03/30/2024 SPEP, with normal UPEP. Check serum immunofixation. Possible cause of dementia. Questionable candidate for treatment 2. JAX superimposed on chronic kidney disease, present on admission and improved. - continue to monitor. 3. Demand ischemia, present on admission and active, improved - stress test was low risk. 4. Cognitive impairement with dementia, present on admission and active. - consider amyloidosis. - placement and guardianship pending. 5. Chronic severe protein calorie malnutrition, present on admission and active. --malnutrition - inadequate oral intake as evidenced by moderate to severe muscle mass wasting (deltoids, pectoralis major, trapezius, temporalis, interosseous), severe subcutaneous fat loss (buccal, orbital), 8% weight loss in 2 months, severe, BMI 19.9 (underweight for age). 6. Paroxysmal atrial fibrillation, present on admission and active. - continue apixiban started 03/24/2024 for stroke prevention. PLAN: -no changes to medications. -discussed with social work, beginning to pursue the guardianship pathway. -discontinued telemetry -rule out amyloidosis, check serum immunofixation -rechecked labs on April 03 which appeared stable. Ongoing discharge planning. Time-Based Coding :: [TOTAL MINUTES] spent with patient and on the chart (including review of chart, obtaining history, exam, reviewing outside data, placing orders, documenting exam and treatment plan, and counseling patient) on [DATE]. Quality VTE Deep Vein Thrombosis/Pulmonary Embolism Present on Admission: No PROFEE Charge codes Subsequent inpatient/observation care: 42303
[2024-04-06 18:00] VITALS: BP 100/55; PULSE 95; RESP 18; TEMP 36.4; O2SAT 99
[2024-04-06 19:45] VITALS: BP 98/60; PULSE 84; RESP 16; TEMP 36.4; O2SAT 97
[2024-04-06] MEDS: ATORVASTATIN 20 MG TABLET 40 MG PO (20:47)
[2024-04-06] MEDS: MELATONIN 3 MG TABLET 6 MG PO (20:47)
[2024-04-07 08:00] VITALS: BP 95/54; PULSE 81; RESP 17; TEMP 36.1; O2SAT 98
[2024-04-07] MEDS: APIXABAN 5 MG TABLET 2.5 MG PO ×2 (09:44→20:33)
[2024-04-07] MEDS: ASPIRIN EC 81 MG TABLET PO (09:44)
[2024-04-07] MEDS: POTASSIUM CHLORIDE 20 MEQ TAB 40 MEQ PO ×2 (09:44→17:58)
[2024-04-07] MEDS: FUROSEMIDE 20 MG TABLET PO ×2 (09:46→17:58)
--- NOTE | 2024-04-07 12:28 | P.PN_ITS ---
Subjective Subjective Date Patient Seen: 04/07/24 Time Patient Seen: 07:25 Interval history: The patient states he is feeling better today. No complaints. Exam Vital Signs (past 8 hours): - 04/07/24 08:00 Temperature 97.0 F L Pulse Rate 81 Respiratory Rate 17 Blood Pressure 95/54 L Pulse Oximetry 98 Oxygen Delivery Method Room Air Oxygen Flow Rate 0 Narrative Exam Narrative: NAD, alert and oriented. Fluent speech. Lungs are clear, normal rate and effort. Heart is regular, no murmur gallop or rub. Abdomen is soft, non distended. Extremities are bilateral pitting edema. Objective Labs 04/03/24 04:12 04/03/24 04:12 [facility] Medical History Hypercalcemia Mild anemia Abnormal echocardiogram Bilateral pleural effusion Weight loss Hoarseness of voice Protein malnutrition Congestive heart failure Social History household members: friend(s) Smoking Status: Former smoker alcohol intake: former Assessment & Plan Assessment & Plan narrative: 1. 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 -continue furosemide 20 mg b.i.d. -added potassium chloride 20 mEq b.i.d. potassium 4.0 on 04/03/2024. -clinically stable and compensated -Last echo 45-50% in January 2024 at OSH with speckled pattern of myocardium. Had had progressive symptoms since. 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 M spike of 0.8 grams/deciliter and M spike 2. A 0.2 grams/deciliter on 03/30/2024 SPEP, with normal UPEP. Check serum immunofixation. Possible cause of dementia. Questionable candidate for treatment given comorbidities 2. JAX superimposed on chronic kidney disease, present on admission and improved. - continue to monitor. 3. Demand ischemia, present on admission and active, improved - stress test was low risk. 4. Cognitive impairement with dementia, present on admission and active. - consider amyloidosis. - placement and guardianship pending. 5. Chronic severe protein calorie malnutrition, present on admission and active. --malnutrition - inadequate oral intake as evidenced by moderate to severe muscle mass wasting (deltoids, pectoralis major, trapezius, temporalis, interosseous), severe subcutaneous fat loss (buccal, orbital), 8% weight loss in 2 months, severe, BMI 19.9 (underweight for age). 6. Paroxysmal atrial fibrillation, present on admission and active. - continue apixiban started 03/24/2024 for stroke prevention. Time-Based Coding :: [TOTAL MINUTES] spent with patient and on the chart (including review of chart, obtaining history, exam, reviewing outside data, placing orders, documenting exam and treatment plan, and counseling patient) on [DATE]. Quality VTE Deep Vein Thrombosis/Pulmonary Embolism Present on Admission: No IH PROFEE Charge codes Subsequent inpatient/observation care: 84641
--- NOTE | 2024-04-07 14:29 | CM.DPNOTE ---
Addendum entered by MAURISIO Arzate 04/07/24 15:46: Received call from Elva/DERRICK contact. Assigned welfare investigator to the case is Parth Delaney p [phone]. Parth should follow up within next few business days SL. Original Note: DCP note BIN PACKER reviewed EMR. Per previous CM notes, anticipate input from legal team WednesdayApril 10 due to holiday. High likelihood of pursuing [employer] for legal guidance on guardianship/LTC process. Per previous CM notes, [employer]PS welfare investigator was pending to be scheduled earlier this week, have yet to hear from them. BIN PACKER lvm with DERRICK Stevenson ([phone]) to inquire about contact information for welfare investigator assigned. Per previous CM notes, awaiting input from Sandy Larios (Guardianship Lunchroom Food Service Supervisor at [facility] P [phone] email: [email or web address]) for guidance on next appropriate steps. this BIN PACKER left vm with Sandy this morning to inquire again about the next steps in this process. Pt has been ambulating halls with walker, has been calm and cooperative with staff. Per RN, pt has not been eating much food while here. BIN PACKER printed out/gathered information on guardianship program/LTC process for our own team's easy reference/in anticipation of future need and placed behind FS. (please see following link for more details: https://www.[facility].[place].gov[place]altsa/hjbk-kmy-rorydhrur-services/nimwt-cohy-rijxgoaba) Including the Long-term services and supports presumptive eligibility (LTSS PE) program. One of the steps highlighted in the online process is completing form [facility] form 10-570. BIN PACKER completed form 10-570 to best of ability (Pending Medicaid information?) and placed behind FS in anticipation of CM team submitting it when advised to do so. Additionally, BIN PACKER started form 18-005 (LTC Medicaid application) with just demographic information available from chart. BIN PACKER completed due diligence checklist and Aging and long line teamster support administration ([facility]) acute care snf services referral guide checklist to best of ability, waiting legal input. Another form likely needed is the guardian/conservator search form from the [facility] [facility] [employer]. BIN PACKER completed form to best of ability, financial and final information pending legal team input. Also placed behind FS for reference. once completed needs to be emailed to . CM received fax from pt's insurance agency on 03/29/24 inquiring about if assistance is needed with discharge planning- no contact information available on fax. BIN PACKER at the time reached out again inquiring for more information for DCP purposes, no response. BIN PACKER faxed same line (f [phone]) requesting information for DCP purposes. Copies of faxes also placed behind FS. Plan: Awaiting legal [place] for guardianship to assist with placement in community, no safe discharge plan identified at this time. CM Team will continue to follow for coordination of discharge plans MAURISIO Arzate
[2024-04-07 20:27] VITALS: BP 102/57; PULSE 97; RESP 17; TEMP 36.6; O2SAT 96
[2024-04-07] MEDS: ATORVASTATIN 20 MG TABLET 40 MG PO (20:32)
[2024-04-07] MEDS: MELATONIN 3 MG TABLET 6 MG PO (20:32)
[2024-04-08] MEDS: CALCIUM CARBONATE 500 MG TAB PO (00:38)
[2024-04-08 05:56] LABS: Add Manual Diff / Slide Review NO; Basophils Absolute Auto 0 /uL (0-100); Basophils Percent Auto 0.8 % (0-2); Eosinophils Absolute Auto 100 /uL (0-450); Eosinophils Percent Auto 2.5 % (2-4); Hematocrit 26.6 % (41-53); Hemoglobin 9.3 g/dL (13.5-17.5); Lymphocytes Absolute Auto 600 /uL (1100-4500); Lymphocytes Percent Auto 15.5 % (25-40); Mean Corpuscular HGB Conc 35.1 % (30-36); Mean Corpuscular Hemoglobin 35.2 PG (26-34); Mean Corpuscular Volume 100.1 fL (80-100); Monocytes Absolute Auto 400 /uL (0-900); Monocytes Percent Auto 8.9 % (3-14); Neutrophils Absolute Auto 2900 /uL (1500-7000); Neutrophils Percent Auto 72.3 % (50-75); Platelet Count 149 X10^3/uL (150-400); Red Blood Cell Count 2.66 X10^6/uL (4.5-5.9); Red Cell Distribution Width 14.1 % (11.6-14.8)
[2024-04-08 06:03] LABS: BUN Creatinine Ratio 31.8 (6-22); Blood Urea Nitrogen 47 mg/dL (9-20); Calcium 9.2 mg/dL (8.4-10.2); Carbon Dioxide 25 mmol/L (22-32); Chloride 99 mmol/L (98-107); Estimated Glomerular Filt Rate 48 mL/min (>60); Glucose 102 mg/dL (80-110); HEMOLYSIS < 15 (0-50); Potassium 4.2 mmol/L (3.4-5.1); Sodium 132 mmol/L (137-145)
--- NOTE | 2024-04-08 07:56 | P.PN_ITS ---
Subjective Subjective Date Patient Seen: 04/08/24 Time Patient Seen: 08:55 Interval history: The patient has no complaints today. He notes ongoing lower extremity edema Exam Vital Signs (past 8 hours): Oxygen Delivery Method Room Air Oxygen Flow Rate 0 Narrative Exam Narrative: NAD, alert and oriented. Fluent speech. Lungs are clear, normal rate and effort. Heart is regular, no murmur gallop or rub. Abdomen is soft, non distended. Extremities are bilateral pitting edema. Objective Labs 04/08/24 04:40 04/08/24 04:40 Labs: Laboratory Results - last 24 hr 04/08/24 04:40 WBC 4.0 L RBC 2.66 L Hgb 9.3 L Hct 26.6 L MCV 100.1 H MCH 35.2 H MCHC 35.1 RDW 14.1 Plt Count 149 L Neut % (Auto) 72.3 Lymph % (Auto) 15.5 L [place] % (Auto) 8.9 Eos % (Auto) 2.5 Baso % (Auto) 0.8 Neut # (Auto) 2900 Lymph # (Auto) 600 L [place] # (Auto) 400 Eos # (Auto) 100 Baso # (Auto) 0 Sodium 132 L Potassium 4.2 Chloride 99 Carbon Dioxide 25 BUN 47 H Creatinine 1.48 H Estimated GFR 48 L BUN/Creatinine Ratio 31.8 H Glucose 102 Calcium 9.2 PFSH Medical History Hypercalcemia Mild anemia Abnormal echocardiogram Bilateral pleural effusion Weight loss Hoarseness of voice Protein malnutrition Congestive heart failure Social History household members: friend(s) Smoking Status: Former smoker alcohol intake: former Assessment & Plan Assessment & Plan narrative: 1. 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 -continue furosemide 20 mg b.i.d. -add metolazone 5mg daily on 04/08/2024 -added potassium chloride 20 mEq b.i.d. potassium 4.0 on 04/03/2024. -clinically stable and compensated -Last echo 45-50% in January 2024 at OSH with speckled pattern of myocardium. Had had progressive symptoms since. 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 M spike of 0.8 grams/deciliter and M spike 2. A 0.2 grams/deciliter on 03/30/2024 SPEP, with normal UPEP. Check serum immunofixation. Possible cause of dementia. Questionable candidate for treatment given comorbidities 2. JAX superimposed on chronic kidney disease, present on admission and improved. - continue to monitor. 3. Demand ischemia, present on admission and active, improved - stress test was low risk. 4. Cognitive impairement with dementia, present on admission and active. - consider amyloidosis. - Friend Pan Horne will assume guardianship. Anticipate placement. 5. Chronic severe protein calorie malnutrition, present on admission and active. --malnutrition - inadequate oral intake as evidenced by moderate to severe muscle mass wasting (deltoids, pectoralis major, trapezius, temporalis, interosseous), severe subcutaneous fat loss (buccal, orbital), 8% weight loss in 2 months, severe, BMI 19.9 (underweight for age). 6. Paroxysmal atrial fibrillation, present on admission and active. - continue apixiban started 03/24/2024 for stroke prevention. Time-Based Coding :: [TOTAL MINUTES] spent with patient and on the chart (including review of chart, obtaining history, exam, reviewing outside data, placing orders, documenting exam and treatment plan, and counseling patient) on [DATE]. Quality VTE Deep Vein Thrombosis/Pulmonary Embolism Present on Admission: No PROFEE Charge codes Subsequent inpatient/observation care: 22258
[2024-04-08 08:00] VITALS: BP 102/65; PULSE 77; RESP 18; TEMP 35.9; O2SAT 96
[2024-04-08] MEDS: POTASSIUM CHLORIDE 20 MEQ TAB 40 MEQ PO ×2 (09:22→17:12)
[2024-04-08] MEDS: ASPIRIN EC 81 MG TABLET PO (09:22)
[2024-04-08] MEDS: APIXABAN 5 MG TABLET 2.5 MG PO ×2 (09:23→21:12)
[2024-04-08] MEDS: FUROSEMIDE 20 MG TABLET PO ×2 (09:23→17:12)
[2024-04-08] MEDS: metOLazone 2.5 MG TABLET 5 MG PO (09:26)
--- NOTE | 2024-04-08 10:35 | CM.DPC ---
DCP POA/Medicaid LTC NANCY called pt's friend Pan [phone] to inquire about pt's financial situation towards completing the Medicaid LTC application and Pan provided the information he could and that pt worked for the [employer] and gets Social Security around $1000 a month and his bank is [employer] and willing to try to get more bank information. NANCY discussed medical POA and the process for LTC placement and Pan confirms that he is agreeable and willing to be Medical POA and willing to be present Wednesday around 1000 for pt to complete the POA pwk with notary to arrive as well. Pan appreciative that this will reduce the time it takes for pt to be placed at LTC facility. SW met bedside with pt and explained role and discussed Pan willing to be POA and office services representative for [employer] and pt confirms that he remains agreeable and trusting of Pan. Pt reviewed Medicaid LTC application and approved and signed. Not faxed yet since Medicaid office closed on the weekend. POA pwk started and waiting for friend Pan Wed to get lucio to complete bedside. Dali Neff MSW
--- NOTE | 2024-04-08 14:06 | PC.NURSE ---
reports constipation, prune juice given
[2024-04-08 20:00] VITALS: BP 97/52; PULSE 83; RESP 19; TEMP 36.6; O2SAT 98
[2024-04-08] MEDS: ATORVASTATIN 20 MG TABLET 40 MG PO (21:12)
[2024-04-08] MEDS: MELATONIN 3 MG TABLET 6 MG PO (21:12)
[2024-04-09 06:32] LABS: Add Manual Diff / Slide Review NO; Basophils Absolute Auto 0 /uL (0-100); Basophils Percent Auto 0.8 % (0-2); Eosinophils Absolute Auto 100 /uL (0-450); Eosinophils Percent Auto 2.2 % (2-4); Hematocrit 27.6 % (41-53); Hemoglobin 9.6 g/dL (13.5-17.5); Lymphocytes Absolute Auto 600 /uL (1100-4500); Lymphocytes Percent Auto 12.2 % (25-40); Mean Corpuscular HGB Conc 34.8 % (30-36); Mean Corpuscular Hemoglobin 34.9 PG (26-34); Mean Corpuscular Volume 100.2 fL (80-100); Monocytes Absolute Auto 400 /uL (0-900); Monocytes Percent Auto 9.4 % (3-14); Neutrophils Absolute Auto 3500 /uL (1500-7000); Neutrophils Percent Auto 75.4 % (50-75); Platelet Count 156 X10^3/uL (150-400); Red Blood Cell Count 2.75 X10^6/uL (4.5-5.9); Red Cell Distribution Width 14.1 % (11.6-14.8); White Blood Cell Count 4.6 X10^3/uL (4.5-11.0)
[2024-04-09 06:37] LABS: Blood Urea Nitrogen 45 mg/dL (9-20); Calcium 9.1 mg/dL (8.4-10.2); Carbon Dioxide 27 mmol/L (22-32); Chloride 100 mmol/L (98-107); Estimated Glomerular Filt Rate 45 mL/min (>60); Glucose 116 mg/dL (80-110); HEMOLYSIS < 15 (0-50); Potassium 3.8 mmol/L (3.4-5.1); Sodium 133 mmol/L (137-145)
--- NOTE | 2024-04-09 07:39 | PM.PN.1 ---
Subjective Subjective Date Patient Seen: 04/09/24 Time Patient Seen: 08:24 Interval history: The patient has no complaints today. He notes lower extremity edema seems better. Exam Vital Signs (past 8 hours): Oxygen Delivery Method Room Air Oxygen Flow Rate 0 Narrative Exam Narrative: NAD, alert and oriented. Fluent speech. Lungs are clear, normal rate and effort. Heart is regular, no murmur gallop or rub. Abdomen is soft, non distended. Extremities are notable bilateral pitting edema, improved from yesterday. Objective Labs 04/09/24 05:55 04/09/24 05:55 Labs: Laboratory Results - last 24 hr 04/09/24 05:55 WBC 4.6 RBC 2.75 L Hgb 9.6 L Hct 27.6 L MCV 100.2 H MCH 34.9 H MCHC 34.8 RDW 14.1 Plt Count 156 Neut % (Auto) 75.4 H Lymph % (Auto) 12.2 L [place] % (Auto) 9.4 Eos % (Auto) 2.2 Baso % (Auto) 0.8 Neut # (Auto) 3500 Lymph # (Auto) 600 L [place] # (Auto) 400 Eos # (Auto) 100 Baso # (Auto) 0 Sodium 133 L Potassium 3.8 Chloride 100 Carbon Dioxide 27 BUN 45 H Creatinine 1.55 H Estimated GFR 45 L BUN/Creatinine Ratio 29.0 H Glucose 116 H Calcium 9.1 Magnesium 2.0 [facility] Medical History Hypercalcemia Mild anemia Abnormal echocardiogram Bilateral pleural effusion Weight loss Hoarseness of voice Protein malnutrition Congestive heart failure Social History household members: friend(s) Smoking Status: Former smoker alcohol intake: former Assessment & Plan Assessment & Plan narrative: 1. 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 -continue furosemide 20 mg b.i.d. -added metolazone 5mg daily on 04/08/2024 -added potassium chloride 20 mEq b.i.d. potassium 4.0 on 04/03/2024. -clinically stable and compensated -Last echo 45-50% in January 2024 at OSH with speckled pattern of myocardium. Had had progressive symptoms since. 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 M spike of 0.8 grams/deciliter and M spike 2. A 0.2 grams/deciliter on 03/30/2024 SPEP, with normal UPEP. Check serum immunofixation. Possible cause of dementia. Questionable candidate for treatment given comorbidities -monitor electrolytes 2. JAX superimposed on chronic kidney disease, present on admission and improved. - continue to monitor. 3. Demand ischemia, present on admission and active, improved - stress test was low risk. 4. Cognitive impairement with dementia, present on admission and active. - consider amyloidosis. - Friend Pan Horne will assume guardianship. Anticipate placement. 5. Chronic severe protein calorie malnutrition, present on admission and active. --malnutrition - inadequate oral intake as evidenced by moderate to severe muscle mass wasting (deltoids, pectoralis major, trapezius, temporalis, interosseous), severe subcutaneous fat loss (buccal, orbital), 8% weight loss in 2 months, severe, BMI 19.9 (underweight for age). 6. Paroxysmal atrial fibrillation, present on admission and active. - continue apixiban started 03/24/2024 for stroke prevention. Time-Based Coding :: [TOTAL MINUTES] spent with patient and on the chart (including review of chart, obtaining history, exam, reviewing outside data, placing orders, documenting exam and treatment plan, and counseling patient) on [DATE]. Quality VTE Deep Vein Thrombosis/Pulmonary Embolism Present on Admission: No IH PROFEE Charge codes Subsequent inpatient/observation care: 99759
[2024-04-09 08:00] VITALS: BP 100/55; PULSE 75; RESP 17; TEMP 36.7; O2SAT 98
[2024-04-09] MEDS: APIXABAN 5 MG TABLET 2.5 MG PO ×2 (08:33→21:07)
[2024-04-09] MEDS: POTASSIUM CHLORIDE 20 MEQ TAB 40 MEQ PO ×2 (08:33→16:23)
[2024-04-09] MEDS: ASPIRIN EC 81 MG TABLET PO (08:33)
[2024-04-09] MEDS: FUROSEMIDE 20 MG TABLET PO ×2 (08:34→16:23)
[2024-04-09] MEDS: metOLazone 2.5 MG TABLET 5 MG PO (08:38)
[2024-04-09] MEDS: CALCIUM CARBONATE 500 MG TAB PO ×2 (18:26→21:07)
[2024-04-09 19:00] VITALS: BP 95/55; PULSE 80; RESP 18; TEMP 36.9; O2SAT 98
[2024-04-09] MEDS: MELATONIN 3 MG TABLET 6 MG PO (21:07)
[2024-04-09] MEDS: ATORVASTATIN 20 MG TABLET 40 MG PO (21:07)
[2024-04-10] MEDS: BISACODYL 5 MG TABLET PO ×3 (06:36→16:31)
[2024-04-10 07:00] VITALS: BP 116/65; PULSE 85; RESP 16; TEMP 36.2; O2SAT 99
[2024-04-10] MEDS: metOLazone 2.5 MG TABLET 5 MG PO (08:02)
[2024-04-10] MEDS: ASPIRIN EC 81 MG TABLET PO (08:02)
[2024-04-10] MEDS: APIXABAN 5 MG TABLET 2.5 MG PO ×2 (08:02→20:40)
[2024-04-10] MEDS: FUROSEMIDE 20 MG TABLET PO ×2 (08:03→16:31)
[2024-04-10] MEDS: POTASSIUM CHLORIDE 20 MEQ TAB 40 MEQ PO ×2 (08:03→17:43)
--- NOTE | 2024-04-10 11:12 | CM.DPC ---
DCP POA/LTC planning cont: Per MD, pt medically stable and appropriate and awaiting placement. NANCY met bedside with pt and his friend Pan Horne and provided the Medical POA brochure and copy of form and discussed with both and pt and Pan agreeable with Pan becoming his medical POA. Form was discussed and pt signed and hospital notary unavailable today and two witnesses signed. Copies made and scanned into EMR and original and one copy provided to pt and Pan. Pt requests his important documents and cards be kept at Pan's home for now so they don't get lost and Pan will make a file folder system for pt's important documents and be accessible when needed. NANCY again explained the process of pt's Medicaid application being reviewed to confirm he financially qualifies for Medicaid and then [facility] will assign someone to schedule his Functional Assessment and meet bedside with him to determine his daily rate towards then attempting to find LTC facility, either Assisted Living vs Adult Family home. NANCY explained pt may only have one accepting facility or multiple and then he and Pan could help determine which facility. Pt very agreeable and appreciative and able to answer questions. Pan was able to confirm that pt receives about $972.46 a month from his uiu benefits and he gets this instead of social security. Pt's bank, [employer]), also has a savings account that automatically pulls $25 a month out of his checking for his savings but currently only has about $20 in his savings account. Pan willing to be available by phone or bedside if he is not working and to provide any documents that he has access to. NANCY faxed pt's Medicaid LTC application to [facility] and then faxed [facility] Expedited referral and emailed Tatianna Baez with [facility] Acute Hospital team to make her aware of the need for pt's assignment for Functional Assessment and LTC placement. NANCY updated CM Drive[employer] Machine [employer] as pt now not currently needing to pursue Guardianship process for LTC placement now that friend Pan pt's medical POA. Assigned APS Parth Baltazar called NANCY and received update on pt situation and status and he will pursue attempting to get pt's Medicaid application expedited as well. NANCY faxed updated clinicals to Parth Baltazar to review. MAURISIO Carlin
--- NOTE | 2024-04-10 13:27 | CM.DPNOTE ---
Addendum entered by MAURISIO Arzate 04/10/24 16:51: MEDICAL SCIENTIFIC OFFICER got a call from Corin Valenzuela from [facility] ([email or web address] Cell:?[phone] ) in regards to pt's LTC assessment. MEDICAL SCIENTIFIC OFFICER provided appropriate information. MEDICAL SCIENTIFIC OFFICER answered questions to best of ability. MEDICAL SCIENTIFIC OFFICER emailed Corin MONTOYA paperwork. Corin scheduled for functional assessment for WednesdayApril 13 at 10am in the room. Asked for clinicals to be emailed to her the morning of (PT/OT notes, PNs, medication list, etc.) PLAN: [facility] Fx Assessment will be on at 10am. CM team will update pt and email Corin clinicals morning of. CM team will continue to follow closely. SL Addendum entered by MAURISIO Arzate 04/10/24 14:20: MEDICAL SCIENTIFIC OFFICER got a call from Roe at [facility] (p [phone]) reporting he got a notice from APS about a medicaid elsie but not the elsie itself. MEDICAL SCIENTIFIC OFFICER updated him that it was fax earlier this morning at approx 1100. Roe will call this CM team back if he cannot locate it within a day or so. MONIK Original Note: DCP note MEDICAL SCIENTIFIC OFFICER reviewed EMR. MEDICAL SCIENTIFIC OFFICER got a call from APS homicide investigator Parth Baltazar (p [phone] email [email or web address] ) MEDICAL SCIENTIFIC OFFICER gave Parth verbal report of appropriate updates. MEDICAL SCIENTIFIC OFFICER emailed him relevant OT/MEDICAL SCIENTIFIC OFFICER notes to assist with his investigation. Per Parth, he will reach out to his internal channels to expedite pt's Medicaid application for LTC placement. CM team will continue to follow closely. MAURISIO Arzate
--- NOTE | 2024-04-10 16:21 | PM.PN.1 ---
Subjective Subjective Date Patient Seen: 04/09/24 Time Patient Seen: 08:24 Interval history: The patient has no complaints today. Exam Vital Signs (past 8 hours): Oxygen Delivery Method Room Air Oxygen Flow Rate 0 Narrative Exam Narrative: NAD, alert and oriented. Fluent speech. Lungs are clear, normal rate and effort. Heart is regular, no murmur gallop or rub. Abdomen is soft, non distended. Extremities are notable bilateral pitting edema, improved from yesterday. Objective Labs 04/09/24 05:55 04/09/24 05:55 [facility] Medical History Hypercalcemia Mild anemia Abnormal echocardiogram Bilateral pleural effusion Weight loss Hoarseness of voice Protein malnutrition Congestive heart failure Social History household members: friend(s) Smoking Status: Former smoker alcohol intake: former Assessment & Plan Assessment & Plan narrative: 1. 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 -continue furosemide 20 mg b.i.d. -added metolazone 5mg daily on 04/08/2024 -added potassium chloride 20 mEq b.i.d. potassium 4.0 on 04/03/2024. -clinically stable and compensated -Last echo 45-50% in January 2024 at OSH with speckled pattern of myocardium. Had had progressive symptoms since. 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 M spike of 0.8 grams/deciliter and M spike 2. A 0.2 grams/deciliter on 03/30/2024 SPEP, with normal UPEP. Check serum immunofixation. Possible cause of dementia. Questionable candidate for treatment given comorbidities -monitor electrolytes 2. JAX superimposed on chronic kidney disease, present on admission and improved. - continue to monitor. 3. Myocardial injury, present on admission and active, improved - stress test was low risk. 4. Cognitive impairement with dementia, present on admission and active. - consider amyloidosis. - Plan is for Friend Pan Horne will assume POA Anticipate placement. 5. Chronic severe protein calorie malnutrition, present on admission and active. --malnutrition - inadequate oral intake as evidenced by moderate to severe muscle mass wasting (deltoids, pectoralis major, trapezius, temporalis, interosseous), severe subcutaneous fat loss (buccal, orbital), 8% weight loss in 2 months, severe, BMI 19.9 (underweight for age). 6. Paroxysmal atrial fibrillation, present on admission and active. - continue apixiban started 03/24/2024 for stroke prevention. Code status is full code. DVT prophylaxis is with above apixaban. Proxy was close friend Pan Horne, pending POA paperwork currently I have reviewed home meds and used all available resources to reconcile the home meds. Case discussed with case management and nursing staff to formulate the above assessement and plan. Dispo: Pending POA paperwork followed by placement options. Quality VTE Deep Vein Thrombosis/Pulmonary Embolism Present on Admission: No
[2024-04-10 19:00] VITALS: BP 101/70; PULSE 105; RESP 20; TEMP 36.6; O2SAT 98
[2024-04-10] MEDS: MELATONIN 3 MG TABLET 6 MG PO (20:40)
[2024-04-10] MEDS: ATORVASTATIN 20 MG TABLET 40 MG PO (20:40)
[2024-04-11] MEDS: BISACODYL 10 MG SUPP PR (01:25)
--- NOTE | 2024-04-11 03:15 | PC.NURSE ---
Pt c/o constipation, gave pt a dulcolax suppository (nurse could feel hard stool during suppository insertion). pt had a large brown hard stool, could benefit from daily bowel meds.
[2024-04-11 05:56] LABS: BUN Creatinine Ratio 29.5 (6-22); Blood Urea Nitrogen 43 mg/dL (9-20); Calcium 8.9 mg/dL (8.4-10.2); Carbon Dioxide 31 mmol/L (22-32); Chloride 96 mmol/L (98-107); Estimated Glomerular Filt Rate 48 mL/min (>60); Glucose 102 mg/dL (80-110); HEMOLYSIS < 15 (0-50); Sodium 133 mmol/L (137-145)
[2024-04-11 07:00] VITALS: BP 100/58; PULSE 80; RESP 18; TEMP 36.2; O2SAT 95
[2024-04-11] MEDS: BISACODYL 5 MG TABLET PO ×2 (09:03→18:06)
[2024-04-11] MEDS: ASPIRIN EC 81 MG TABLET PO (09:03)
[2024-04-11] MEDS: metOLazone 2.5 MG TABLET 5 MG PO (09:03)
[2024-04-11] MEDS: FUROSEMIDE 20 MG TABLET PO ×2 (09:03→17:43)
[2024-04-11] MEDS: APIXABAN 5 MG TABLET 2.5 MG PO ×2 (09:04→21:05)
[2024-04-11] MEDS: POTASSIUM CHLORIDE 20 MEQ TAB 40 MEQ PO ×3 (09:11→17:43)
--- NOTE | 2024-04-11 10:20 | DIET.CONS2 ---
Dietary Inpatient Consultation Note Admission Date: 03/24/2024 12:41 Reviewed EMR. Recent recorded po intakes avg 50-75%. DFM reviewed for meal composition. ONS and/or protein smoothie being sent daily, will provide BID as tolerated. Will continue to follow and monitor po intakes. Diet: 03/28/24 00:01 NPO Diet Diet Modifications: NPO Type: NPO after Midnight 03/28/24 Breakfast Heart Healthy Diet Diet Modifications: May Advance Diet as Tolerated: No Safety Tray needed?: No Sodium Level: 2 gm Sodium Food Texture: Level 7 - Regular Liquid Consistency: Level 0 - Thin Nutrition Percent Meal Consumed 50% 04/11/24 09:24 Percent Meal Consumed 40 04/10/24 18:13 Percent Meal Consumed hot chocolate 04/10/24 06:42 Electronically Signed by: Soledad Sánchez 04/11/24 10:20 Clinical Dietitian [address] [address]
--- NOTE | 2024-04-11 10:50 | P.PN_ITS ---
Subjective Subjective Date Patient Seen: 04/09/24 Time Patient Seen: 08:24 Interval history: The patient has no complaints today medically. We discussed today appointing a financial POA. He was understand the reasoning for appointing one at this time. He expressed an ideal to do this himself, but is also appreciative of the current situation and displayed adequate reasoning for appointing a POA currently. Given this, I believe the patient has decision making capacity with regards to appointing a financial POA at this time. Exam Vital Signs (past 8 hours): - 04/11/24 07:00 Temperature 97.1 F L Pulse Rate 80 Respiratory Rate 18 Blood Pressure 100/58 L Pulse Oximetry 95 Oxygen Flow Rate 0 Oxygen Delivery Method Room Air Oxygen Flow Rate 0 Narrative Exam Narrative: NAD, alert and oriented. Fluent speech. Lungs are clear, normal rate and effort. Heart is regular, no murmur gallop or rub. Abdomen is soft, non distended. Extremities are notable bilateral pitting edema, improved from yesterday. Objective Labs 04/09/24 05:55 04/11/24 04:40 Labs: Laboratory Results - last 24 hr 04/11/24 04:40 Sodium 133 L Potassium 3.0 L Chloride 96 L Carbon Dioxide 31 BUN 43 H Creatinine 1.46 H Estimated GFR 48 L BUN/Creatinine Ratio 29.5 H Glucose 102 Calcium 8.9 [facility] Medical History Hypercalcemia Mild anemia Abnormal echocardiogram Bilateral pleural effusion Weight loss Hoarseness of voice Protein malnutrition Congestive heart failure Social History household members: friend(s) Smoking Status: Former smoker alcohol intake: former Assessment & Plan Assessment & Plan narrative: 1. 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 -continue furosemide 20 mg b.i.d. -added metolazone 5mg daily on 04/08/2024 -added potassium chloride 20 mEq b.i.d. potassium 4.0 on 04/03/2024. -clinically stable and compensated -Last echo 45-50% in January 2024 at OSH with speckled pattern of myocardium. Had had progressive symptoms since. 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 M spike of 0.8 grams/deciliter and M spike 2. A 0.2 grams/deciliter on 03/30/2024 SPEP, with normal UPEP. Check serum immunofixation. Possible cause of dementia. Questionable candidate for treatment given comorbidities -monitor electrolytes intermittently 2. JAX superimposed on chronic kidney disease, present on admission and improved. - continue to monitor. 3. Myocardial injury, present on admission and active, improved - stress test was low risk. 4. Cognitive impairement with dementia, present on admission and active. - consider amyloidosis. - Plan is for a friend to assume financial POA. Awaiting alternative options. - Anticipate placement. Patient currently appears competent and able to designate a financial power of insurance manager currently based on discussion 04/11/2024. 5. Chronic severe protein calorie malnutrition, present on admission and active. --malnutrition - inadequate oral intake as evidenced by moderate to severe muscle mass wasting (deltoids, pectoralis major, trapezius, temporalis, interosseous), severe subcutaneous fat loss (buccal, orbital), 8% weight loss in 2 months, severe, BMI 19.9 (underweight for age). 6. Paroxysmal atrial fibrillation, present on admission and active. - continue apixiban started 03/24/2024 for stroke prevention. 7. Hypokalemia - likely with addition of bumex. Will repeat tomorrow after repletion today, and will consider increasing to TID repletion if continues to be hypokalemic. Code status is full code. DVT prophylaxis is with above apixaban. Proxy was close friend Pan Horne, pending POA paperwork currently as discussed above. I have reviewed home meds and used all available resources to reconcile the home meds. Case discussed with case management and nursing staff to formulate the above assessement and plan. Dispo: Pending POA paperwork followed by placement options. Time-Based Coding :: [TOTAL MINUTES] spent with patient and on the chart (including review of chart, obtaining history, exam, reviewing outside data, placing orders, documenting exam and treatment plan, and counseling patient) on [DATE]. Quality VTE Deep Vein Thrombosis/Pulmonary Embolism Present on Admission: No
--- NOTE | 2024-04-11 11:26 | CM.DPNOTE ---
Addendum entered by MAURISIO Arzate 04/11/24 12:19: Eliecer returned this ENVIRONMENTAL MONITORING SPECIALIST's voicemail. With pt's previously expressed permission to communicate with Eliecer about the DCP, ENVIRONMENTAL MONITORING SPECIALIST reviewed current circumstances including the [facility] assessment scheduled for and need for pt to have financial POA in place and pt naming Eliecer as approved person for financial POA. ENVIRONMENTAL MONITORING SPECIALIST answered questions to best of ability. Eliecer requested blank copies of the financial POA paperwork to be emailed to him for review before making his decision on if he would be willing to act as financial POA. ENVIRONMENTAL MONITORING SPECIALIST emailed him a copy ([email or web address]) of financial POA paperwork provided by the state as well as the revocation form. Eliecer plans to review forms and decide if he would be able to do it in the short term for placement, local company intermodal truck driver, or if at all. Eliecer asked if pt would be moved into LTC place in [facility] where he resides or [facility]. This ENVIRONMENTAL MONITORING SPECIALIST told Eliecer that decision is a combination of pt preference, healthcare POA, and financial POA, and where we can locate an accepting facility. Our team would place referrals in alignment with their preferences to the best of our ability. Eliecer expressed understanding and that he would reach out to Pan to coordinate that as well. SL Original Note: DCP Note ENVIRONMENTAL MONITORING SPECIALIST reviewed EMR. Per Corin with [facility] pt needs financial power of state's attorney paperwork notarized in order to move forward with the assessment. Per hospitalist on pt's capacity to be decisional for naming financial POA, provider reports pt has understanding for the reasoning behind naming Pan as financial POA. Per provider, pt is appreciative of the current situation and displayed adequate reasoning in naming financial POA. ENVIRONMENTAL MONITORING SPECIALIST spoke with pt, pt reports Pan would be first choice for naming financial POA and friend Eliecer Jj ([phone]) would be his second choice. Does not have his ID with him at this time. Pan likely has it at home. ENVIRONMENTAL MONITORING SPECIALIST reviewed next steps for LTC placement, including naming financial POA, the assessment planned for , and after that CM team would assist with arranging alf placement. ENVIRONMENTAL MONITORING SPECIALIST spoke with POA/Friend Pan ([phone]) about financial POA paperwork needed for Medicaid LTC placement. Pan reports due to his role as a financial coordinator, it would be a conflict of interest for him to be financial POA for patient and he is unwilling to fill that role. If pt named his spouse Polly or son financial power of state's attorney Pan would do his best to informally have pt's preferences and needs be met financially. However, cannot officially or legally fill that role. ENVIRONMENTAL MONITORING SPECIALIST outlined the next steps moving forward in the Medicaid LTC application process, the assessment planned for with the [facility] worker at 10am, and how after that our team would be making referrals to LTC placement. Pending on pt/POA preference, daily rate assigned, and accepting facility, pt would then move into his new home. Pan expressed understanding of the steps moving forward. Pan plans to bring pt's ID to the hospital sometime this afternoon for the notary paperwork. Pan reports preference for LTC placement would be here in [place] for him to see Bill often. ENVIRONMENTAL MONITORING SPECIALIST lvm with pt's secondary preference for financial POA, Eliecer Jj ([phone]) to inquire if he would be willing to act as financial POA for pt. ENVIRONMENTAL MONITORING SPECIALIST spoke with lucio Iyer here at . Available tomorrow morning at 0900 to notarize financial POA paperwork. ENVIRONMENTAL MONITORING SPECIALIST lvm with [facility] [employer] [phone] to inquire about Medicaid LTC male bed availability. PLAN: Financial Power of state's attorney paperwork needed, lucio appt at 9am Wednesday. Need to either have Eliecer be willing to be financial POA or see if pt would want Pan's spouse or son to be financial POA. Corin Valenzuela from [facility] will do functional assessment 04/13/24 at 10am. CM team will send her via email clinicals morning of. CM team will follow closely. MAURISIO Arzate
[2024-04-11 20:00] VITALS: BP 102/60; PULSE 64; RESP 17; TEMP 36.4; O2SAT 96
[2024-04-11] MEDS: MELATONIN 3 MG TABLET 6 MG PO (21:05)
[2024-04-11] MEDS: DOCUSATE 100 MG CAPSULE PO (21:05)
[2024-04-11] MEDS: SENNOSIDES 8.6 MG TABLET PO (21:05)
[2024-04-11] MEDS: ATORVASTATIN 20 MG TABLET 40 MG PO (21:05)
[2024-04-12 06:14] LABS: BUN Creatinine Ratio 27.8 (6-22); Blood Urea Nitrogen 44 mg/dL (9-20); Carbon Dioxide 29 mmol/L (22-32); Chloride 97 mmol/L (98-107); Estimated Glomerular Filt Rate 44 mL/min (>60); Glucose 99 mg/dL (80-110); HEMOLYSIS < 15 (0-50); Potassium 3.5 mmol/L (3.4-5.1); Sodium 133 mmol/L (137-145)
[2024-04-12 07:09] LABS: Immunoglobulin A, Serum 1264 mg/dL (61-437); Immunoglobulin G,Serum 1036 mg/dL (603-1613); Immunoglobulin M, Serum 38 mg/dL (15-143)
[2024-04-12] MEDS: FUROSEMIDE 20 MG TABLET PO ×2 (08:21→16:52)
[2024-04-12] MEDS: DOCUSATE 100 MG CAPSULE PO (08:21)
[2024-04-12] MEDS: APIXABAN 5 MG TABLET 2.5 MG PO ×2 (08:21→21:11)
[2024-04-12] MEDS: metOLazone 2.5 MG TABLET 5 MG PO (08:21)
[2024-04-12] MEDS: ASPIRIN EC 81 MG TABLET PO (08:21)
[2024-04-12] MEDS: POTASSIUM CHLORIDE 20 MEQ TAB 40 MEQ PO ×2 (08:21→16:55)
[2024-04-12] MEDS: SENNOSIDES 8.6 MG TABLET PO (08:22)
[2024-04-12 11:41] VITALS: BP 123/73; PULSE 85; RESP 16; TEMP 36.3; O2SAT 96
--- NOTE | 2024-04-12 13:38 | CM.DPNOTE ---
DCP Cont Placement Email correspondence received from patient's friend Eliecer Rodriguez P [phone] [email or web address] as follows: WednesdayApril 11 Swathi, Thanks for your hard work to complete this for Bill. I?m happy to be the POA. Let me know if you need anything else. Thanks, Eliecer Rodriguez [phone] Communicating via email this morning with patient's [facility] YASMINE, Corin Valenzuela, Work , [email or web address]. According to Corin, the DPOA ppk patient has signed to assign Pan Horne will not work for [facility]. Corin emailed a blank copy of the ppk required for both medical DPOA and financial POA. This EXECUTIVE SERVICES ADMINISTRATOR took both of these blank documents into patient's room and reviewed them w/patient. Patient assigns friend Pan Horne as medical DPOA and friend Eliecer Rodriguez as financial POA. [place] state DL brought in by friend Pan. Jaylon, employee/notary ext [phone], notarized patient's medical DPOA and financial POA ppk. Completed and signed ppk was emailed to MICHEL Coombs. Copy scanned into chart. In addition, copy scanned and emailed to friend Eliecer Rodriguez. Plan: [facility] bedside assessment scheduled 04/13 at 1000, confirmed today by Corin Valenzuela. team following closely and will plan to email requested clinical to Corin tomorrow AM before her assessment. BOLIVAR
--- NOTE | 2024-04-12 14:26 | PM.PN.1 ---
Subjective Subjective Interval history: The patient has no complaints today medically. We discussed today appointing a financial POA. He was understand the reasoning for appointing one at this time. He expressed an ideal to do this himself, but is also appreciative of the current situation and displayed adequate reasoning for appointing a POA currently. Given this, I believe the patient has decision making capacity with regards to appointing a financial POA at this time. Exam Vital Signs (past 8 hours): - 04/12/24 11:41 Temperature 97.3 F L Pulse Rate 85 Respiratory Rate 16 Blood Pressure 123/73 Pulse Oximetry 96 Oxygen Delivery Method Room Air Oxygen Flow Rate 0 Narrative Exam Narrative: NAD, alert and oriented. Fluent speech. Lungs are clear, normal rate and effort. Heart is regular, no murmur gallop or rub. Abdomen is soft, non distended. Extremities with no edema Objective Labs 04/09/24 05:55 04/12/24 05:40 Labs: Laboratory Results - last 24 hr 04/08/24 04/12/24 04:40 05:40 Sodium 133 L Potassium 3.5 Chloride 97 L Carbon Dioxide 29 BUN 44 H Creatinine 1.58 H Estimated GFR 44 L BUN/Creatinine Ratio 27.8 H Glucose 99 Calcium 9.0 Magnesium 2.0 Serum IgA 1264 H Serum IgG 1036 Serum IgM 38 REYNALDO Interpretation Comment A [facility] Medical History Hypercalcemia Mild anemia Abnormal echocardiogram Bilateral pleural effusion Weight loss Hoarseness of voice Protein malnutrition Congestive heart failure Social History household members: friend(s) Smoking Status: Former smoker alcohol intake: former Assessment & Plan Assessment & Plan narrative: 1. 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 -continue furosemide 20 mg b.i.d. -added metolazone 5mg daily on 04/08/2024 -added potassium chloride 20 mEq b.i.d. potassium 4.0 on 04/03/2024. -clinically stable and compensated -Last echo 45-50% in January 2024 at OSH with speckled pattern of myocardium. Had had progressive symptoms since. 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 M spike of 0.8 grams/deciliter and M spike 2. A 0.2 grams/deciliter on 03/30/2024 SPEP, with normal UPEP. IgA shows monoclonal pattern, but not consistent with a myeloma. Possible cause of dementia. Questionable candidate for treatment given comorbidities -monitor electrolytes intermittently 2. JAX superimposed on chronic kidney disease, present on admission and improved. - continue to monitor. 3. Myocardial injury, present on admission and active, improved - stress test was low risk. 4. Cognitive impairement with dementia, present on admission and active. - consider amyloidosis. - Plan is for a friend to assume financial POA. Awaiting alternative options. - Anticipate placement. Patient currently appears competent and able to designate a financial power of attorney general currently based on discussion 04/11/2024. 5. Chronic severe protein calorie malnutrition, present on admission and active. --malnutrition - inadequate oral intake as evidenced by moderate to severe muscle mass wasting (deltoids, pectoralis major, trapezius, temporalis, interosseous), severe subcutaneous fat loss (buccal, orbital), 8% weight loss in 2 months, severe, BMI 19.9 (underweight for age). 6. Paroxysmal atrial fibrillation, present on admission and active. - continue apixiban started 03/24/2024 for stroke prevention. 7. Hypokalemia - likely with addition of bumex. Will repeat tomorrow after repletion today, and will consider increasing to TID repletion if continues to be hypokalemic. Code status is full code. DVT prophylaxis is with above apixaban. Proxy was close friend Pan Horne, pending POA paperwork currently as discussed above. I have reviewed home meds and used all available resources to reconcile the home meds. Case discussed with case management and nursing staff to formulate the above assessement and plan. Dispo: Pending POA paperwork followed by placement options. Time-Based Coding :: [TOTAL MINUTES] spent with patient and on the chart (including review of chart, obtaining history, exam, reviewing outside data, placing orders, documenting exam and treatment plan, and counseling patient) on [DATE]. Quality VTE Deep Vein Thrombosis/Pulmonary Embolism Present on Admission: No
[2024-04-12 20:00] VITALS: BP 110/63; PULSE 57; RESP 17; TEMP 36.3; O2SAT 95
[2024-04-12] MEDS: ATORVASTATIN 20 MG TABLET 40 MG PO (21:11)
[2024-04-12] MEDS: MELATONIN 3 MG TABLET 6 MG PO (21:11)
[2024-04-12] MEDS: CALCIUM CARBONATE 500 MG TAB PO (22:19)
[2024-04-13 08:00] VITALS: BP 100/66; PULSE 100; RESP 16; TEMP 36.4; O2SAT 96
[2024-04-13] MEDS: FUROSEMIDE 20 MG TABLET PO ×2 (08:42→17:42)
[2024-04-13] MEDS: metOLazone 2.5 MG TABLET 5 MG PO (08:42)
[2024-04-13] MEDS: DOCUSATE 100 MG CAPSULE PO (08:42)
[2024-04-13] MEDS: APIXABAN 5 MG TABLET 2.5 MG PO ×2 (08:42→20:47)
[2024-04-13] MEDS: ASPIRIN EC 81 MG TABLET PO (08:43)
[2024-04-13] MEDS: SENNOSIDES 8.6 MG TABLET PO (08:43)
[2024-04-13] MEDS: POTASSIUM CHLORIDE 20 MEQ TAB 40 MEQ PO (08:43)
--- NOTE | 2024-04-13 13:24 | CM.DPNOTE ---
DCP Cont Placement Functional assessment completed at bedside this morning by MICHEL Naranjo. Now awaiting the completed assessment and assignment of patient's daily rate. Spoke with Hansa at [facility]: [facility] Center[facility] T[facility] [phone] P [phone] [place] [id number] [email or web address] She has one male bed left at [facility] and willing to consider patient. Clinical emailed to Hansa and bedside assessment scheduled for Wednesday. Updated MICHEL Coombs, by email with above. CM team following closely for coordination of discharge plan, alf care placement. BOLIVAR
--- NOTE | 2024-04-13 13:41 | P.PN_ITS ---
Subjective Subjective Interval history: No complaints today. Exam Vital Signs (past 8 hours): - 04/13/24 08:00 Temperature 97.5 F L Pulse Rate 100 H Respiratory Rate 16 Blood Pressure 100/66 Pulse Oximetry 96 Oxygen Flow Rate 0 Oxygen Delivery Method Room Air Oxygen Flow Rate 0 Narrative Exam Narrative: NAD, alert and oriented. Fluent speech. Extremities with no edema Objective Labs 04/09/24 05:55 04/12/24 05:40 [facility] Medical History Hypercalcemia Mild anemia Abnormal echocardiogram Bilateral pleural effusion Weight loss Hoarseness of voice Protein malnutrition Congestive heart failure Social History household members: friend(s) Smoking Status: Former smoker alcohol intake: former Assessment & Plan Assessment & Plan narrative: 1. 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 -continue furosemide 20 mg b.i.d. -added metolazone 5mg daily on 04/08/2024 -added potassium chloride 20 mEq b.i.d. potassium 4.0 on 04/03/2024. -clinically stable and compensated -Last echo 45-50% in January 2024 at OSH with speckled pattern of myocardium. Had had progressive symptoms since. 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 M spike of 0.8 grams/deciliter and M spike 2. A 0.2 grams/deciliter on 03/30/2024 SPEP, with normal UPEP. IgA shows monoclonal pattern, but not consistent with a myeloma. Possible cause of dementia. Questionable candidate for treatment given comorbidities -monitor electrolytes intermittently 2. JAX superimposed on chronic kidney disease, present on admission and improved. - continue to monitor a couple times per week with addition of metolazone for now. Will repeat BMP tomorrow. 3. Myocardial injury, present on admission and active, improved - stress test was low risk. 4. Cognitive impairement with dementia, present on admission and active. - consider amyloidosis. - Plan is for a friend to assume financial POA. Awaiting alternative options. - Anticipate placement. Patient currently appears competent and able to designate a financial power of hearing aid assembly supervisor currently based on discussion 04/11/2024. 5. Chronic severe protein calorie malnutrition, present on admission and active. --malnutrition - inadequate oral intake as evidenced by moderate to severe muscle mass wasting (deltoids, pectoralis major, trapezius, temporalis, interosseous), severe subcutaneous fat loss (buccal, orbital), 8% weight loss in 2 months, severe, BMI 19.9 (underweight for age). 6. Paroxysmal atrial fibrillation, present on admission and active. - continue apixiban started 03/24/2024 for stroke prevention. 7. Hypokalemia - likely with addition of metolazone. Will check BMP again tomorrow. Consider increasing potassium supplementation. Code status is full code. DVT prophylaxis is with above apixaban. Proxy was close friend Pan Horne, pending POA paperwork currently as discussed above. I have reviewed home meds and used all available resources to reconcile the home meds. Case discussed with case management and nursing staff to formulate the above assessement and plan. Dispo: Pending POA paperwork followed by placement options. Time-Based Coding :: [TOTAL MINUTES] spent with patient and on the chart (including review of chart, obtaining history, exam, reviewing outside data, placing orders, documenting exam and treatment plan, and counseling patient) on [DATE]. Quality VTE Deep Vein Thrombosis/Pulmonary Embolism Present on Admission: No
[2024-04-13] MEDS: POTASSIUM CHLORIDE 20 MEQ/15 ML UDC 40 MEQ PO (17:42)
[2024-04-13 19:00] VITALS: BP 103/55; PULSE 78; RESP 18; TEMP 36.4; O2SAT 100
[2024-04-13] MEDS: LORazepam 0.5 MG TABLET PO (20:47)
[2024-04-13] MEDS: MELATONIN 3 MG TABLET 6 MG PO (20:47)
[2024-04-13] MEDS: ATORVASTATIN 20 MG TABLET 40 MG PO (20:48)
[2024-04-13] MEDS: ACETAMINOPHEN 325 MG TABLET 650 MG PO (20:48)
[2024-04-14 05:54] LABS: BUN Creatinine Ratio 31.3 (6-22); Blood Urea Nitrogen 51 mg/dL (9-20); Calcium 9.2 mg/dL (8.4-10.2); Carbon Dioxide 29 mmol/L (22-32); Chloride 98 mmol/L (98-107); Estimated Glomerular Filt Rate 42 mL/min (>60); Glucose 112 mg/dL (80-110); HEMOLYSIS < 15 (0-50); Potassium 3.3 mmol/L (3.4-5.1); Sodium 132 mmol/L (137-145)
[2024-04-14 07:00] VITALS: BP 111/70; PULSE 105; RESP 18; TEMP 36.1; O2SAT 97
[2024-04-14] MEDS: SENNOSIDES 8.6 MG TABLET PO (08:09)
[2024-04-14] MEDS: POTASSIUM CHLORIDE 20 MEQ/15 ML UDC 40 MEQ PO ×2 (08:09→16:39)
[2024-04-14] MEDS: metOLazone 2.5 MG TABLET 5 MG PO (08:09)
[2024-04-14] MEDS: DOCUSATE 100 MG CAPSULE PO (08:09)
[2024-04-14] MEDS: FUROSEMIDE 20 MG TABLET PO ×2 (08:09→16:39)
[2024-04-14] MEDS: ASPIRIN EC 81 MG TABLET PO (08:10)
[2024-04-14] MEDS: APIXABAN 5 MG TABLET 2.5 MG PO ×2 (08:10→20:29)
--- NOTE | 2024-04-14 11:06 | CM.DPNOTE ---
DCP Cont Placement See below for update from MICHEL Naranjo via email correspondence; April 14, 2024 Rishabh Daniels, Assessment went well. I aim to get assessments ready for plan approval within 2 business days. Once I have that from the DPOA, and client is financially eligible, I?ll get the assessment over to you right away. His application is assigned to SHIRA Gottlieb ([phone]), and it doesn?t look like she?s worked on it yet. When I spoke to WS yesterday, he said he was interested in an adult family home in [facility] or [facility], but he didn?t seem too attached to that geographical area. He may agree to [facility]. Thanks! [facility] completing their bedside assessment with patient this morning at 1130. CM team following closely for coordination of discharge. BOLIVAR
--- NOTE | 2024-04-14 16:23 | PM.PN.1 ---
Subjective Subjective Interval history: No complaints today. Potassium low, Cr slightly up will decrease metolazone to 3x weekly. [facility] completing assessment. Exam Vital Signs (past 8 hours): Oxygen Delivery Method Room Air Oxygen Flow Rate 0 Narrative Exam Narrative: NAD, alert and oriented. Fluent speech. Extremities with no edema Objective Labs 04/09/24 05:55 04/14/24 04:42 Labs: Laboratory Results - last 24 hr 04/14/24 04:42 Sodium 132 L Potassium 3.3 L Chloride 98 Carbon Dioxide 29 BUN 51 H Creatinine 1.63 H Estimated GFR 42 L BUN/Creatinine Ratio 31.3 H Glucose 112 H Calcium 9.2 PFSH Medical History Hypercalcemia Mild anemia Abnormal echocardiogram Bilateral pleural effusion Weight loss Hoarseness of voice Protein malnutrition Congestive heart failure Social History household members: friend(s) Smoking Status: Former smoker alcohol intake: former Assessment & Plan Assessment & Plan narrative: 1. 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 -continue furosemide 20 mg b.i.d. -added metolazone 5mg daily on 04/08/2024, decreased to 3x weekly on 04/14/24 given hypokalemia, and slightly elevated cr at 1.63 compared to previous 1.4. -added potassium chloride 20 mEq b.i.d. potassium 4.0 on 04/03/2024. -clinically stable and compensated -Last echo 45-50% in January 2024 at OSH with speckled pattern of myocardium. Had had progressive symptoms since. 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 M spike of 0.8 grams/deciliter and M spike 2. A 0.2 grams/deciliter on 03/30/2024 SPEP, with normal UPEP. IgA shows monoclonal pattern, but not consistent with a myeloma. Possible cause of dementia. Questionable candidate for treatment given comorbidities -monitor electrolytes intermittently 2. JAX superimposed on chronic kidney disease, present on admission and improved. - continue to monitor a couple times per week with addition of metolazone for now. Will repeat BMP tomorrow. 3. Myocardial injury, present on admission and active, improved - stress test was low risk. 4. Cognitive impairement with dementia, present on admission and active. - consider amyloidosis. - Plan is for a friend to assume financial POA. Awaiting alternative options. - Anticipate placement. Patient currently appears competent and able to designate a financial power of prosecuting attorney currently based on discussion 04/11/2024. 5. Chronic severe protein calorie malnutrition, present on admission and active. --malnutrition - inadequate oral intake as evidenced by moderate to severe muscle mass wasting (deltoids, pectoralis major, trapezius, temporalis, interosseous), severe subcutaneous fat loss (buccal, orbital), 8% weight loss in 2 months, severe, BMI 19.9 (underweight for age). 6. Paroxysmal atrial fibrillation, present on admission and active. - continue apixiban started 03/24/2024 for stroke prevention. 7. Hypokalemia - likely with addition of metolazone. Backed off on dosing to 3x weekly. Continue to follow as needed. Code status is full code. DVT prophylaxis is with above apixaban. Proxy was close friend Pan Horne, pending POA paperwork currently as discussed above. I have reviewed home meds and used all available resources to reconcile the home meds. Case discussed with case management and nursing staff to formulate the above assessement and plan. Dispo: Pending placement, [facility] with bedside assessment today. Time-Based Coding :: [TOTAL MINUTES] spent with patient and on the chart (including review of chart, obtaining history, exam, reviewing outside data, placing orders, documenting exam and treatment plan, and counseling patient) on [DATE]. Quality VTE Deep Vein Thrombosis/Pulmonary Embolism Present on Admission: No
[2024-04-14 19:00] VITALS: BP 96/61; PULSE 94; RESP 18; TEMP 36.4; O2SAT 97
[2024-04-14] MEDS: MELATONIN 3 MG TABLET 6 MG PO (20:30)
[2024-04-14] MEDS: ATORVASTATIN 20 MG TABLET 40 MG PO (20:30)
[2024-04-14] MEDS: CALCIUM CARBONATE 500 MG TAB PO (20:38)
[2024-04-15 06:13] LABS: BUN Creatinine Ratio 33.8 (6-22); Blood Urea Nitrogen 51 mg/dL (9-20); Calcium 9.1 mg/dL (8.4-10.2); Carbon Dioxide 30 mmol/L (22-32); Chloride 98 mmol/L (98-107); Estimated Glomerular Filt Rate 46 mL/min (>60); Glucose 103 mg/dL (80-110); HEMOLYSIS < 15 (0-50); Potassium 3.3 mmol/L (3.4-5.1); Sodium 133 mmol/L (137-145)
[2024-04-15 07:00] VITALS: BP 105/60; PULSE 78; RESP 12; TEMP 36.6; O2SAT 99
--- NOTE | 2024-04-15 08:38 | P.PN_ITS ---
Subjective Subjective Interval history: No complaints, low potassium again today. Bumex decreased to TIW recently. Exam Vital Signs (past 8 hours): Oxygen Delivery Method Room Air Oxygen Flow Rate 0 Narrative Exam Narrative: NAD, alert and oriented. Fluent speech. Lungs are clear, normal rate and effort. Heart is regular, no murmur gallop or rub. Abdomen is soft, non distended. Extremities are with 2+ edema. Objective Labs 04/09/24 05:55 04/15/24 05:06 Labs: Laboratory Results - last 24 hr 04/15/24 05:06 Sodium 133 L Potassium 3.3 L Chloride 98 Carbon Dioxide 30 BUN 51 H Creatinine 1.51 H Estimated GFR 46 L BUN/Creatinine Ratio 33.8 H Glucose 103 Calcium 9.1 PFSH Medical History Hypercalcemia Mild anemia Abnormal echocardiogram Bilateral pleural effusion Weight loss Hoarseness of voice Protein malnutrition Congestive heart failure Social History household members: friend(s) Smoking Status: Former smoker alcohol intake: former Assessment & Plan Assessment & Plan narrative: 1. 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 2. JAX superimposed on chronic kidney disease, present on admission and improved. 3. Demand ischemia, present on admission and improved. 4. Cognitive impairement with dementia, present on admission and active. - Plan is for a friend to assume financial POA. Awaiting alternative options. - Anticipate placement. Patient currently appears competent and able to designate a financial power of respiratory therapy manager currently based on discussion 04/11/2024. 5. Chronic severe protein calorie malnutrition, present on admission and active. --malnutrition - inadequate oral intake as evidenced by moderate to severe muscle mass wasting (deltoids, pectoralis major, trapezius, temporalis, interosseous), severe subcutaneous fat loss (buccal, orbital), 8% weight loss in 2 months, severe, BMI 19.9 (underweight for age). 6. Paroxysmal atrial fibrillation, present on admission and active. - continue apixiban started 03/24/2024 for stroke prevention. 7. Hypokalemia, improved with lower dose of diuretics. - likely with addition of metolazone. Backed off on dosing to 3x weekly. Continue to follow as needed. Code status is full code. Dispo: Pending placement. Time-Based Coding :: [TOTAL MINUTES] spent with patient and on the chart (including review of chart, obtaining history, exam, reviewing outside data, placing orders, documenting exam and treatment plan, and counseling patient) on [DATE]. Quality VTE Deep Vein Thrombosis/Pulmonary Embolism Present on Admission: No
[2024-04-15] MEDS: ASPIRIN EC 81 MG TABLET PO (08:49)
[2024-04-15] MEDS: APIXABAN 5 MG TABLET 2.5 MG PO ×2 (08:49→20:21)
[2024-04-15] MEDS: POTASSIUM CHLORIDE 20 MEQ/15 ML UDC 40 MEQ PO ×2 (08:49→16:43)
[2024-04-15] MEDS: SENNOSIDES 8.6 MG TABLET PO (08:49)
[2024-04-15] MEDS: FUROSEMIDE 20 MG TABLET PO ×2 (08:49→16:43)
[2024-04-15] MEDS: DOCUSATE 100 MG CAPSULE PO (08:49)
[2024-04-15 19:00] VITALS: BP 95/58; PULSE 85; RESP 16; TEMP 36.3; O2SAT 98
[2024-04-15] MEDS: MELATONIN 3 MG TABLET 6 MG PO (20:20)
[2024-04-15] MEDS: CALCIUM CARBONATE 500 MG TAB PO (20:21)
[2024-04-15] MEDS: ATORVASTATIN 20 MG TABLET 40 MG PO (20:21)
[2024-04-16] MEDS: ACETAMINOPHEN 325 MG TABLET 650 MG PO ×2 (02:45→20:17)
[2024-04-16 05:26] LABS: BUN Creatinine Ratio 34.2 (6-22); Blood Urea Nitrogen 51 mg/dL (9-20); Calcium 9.2 mg/dL (8.4-10.2); Carbon Dioxide 32 mmol/L (22-32); Chloride 97 mmol/L (98-107); Estimated Glomerular Filt Rate 47 mL/min (>60); Glucose 103 mg/dL (80-110); HEMOLYSIS < 15 (0-50); Potassium 3.4 mmol/L (3.4-5.1); Sodium 134 mmol/L (137-145)
[2024-04-16 07:00] VITALS: BP 81/44; PULSE 70; RESP 16; TEMP 36.5; O2SAT 97
--- NOTE | 2024-04-16 07:55 | PM.PN.1 ---
Subjective Subjective Interval history: Feels a little short of breath today. Exam Vital Signs (past 8 hours): Oxygen Delivery Method Room Air Oxygen Flow Rate 0 Narrative Exam Narrative: NAD, alert and oriented. Fluent speech. Lungs are clear, normal rate and effort. Heart is regular, no murmur gallop or rub. Abdomen is soft, non distended. Extremities are with 2+ edema. Objective Labs 04/09/24 05:55 04/16/24 04:29 Labs: Laboratory Results - last 24 hr 04/16/24 04:29 Sodium 134 L Potassium 3.4 Chloride 97 L Carbon Dioxide 32 BUN 51 H Creatinine 1.49 H Estimated GFR 47 L BUN/Creatinine Ratio 34.2 H Glucose 103 Calcium 9.2 Magnesium 2.0 PFSH Medical History Hypercalcemia Mild anemia Abnormal echocardiogram Bilateral pleural effusion Weight loss Hoarseness of voice Protein malnutrition Congestive heart failure Social History household members: friend(s) Smoking Status: Former smoker alcohol intake: former Assessment & Plan Assessment & Plan narrative: 1. 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 2. JAX superimposed on chronic kidney disease, present on admission and improved. 3. Demand ischemia, present on admission and improved. 4. Cognitive impairement with dementia, present on admission and active. - Plan is for a friend to assume financial POA. Awaiting alternative options. - Anticipate placement. Patient currently appears competent and able to designate a financial power of local bulk driver currently based on discussion 04/11/2024. 5. Chronic severe protein calorie malnutrition, present on admission and active. --malnutrition - inadequate oral intake as evidenced by moderate to severe muscle mass wasting (deltoids, pectoralis major, trapezius, temporalis, interosseous), severe subcutaneous fat loss (buccal, orbital), 8% weight loss in 2 months, severe, BMI 19.9 (underweight for age). 6. Paroxysmal atrial fibrillation, present on admission and active. - continue apixiban started 03/24/2024 for stroke prevention. 7. Hypokalemia, improved with lower dose of diuretics. - likely with addition of metolazone. Backed off on dosing to 3x weekly. Continue to follow as needed. PLAN: -continue current medications, -give additional dose of lasix today. -ongoing placement efforts. Code status is full code. Time-Based Coding :: 20 min spent with patient and on the chart (including review of chart, obtaining history, exam, reviewing outside data, placing orders, documenting exam and treatment plan, and counseling patient) on 04/16. Quality VTE Deep Vein Thrombosis/Pulmonary Embolism Present on Admission: No
[2024-04-16] MEDS: POTASSIUM CHLORIDE 20 MEQ/15 ML UDC 40 MEQ PO ×3 (08:29→17:22)
[2024-04-16] MEDS: APIXABAN 5 MG TABLET 2.5 MG PO ×2 (08:34→20:17)
[2024-04-16] MEDS: SENNOSIDES 8.6 MG TABLET PO (08:34)
[2024-04-16] MEDS: ASPIRIN EC 81 MG TABLET PO (08:34)
[2024-04-16] MEDS: FUROSEMIDE 20 MG TABLET PO ×2 (08:34→17:22)
[2024-04-16] MEDS: DOCUSATE 100 MG CAPSULE PO (08:35)
[2024-04-16] MEDS: CALCIUM CARBONATE 500 MG TAB PO ×2 (10:56→20:14)
--- NOTE | 2024-04-16 12:41 | CM.DPC ---
DCP Cont. Reviewed EMR and team rounds for status updates. Plan remains d/c to LTC facility. is currently waiting for pt's [facility] C[facility]ING MACHINE TENDER to provide the daily rate for placement. Will f/u tomorrow for status.
[2024-04-16 19:00] VITALS: BP 109/65; PULSE 45; RESP 18; TEMP 36.3; O2SAT 100
[2024-04-16] MEDS: ATORVASTATIN 20 MG TABLET 40 MG PO (20:14)
[2024-04-16] MEDS: MELATONIN 3 MG TABLET 6 MG PO (20:14)
--- NOTE | 2024-04-16 23:16 | PC.NURSE ---
Patient is mostly oriented; did not know day of month, day of week or year. Speech is difficult to understand as he mumbles, articulates poorly and is soft spoken. Breath sounds CTA with RA sat of 100%. HR regularly irregular and was liz on monitor but in 60's apically at time of assessment. Denied nausea but complained of reflux and was medicated with Tums. BT hypoactive and denied flatus and has not had a BM since 04/13. Is voiding without complains of dysuria. Is able to move himself in bed. Out of bed with 1 assist + walker. Has 2+ bilateral LE edema and complained of 3/10 pain so was medicated with Tylenol and denied pain at time of assessment. Bilateral calf SCD's applied as patient agreeable to trying them. Fall risk score is high and bed alarm is activated.
[2024-04-17] MEDS: CALCIUM CARBONATE 500 MG TAB PO ×3 (04:29→23:19)
[2024-04-17 06:26] LABS: BUN Creatinine Ratio 30.6 (6-22); Blood Urea Nitrogen 53 mg/dL (9-20); Calcium 9.2 mg/dL (8.4-10.2); Carbon Dioxide 32 mmol/L (22-32); Chloride 97 mmol/L (98-107); Estimated Glomerular Filt Rate 39 mL/min (>60); Glucose 95 mg/dL (80-110); HEMOLYSIS < 15 (0-50); Potassium 4.4 mmol/L (3.4-5.1); Sodium 132 mmol/L (137-145)
[2024-04-17 07:00] VITALS: BP 106/65; PULSE 85; RESP 16; TEMP 36.1; O2SAT 99
--- NOTE | 2024-04-17 07:40 | PM.PN.1 ---
Subjective Subjective Interval history: No new complaints. No dyspnea. Poor appetite. Exam Vital Signs (past 8 hours): Oxygen Delivery Method Room Air Oxygen Flow Rate 0 Narrative Exam Narrative: NAD, alert and oriented. Fluent speech. Lungs are clear, normal rate and effort. Heart is regular, no murmur gallop or rub. Abdomen is soft, non distended. Extremities are with 2+ edema. Objective Labs 04/09/24 05:55 04/17/24 05:47 Labs: Laboratory Results - last 24 hr 04/17/24 05:47 Sodium 132 L Potassium 4.4 Chloride 97 L Carbon Dioxide 32 BUN 53 H Creatinine 1.73 H Estimated GFR 39 L BUN/Creatinine Ratio 30.6 H Glucose 95 Calcium 9.2 [facility] Medical History Hypercalcemia Mild anemia Abnormal echocardiogram Bilateral pleural effusion Weight loss Hoarseness of voice Protein malnutrition Congestive heart failure Social History household members: friend(s) Smoking Status: Former smoker alcohol intake: former Assessment & Plan Assessment & Plan narrative: 1. 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 2. JAX superimposed on chronic kidney disease, improved. 3. Demand ischemia, present on admission and improved. 4. Cognitive impairement with dementia, present on admission and active. - Plan is for a friend to assume financial POA. Awaiting alternative options. 5. Chronic severe protein calorie malnutrition, present on admission and active. --malnutrition - inadequate oral intake as evidenced by moderate to severe muscle mass wasting (deltoids, pectoralis major, trapezius, temporalis, interosseous), severe subcutaneous fat loss (buccal, orbital), 8% weight loss in 2 months, severe, BMI 19.9 (underweight for age). 6. Paroxysmal atrial fibrillation, present on admission and active. - continue apixiban started 03/24/2024 for stroke prevention. 7. Hypokalemia, improved with lower dose of diuretics. - likely with addition of metolazone. Backed off on dosing to 3x weekly. Continue to follow as needed. PLAN: -continue current medications, -ongoing placement efforts. Code status is full code. Time-Based Coding :: 20 min spent with patient and on the chart (including review of chart, obtaining history, exam, reviewing outside data, placing orders, documenting exam and treatment plan, and counseling patient) on 04/17. Quality VTE Deep Vein Thrombosis/Pulmonary Embolism Present on Admission: No
[2024-04-17] MEDS: APIXABAN 5 MG TABLET 2.5 MG PO ×2 (08:18→20:27)
[2024-04-17] MEDS: DOCUSATE 100 MG CAPSULE PO (08:18)
[2024-04-17] MEDS: metOLazone 2.5 MG TABLET 5 MG PO (08:18)
[2024-04-17] MEDS: FUROSEMIDE 20 MG TABLET PO ×2 (08:18→18:00)
[2024-04-17] MEDS: ASPIRIN EC 81 MG TABLET PO (08:18)
[2024-04-17] MEDS: SENNOSIDES 8.6 MG TABLET PO (08:18)
[2024-04-17] MEDS: POTASSIUM CHLORIDE 20 MEQ/15 ML UDC 40 MEQ PO ×2 (08:19→18:00)
--- NOTE | 2024-04-17 12:45 | CM.DPNOTE ---
DCP Note STRAIN TECHNICIAN reviewed EMR. Per Corin at [facility], financial approval pending for daily rate. She will send assessment as soon as available. Per Hansa at [facility], able to accept pt. Per MAURISIO Chicas, they have all appropriate POA/ID paperwork needed at [facility]. P: Placement pending daily rate/final assessment from [facility]. CM team will continue to follow closely. MAURISIO Arzate
[2024-04-17 19:52] VITALS: BP 101/60; PULSE 76; RESP 17; TEMP 36.5; O2SAT 96
[2024-04-17] MEDS: ATORVASTATIN 20 MG TABLET 40 MG PO (20:27)
[2024-04-17] MEDS: MELATONIN 3 MG TABLET 6 MG PO (20:27)
--- NOTE | 2024-04-17 23:37 | PC.NURSE ---
Patient is mostly oriented except to date/time. Breath sounds CTA with RA sat of 96%. HRR. Denied nausea. BT present and abdomen is soft. Voiding either directly into toilet or using urinal; denied dysuria. Is able to turn himself in bed. Ambulates in bernardo with walker and walked down to room 225 tonight and then sat looking out the window for 20 before being wheeled back to his room. Does report some mild SOB with exertion. Continues to have 2+ edema in bilateral LE; puffy and shiny. Refuses to wear SCD's tonight. Did complain of stomach upset and was medicated with TUMS. Denied other pain. Fall risk score is moderate and bed alarm is activated as does not always call appropriately for assistance.
--- NOTE | 2024-04-18 07:34 | PM.PN.1 ---
Subjective Subjective Interval history: No new concerns. Breathing fine. Exam Vital Signs (past 8 hours): Oxygen Delivery Method Room Air Oxygen Flow Rate 0 Narrative Exam Narrative: NAD, alert and oriented. Fluent speech. Lungs are clear, normal rate and effort. Heart is regular, no murmur gallop or rub. Abdomen is soft, non distended. Extremities with 2+ edema. Objective Labs 04/09/24 05:55 04/17/24 05:47 [facility] Medical History Hypercalcemia Mild anemia Abnormal echocardiogram Bilateral pleural effusion Weight loss Hoarseness of voice Protein malnutrition Congestive heart failure Social History household members: friend(s) Smoking Status: Former smoker alcohol intake: former Assessment & Plan Assessment & Plan narrative: 1. 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 2. JAX superimposed on chronic kidney disease, improved. 3. Demand ischemia, present on admission and improved. 4. Cognitive impairement with dementia, present on admission and active. - Plan is for a friend to assume financial POA. Awaiting alternative options. 5. Chronic severe protein calorie malnutrition, present on admission and active. --malnutrition - inadequate oral intake as evidenced by moderate to severe muscle mass wasting (deltoids, pectoralis major, trapezius, temporalis, interosseous), severe subcutaneous fat loss (buccal, orbital), 8% weight loss in 2 months, severe, BMI 19.9 (underweight for age). 6. Paroxysmal atrial fibrillation, present on admission and active. - continue apixiban started 03/24/2024 for stroke prevention. 7. Hypokalemia, improved with lower dose of diuretics. - likely with addition of metolazone. Backed off on dosing to 3x weekly. Continue to follow as needed. PLAN: -continue current medications, -ongoing placement efforts. Full code Time-Based Coding :: 20 min spent with patient and on the chart (including review of chart, obtaining history, exam, reviewing outside data, placing orders, documenting exam and treatment plan, and counseling patient) on 04/18. Quality VTE Deep Vein Thrombosis/Pulmonary Embolism Present on Admission: No
[2024-04-18 08:29] VITALS: BP 110/72; PULSE 80; RESP 18; TEMP 36.7; O2SAT 97
[2024-04-18] MEDS: FUROSEMIDE 20 MG TABLET PO ×2 (08:52→17:16)
[2024-04-18] MEDS: ASPIRIN EC 81 MG TABLET PO (08:52)
[2024-04-18] MEDS: DOCUSATE 100 MG CAPSULE PO (08:52)
[2024-04-18] MEDS: APIXABAN 5 MG TABLET 2.5 MG PO ×2 (08:52→20:48)
[2024-04-18] MEDS: SENNOSIDES 8.6 MG TABLET PO (08:52)
[2024-04-18] MEDS: POTASSIUM CHLORIDE 20 MEQ/15 ML UDC 40 MEQ PO ×2 (08:52→17:16)
--- NOTE | 2024-04-18 14:15 | CM.DPNOTE ---
DCP note From Devan at [facility], asked for copies of the financial/healthcare POA, ID, and ins card. NETWORK SUPPORT emailed them to her for their records. No new update from the state at this time. CM team will continue to follow closely MAURISIO Arzate
[2024-04-18 19:55] VITALS: BP 103/62; PULSE 75; RESP 19; TEMP 36.4; O2SAT 97
[2024-04-18] MEDS: MELATONIN 3 MG TABLET 6 MG PO (21:07)
[2024-04-18] MEDS: ATORVASTATIN 20 MG TABLET 40 MG PO (21:07)
[2024-04-18] MEDS: CALCIUM CARBONATE 500 MG TAB PO (21:32)
--- NOTE | 2024-04-19 08:03 | P.PN_ITS ---
Subjective Subjective Interval history: No new concerns. Exam Vital Signs (past 8 hours): Oxygen Delivery Method Room Air Oxygen Flow Rate 0 Narrative Exam Narrative: NAD, alert and oriented. Fluent speech. Lungs are clear, normal rate and effort. Heart is regular, no murmur gallop or rub. Abdomen is soft, non distended. Extremities with 2+ edema. Objective Labs 04/09/24 05:55 04/17/24 05:47 [facility]PLAC[facility] BY [facility] Medical History Hypercalcemia Mild anemia Abnormal echocardiogram Bilateral pleural effusion Weight loss Hoarseness of voice Protein malnutrition Congestive heart failure Social History household members: friend(s) Smoking Status: Former smoker alcohol intake: former Assessment & Plan Assessment & Plan narrative: 1. 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 2. JAX superimposed on chronic kidney disease, improved. 3. Demand ischemia, present on admission and improved. 4. Cognitive impairement with dementia, present on admission and active. - Plan is for a friend to assume financial POA. Awaiting alternative options. 5. Chronic severe protein calorie malnutrition, present on admission and active. --malnutrition - inadequate oral intake as evidenced by moderate to severe muscle mass wasting (deltoids, pectoralis major, trapezius, temporalis, interosseous), severe subcutaneous fat loss (buccal, orbital), 8% weight loss in 2 months, severe, BMI 19.9 (underweight for age). 6. Paroxysmal atrial fibrillation, present on admission and active. - continue apixiban started 03/24/2024 for stroke prevention. 7. Hypokalemia, improved with lower dose of diuretics. - likely with addition of metolazone. Backed off on dosing to 3x weekly. Continue to follow as needed. PLAN: -continue current medications, -ongoing placement efforts. Time-Based Coding :: 20 min spent with patient and on the chart (including review of chart, obtaining history, exam, reviewing outside data, placing orders, documenting exam and treatment plan, and counseling patient) on 04/19. Quality VTE Deep Vein Thrombosis/Pulmonary Embolism Present on Admission: No
[2024-04-19] MEDS: APIXABAN 5 MG TABLET 2.5 MG PO ×2 (08:50→20:46)
[2024-04-19] MEDS: POTASSIUM CHLORIDE 20 MEQ/15 ML UDC 40 MEQ PO ×2 (08:50→16:53)
[2024-04-19] MEDS: SENNOSIDES 8.6 MG TABLET PO (08:50)
[2024-04-19] MEDS: DOCUSATE 100 MG CAPSULE PO (08:50)
[2024-04-19] MEDS: ASPIRIN EC 81 MG TABLET PO (08:50)
[2024-04-19] MEDS: metOLazone 2.5 MG TABLET 5 MG PO (08:50)
[2024-04-19] MEDS: FUROSEMIDE 20 MG TABLET PO ×2 (08:50→16:53)
[2024-04-19 12:18] VITALS: BP 103/56; PULSE 72; RESP 14; TEMP 36.5; O2SAT 98
--- NOTE | 2024-04-19 13:14 | CM.DPNOTE ---
DCP Note Hansa from [facility] confirmed they now have all of the documents they need for move in, just waiting on assessment and daily rate. Per lead THREAD WEAVER Aviva, state policy dictates we have to wait 48hrs after getting daily rate to dc to [facility]. Coordinate with Ashok once rate is known. CM team will coordinate with Antonio once date is known to move in pt's belongings. CM team remains vigilant waiting on state to financially approve medicaid elsie and finalize daily rate. MAURISIO Arzate
--- NOTE | 2024-04-19 14:44 | PC.NURSE ---
Pt placed call light on and stated he was short of breath. O2 Sat 95% on room air, respiratory rate 20, Pt exhibits no signs of discomfort or labored breathing. Notified Dr. Pavon-no new order at this time.
[2024-04-19 15:04] VITALS: RESP 20; O2SAT 95
[2024-04-19 19:55] VITALS: BP 114/57; PULSE 71; RESP 14; TEMP 36.5; O2SAT 98
[2024-04-19] MEDS: MELATONIN 3 MG TABLET 6 MG PO (20:45)
[2024-04-19] MEDS: ATORVASTATIN 20 MG TABLET 40 MG PO (20:46)
--- NOTE | 2024-04-20 07:41 | P.PN_ITS ---
Subjective Subjective Interval history: No new issues or concerns. Exam Vital Signs (past 8 hours): - 04/20/24 07:00 Oxygen Delivery Method Room Air Oxygen Delivery Method Room Air Oxygen Flow Rate 0 Narrative Exam Narrative: NAD, alert and oriented. Fluent speech. Lungs are clear, normal rate and effort. Heart is regular, no murmur gallop or rub. Abdomen is soft, non distended. Extremities with 2* edema. Objective Labs 04/09/24 05:55 04/17/24 05:47 [facility] Medical History Hypercalcemia Mild anemia Abnormal echocardiogram Bilateral pleural effusion Weight loss Hoarseness of voice Protein malnutrition Congestive heart failure Social History household members: friend(s) Smoking Status: Former smoker alcohol intake: former Assessment & Plan Assessment & Plan narrative: 1. 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 2. JAX superimposed on chronic kidney disease, resolved 3. Demand ischemia, present on admission and resolved. 4. Cognitive impairement with dementia, present on admission and stable. - Plan is for a friend to assume financial POA. Awaiting alternative options. 5. Chronic severe protein calorie malnutrition, present on admission and active. --malnutrition - inadequate oral intake as evidenced by moderate to severe muscle mass wasting (deltoids, pectoralis major, trapezius, temporalis, interosseous), severe subcutaneous fat loss (buccal, orbital), 8% weight loss in 2 months, severe, BMI 19.9 (underweight for age). 6. Paroxysmal atrial fibrillation, present on admission and active. - continue apixiban started 03/24/2024 for stroke prevention. 7. Hypokalemia, improved with lower dose of diuretics. Resolved. - likely with addition of metolazone. Backed off on dosing to 3x weekly. Continue to follow as needed. PLAN: -continue current medications, -ongoing placement efforts. Currently waiting for a rate from the [facility], he was accepted at [facility]. Time-Based Coding :: 20 min spent with patient and on the chart (including review of chart, obtaining history, exam, reviewing outside data, placing orders, documenting exam and treatment plan, and counseling patient) on 04/20. Quality VTE Deep Vein Thrombosis/Pulmonary Embolism Present on Admission: No
[2024-04-20 08:00] VITALS: BP 100/54; PULSE 70; RESP 18; TEMP 36.3; O2SAT 99
[2024-04-20] MEDS: SENNOSIDES 8.6 MG TABLET PO (08:39)
[2024-04-20] MEDS: APIXABAN 5 MG TABLET 2.5 MG PO ×2 (08:39→21:08)
[2024-04-20] MEDS: FUROSEMIDE 20 MG TABLET PO ×2 (08:39→17:47)
[2024-04-20] MEDS: DOCUSATE 100 MG CAPSULE PO (08:39)
[2024-04-20] MEDS: POTASSIUM CHLORIDE 20 MEQ/15 ML UDC 40 MEQ PO ×2 (08:39→17:47)
[2024-04-20] MEDS: ASPIRIN EC 81 MG TABLET PO (08:39)
--- NOTE | 2024-04-20 13:31 | CM.DPC ---
DCP Cont: SW emailed [facility] functional editor publications Corin Valenzuela and Hansa at [facility] and confirmed that [facility] Christi Gottlieb ([phone]) is still waiting for bank statements/documents to confirm that pt meets Medicaid eligibility before Corin and Hansa can move forward with finalizing discharge to [facility]. SW called pt's Financial HCS worker Christi at above phone number and she does not work but back tomorrow Wed and left detailed msg to confirm if she has received any documents yet and if there has been communication between herself and the financial POA Eliecer. SW called pt's financial POA Eliecer Mensah [phone] and left msg requesting call back and also emailed him at [email or web address] inquiring about his communication and obtaining the documents needed for Medicaid eligibility. Plan: SW to follow closely for discussion with [facility] Christi and Financial POA Eliecer to confirm pt's financial eligibility for Medicaid towards moving him into [facility]. MAURISIO Carlin
[2024-04-20 19:00] VITALS: BP 90/54; PULSE 71; RESP 16; TEMP 36.6; O2SAT 97
[2024-04-20] MEDS: MELATONIN 3 MG TABLET 6 MG PO (21:08)
[2024-04-20] MEDS: ATORVASTATIN 20 MG TABLET 40 MG PO (21:08)
[2024-04-21 08:00] VITALS: BP 99/53; PULSE 82; RESP 17; TEMP 36.3; O2SAT 93
[2024-04-21] MEDS: POTASSIUM CHLORIDE 20 MEQ/15 ML UDC 40 MEQ PO ×2 (08:52→17:29)
[2024-04-21] MEDS: ASPIRIN EC 81 MG TABLET PO (08:52)
[2024-04-21] MEDS: APIXABAN 5 MG TABLET 2.5 MG PO ×2 (08:52→20:26)
[2024-04-21] MEDS: DOCUSATE 100 MG CAPSULE PO (08:52)
[2024-04-21] MEDS: SENNOSIDES 8.6 MG TABLET PO (08:53)
[2024-04-21] MEDS: FUROSEMIDE 20 MG TABLET PO ×2 (08:56→17:29)
[2024-04-21] MEDS: metOLazone 2.5 MG TABLET 5 MG PO (08:56)
--- NOTE | 2024-04-21 13:26 | CM.DPC ---
DCP Continued: Reviewed EMR and team rounds for pt?s medical status. DCP received confirmation from [facility] that patient's belongings will be arriving via POA on 04/23 and patient will be able to move in on 04/24 at 11:00am. DCP notified pt's RN, Green Inspector, Hospitalist, and patient; all verbalized understanding of plan. DCP inquired with [facility] regarding transport with facility, pending response. Plan: Anticipating discharge on 04/24 at 11:00am to [facility]. CM Team will continue to follow for coordination of discharge plans. JAMILA Chairez
--- NOTE | 2024-04-21 13:32 | DIET.CONS2 ---
Dietary Inpatient Consultation Note Admission Date: 03/24/2024 12:41 Recent recorded po intakes 25-75%. Per RN, pt will sometimes have snacks between meals, typically drinks like Ensure/milk. Will send up ONS Enlive/Plus over Original to continue to support adequate po intakes. Diet: 03/28/24 Breakfast Heart Healthy Diet Diet Modifications: May Advance Diet as Tolerated: No Safety Tray needed?: No Sodium Level: 2 gm Sodium Food Texture: Level 7 - Regular Liquid Consistency: Level 0 - Thin Nutrition Percent Meal Consumed 50% 04/20/24 13:50 Percent Meal Consumed 50% 04/20/24 09:18 Electronically Signed by: Soledad Sánchez 04/21/24 13:32 Clinical Dietitian [address] [address]
--- NOTE | 2024-04-21 15:36 | P.PN_ITS ---
Subjective Subjective Interval history: No new issues or concerns. Being set up for placement on Wednesday now. Exam Vital Signs (past 8 hours): - 04/21/24 08:00 Temperature 97.4 F L Pulse Rate 82 Respiratory Rate 17 Blood Pressure 99/53 L Pulse Oximetry 93 Oxygen Delivery Method Room Air Oxygen Flow Rate 0 Narrative Exam Narrative: NAD, alert and oriented. Fluent speech. Lungs are clear, normal rate and effort. Heart is regular, no murmur gallop or rub. Abdomen is soft, non distended. Extremities with 2* edema. Objective Labs 04/09/24 05:55 04/17/24 05:47 [facility] Medical History Hypercalcemia Mild anemia Abnormal echocardiogram Bilateral pleural effusion Weight loss Hoarseness of voice Protein malnutrition Congestive heart failure Social History household members: friend(s) Smoking Status: Former smoker alcohol intake: former Assessment & Plan Assessment & Plan narrative: 1. 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 2. JAX superimposed on chronic kidney disease, resolved 3. Demand ischemia, present on admission and resolved. 4. Cognitive impairement with dementia, present on admission and stable. - Plan is for a friend to assume financial POA. Awaiting alternative options. 5. Chronic severe protein calorie malnutrition, present on admission and active. --malnutrition - inadequate oral intake as evidenced by moderate to severe muscle mass wasting (deltoids, pectoralis major, trapezius, temporalis, interosseous), severe subcutaneous fat loss (buccal, orbital), 8% weight loss in 2 months, severe, BMI 19.9 (underweight for age). 6. Paroxysmal atrial fibrillation, present on admission and active. - continue apixiban started 03/24/2024 for stroke prevention. 7. Hypokalemia, improved with lower dose of diuretics. Resolved. - likely with addition of metolazone. Backed off on dosing to 3x weekly. Continue to follow as needed. PLAN: -continue current medications, -ongoing placement efforts. Currently waiting for a rate from the [facility], he was accepted at [facility]. Likely discharge Wednesday per case management. Time-Based Coding :: [TOTAL MINUTES] spent with patient and on the chart (including review of chart, obtaining history, exam, reviewing outside data, placing orders, documenting exam and treatment plan, and counseling patient) on [DATE]. Quality VTE Deep Vein Thrombosis/Pulmonary Embolism Present on Admission: No
[2024-04-21] MEDS: BISACODYL 5 MG TABLET PO (17:29)
[2024-04-21 20:24] VITALS: BP 96/58; PULSE 78; RESP 15; TEMP 36.4; O2SAT 100
[2024-04-21] MEDS: MELATONIN 3 MG TABLET 6 MG PO (20:25)
[2024-04-21] MEDS: ATORVASTATIN 20 MG TABLET 40 MG PO (20:25)
--- NOTE | 2024-04-22 02:35 | ED.CONSULT ---
ED Provider Consult/Code Note General Reason for Admission: SOB, CHEST PAIN Events leading to Consult/Code: Patient got out of bed and fell. Nursing staff heard bed alarm and checked on patient and found him unresponsive and pulseless. Staff assist called, which turned into code blue Cardiac Rhythm: PEA Respiratory ET Tube Size: 7.5 Tube Secured Depth (cm): 24 Tube Secured Location: teeth Tube Placement Confirmation: Visualized tube passing through cords, Equal breath sounds bilaterally, No breath sounds over epigastrium and Confirmation by capnometry Care Provided Description of care provided: CPR in progress upon my arrival. Patient did have some spontaneous movement with CPR in progress. After 10 minutes of CPR performed by staff patient had spontaneous pulse. He was moved from the ground to the bed and placed on environmental monitoring specialist. Patient sinus bradycardia at a rate of 40-50 beats per minute. Given 1 mg of atropine with no change in pulse rate. Intubated by myself with 7.5 ETT. Patient received multiple rounds of CPR with epinephrine, bicarb, and calcium. Glucose 171. Despite 20minutes of high quality CPR no significant return of pulses obtained and time of called at 0223 Outcome Outcome: Patient
--- NOTE | 2024-04-22 04:35 | PC.NURSE ---
Addendum entered by Gee Yuan R.N. 04/22/24 06:30: [facility] took patient at 0625 Original Note: 0152: Patient bed alarm going off, per MEDICINE AND HEALTH SERVICE MANAGER patient sitting on edge of bed falling forward. MEDICINE AND HEALTH SERVICE MANAGER assisted patient to floor and called for this RN. Patient was face down onto floor when this RN arrived. Staff assist called, patient had no pulse, this RN started compressions. Coordinator came to room and pressed code blue button. Dr. Whitney joined the code at 0201. Dr. Desouza hospitalist will need to sign certificate. This RN notified JAN Perla of patients . [facility] notified by Court Liaison.
--- NOTE | 2024-04-22 08:23 | PM.DDS.1 ---
Discharge Summary History of Illness Narrative: Vazquez Reddy is an 78yo M with PMH of HFrEF 45-50%, paroxysmal afib, possible undiagnosed multiple myeloma, recent weight loss, CKD, former smoker who presents with continued dyspnea on exertion and possible chest pain. His history was inconsistent. It appears for the past few months he has had chronic dyspnea on exertion. He states he both had substernal chest pain which he later denied and stated he only had shortness of breath and difficulty catching his breath. He was vague on whether this was related to activity, though he definitely states he has difficulty climbing stairs and walking more than 1 block. In review of his recent hospitalizations, he supposedly had outside echo with EF of 45-50%, and possible myeloma. Recent electrophoresis however did not show an M-spike. D-dimer was elevated in the ER, CTA showed no PE but was consistent with volume overload. Cr is a bit more elevated at 1.72. Troponin was 0.136 but improved to 0.119 on repeat. UA not indicative of infection. He was admitted for further management. Hospital Course Date of Admission: 03/24/24 12:41 Date of : 04/22/24 Primary care provider: MAURI Garibay Consults: 03/24/24 08:30 Consult to Occupational Therapy Evaluate & Treat Comment: Physician Instructions: Evaluate and treat Consult to Physical Therapy Evaluate & Treat Comment: Physician Instructions: Evaluate and Treat 03/25/24 14:03 Consult to Home Health Routine Comment: CHF, JAX, PEs, dementia, weakness Reason For Exam: Set up RN/PT/OT/COMMUTATOR TESTER/ASBESTOS REMOVER Discharge provider: Dr. Desouza Discharge Diagnosis: 1. 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 2. JAX superimposed on chronic kidney disease, resolved 3. Demand ischemia, present on admission and resolved. 4. Cognitive impairement with dementia, present on admission and stable. 5. Chronic severe protein calorie malnutrition, present on admission and active. 6. Paroxysmal atrial fibrillation, present on admission and active. 7. Hypokalemia, improved with lower dose of diuretics. Resolved. Hospital Course: This is an 78 year old male who was admitted with dyspnea on exertion and possible chest pain. EF was noted to be reduced, and initially he improved with diuresis. Stress testing was performed which was deemed low risk, though there was concern for probable cardiac amyloidosis. His presenting symptoms improved with diruresis and he was doing quite well after a few days of medical optimization including metoprolol, lisinopril, and diuretic therapy. He was also diagnosed with a severe cognitive impairment, and was ultimately unable to return to his prior living situation with a friend due to increased care needs. Much of his stay was focused on placement, with case management helping him get into an assisted living facility, which was actually finally arranged for 04/24/24. Unfortunately, in the professor of early childhood education hours of 04/22/2024, a staff assist was called and the patient was found on the floor unresponsive with no pulse at 01:52 AM. The following is taken from the written code record found in his chart as I was not present at the time of the code. CPR was started by nursing staff, and with tele-hospitalist on duty, ER provider responded to bedside at 02:01. Epi was given at 0200 after an IO was placed in his L knee as he had no IV access. ROSC was achieved, with return to sinus bradycardia per documentation, and patient was moved to the bed and prepped for intubation. L arm IV was also placed. Blood glucose was checked and was 170. He was given etomidate, sophia, and atropine at 0211. ETT was placed, but is documented as having been removed at 0212, CPR restarted on 3 and he was reintubated at 0214. He had no pulse after this, with epi given again followed by bicarb and calcium. A 3rd and final dose of epi was given at 0221 with continued pulselessness and asystole. Code was stopped at 0223 and time of was noted. Objective Labs 04/09/24 05:55 04/17/24 05:47
--- NOTE | 2024-04-22 09:09 | CM.DPNOTE ---
DCP Note FOUR CORNER STAYER MACHINE OPERATOR reviewed EMR. Per chart review, pt unexpectedly this morning at 0223. Per RN note, pt was face down on the floor when RN started compressions. Per ED Dr. Whitney note, mary christian was called and CPR was performed for 20 minutes. Time of was called at 0223. Per RN note, dinesh Perla was notified. [facility] picked him up at 0625. This FOUR CORNER STAYER MACHINE OPERATOR emailed Corin Valenzuela from [facility], Hansa from [facility], and Parth maza from [facility] to notified of pt's passing. CM team will continue to follow as needed. No further action identified at this time. MAURISIO Arzate
== END 2024-04-22 06:25 | disposition expired | DRG 291 ==
LOC: ED 15:01 → AC 17:06
PROVIDERS: Emergency Medicine; Hospitalist; Internal Medicine; Admitting Provider Internal Medicine; Emergency Provider Emergency Medicine; PCP Nurse Practitioner Family; Referring Provider Emergency Medicine; Visit Provider Internal Medicine
DX: I50.43 Acute on chronic combined systolic (congestive) and diastolic (congestive) heart failure (principal); E43 Unspecified severe protein-calorie malnutrition; N17.9 Acute kidney failure, unspecified; Z68.1 Body mass index [BMI] 19.9 or less, adult; I24.89 Other forms of acute ischemic heart disease; I46.9 Cardiac arrest, cause unspecified; I48.0 Paroxysmal atrial fibrillation; F03.90 Unspecified dementia, unspecified severity, without behavioral disturbance, psychotic disturbance, mood disturbance, and anxiety; E87.6 Hypokalemia; N18.9 Chronic kidney disease, unspecified; Z87.891 Personal history of nicotine dependence
CPT/HCPCS: 36415; 70450; 71045; 71275; 74177; 78452; 80048; 80053; 81003; 81015; 82550; 82607; 82784; 83735; 83880; 83921; 84155; 84156; 84165; 84166; 84484; 85025; 85027; 85379; 85610; 86334; 92950; 93005; 93017; 93306; 94799; 97116; 97129; 97161; 97165; 97530; 97535; 99284; 99285; G0378; A9502; J0171; J0461; J1650; J1940; J2785; Q9967